=== PATIENT | male | born 1935 | race Caucasian/White ===

== ENCOUNTER 2016-07-06 14:45 | Inpatient (IN) ==
[~2016-07-06 14:45] MED LIST: *HR* Amiodarone 150 MG/3 ML VIAL IVPB ONE; *HR* Amiodarone Premix 150 MG/100 ML BAG IVPB ONE; *HR* Amiodarone Premix 360 MG/200 ML BAG IVC ONE; *HR* EPINEPHrine 1 MG/10 ML SYRINGE IVP ONE; *HR* Magnesium Sulfate 2 GM/50 ML PIGGYBACK IVPB ONE; *HR* Midazolam HCl 5 MG/5 ML VIAL IVP ONE
--- NOTE | 2016-07-06 14:53 | Emergency Department Note ---
Disposition Clinical Impression: Non-STEMI (non-ST elevated myocardial infarction) Chest pain Qualifiers: Chest pain type: unspecified Qualified Code(s): R07.9 - Chest pain, unspecified Disposition: Admitted As Inpatient Condition: Fair Referrals: Kings Kaiser MD [Primary Care Provider] - Forms: ED Satisfaction Letter Time of Disposition: 16:58 Chest Pain HPI - General Chief Complaint: ED Chest Pain Stated Complaint: chest pain Time Seen by Provider: 07/06/16 14:49 Source: patient, EMS Mode of arrival: EMS Limitations: no limitations Vital Signs Reviewed: Yes Nursing Notes Reviewed: Yes - History of Present Illness HPI Narrative: 80-year-old who developed chest pain about 2 hours prior to arrival describes as a heaviness in his chest. Has a history 6 stents. Denies radiation denies diaphoresis. Pt complaint: chest pain Onset (ago): Just [employer]ER Duration: constant Onset: during rest Pain Location: substernal, left chest Severity: mild, moderate Quality: tightness, aching Pain Radiation: none Improves with: nothing Worsens with: nothing Treatments prior to arrival chest pain: none - Related Data Allergies Allergy/AdvReac Type Severity Reaction Status Date / Time aspirin Allergy See Verified 07/06/16 14:47 Comments All systems ED: reviewed and negative except as stated. Constitutional: Denies: fever, chills, weakness, weight change Eyes: Denies: eye pain, eye discharge, vision change ENT ED: Denies: ear pain, throat pain, dental pain, hearing loss, epistaxis, congestion, dysphagia Cardiovascular: Reports: chest pain. Denies: palpitations, dyspnea on exertion , edema, syncope Respiratory: Denies: cough, dyspnea, wheezes, hemoptysis, stridor Gastrointestinal: Denies: abdominal pain, nausea, vomiting, diarrhea, constipation, hematemesis, melena, hematochezia Genitourinary: Denies: urgency, dysuria, frequency, hematuria Musculoskeletal: Denies: back pain, neck pain, arthralgia, myalgia Integumentary: Denies: rash, abrasion, lesions Neurological: Denies: headache, weakness, numbness, paresthesias, confusion, abnormal gait, vertigo Psychiatric: Denies: anxiety, depression, suicidal thoughts, homicidal thoughts , auditory hallucinations, visual hallucinations Endocrine: Denies: fatigue Hematological/Lymphatic: Denies: easy bleeding, easy bruising Allergic/Immunologic: Denies: facial swelling, urticaria Physical Exam - General Limitations: no limitations General appearance: alert, in no apparent distress - Head Head exam: atraumatic, normocephalic, normal inspection - Eye Eye exam: Present: normal appearance, PERRL, EOMI - ENT ENT exam: normal exam, normal oropharynx, mucous membranes moist - Neck Neck exam: Present: normal inspection, full ROM, trachea midline - Chest Chest inspection: Present: normal inspection, symmetric chest wall rise - Respiratory Respiratory exam: Present: normal lung sounds bilaterally - Cardiovascular Cardiovascular exam: Present: regular rate, normal rhythm, normal heart sounds - Abdominal Exam Abdominal exam: Present: soft, Non-Tender. Absent: tenderness, distention, guarding, rebound, rigidity - Extremities Exam Extremities exam: Present: normal inspection, full ROM. Absent: tenderness, pedal edema - Expanded Lower Extremity Exam Neurovascular/Tendon exam: Absent: motor deficit, sensory deficit, tendon deficit Gait: observed and normal - Back Exam Back exam: Present: normal inspection, full ROM. Absent: tenderness - Neurological Exam Neurological exam: Present: alert, oriented X3 - Psychiatric Psychiatric exam: Present: normal affect, normal mood - Skin Skin exam: Present: warm, dry, intact, normal color Course - Consultations Consultation #1: Discussed with , commends heparin and Plavix load. Initially the patient stated that he was not on any blood thinners that his stated that she thought he was we got into [facility] and he is on Plavix. Time: 16:55 Consultation #2: Discussed with , admit. Time: 17:02 Vital Signs Temperature 97.8 F 07/06/16 14:47 Pulse Rate 72 07/06/16 14:47 Respiratory Rate 17 07/06/16 14:47 Blood Pressure 116/74 07/06/16 14:47 O2 Sat by Pulse Oximetry 94 07/06/16 14:47 Temperature 97.8 F 07/06/16 14:47 Pulse Rate 66 07/06/16 16:52 Respiratory Rate 18 07/06/16 16:52 Blood Pressure 128/83 07/06/16 16:52 O2 Sat by Pulse Oximetry 95 07/06/16 16:52 Oxygen Delivery Oxygen Delivery Nasal Cannula Chest Pain - Lab Data Lab results reviewed: Yes I reviewed the patient's lab results. Result diagrams: 07/06/16 15:55 07/06/16 15:55 Lab Results 07/06/16 07/06/16 07/06/16 Range/Units 15:55 15:55 15:55 WBC 14.0 H (4.3-11.1) K/mcL RBC 4.70 (4.19-5.50) M/mcL Hgb 14.1 (12.9-16.9) g/dL Hct 44.4 (37.5-50.1) % MCV 94.5 (83.0-100.0) fL MCH 30.0 (28.0-33.3) pg MCHC 31.8 (31.6-35.5) g/dL RDW 14.9 H (11.5-14.5) % Plt Count 347 (140-400) K/mcL MPV 9.6 (9.4-12.4) fL Immature Gran % 0.6 (0-4) % Seg Neutrophils % 81.3 % Lymphocytes % 11.5 % Monocytes % 5.6 % Eosinophils % 0.6 % Basophils % 0.4 % Neutrophils # 11.4 H (1.6-8.9) K/mcL Lymphocytes # 1.6 (0.6-4.6) K/mcL Monocytes # 0.8 (0.0-1.3) K/mcL Eosinophils # 0.1 (0.0-0.6) K/mcL Basophils # 0.1 (0.0-0.2) K/mcL PT 11.3 (9.4-12.1) Seconds INR 1.0 APTT 27.7 (26.0-36.0) Seconds Sodium 136 (136-145) mEq/L Potassium 3.5 (3.5-4.5) mEq/L Chloride 102 (98-109) mEq/L Carbon Dioxide 26 (19-29) mEq/L BUN 16 (8-26) mg/dL Creatinine 1.12 (0.72-1.25) mg/dL Est GFR ( Amer) > 60 (> 60) Est GFR (Non-Af Amer) > 60 (> 60) BUN/Creatinine Ratio 14 (6-26) Glucose 355 H (70-99) mg/dL Calculated Osmolality 297 (280-300) Calcium 9.0 (8.6-10.8) mg/dL Troponin I (0-0.03) ng/mL 07/06/16 Range/Units 15:55 WBC (4.3-11.1) K/mcL RBC (4.19-5.50) M/mcL Hgb (12.9-16.9) g/dL Hct (37.5-50.1) % MCV (83.0-100.0) fL MCH (28.0-33.3) pg MCHC (31.6-35.5) g/dL RDW (11.5-14.5) % Plt Count (140-400) K/mcL MPV (9.4-12.4) fL Immature Gran % (0-4) % Seg Neutrophils % % Lymphocytes % % Monocytes % % Eosinophils % % Basophils % % Neutrophils # (1.6-8.9) K/mcL Lymphocytes # (0.6-4.6) K/mcL Monocytes # (0.0-1.3) K/mcL Eosinophils # (0.0-0.6) K/mcL Basophils # (0.0-0.2) K/mcL PT (9.4-12.1) Seconds INR APTT (26.0-36.0) Seconds Sodium (136-145) mEq/L Potassium (3.5-4.5) mEq/L Chloride (98-109) mEq/L Carbon Dioxide (19-29) mEq/L BUN (8-26) mg/dL Creatinine (0.72-1.25) mg/dL Est GFR ( Amer) (> 60) Est GFR (Non-Af Amer) (> 60) BUN/Creatinine Ratio (6-26) Glucose (70-99) mg/dL Calculated Osmolality (280-300) Calcium (8.6-10.8) mg/dL Troponin I 0.19 H* (0-0.03) ng/mL - EKG Data EKG attestation: Yes I reviewed and interpreted this EKG. EKG results narrative: Paced rhythm Heart Score - Score History: Moderately Suspicious EKG: Normal Age: Greater than 65 Risk Factors: Equal/Greater than 3 risk factor or history of atherosclerotic disease Troponin: 1-3x normal limit HEART Score Total: 6 Critical Care Time Critical Care Time: Yes Total Critical Care Time: 30 Attestation: The high probability of a clinically significant, sudden or life threatening deterioration of the [cardiovascular] system(s) required my full and direct attention, intervention and personal management. The aggregate critical care time was [30] minutes. This time is in addition to time spent performing reported procedures but includes the following: [x] Data Review and interpretation [x] Patient assessment and monitoring of vital signs [x] Documentation [x] Medication orders and management
[2016-07-06] MEDS ORDERED: *HR* Morphine 2 MG/ML SYRINGE IVP ONE (15:49)
[2016-07-06] MEDS ORDERED: Ondansetron 4 MG/2 ML VIAL IVP ONE (15:49)
[2016-07-06 16:11] LABS: Basophils # 0.1 K/mcL (0.0-0.2); Basophils % 0.4 %; Eosinophils # 0.1 K/mcL (0.0-0.6); Eosinophils % 0.6 %; Hematocrit 44.4 % (37.5-50.1); Hemoglobin 14.1 g/dL (12.9-16.9); Immature Granulocytes % 0.6 % (0-4); Lymphocytes # 1.6 K/mcL (0.6-4.6); Lymphocytes % 11.5 %; Mean Corpuscular HGB Conc 31.8 g/dL (31.6-35.5); Mean Corpuscular Volume 94.5 fL (83.0-100.0); Mean Platelet Volume 9.6 fL (9.4-12.4); Monocytes # 0.8 K/mcL (0.0-1.3); Monocytes % 5.6 %; Neutrophils # 11.4 K/mcL (1.6-8.9); Platelet Count 347 K/mcL (140-400); Red Cell Distribution Width 14.9 % (11.5-14.5); Segmented Neutrophils % 81.3 %
[2016-07-06 16:21] LABS: Prothrombin Time 11.3 Seconds (9.4-12.1)
[2016-07-06 16:23] LABS: Activated Partial Thrombo Time 27.7 Seconds (26.0-36.0)
[2016-07-06 16:32] LABS: BUN/Creatinine Ratio 14 (6-26); Blood Urea Nitrogen 16 mg/dL (8-26); Carbon Dioxide 26 mEq/L (19-29); Chloride 102 mEq/L (98-109); Glucose 355 mg/dL (70-99); Osmolality,Calculated 297 (280-300); Potassium 3.5 mEq/L (3.5-4.5); Sodium 136 mEq/L (136-145); eGFR For African Americans > 60 (> 60); eGFR For Non-African Americans > 60 (> 60)
[2016-07-06] MEDS ORDERED: *HR* Heparin 5,000 UNIT/ML VIAL IVP ONE (17:01)
[2016-07-06] MEDS ORDERED: Heparin 25,000 UNIT/500 ML D5W 25,000 UNIT/500 ML MLS IVC SCH (17:15)
[2016-07-06] MEDS ORDERED: *HR* Morphine 2 MG/ML SYRINGE IVP PRN (17:45)
[2016-07-06] MEDS ORDERED: Naloxone 0.4 MG/ML INJ IVP PRN (17:47)
[2016-07-06] MEDS ORDERED: Dextrose Gel 15 GM PO PRN ×2 (17:49)
[2016-07-06] MEDS ORDERED: D5% in Water 1,000 ML IVC PRN (17:49)
[2016-07-06] MEDS ORDERED: *HR* Dextrose 50 % in Water (Syg) 50 ML SYRINGE IVP PRN (17:49)
--- NOTE | 2016-07-06 18:16 | Internal Med History&Physical ---
Date of Encounter: 07/06/16 Time of Encounter: 18:00 Assessment and Plan (1) Non-STEMI (non-ST elevated myocardial infarction) Current visit: Yes Status: Acute Patient with acute non-ST elevation OR. Consult cardiology. Treat with IV heparin, Plavix, statin. Pain controlled with nitroglycerin and narcotic agents intravenously. High risk for complications. Admit inpatient. Patient will stay in the Hospital for at least 2 midnights. (2) Essential hypertension Current visit: Yes Status: Chronic Monitor blood pressure. Currently well controlled. Continue home medications for this condition. (3) Hyperlipidemia Current visit: Yes Status: Chronic Continue statin. Qualifiers: Hyperlipidemia type: mixed hyperlipidemia Qualified Code(s): E78.2 - Mixed hyperlipidemia (4) Coronary artery disease Current visit: Yes Status: Acute Patient with acute chest pain and underlying coronary artery disease. Continue Plavix, statin and beta bi. Consult cardiology. Nitroglycerin for chest pain. Qualifiers: Coronary Disease-Associated Artery/Lesion type: [place] artery [place] vs. transplanted heart: [place] heart Associated angina: with unstable angina Qualified Code(s): I25.110 - Atherosclerotic heart disease of [place] coronary artery with unstable angina pectoris (5) Diabetes mellitus, type 2 Current visit: Yes Status: Chronic Uncontrolled. We will check A1c level. 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 Langford is a 80 year old male patient with a history of coronary artery disease status post PCI and 6 stents, diabetes mellitus type 2, essential hypertension and hyperlipidemia presented to the ER with complaints of chest pain. This began this afternoon after the patient had eaten lunch. He began to have severe intense chest pain that initially felt like he was being "struck by lightning" and persisted radiating up to his jaw and arms. He took Tylenol and nitroglycerin at home without any relief of pain. Patient is listed as allergy to aspirin due to history of GI bleeding and ulcers. His called EMS and they brought him to the ER and she received morphine on his way here. This also did not help with his chest pain. He has a history of coronary artery disease and had previous stents. His last drink was about 2 years back. He apparently was told that she is here for 40% and he needed another stent but the artery was too narrow. He has however never had such severe chest pain before. He developed shortness of breath and sweats associated with it. Past Med Surg Social Fam HX - Past Medical History Attestation: Yes The following information was validated with the patient. Source: patient Medical history: cancer (Melanoma), diabetes, GERD, hyperlipidemia, hypertension , myocardial infarction, TIA, other - Social History Smoking Status: Never smoker Alcohol use: none Drug use: none Internal Medicine - H&P: Meds Allopurinol [Zyloprim 100 MG] 100 mg PO BID 07/06/16 [History] Amlodipine Besylate 10 mg PO DAILY 07/06/16 [History] Atenolol [Tenormin] 50 mg PO DAILY 07/06/16 [History] Clopidogrel [Plavix] 75 mg PO DAILY 07/06/16 [History] Furosemide [Lasix] 20 mg PO DAILY 07/06/16 [History] Lisinopril [Zestril] 40 mg PO DAILY 07/06/16 [History] Loperamide HCl [Imodium A-D] 2 mg PO BID PRN 07/06/16 [History] Omeprazole [PriLOSEC] 20 mg PO DAILY 07/06/16 [History] Potassium Chloride [K-Tab ER] 20 meq PO DAILY 07/06/16 [History] Pravastatin Sodium [Pravachol] 80 mg PO HS 07/06/16 [History] Allergies aspirin Allergy (Verified 07/06/16 14:47) See Comments urinate blood All Systems PM: A 10-system review of systems was performed and is negative for pertinent findings except as documented above in the HPI. - Constitutional Constitutional: no chills, no fever(s), no night sweats - EENT Eyes: no change in vision, no discharge, no pain, no photophobia Ears: no ear discharge, no ear pain, no tinnitus Nose, mouth and throat: no dysphagia, no nasal discharge, no neck pain, no sore throat - Cardiovascular Cardiovascular ROS IM: chest pain, diaphoresis, dyspnea, no lightheadedness, no palpitations, no syncope - Respiratory Respiratory: no cough, no dyspnea, no wheezing, no excessive phlegm production - Gastrointestinal Gastrointestinal: no abdominal pain, no diarrhea, no hematemesis, no hematochezia, no melena, no nausea, no vomiting - Musculoskeletal Musculoskeletal ROS IM: no numbness, no tingling - Integumentary Integumentary IM: no rash, no unusual bruising - Neurological Neurological ROS: no confusion, no convulsions, no focal weakness, no numbness, no tingling, no tremor(s) - Hematologic/Lymphatic Hematologic/Lymphatic: no easy bruising - Constitutional Vitals: Temp Pulse Resp BP Pulse Ox 97.8 F 66 18 128/83 95 07/06/16 14:47 07/06/16 16:52 07/06/16 16:52 07/06/16 16:52 07/06/16 16:52 General appearance: Present: cooperative, A&O X 3, answers questions appropriately Exam: Moderate distress - Eye Eye exam: Present: EOMI, PERRL, conjuntiva pink, sclera anicteric - Neck Neck exam general surgery: Present: supple, trachea midline. Absent: lymphadenopathy - Respiratory Respiratory exam: Present: CTAB. Absent: accessory muscle use, rales, rhonchi, wheezes - Cardiovascular Cardiovascular exam: Present: RRR, +S1, +S2. Absent: diastolic murmur, gallop, rubs, systolic murmur - GI/Abdominal GI/Abdominal exam: Present: normal bowel sounds, soft, no peritoneal signs. Absent: distended, tenderness - Extremities Exam Extremities exam: Present: warm, radial pulses palpable and symetrical. Absent : calf tenderness, cyanotic, pedal edema - Neurological Exam Neurological exam: Present: CN II-XII intact, oriented X3, no focal deficits. Absent: facial droop, speech deficit - Skin Skin exam: Present: dry, intact Additional comments: Melanomatic lesion noted on the right maxillary and mandibular region of the face Internal Med - H&P Results - Labs CBC & Chem 7: 07/06/16 15:55 07/06/16 15:55 - EKG Data EKG comments: 07/06/16 18:17 Paced rhythm - Impressions Impressions Chest X-Ray 07/06/16 14:52 IMPRESSION: Stable cardiomegaly and aortic/ coronary atherosclerosis. No acute abnormality. D/ / Nithin Whittaker MD / Nithin Whittaker MD Interpreting Provider: Nithin Whittaker MD - Attending Attestation This document has been at least partially created by VPEP recognition technology by Dr. Mcrae. Errors in grammar, wording or other phrases may exist. If errors are found after the documentation is signed, they will be addressed individually in the addendum section of this document when appropriate.
[2016-07-06] MEDS ORDERED: Nitroglycerin 25 MG/250 ML INFUS..BTL IVC SCH (18:30)
[2016-07-06] MEDS: *HR* HYDROmorphone (PF) 1 MG/ML SYRINGE IVP PRN ×2 (19:11→21:54)
[2016-07-06] MEDS ORDERED: Insulin DETEMIR 100 UNIT/ML X5UNITS SQ SCH (21:00)
[2016-07-06] MEDS ORDERED: Insulin LISPRO 300 UNITS/3 ML VIAL SQ SCH (21:00)
--- NOTE | 2016-07-06 22:55 | Event Note ---
<Davy Ebuanks - Last Filed: 07/07/16 09:07> Date of Encounter: 07/07/16 Time of Encounter: 22:55 Consulted because of elevated Trop .19 to >50. Patient still having CP, not worse or better since admission. He did get dose of Dilaudid prior. Denies SOB. No AMS. Is ambulatory at home. Patient not in acute distress, A&O x 3. Heart sounded irregular. Lungs are CTAB. EKG shows changes. Cardiology consulted, Dr. Schultz. Interventional cardiology called, Dr. Fernandes. EKG reviewed by Dr. Fernandes. Patient agrees to Cath. clinical lab assistant activated. Daughter and present in room. All questions answered.Patient on appropriate medical management. <WebsterJoshis - Last Filed: 07/14/16 00:34> Date of Encounter: 07/07/16 My signature below is to certify that this patient is under my care and that I, or the Resident Physician, Dr. Davy Eubanks, working with me, has had a face -to-face encounter with this patient. My medical decision-making was reviewed with the Resident Physician. For this encounter, I have reviewed the documentation, treatment plan, and medical decision making. I agree with the documented findings, disposition and treatment plan as described except to the extent set forth below.
[2016-07-07] MEDS ORDERED: Nitroglycerin 1,000 MCG/10 ML VIAL IV ONE (00:27)
[2016-07-07] MEDS ORDERED: Heparin 1,000 UNITS/500 mL NS 500 ML ONE (00:27)
[2016-07-07] MEDS ORDERED: 0.9 % Sodium Chloride 1,000 ML ONE ×2 (00:27→01:06)
[2016-07-07] MEDS ORDERED: *HR* Heparin 10,000 UNIT/10 ML VIAL ONE (00:27)
[2016-07-07] MEDS ORDERED: *HR* Bivalirudin 250 MG VIAL IVC ONE (00:35)
[2016-07-07] MEDS ORDERED: *HR* FentaNYL (PF) 100 MCG/2 ML VIAL ONE (00:49)
[2016-07-07] MEDS ORDERED: *HR* FentaNYL (PF) 250 MCG/5 ML VIAL ONE (01:02)
[2016-07-07] MEDS ORDERED: *HR* Midazolam HCl 5 MG/5 ML VIAL IVP ONE (01:02)
[2016-07-07] MEDS ORDERED: Naloxone 0.4 MG/ML INJ IVP PRN ×2 (01:05→02:43)
[2016-07-07] MEDS ORDERED: Nitroglycerin 25 MG/250 ML INFUS..BTL IVC SCH (01:05)
[2016-07-07] MEDS ORDERED: *HR* Dextrose 50 % in Water (Syg) 50 ML SYRINGE IVP PRN (01:05)
[2016-07-07] MEDS ORDERED: *HR* HYDROmorphone (PF) 1 MG/ML SYRINGE IVP PRN (01:05)
[2016-07-07] MEDS ORDERED: Dextrose Gel 15 GM PO PRN ×2 (01:05)
[2016-07-07] MEDS ORDERED: D5% in Water 1,000 ML IVC PRN (01:05)
[2016-07-07] MEDS ORDERED: *HR* Midazolam HCl 2 MG/2 ML VIAL IV ONE ×2 (01:15)
[2016-07-07] MEDS ORDERED: *HR* FentaNYL (PF) 100 MCG/2 ML VIAL IVP ONE ×2 (01:15)
[2016-07-07] MEDS ORDERED: *HR* Phenylephrine 10 MG/ML VIAL ONE (01:15)
[2016-07-07 01:22] LABS: ABG Base Excess -8.2 mEq/L (-2.0 to 3.0); ABG HCO3 19.3 mEQ/L (21-27); ABG Oxygen Saturation 97 % (95-98); ABG PCO2 46 mmHg (35-45); ABG PH 7.23 pH Units (7.32-7.45); ABG PO2 112 mmHg (85-104); ABG TCO2 20.7 mEq/L (20-26); Blood Gas FiO2 100 %; Blood Gas PEEP 5 cm H2O
[2016-07-07 01:29] LABS: Hemoglobin A1C 8.3 %
[2016-07-07] MEDS: Heparin 25,000 UNIT/500 ML D5W 25,000 UNIT/500 ML MLS IVC SCH ×2 (01:37→05:26)
[2016-07-07] MEDS ORDERED: 0.9 % Sodium Chloride 500 ML ONE (02:08)
[2016-07-07] MEDS ORDERED: *HR* Ticagrelor 90 MG TABLET ONE (02:24)
[2016-07-07] MEDS ORDERED: Nitroglycerin 0.4 MG TAB.SUBL SL PRN (02:35)
[2016-07-07] MEDS ORDERED: Ondansetron 4 MG/2 ML VIAL IVP PRN (02:35)
[2016-07-07] MEDS ORDERED: Acetaminophen 325 MG TABLET PO PRN (02:43)
[2016-07-07] MEDS ORDERED: Acetaminophen 650 MG RECTAL SUPP RC PRN (02:43)
[2016-07-07] MEDS ORDERED: *HR* LORazepam 2 MG/ML VIAL IVP PRN (02:43)
[2016-07-07] MEDS ORDERED: *HR* Midazolam HCl 2 MG/2 ML VIAL IVP ONE (02:43)
[2016-07-07] MEDS ORDERED: Lacri-Lube 3.5 GM TUBE BOTH EYES PRN (02:43)
[2016-07-07] MEDS ORDERED: Dexmedetomidine HCl 400 MCG/100 ML MLS IVC SCH (02:45)
[2016-07-07] MEDS: Amiodarone Premix 360 MG/200 ML BAG IVC ONE ×2 (02:45→04:51)
[2016-07-07] MEDS: Phenylephrine 10 MG in D5% in Water 250 ML IVC SCH ×2 (02:48→04:11)
--- NOTE | 2016-07-07 03:01 | Cardiology Consult Note ---
Date of Encounter: 07/07/16 Time of Encounter: 00:15 Assessment and Plan (1) STEMI (ST elevation myocardial infarction) Current Visit: Yes Status: Acute Pt with acute anterolateral STEMI- successful PTCA of previously stented LAD. Continue heparin gtt, Plavix, statin. Hold beta blockade and HUBER-I at this time due to hemodynamic instability. Pt reportedly allergic to aspirin. Currently on multiple pressors. Family updated after procedure and discussed that pt is critically ill at this time. Qualifiers: Involved coronary artery: L[place] coronary artery Qualified Code(s): I21.02 - ST elevation (STEMI) myocardial infarction involving left anterior descending coronary artery (2) Cardiogenic shock Current Visit: Yes Status: Acute Currently on multiple pressors. Will wean as tolerated. (3) Cardiopulmonary arrest with successful resuscitation Current Visit: Yes Status: Acute Cardiac arrest in setting of STEMI. (4) Coronary artery disease Current Visit: Yes Status: Chronic Qualifiers: Coronary Disease-Associated Artery/Lesion type: [place] artery [place] vs. transplanted heart: [place] heart Associated angina: with unstable angina Qualified Code(s): I25.110 - Atherosclerotic heart disease of [place] coronary artery with unstable angina pectoris (5) Hyperlipidemia Current Visit: Yes Status: Chronic Continue statin. Qualifiers: Hyperlipidemia type: mixed hyperlipidemia Qualified Code(s): E78.2 - Mixed hyperlipidemia Discussion w patient/family: The assessment and plan as outlined above was discussed with the patient and/or family members who expressed understanding and agreement. All questions were answered. Thank you for involving us in the care of your patient. Please call with any questions. History of Present Illness Consult date: 07/07/16 Consult reason: STEMI Chief complaint: Chest pain History of present illness: Mr. Langford is a 80 year old male with CAD s/p PCI, pacemaker, HTN, hyperlipidemia presented to [facility] ED with c/o severe CP. Pt unable to provide history- currently intubated, sedated. All history obtained from family, chart. Per , pt was in baseline state of health until earlier today. Had severe CP /jaw pain. Pt taken to [facility] ED for further evaluation and treatment. EKG upon arrival demonstrates paced rhythm with ST elevation in I, aVL, V3-V6 consistent with acute anterolateral STEMI. Pt admitted to floor as nonSTEMI, treated with heparin, NTG gtts. Pt continued to have ongoing pain throughout day. I was contacted by resident this evening at 11:26pm due to concerns regarding troponin > 50. Pt continued to have ongoing CP/jaw pain/SOB as well as nausea. STEMI alert activated. Upon arrival of laboratory development technician staff to room, pt went into VF. ACLS protocol initiated. CPR performed, defib x 2. Epinephrine , amiodarone administered. Pt intubated by RTs. Pt had ROSC. Pt taken emergently to cardiac catheterization lab for further evaluation/tx. Delay to laboratory development technician from time of STEMI alert due to cardiac arrest. Cardiac catheterization demonstrated 100% occlusion of previously stented prox/ mid LAD with visible thrombus. Pt had successful PTCA of LAD with faith of DAVINA 2 flow. RCA and Cx with nonobstructive disease. EF 20-25% with anterolateral/anteroapical akinesis. Pt taken to floor intubated, sedated, on multiple pressors, critically ill. Past Med Surg Social Fam HX - Past Medical History Source: old records reviewed, obtained from family Medical history: cancer, coronary artery disease, diabetes, GERD, hyperlipidemia , hypertension, myocardial infarction, TIA, other Psychiatric history: no psych history - Past Surgical History Surgical History: angioplasty/stent, herniorrhaphy, pacemaker - Social History Smoking Status: Never smoker Alcohol use: none Drug use: none Current living situation: Home, With Family - Family History Brother Hx Family Cardiac Disorders: Yes (multiple siblings with CAD) Medications and Allergies Allopurinol [Zyloprim 100 MG] 100 mg PO BID 07/06/16 [History] Amlodipine Besylate 10 mg PO DAILY 07/06/16 [History] Atenolol [Tenormin] 50 mg PO DAILY 07/06/16 [History] Clopidogrel [Plavix] 75 mg PO DAILY 07/06/16 [History] Furosemide [Lasix] 20 mg PO DAILY 07/06/16 [History] Lisinopril [Zestril] 40 mg PO DAILY 07/06/16 [History] Loperamide HCl [Imodium A-D] 2 mg PO BID PRN 07/06/16 [History] Omeprazole [PriLOSEC] 20 mg PO DAILY 07/06/16 [History] Potassium Chloride [K-Tab ER] 20 meq PO DAILY 07/06/16 [History] Pravastatin Sodium [Pravachol] 80 mg PO HS 07/06/16 [History] Allergies aspirin Allergy (Verified 07/06/16 14:47) See Comments urinate blood ROS unobtainable: due to endotracheal tube, other (emergency) All Systems Review: A 10-system review of systems was performed and is negative for pertinent findings except as documented above in the HPI. Physical Examination Vital Signs, Last 4 Hours Temp Pulse Resp BP Pulse Ox 07/06/16 23:40 97.9 F 80 18 128/84 91 07/06/16 23:20 126/96 07/06/16 23:10 134/85 07/06/16 23:00 129/101 07/06/16 22:50 146/104 General: Other (intubated, sedated, critically ill) HEENT: Atraumatic, Normocephaly, Mucus Membranes Moist Neck: No JVD, Normal carotid pulses Cardiac: Reg Rate and Rhythm, Normal S1 and S2, No Murmur Lungs: Normal Breath Sounds, No Wheeze, Rales, Rhonchi Neuro: Other (intubated, sedated) Abdomen: Soft, Non-Tender Skin: No rashes noted on visualized skin Musculoskeletal: No Chest Wall Tenderness Extremities: No Clubbing, No Cyanosis, No Edema, Normal Pulses Results 07/06/16 15:55 07/06/16 15:55 Lab Results 07/06/16 07/06/16 21:56 23:53 APTT 69.4 H D Troponin I > 50.00 H* - EKG Interpretation EKG results cardiology: personally reviewed, ventricular paced rhythm (V paced rhythm with acute anterolateral STEMI) Consult Discharge Plan - Plan Referrals: Kings Kaiser MD [Primary Care Provider] -
[2016-07-07] MEDS: 0.9 % Sodium Chloride 1,000 ML IVC SCH ×2 (03:33→19:19)
[2016-07-07 03:34] LABS: ABG Base Excess -4.4 mEq/L (-2.0 to 3.0); ABG Oxygen Saturation 90 % (95-98); ABG PCO2 50 mmHg (35-45); ABG PH 7.27 pH Units (7.32-7.45); ABG PO2 67 mmHg (85-104); ABG TCO2 24.5 mEq/L (20-26); Blood Gas FiO2 50 %
--- NOTE | 2016-07-07 03:39 | Invasive Diagnostic Lab Proc ---
Name: Ras Langford Date of Study: 07/07/2016 Date: 1935 Ht: 66.9in Medical Record#: [id number] Age: 80 Wt: 191.80lb Gender: Male BSA: 1.98 Order #: [id number] BMI: 30.1 Physicians Procedure Physician: Poppy Fernandes MD, [facility] Referring MD: Referring MD: Staff Name Position Time In Ilana Wang RN Upkeep Mechanic 01:00 AM Bernadette Redmond RT (R) Scrub 01:00 AM Samantha Gilbert RT (R) Monitor 01:00 AM Indications Indication Acute Coronary Syndrome Procedures Performed Procedure PRQ CARD REVASC OH 1 VSL Pre-Procedure Checklist Informed consent is complete signed and on chart. H\\T\\P is on chart. ID band is on and ID verified with patient. Patient NPO for procedure The procedure was described for the patient and questions were answered. Blood Pressure: 79/61 ECG is on chart. Rhythm: Paced Plan of Care Patient will tolerate the procedure without complications. Adequate level of comfort will be maintained. Hemodynamics will remain stable Patient will recover from procedure without complications. Respiratory function will be maintained. Cardiac rhythm will remain stable. Patient temperature will be maintained. Patient and/or family have verbalized understanding of the procedure. Patient Education Intravenous Access Time IV Size Location DC'd Fluid/Drip Rate Units RN 20g 1 1/4" Patent On Arrival Rt Arm Started with 18g needle 1 1/4" Lt Antecubital 0.9NaCl 999 ml/hr Ilana Wang RN Triple Lumen Rt Femoral Popyp Fernandes MD, [facility] Allergies aspirin Vital Signs Time BP (mmHg) HR (bpm) O2 Sat. RR (bpm) LOC 01:08 AM / % 1 = Reflexes present/moves spontaneously 01:08 AM / % 1 = Reflexes present/moves spontaneously 01:24 AM / % 1 = Reflexes present/moves spontaneously 01:39 AM / % 1 = Reflexes present/moves spontaneously 01:55 AM / % 1 = Reflexes present/moves spontaneously 01:05 AM 79 / 61 70 96 % 15 01:09 AM 73 / 40 60 94 % 11 01:14 AM 68 / 42 53 95 % 8 01:19 AM 76 / 45 73 96 % 12 01:24 AM 80 / 56 81 98 % 28 01:29 AM 89 / 53 81 98 % 16 01:34 AM 104 / 61 93 98 % 13 01:39 AM 109 / 57 89 98 % 10 01:44 AM 95 / 53 94 98 % 12 01:49 AM 106 / 55 89 97 % 12 01:54 AM 98 / 59 50 97 % 17 02:00 AM 100 / 54 93 96 % 12 02:04 AM 104 / 66 90 96 % 23 02:09 AM 107 / 69 70 96 % 22 02:14 AM 113 / 64 78 96 % 12 02:20 AM 103 / 62 % 02:24 AM 108 / 59 % 02:29 AM 109 / 60 88 % 11 Procedural Medications Time Medication Dose Units Method Given By 01:16 AM Heparin 3000 units Intravenous Ilana Wang RN 01:16 AM Dopamine 10 mcg/kg/min Intravenous Ilana Wang RN 01:21 AM Neosynephrine Bolus 100 mcg Intravenous Ilana Wang RN 01:26 AM Reopro Bolus: 10 ml Intracoronary Poppy Fernandes MD, FACC 01:29 AM Neosynephrine 100 mcg/min Intravenous Ilana Wang RN 01:33 AM Fentanyl 50 mcg Intravenous Ilana Wang RN 01:33 AM Nitroglycerin 200 mcg Intracoronary Poppy Fernandes MD, FACC 01:35 AM Dopamine 5 mcg/kg/min Intravenous Ilana Wang RN 01:42 AM Nitroglycerin 200 mcg Intracoronary Poppy Fernandes MD, FACC 01:51 AM Neosynephrine 180 mcg/min Intravenous Ilana Wang RN 02:03 AM Brilinta 180 mg OG Ilana Wang RN 01:08 AM Amiodarone 33.3 ml/hr Intravenous Ilana Wang RN 02:20 AM Versed 2 mg Intravenous Ilana Wang RN ASA Classification: CLASS IV- Severe systemic that is constant threat to patient's life Martin Score Preprocedure Postprocedure Activity 0- Unable to move extremities or lift head Activity 0- Unable to move extremities or lift head Circulation 2- SBP +/= 20 points of pre-anesthetic level Circulation 2- SBP +/= 20 points of pre-anesthetic level Consciousness 0- Non-responsive Consciousness 0- Non-responsive O2 Saturation 2- Able to maintain O2 satruation of 92% on room air O2 Saturation 2- Able to maintain O2 satruation of 92% on room air Respiratory 0- Apneic requires ventilator or assisted respiration Respiratory 0- Apneic requires ventilator or assisted respiration Total Score 4 Total Score 4 Contrast Agent: Isovue Diagnostic Contrast: 161 ml Total Contrast: 161 ml Fluoro Dose: 947 mGy Activated Clotting Time Time Seconds to Clot 01:40 AM 239 02:08 AM 246 Procedure Log Time Note Enter By 12:25 AM CathStat 01:00 AM Ilana Wang RN Position: Upkeep Mechanic Time in: : dspell:00 AM Bernadette Redmond RT (R) Position: Scrub Time in: : dspell:00 AM Samantha Gilbert RT (R) Position: Monitor Time in: : dspell:00 AM Patient charges- Angio tray pack, Navilyst 3mm J, Pulse Oximetry and ACIST tubing and transducer dspell:00 AM IV Supplies used: J loop Angio Cath. dspell:00 AM Physician arrived :00 ell:04 AM Vitals capture started with the following parameters, Patient=Adult, Interval=5 min, Initial Ejxoskbt=714 mmHg, Deflation Rate=5 mmHg, Cuff placed on Left Arm 01:05 AM HR=70 bpm, NIBP=79/61 mmhg, SpO2=96.0 %, Resp=15 B/min 01:08 AM Case Start 01:08 AM Procedure start :08 :08 AM Time: :08 Amiodarone 33.3 ml/hr Intravenous Given by Ilana Wang RN Rome pump dspell:08 AM Pt arrived to laboratory veterinarian 2 at :08 [email or web address] AM Time: :08 Patient comfortable and pain free: Yes dspell:08 AM Time: :08LOC: 1 = Reflexes present/moves spontaneously dspell:09 AM PT arrived to the lab as a CODE from [id number] Intubated, with Amiodorone drip @33.3 ml/hr, Dopamine drip @10mcg/kg/min dspell:09 AM HR=60 bpm, NIBP=73/40 mmhg, SpO2=94 %, Resp=11 B/min 01:10 AM Time out performed according to hospital policy dspellman 01:10 AM Hair removed from procedure site in procedure lab using clippers. Right groin prepped with Chloraprep by Samantha Gilbert RT (R), safety strap applied then patient was draped. Skin intact. dsp:11 AM Access obtained by percutaneous puncture. 6Fr 10cm Terumo [place] sheath placed in right Femoral artery. [id number] dspell:12 AM PCI Status Emergency dspell:12 AM PCI Indication: Immediate PCI for STEMI dspell:12 AM PCI lesion in Prox LAD. Pre Stenosis:100 Pre DAVINA Flow: 0 dspell:12 AM PCI lesion in Prox LAD. dspell:12 AM Pressure channel 1 zeroed. 01:13 AM Recorded Pressure: Ao, HR=74, Condition=Condition 1 (Aorta) Ao 62/-9/18 01:14 AM 6Fr XB LAD 3.5 Cordis guide catheter was used to cannulate the PCI vessel successfully. reused? No dspell:14 AM Recorded Pressure: Ao, HR=71, Condition=Condition 1 (Aorta) Ao 49/33/41 01:14 AM .014 PT Graphix 182cm guide wire across target lesion- successful. reused? No :14 AM Inflation device was opened. dsp:14 AM HR=53 bpm, NIBP=68/42 mmhg, SpO2=95.0 %, Resp=8 B/min 01:14 AM ACT drawn dsp 01:14 AM ACT 168 dspell 01:15 AM ASA Class CLASS IV- Severe systemic that is constant threat to patient's life dspell:16 AM Time: 01:16 Heparin 3000 units Intravenous Given by Ilana Wang RN dspell 01:17 AM Time: 01:16 Dopamine 10 mg/kg/min Intravenous Given by Ilana Wang RN Rome pump dspell:18 AM .014 PT Prowater 190cm guide wire placed in the CIRC- successful. reused? No dspell:19 AM 2.0 mm x 15 mm Emerge Monorail balloon across target lesion- successful. reused? No dspell:19 AM Balloon inflated @ 14 karen for 20 seconds dspell:19 AM Balloon inflated @ 14 karen for 20 seconds dspellman 01:19 AM HR=73 bpm, NIBP=76/45 mmhg, SpO2=96.0 %, Resp=12 B/min 01:20 AM Balloon inflated @ 14 karen for 20 seconds dspellman 01:20 AM Balloon inflated @ 14 karen for 16 seconds dspellman 01:21 AM Balloon inflated @ 14 karen for 15 seconds dspellman 01:21 AM Time: 01:21 Neosynephrine 100 mcg Intravenous Given by Ilana Wang RN dspellman 01:22 AM Balloon inflated @ 14 karen for 20 seconds dspellman 01:22 AM Balloon inflated @ 14 karen for 20 seconds dspellman 01:23 AM Balloon inflated @ 14 karen for 20 seconds dspellman :23 AM Recorded Pressure: Ao, HR=85, Condition=Condition 1 (Aorta) Ao 56/39/47 01:24 AM Time: 01:08LOC: 1 = Reflexes present/moves spontaneously dspell 01:24 AM HR=81 bpm, NIBP=80/56 mmhg, SpO2=98.0 %, Resp=28 B/min 01:25 AM Recorded Pressure: Ao, HR=89, Condition=Condition 1 (Aorta) Ao 66/39/51 01:25 AM Time: 01:08 Patient comfortable and pain free: Yes dspell 01:26 AM Guide wire removed intact. PROWATER dspell:26 AM Time: 01:26 Reopro Bolus: 10 ml Intracoronary Given by Poppy Fernandes MD, [facility] Rome pump dspell 01:28 AM 3.0 mm x20 mm NC Emerge balloon across target lesion- successful. reused? No dspellman 01:28 AM ACT drawn dspellman 01:29 AM HR=81 bpm, NIBP=89/53 mmhg, SpO2=98.0 %, Resp=16 B/min 01:29 AM Recorded Pressure: Ao, HR=82, Condition=Condition 1 (Aorta) Ao 67/36/51 01:30 AM Time: 01:29 Neosynephrine 100 mcg/min Intravenous Given by Ilana Wang RN Rome pump dspellman 01:30 AM Balloon inflated @ 20 karen for 20 seconds dspellman 01:30 AM Balloon inflated @ 20 karen for 20 seconds dspellman 01:30 AM Balloon inflated @ 20 karen for 10 seconds dspellman 01:31 AM Recorded Pressure: Ao, HR=95, Condition=Condition 1 (Aorta) Ao 65/36/48 01:32 AM Balloon catheter removed intact. dspellman 01:33 AM Time: 01:33 Fentanyl 50 mcg Intravenous Given by Ilana Wang RN dspellman 01:33 AM Time: 01:33 Nitroglycerin 200 mcg Intracoronary Given by Ilana Wang RN dspellman 01:34 AM HR=93 bpm, DRJX=063/61 mmhg, SpO2=98.0 %, Resp=13 B/min 01:34 AM Recorded Pressure: Ao, HR=97, Condition=Condition 1 (Aorta) Ao 74/42/55 01:35 AM Time: 01:35 Dopamine 5 mg/kg/min Intravenous Given by Ilana Wang RN Rome pump dspellman 01:36 AM Recorded Pressure: Ao, HR=99, Condition=Condition 1 (Aorta) Ao 52/41/45 01:37 AM ACT drawn dspellman 01:37 AM 3.0 mm x 15 mm Flextome Monorail cutting balloon across target lesion- successful. reused? No dspellman 01:39 AM HR=89 bpm, PPZM=323/57 mmhg, SpO2=98.0 %, Resp=10 B/min 01:39 AM Time: 01:24LOC: 1 = Reflexes present/moves spontaneously dspellman 01:40 AM Balloon inflated @ 12 karen for 60 seconds dspellman 01:40 AM Time: 01:25 Patient comfortable and pain free: Yes dspellman 01:41 AM At 01:40 the ACT was 239 seconds. dspellman 01:41 AM Cutting balloon catheter removed intact. dspellman 01:42 AM Time: 01:42 Nitroglycerin 200 mcg Intracoronary Given by oPppy Fernandes MD, [facility] dspellman 01:43 AM Recorded Pressure: Ao, HR=80, Condition=Condition 1 (Aorta) Ao 72/41/54 01:44 AM HR=94 bpm, NIBP=95/53 mmhg, SpO2=98.0 %, Resp=12 B/min 01:45 AM Guide wire removed intact. dspellman 01:46 AM Guide catheter removed intact. dspellman 01:47 AM 5Fr FR 4 catheter inserted over the wire [facility] dspellman 01:47 AM RCA angiography performed in multiple views. dspellman 01:48 AM Catheter removed dspellman 01:49 AM 5Fr Pigtail catheter inserted over the wire DNC dsp 01:49 AM Catheter selectively placed in left ventricle dspell 01:49 AM Bolus angiogram of left Ventricle complete: 8 ml/sec for a total of 24 mls dspell 01:49 AM HR=89 bpm, KETS=767/55 mmhg, SpO2=97.0 %, Resp=12 B/min 01:50 AM Recorded Pressure: LV, HR=84, Condition=Condition 1 (Left Ventricle) LV 64/19/24 01:50 AM Recorded Pressure: LV, Ao, HR=79, Condition=Condition 1 (Left Ventricle) LV 66/21/27, (Aorta) Ao 66/46/56 01:50 AM Catheter removed 01:51 AM Time: 01:51 Neosynephrine 180 mcg/min Intravenous Given by Ilana Wang RN Rome pump dsp 01:52 AM Bolus angiogram of right Femoral complete: 4 ml/sec for a total of 7 mls :52 AM Recorded Pressure: Ao, HR=67, Condition=Condition 1 (Aorta) Ao 82/40/55 01:53 AM ACT drawn dsp 01:54 AM HR=50 bpm, NIBP=98/59 mmhg, SpO2=97.0 %, Resp=17 B/min 01:55 AM Time: 01:39LOC: 1 = Reflexes present/moves spontaneously dsp:56 AM Time: 01:40 Patient comfortable and pain free: Yes dsp:56 AM prepping right groin for Central Line access dsp:59 AM central line placed in the right femoral vein dsp:59 AM Recorded Pressure: Ao, HR=75, Condition=Condition 1 (Aorta) Ao 92/46/63 02:00 AM HR=93 bpm, DEAF=444/54 mmhg, SpO2=96.0 %, Resp=12 B/min 02:00 AM suturing central line in place with 2-0 Silk 02:03 AM Time: 02:03 Brilinta 180 mg OG Given [facility] 02:04 AM HR=90 bpm, ZAHI=817/66 mmhg, SpO2=96.0 %, Resp=23 B/min 02:06 AM Recorded Pressure: Ao, HR=75, Condition=Condition 1 (Aorta) Ao 93/44/63 02:08 AM At 02:08 the ACT was 246 seconds. dspell 02:09 AM HR=70 bpm, UCDM=134/69 mmhg, SpO2=96.0 %, Resp=22 B/min 02:11 AM Time: 01:56 Patient comfortable and pain free: Yes dspell 02:11 AM Time: 01:55LOC: 1 = Reflexes present/moves spontaneously dspell 02:12 AM Procedure completed at 02:12 dspellman 02:14 AM HR=78 bpm, NSKG=918/64 mmhg, SpO2=96.0 %, Resp=12 B/min 02:18 AM Coronary Dominance: right dspell 02:20 AM Time: 02:20 Versed 2 mg Intravenous Given by Ilana Wang RN dspell 02:20 AM ZQSP=909/62 mmhg 02:24 AM EBTX=934/59 mmhg 02:28 AM Lesion found in Proximal LAD. Pre Stenosis: 100 Pre DAVINA Flow: 0: No Flow/No perfusion dspellman 02:28 AM Lesion found in Distal LAD. Pre Stenosis: 30 Pre DAVINA Flow: dspellman 02:28 AM Lesion found in Proximal Circumflex. Pre Stenosis: 30 Pre DAVINA Flow: dspellman 02:28 AM Lesion found in 1st Marginal. Pre Stenosis: 30 Pre DAVINA Flow: dspellman 02:29 AM Lesion found in Proximal LAD. Pre Stenosis: 30 Pre DAVINA Flow: dspellman 02:29 AM Lesion found in Mid LAD. Pre Stenosis: 30 Pre DAVINA Flow: dspellman 02:29 AM HR=88 bpm, NDLV=155/60 mmhg, Resp=11 B/min 02:30 AM Lesion found in Distal LAD. Pre Stenosis: 30 Pre DAVINA Flow: dspellman 02:30 AM Lesion found in LMCA. Pre Stenosis: 20 Pre DAVINA Flow: dspellman 02:38 AM Burrows placed, clear yellow urine returned Placed by Char Li RN/ICU dspelldilma 02:39 AM OG tube placed by Char Li RN/ICU dspellman 02:40 AM Report given to Mikey MARINA Pt taken to ICU Room #. 02:40 dspellman 02:40 AM Patient out of room: 02:40 dspellman 02:40 AM Family placed in consult room. dspellman 02:40 AM Complications: None dspellman 02:40 AM Fluoro Time: 10.7 dspellman 02:40 AM Isovue 370 - 200ml contrast 161 ml given by Poppy Fernandes MD, [facility]. dspellman 02:41 AM Radiation Dose 947.09 mGy dspellman 03:02 AM Arterial Sheath left in place to be pulled on floor dspellman 03:03 AM Post ECG Paced dspellman 03:03 AM Post Blood Pressure 108/59 dspellman 03:06 AM 03:06 Post Pulses Rt Radial 2+ dspellman 03:06 AM 03:06 Post Pulses Rt Radial 2+ dspellman 03:07 AM Site status No bleeding/hematoma - Rt Groin as reported by Bernadette Redmond RT (R) at 03:06 dspellman 03:07 AM Opsite applied dspellman Complications Complication None Hemodynamics Pressures Site Systolic/A Wave Diastolic/V Wave Mean AO 62 -9 18 AO 49 33 41 AO 56 39 47 AO 66 39 51 AO 67 36 51 AO 65 36 48 AO 74 42 55 AO 52 41 45 AO 72 41 54 LV 64 19 24 LV 66 21 27 AO 66 46 56 AO 82 40 55 AO 92 46 63 AO 93 44 63 Post Procedure Information Blood Pressure: 108/59 mmHg Rhythm: Paced Site Checks Time Location Status Staff Sheath In? Note 03:06 AM Rt Groin No bleeding/hematoma Bernadette Redmond RT (R) Yes Arterial and Venous sheaths present Pulses Time Site Pre-Procedure Post-Procedure Note 1:08:00 AM Rt Radial 2+ 3:06:00 AM Rt Radial 2+ 07/07/2016 3:06:00 AM Rt Femoral 1+ Updated by Ilana Wang RN on 07/07/2016 3:33:40 AM Samantha Gilbert RT electronically signed on 07/07/2016 3:35:32 AM with status of Final
[2016-07-07] MEDS: Lacri-Lube 3.5 GM TUBE BOTH EYES SCH ×3 (03:41→11:25)
[2016-07-07 04:05] LABS: Basophils % 0.2 %; Hemoglobin 14.7 g/dL (12.9-16.9)
[2016-07-07 04:07] LABS: Basophils # 0.1 K/mcL (0.0-0.2); Hematocrit 45.1 % (37.5-50.1); Immature Granulocytes % 1.5 % (0-4); Immature Platelets 40.7 % (1.1-6.1); Lymphocytes % 5.2 %; Mean Corpuscular HGB Conc 32.6 g/dL (31.6-35.5); Mean Corpuscular Volume 95.1 fL (83.0-100.0); Mean Platelet Volume 12.6 fL (9.4-12.4); Monocytes # 1.6 K/mcL (0.0-1.3); Monocytes % 6.5 %; Neutrophils # 20.8 K/mcL (1.6-8.9); Red Blood Count 4.74 M/mcL (4.19-5.50); Red Cell Distribution Width 14.7 % (11.5-14.5); Segmented Neutrophils % 86.6 %
[2016-07-07 04:10] LABS: Lymphocytes # 1.3 K/mcL (0.6-4.6); Platelet Count 79 K/mcL (140-400)
[2016-07-07 04:17] LABS: Albumin 3.6 g/dL (3.5-5.0); Albumin/Globulin Ratio 0.9 (1.1-2.2); Bilirubin,Direct 0.3 mg/dL (0.0-0.5); Bilirubin,Indirect 0.2 mg/dL (0.0-1.2); Bilirubin,Total 0.5 mg/dL (0.2-1.2); Globulin 3.8 g/dL (2.4-3.5); Magnesium 2.3 mg/dL (1.6-2.6); Phosphorous 2.9 mg/dL (2.3-4.7); Total Protein 7.4 g/dL (6.0-8.3)
[2016-07-07 04:19] LABS: BUN/Creatinine Ratio 13 (6-26); Blood Urea Nitrogen 17 mg/dL (8-26); Calcium 9.1 mg/dL (8.6-10.8); Carbon Dioxide 21 mEq/L (19-29); Chloride 99 mEq/L (98-109); Glucose 387 mg/dL (70-99); Osmolality,Calculated 294 (280-300); Potassium 3.3 mEq/L (3.5-4.5); Sodium 133 mEq/L (136-145); eGFR For African Americans > 60 (> 60); eGFR For Non-African Americans 51 (> 60)
[2016-07-07] MEDS ORDERED: Potassium Phosphate 44 MEQ in 0.9 % Sodium Chloride 250 ML IVPB PRN (04:24)
[2016-07-07] MEDS ORDERED: Calcium Gluconate 1,000 MG in D5% in Water 100 ML IVPB PRN (04:24)
[2016-07-07] MEDS ORDERED: Magnesium Sulfate 2 GM in D5% in Water 100 ML IVPB PRN (04:24)
[2016-07-07] MEDS ORDERED: Potassium Chloride 40 MEQ/200 ML BAG IVPB PRN (04:24)
[2016-07-07] MEDS ORDERED: Sodium Phosphate 30 MMOL in D5% in Water 100 ML IVPB PRN (04:24)
[2016-07-07 04:31] LABS: ABG Base Excess -5.5 mEq/L (-2.0 to 3.0); ABG Oxygen Saturation 88 % (95-98); ABG PCO2 49 mmHg (35-45); ABG PH 7.26 pH Units (7.32-7.45); ABG PO2 64 mmHg (85-104); ABG TCO2 23.5 mEq/L (20-26)
[2016-07-07 04:32] LABS: Blood Gas FiO2 50 %
--- NOTE | 2016-07-07 06:22 | Event Note ---
<Davy Eubanks - Last Filed: 07/07/16 09:17> Date of Encounter: 07/07/16 Time of Encounter: 01:00 Reason: Code blue. Previously: Patient had troponin elevation from .1 to >50 with EKG changes. Interventional Cardiology consulted. activated dairy and food laboratory assistant. Current: As told to me by the and nurse. section laborer team present to take patient. Patient was talking normally then all the sudden "his eyes rolled in the back of his head and he slumped over" said the . Code called. Dr. Eubanks was present shortly after code was called, instructed staff to feel for a pulse. No carotid or femoral pulses felt, compressions started. Pads placed on patient. Difficult to place pads because of hair and sweat. Within a minute other physicans showed up, including my attending. Patient displayed VF. Epi and amioderone administered. 2 shocks given. Patient intubated and sedated by RT. and daughter present in code stating "I want to be in here". ROSC. Patient taken to dairy and food laboratory assistant. Later: Visited patient afterward (around 8pm following stent placement). at bedside. She was thankful that the cath team was present and ready to take patient following code. States "I was a mess. Very thankful for you all. Thank you". has been informed on the extent of the blockage, what was done during the cath. Patient is currently intubated, pressers are being decreased and blood pressure stable. Possible extubation today. Answered all questions and concerns. <DarinJosh Domo - Last Filed: 07/14/16 00:39> Date of Encounter: 07/07/16 My signature below is to certify that this patient is under my care and that I, or the Resident Physician, Davy Calixto, working with me, has had a face -to-face encounter with this patient. I examined this patient and my medical decision-making was reviewed with the Resident Physician. For this encounter, I have reviewed the documentation, treatment plan, and medical decision making. I agree with the documented findings, disposition and treatment plan as described.
[2016-07-07 06:24] LABS: ABG Base Excess -5.1 mEq/L (-2.0 to 3.0); ABG HCO3 21.6 mEQ/L (21-27); ABG Oxygen Saturation 89 % (95-98); ABG PCO2 45 mmHg (35-45); ABG PH 7.29 pH Units (7.32-7.45); ABG PO2 64 mmHg (85-104)
[2016-07-07 06:26] LABS: Blood Gas FiO2 70 %
[2016-07-07] MEDS ORDERED: Insulin LISPRO 300 UNITS/3 ML VIAL SQ SCH ×2 (07:30→21:00)
[2016-07-07] MEDS: Docusate Oral Soln 100 MG/10 ML UDC GTUBE SCH ×2 (07:33→20:04)
[2016-07-07] MEDS: Insulin LISPRO 300 UNITS/3 ML VIAL SQ SCH ×2 (07:33→11:26)
[2016-07-07] MEDS: Furosemide 20 MG TABLET PO SCH (07:33)
[2016-07-07] MEDS ORDERED: Furosemide 40 MG/4 ML VIAL IVP ONE (07:36)
--- NOTE | 2016-07-07 08:56 | Pulmonology Consult Note ---
Date of Encounter: 07/07/16 Time of Encounter: 08:30 Assessment and Plan (1) Cardiogenic shock Current Visit: Yes Status: Acute 1. Cardiogenic shock NSTEMI evolved to STEMI evolved to cardiac arrest w/ROSC Hx Pacemaker, stent x6, DM II, HTN, HLD Intubated 07/06/16. Extubated 07/08/16. 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 S/P PTCA of LAD, RCA and Cx non-obstructed. EF 20-25% with anterolateral/ anterapical akinesis. Bedside ultrasound 07/07/16 shows poor left ventricular contractility. no pericardial effusion. Likely some component of myocardial stunning s/p CPR and STEMI. Appreciate cardiology's input. Avoid beta bi, HUBER-I Avoid aspirin - allergy - Continue pressors - Levophed; attempt to wean - Continue amiodarone drip - Heparin gtt - Plavix - Statin - Lasix 40mg IVP Qday 2. Pulmonary edema Bedside ultrasound suspicious for left sided pulmonary edema. - Plan as above 3. 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 - Plan as above. 4. STEMI Troponin 0.19 > (>50) > (>50) -Plan as above 5. CAD hx 6 stents - Plan as above 6. Benign essential hypertension - Plan as above 7. Hyperlipidemia - Plan as above 8. DM II - POC Glucose [facility] - D/C Levimir and SS insulin - Begin insulin drip Other: DVT prophylaxis: heparin PUD prophylaxis: protonix Electolyte protocol Diet: NPO (2) Pulmonary edema Current Visit: Yes Status: Acute Qualifiers: Qualified Code(s): J81.0 - Acute pulmonary edema (3) Cardiopulmonary arrest with successful resuscitation Current Visit: Yes Status: Acute (4) STEMI (ST elevation myocardial infarction) Current Visit: Yes Status: Acute Qualifiers: Involved coronary artery: LAD coronary artery Qualified Code(s): I21.02 - ST elevation (STEMI) myocardial infarction involving left anterior descending coronary artery (5) Coronary artery disease Current Visit: Yes Status: Chronic Qualifiers: Coronary Disease-Associated Artery/Lesion type: [place] artery [place] vs. transplanted heart: [place] heart Associated angina: with unstable angina Qualified Code(s): I25.110 - Atherosclerotic heart disease of [place] coronary artery with unstable angina pectoris (6) Essential hypertension Current Visit: No Status: Chronic (7) Hyperlipidemia Current Visit: Yes Status: Chronic Qualifiers: Hyperlipidemia type: mixed hyperlipidemia Qualified Code(s): E78.2 - Mixed hyperlipidemia (8) Diabetes mellitus, type 2 Current Visit: Yes Status: Chronic Qualifiers: Diabetes mellitus complication status: with hyperglycemia Diabetes mellitus nursing home insulin use: without nursing home use Qualified Code(s): E11.65 - Type 2 diabetes mellitus with hyperglycemia History of Present Illness Consult date: 07/07/16 Requesting physician: Robert Mcrae Reason for consult: other (ICU mgmt) Chief complaint: chest pain History of present illness: ICU day 1 Mr. Langford, an 80yo male, presented to the ER yesterday with chief complaint chest pain. Hx pacemaker, CAD w/6 stents, HTN, HLD, DM II. Admitted with NSTEMI. This progressed to STEMI to cardiac arrest. ROSC achieved. Patient transferred to ICU for intensive management. Patient is intubated, and daughter at bedside. They understand the severity of the patient condition. They have no additional questions at this time. Past Med Surg Social Fam HX - Past Medical History Medical history: cancer, coronary artery disease, diabetes, GERD, hyperlipidemia , hypertension, myocardial infarction, TIA, other Psychiatric history: no psych history - Past Surgical History Surgical History: angioplasty/stent, herniorrhaphy, pacemaker - Social History Smoking Status: Never smoker Alcohol use: none Drug use: none - Family History Brother Hx Family Cardiac Disorders: Yes (multiple siblings with CAD) Medications and Allergies Allopurinol [Zyloprim 100 MG] 100 mg PO BID 07/06/16 [History] Amlodipine Besylate 10 mg PO DAILY 07/06/16 [History] Atenolol [Tenormin] 50 mg PO DAILY 07/06/16 [History] Clopidogrel [Plavix] 75 mg PO DAILY 07/06/16 [History] Furosemide [Lasix] 20 mg PO DAILY 07/06/16 [History] Lisinopril [Zestril] 40 mg PO DAILY 07/06/16 [History] Loperamide HCl [Imodium A-D] 2 mg PO BID PRN 07/06/16 [History] Omeprazole [PriLOSEC] 20 mg PO DAILY 07/06/16 [History] Potassium Chloride [K-Tab ER] 20 meq PO DAILY 07/06/16 [History] Pravastatin Sodium [Pravachol] 80 mg PO HS 07/06/16 [History] Allergies aspirin Allergy (Verified 07/06/16 14:47) See Comments urinate blood ROS unobtainable: due to endotracheal tube All Systems: A 10-system review of systems was performed and is negative for pertinent findings except as documented above in the HPI. Physical Examination Vital Signs: Vital Signs, Last 4 Hours Temp Pulse Resp BP Pulse Ox 07/07/16 08:10 17 91 07/07/16 08:00 61 16 100/56 96 07/07/16 07:43 17 91 07/07/16 07:39 96.4 F L 07/07/16 07:27 75 07/07/16 07:00 96.4 F L 75 16 108/58 94 07/07/16 06:11 16 93 07/07/16 05:55 67 16 102/58 94 07/07/16 05:35 97.5 F L 07/07/16 04:55 97.5 F L General appearance: no acute distress, other (intubated, sedated) Eyes: nonicteric ENT: oropharynx moist Neck: supple Effort: normal Inspection: normal Auscultation: bilateral: clear Cardiovascular: regular rate and rhythm Gastrointestinal: normoactive bowel sounds, soft, non-tender, non-distended Integumentary: normal Extremities: no cyanosis, no edema, no clubbing, pink and warm, pulses normal, no ischemia or petechiae Musculoskeletal: no deformities unable to assess due to mental status Ventilator Settings Ventilator Settings: Ventilator Settings, Last 8 Hours Ventilator Mode A/C Ventilator Mode A/C Ventilator Mode A/C Ventilator Mode A/C Ventilator Mode A/C Ventilator Mode A/C Ventilator Mode A/C Ventilator Mode A/C Ventilator Mode A/C Ventilator Mode A/C Ventilator Mode A/C Ventilator Mode A/C Ventilator Mode A/C Ventilator Tidal Volume 500 Setting Ventilator Tidal Volume 500 Setting Ventilator Tidal Volume 500 Setting Ventilator Tidal Volume 500 Setting Ventilator Tidal Volume 550 Setting Ventilator Tidal Volume 550 Setting Ventilator Tidal Volume 550 Setting Ventilator Tidal Volume 550 Setting Ventilator Tidal Volume 550 Setting Ventilator Tidal Volume 550 Setting Ventilator Tidal Volume 550 Setting Ventilator Tidal Volume 550 Setting Ventilator Tidal Volume 550 Setting Ventilator Respiratory Rate 16 Setting Ventilator Respiratory Rate 16 Setting Ventilator Respiratory Rate 16 Setting Ventilator Respiratory Rate 16 Setting Ventilator Respiratory Rate 12 Setting Ventilator Respiratory Rate 12 Setting Ventilator Respiratory Rate 12 Setting Ventilator Respiratory Rate 12 Setting Ventilator Respiratory Rate 12 Setting Ventilator Respiratory Rate 12 Setting Ventilator Respiratory Rate 12 Setting Ventilator Respiratory Rate 12 Setting Ventilator Respiratory Rate 12 Setting Actual Respiratory Rate 17 Actual Respiratory Rate 16 Actual Respiratory Rate 16 Actual Respiratory Rate 12 Actual Respiratory Rate 12 Actual Respiratory Rate 14 Actual Respiratory Rate 13 Positive End Expiratory 8 Pressure Positive End Expiratory 5 Pressure Positive End Expiratory 5 Pressure Positive End Expiratory 5 Pressure Positive End Expiratory 5 Pressure Positive End Expiratory 5 Pressure Positive End Expiratory 5 Pressure Positive End Expiratory 5 Pressure Positive End Expiratory 5 Pressure Positive End Expiratory 5 Pressure Positive End Expiratory 5 Pressure Positive End Expiratory 5 Pressure Positive End Expiratory 5 Pressure Peak Inspiratory Airway 26 Pressure Peak Inspiratory Airway 21 Pressure Peak Inspiratory Airway 21 Pressure Peak Inspiratory Airway 22 Pressure Peak Inspiratory Airway 23 Pressure Peak Inspiratory Airway 23 Pressure Peak Inspiratory Airway 33 Pressure Results - Laboratory Findings CBC and BMP: 07/07/16 03:52 07/07/16 03:52 ABG ABG pH 7.29 pH Units (7.32-7.45) L 07/07/16 06:10 ABG pCO2 45 mmHg (35-45) 07/07/16 06:10 ABG pO2 64 mmHg (85-104) L 07/07/16 06:10 ABG O2 Saturation 89 % (95-98) L 07/07/16 06:10 PT/INR, D-dimer PT 11.3 Seconds (9.4-12.1) 07/06/16 15:55 Abnormal lab findings: Abnormal lab results WBC 24.0 K/mcL (4.3-11.1) H D 07/07/16 03:52 RDW 14.7 % (11.5-14.5) H 07/07/16 03:52 Plt Count 79 K/mcL (140-400) L D 07/07/16 03:52 MPV 12.6 fL (9.4-12.4) H 07/07/16 03:52 Neutrophils # 20.8 K/mcL (1.6-8.9) H 07/07/16 03:52 Monocytes # 1.6 K/mcL (0.0-1.3) H 07/07/16 03:52 Immature Plt Fraction 40.7 % (1.1-6.1) H 07/07/16 03:52 APTT 41.7 Seconds (26.0-36.0) H 07/07/16 04:50 ABG pH 7.29 pH Units (7.32-7.45) L 07/07/16 06:10 ABG pO2 64 mmHg (85-104) L 07/07/16 06:10 ABG O2 Saturation 89 % (95-98) L 07/07/16 06:10 ABG Base Excess -5.1 mEq/L (-2.0 to 3.0) L 07/07/16 06:10 Sodium 133 mEq/L (136-145) L 07/07/16 03:52 Potassium 3.3 mEq/L (3.5-4.5) L 07/07/16 03:52 Creatinine 1.35 mg/dL (0.72-1.25) H 07/07/16 03:52 Est GFR (Non-Af Amer) 51 (> 60) L 07/07/16 03:52 Glucose 387 mg/dL (70-99) H 07/07/16 03:52 POC Glucose 398 (58-89) H 07/07/16 07:16 Hemoglobin A1c 8.3 % (-5.6) H 07/06/16 23:53 Lactic Acid 5.1 mmol/L (0.5-2.2) H* 07/07/16 03:52 AST 588 Units/L (5-34) H 07/07/16 03:52 ALT 134 Units/L (0-55) H 07/07/16 03:52 Alkaline Phosphatase 147 Units/L (38-126) H 07/07/16 03:52 Troponin I > 50.00 ng/mL (0-0.03) H* 07/07/16 03:52 Globulin 3.8 g/dL (2.4-3.5) H 07/07/16 03:52 Albumin/Globulin Ratio 0.9 (1.1-2.2) L 07/07/16 03:52 - Clinical Findings Intake & Output: Intake & Output 07/06/16 07/07/16 07/07/16 23:59 07:59 15:59 Intake Total 150 / 150 692 / 692 170 / 170 Output Total 125 / 125 Balance 150 / 150 567 / 567 170 / 170 Weight 86.8 kg Consult Discharge Plan - Plan Referrals: Kings Kaiser MD [Primary Care Provider] -
[2016-07-07] MEDS ORDERED: Chlorhexidine Rinse 15 ML MOUTHWASH MM SCH (09:00)
[2016-07-07] MEDS ORDERED: Insulin DETEMIR 100 UNIT/ML X5UNITS SQ SCH (09:00)
[2016-07-07] MEDS ORDERED: amLODIPine 5 MG TABLET PO SCH ×2 (09:00)
[2016-07-07] MEDS ORDERED: Lisinopril 20 MG TABLET PO SCH ×2 (09:00)
[2016-07-07] MEDS ORDERED: Furosemide 20 MG TABLET PO SCH (09:00)
[2016-07-07] MEDS ORDERED: Pantoprazole 40 MG VIAL IVP SCH (09:00)
--- NOTE | 2016-07-07 10:14 | ECHO - Doppler Report ---
Limited Echocardiogram Name: Ras Langford Date of Study: 07/06/2016 Date: 1935 Ht: 67.0 in Medical Record#: [id number] Age: 80 Wt: 191.0 lb Gender: Male BSA: 1.98 Order #: [id number] Location: [facility] Room #: [id number] Reading Physician: Oracio Huddleston DO, FACC [place] [employer] Helper: Yamileth Toure RDCS Ordering Physician: Robert Mcrae MD Primary Physician: Kings Kaiser MD Indications: ACS Impressions: LVEF 30%. Severe segmental left ventricular systolic dysfunction. Compared to prior report, LV function has decreased. Left Ventricular Wall Motion: Rest Echo Findings The apex, apical inferior, apical anterior, mid anterior, apical septal, mid inferior septal, apical lateral and mid anterior septal huitron were hypokinetic. All other wall segments showed normal motion. Findings: Study Quality * Technically adequate exam. ECG Findings * Paced rhythm. Left Ventricle * LVEF 30%. * Normal LV chamber size. * Severe segmental left ventricular systolic dysfunction. Right Ventricle * Normal right ventricular structure and function. Device lead * A device lead was visualized in the right atrium and right ventricle. History Hypertension Diabetes Hypercholesteremia History of CAD/PTCA Myocardial Infarction 05/07/2016 a Previous Echo was performed. Measurements: BP: 151/ 82 2D Normal Values RVIDd: 3.22 cm <2.7 cm IVSd: .90 cm 0.6 - 1.0 cm LVIDd: 7.06 cm 3.7 - 5.6 cm LVPWd: 1.14 cm 0.6 - 1.1 cm LVIDs: 5.81 cm 1.5 - 3.6 cm %FS: 17.70 cm >25 % LA volume: Updated by Oracio Huddleston DO, FACC, MARICHUY BORDEN on 07/07/2016 10:10:25 AM electronically signed on 07/07/2016 10:11:06 AM with status of Final Wall Motion [place]: 1=Normal, 2=Hypokinesis, 3=Akinesis, 4=Dyskinesis, 5=Aneurysmal, 6=Hyperkinetic, X=Not Visualized (Blank)=Missing
[2016-07-07] MEDS ORDERED: Insulin Human Regular 100 UNIT in 0.9 % Sodium Chloride 100 ML IVC SCH (12:00)
[2016-07-07] MEDS: *HR* Morphine 2 MG/ML SYRINGE IVP PRN ×2 (12:37→15:58)
--- NOTE | 2016-07-07 13:19 | Invasive Diagnostic Lab ---
Name: Ras Langford Date of Study: 07/07/2016 Date: 1935 Ht: 170.0 cm /66.9 in Medical Record#: [id number] Age: 80 Wt: 87. kg / 191.80 lb Account/Order#: [id number] Gender: Male BSA: 1.98 Order #: [id number] Fluoro Dose: 947 mGy BMI: 30.1 Procedure Physician: Poppy Fernandes MD, [facility] Referring MD: Referring MD: Procedures Performed: PCI of Acute MA CENTRAL LINE PLACEMENT LEFT HEART CATH Indications: STEMI, Cardiac arrest, Cardiogenic shock Impressions: Single vessel disease. Severe LV global/segmental dysfunction. EF20% Patient had successful PTCA of the occluded proximal LAD- instent thrombosis. Stent placed from a prior procedure in the 1st Diagonal is patent. Cardiogenic shock. Recommendations: Dual antiplatelet therapy. Optimal medical therapy of patient's disease. Aggressive risk factor modification. History/Risk Factors: STEMI Prior MA Previous PCI Procedure Access obtained in the right Femoral artery by percutaneous puncture A central line was placed in the right femoral vein. Patient had successful PTCA in the proximal LAD. Complications: None Contrast: Isovue 161ml Hemodynamics: Pressures Site Systolic/ A Wave Diastolic/ V Wave End Diastolic/ Mean HR AO 62 -9 18 74 AO 49 33 41 71 AO 56 39 47 85 AO 66 39 51 89 AO 67 36 51 82 AO 65 36 48 95 AO 74 42 55 97 AO 52 41 45 99 AO 72 41 54 80 LV 64 19 24 84 LV 66 21 27 73 AO 66 46 56 86 AO 82 40 55 67 AO 92 46 63 75 AO 93 44 63 75 LV Ventriculography Ejection Method: LV Gram Ejection Fraction: 20% Wall Motion: ENRIQUEZ Anterobasal Normal Anterolateral Akinesis Apical: Akinesis Inferoapical Akinesis Inferobasal Normal Coronary Dominance: right Lesion Findings/Interventions * Left Main Coronary Artery There is a 20% stenosis in the LMCA. * Left Anterior Descending There is a 18 mm long, 100% stenosis- instent thrombosis in the Proximal LAD. The lesion has a DAVINA flow of 0 and has thrombus present. An intervention was performed on the Proximal LAD with a final stenosis of 30%. There were no lesion complications. The final DAVINA flow was 2. * Circumflex There is a 30% stenosis in the Proximal Circumflex. There is a 30% stenosis in the 1st Marginal. * Right Coronary Artery There is a 30% stenosis in the Proximal RCA. There is a 30% stenosis in the Mid RCA. There is a 30% stenosis in the Distal RCA. Interventional Device(s) Vessel Segment Type Name Diameter (mm) Length (mm) Proximal LAD Balloon Emerge Monorail 2 15 Proximal LAD Balloon [place] Emerge 3 20 Proximal LAD Cutting Balloon [place] Monorail 3 15 Updated by Poppy Fernandes MD, FACC on 07/07/2016 1:12:30 PM Poppy Fernandes MD, FACC electronically signed on 07/07/2016 1:13:22 PM with status of Final
[2016-07-07 13:30] LABS: Basophils % 0.1 %; Hematocrit 35.4 % (37.5-50.1); Hemoglobin 11.6 g/dL (12.9-16.9); Immature Platelets 18.2 % (1.1-6.1); Lymphocytes # 0.8 K/mcL (0.6-4.6); Lymphocytes % 4.3 %; Mean Corpuscular HGB Conc 32.8 g/dL (31.6-35.5); Mean Corpuscular Hemoglobin 30.7 pg (28.0-33.3); Mean Corpuscular Volume 93.7 fL (83.0-100.0); Mean Platelet Volume 11.7 fL (9.4-12.4); Monocytes # 1.1 K/mcL (0.0-1.3); Monocytes % 5.9 %; Neutrophils # 16.8 K/mcL (1.6-8.9); Platelet Count 164 K/mcL (140-400); Red Blood Count 3.78 M/mcL (4.19-5.50); Red Cell Distribution Width 15.1 % (11.5-14.5); Segmented Neutrophils % 88.7 %
[2016-07-07 13:32] LABS: Platelet Estimate Normal (Normal)
[2016-07-07] MEDS ORDERED: Aspirin 325 MG TABLET PO STA (13:50)
[2016-07-07] MEDS: Amiodarone Premix 360 MG/200 ML BAG IVC SCH ×2 (16:57→19:27)
--- NOTE | 2016-07-07 18:17 | Electrocardiograph Report ---
[address] [place], [place] [address] Test Date: 2016-07-06 Pat Name: Ras Langford Department: 102 Room: [facility] Gender: M Carver Hand: Sin : 1935 Requested By: Evan Ashton Order Number: [id number] Reading MD: Chago Berry MD Measurements Intervals [place] Rate: 74 P: TN: 0 QRS: -56 QRSD: 170 T: 18 QT: 445 QTc: 472 Interpretive Statements ELECTRONIC VENTRICULAR PACEMAKER UNCERTAIN UNDERLYING RHYTHM LATERAL CURRENT OF INJURY - ACUTE [place] Electronically Signed On 07-07-2016 18:16:11 EDT by Chago Berry MD
--- NOTE | 2016-07-07 18:36 | Electrocardiograph Report ---
[address] [place], [place] [address] Test Date: 2016-07-06 Pat Name: Ras Langford Department: 111 Room: [facility] Gender: M Shake Maker: [id number] : 1935 Requested By: Austin Escobar Order Number: [id number] Reading MD: Chago Berry MD Measurements Intervals [place] Rate: 72 P: [place]: 0 QRS: 124 QRSD: 173 T: 108 QT: 443 QTc: 466 Interpretive Statements ATRIAL FIBRILLATION MARKED RIGHT AXIS DEVIATION RIGHT BUNDLE BRANCH BLOCK ANTEROSEPTAL MYOCARDIAL INFARCTION, OF INDETERMINATE AGE LATERAL ME - UNDETERMINED AGE Electronically Signed On 07-07-2016 18:34:45 EDT by Chago Berry MD
--- NOTE | 2016-07-07 18:39 | Electrocardiograph Report ---
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
[2016-07-07] MEDS: Norepinephrine 4 MG in D5% in Water 250 ML IVC SCH (18:56)
[2016-07-08 03:06] LABS: Calcium 8.7 mg/dL (8.6-10.8); Magnesium 1.9 mg/dL (1.6-2.6); Phosphorous 5.8 mg/dL (2.3-4.7); Potassium 3.6 mEq/L (3.5-4.5)
[2016-07-08 03:22] LABS: Hemoglobin 12.9 g/dL (12.9-16.9)
[2016-07-08 03:24] LABS: Immature Platelets 23.4 % (1.1-6.1); Mean Corpuscular HGB Conc 33.9 g/dL (31.6-35.5); Mean Corpuscular Hemoglobin 31.2 pg (28.0-33.3); Nucleated Red Blood Cells 0.1 /100 WBC (0); Red Blood Count 4.13 M/mcL (4.19-5.50); Red Cell Distribution Width 15.2 % (11.5-14.5)
[2016-07-08] MEDS: Heparin 25,000 UNIT/500 ML D5W 25,000 UNIT/500 ML MLS IVC SCH (03:38)
[2016-07-08 03:47] LABS: Mean Platelet Volume 9.8 fL (9.4-12.4)
[2016-07-08 03:49] LABS: Lymphocytes # 1.8 K/mcL (0.6-4.6); Monocytes # 1.3 K/mcL (0.0-1.3); Neutrophils # 22.4 K/mcL (1.6-8.9)
[2016-07-08 03:50] LABS: Platelet Estimate Normal (Normal); Reactive Lymphocytes Present (Not Present)
[2016-07-08] MEDS: Amiodarone Premix 360 MG/200 ML BAG IVC SCH (03:52)
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
[2016-07-08] MEDS: Docusate Oral Soln 100 MG/10 ML UDC GTUBE SCH (08:37)
[2016-07-08] MEDS: Furosemide 20 MG TABLET PO SCH (08:38)
[2016-07-08] MEDS: Insulin LISPRO 300 UNITS/3 ML VIAL SQ SCH ×4 (08:39→19:30)
[2016-07-08] MEDS: Norepinephrine 4 MG in D5% in Water 250 ML IVC SCH (08:39)
[2016-07-08] MEDS ORDERED: Aspirin 81 MG TAB.CHEW PO SCH (09:00)
--- NOTE | 2016-07-08 10:16 | Cardiology Progress Note ---
Date of Encounter: 07/08/16 Time of Encounter: 10:14 Assessment and Plan (1) STEMI (ST elevation myocardial infarction) Current Visit: Yes Status: Acute Pt with acute anterolateral STEMI- successful PTCA of previously stented LAD. Continue heparin gtt, Plavix, statin. Will convert to oral amiodarone Able to restart low dose jeremy and beta bi. Aspirin allergy was GI upset and prior GI bleeding. 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 (4) Essential hypertension Current Visit: No Status: Chronic Will start low dose jeremy/beta bi Discussion w patient/family: The assessment and plan as outlined above was discussed with the patient and/or family members who expressed understanding and agreement. All questions were answered. Thank you for involving us in the care of your patient. Please call with any questions. Subjective Principal diagnosis: STEMI Interval history: Has done well since his heart cath. He does not have much memory of the events in the past 48 hours but is otherwise awake and alert and appropriate. He says he has some lateral chest wall pain that hurt on inspiration, but it is mild and doesn't bother him much. Denies feeling palpitations. He is anxious to get home and is asking to be discharged. Objective Vital Signs, Last 4 Hours Temp Pulse Resp BP Pulse Ox 07/08/16 09:00 82 16 107/68 92 07/08/16 08:00 87 16 117/64 92 07/08/16 07:44 16 93 07/08/16 07:23 98.4 F 07/08/16 07:00 74 14 105/77 91 General: Conversant HEENT: Atraumatic Neck: No JVD Cardiac: Reg Rate and Rhythm, Normal S1 and S2 Lungs: Normal Breath Sounds, No Wheeze, Rales, Rhonchi Neuro: Alert and responsive Abdomen: Soft Skin: No rashes noted on visualized skin Musculoskeletal: Other (left sided chest wall tenderness) Extremities: No Edema, Normal Pulses Results 07/08/16 02:47 07/08/16 02:47 Lab Results 07/07/16 07/07/16 07/07/16 09:54 11:24 12:47 WBC 18.9 H Hgb 11.6 L D Hct 35.4 L Plt Count 164 D APTT 65.7 H D Sodium Potassium Chloride Carbon Dioxide BUN Creatinine Glucose Calcium Magnesium Troponin I > 50.00 H* 07/07/16 07/08/16 07/08/16 18:45 02:47 02:47 WBC 25.4 H Hgb 12.9 Hct 38.0 Plt Count TNP APTT 67.4 H Sodium 136 Potassium 3.6 Chloride 104 Carbon Dioxide 20 BUN 24 Creatinine 1.47 H Glucose 167 H Calcium 8.7 Magnesium 1.9 Troponin I 07/08/16 02:47 WBC Hgb Hct Plt Count APTT 49.2 H Sodium Potassium Chloride Carbon Dioxide BUN Creatinine Glucose Calcium Magnesium Troponin I Consult Discharge Plan - Plan Referrals: Kings Kaiser MD [Primary Care Provider] -
[2016-07-08] MEDS ORDERED: Metoprolol XL (24 HR) Succ 25 MG TAB.ER.24H PO SCH (10:30)
[2016-07-08] MEDS ORDERED: *HR* Amiodarone 200 MG TABLET PO SCH (10:30)
[2016-07-08] MEDS ORDERED: *HR* Heparin 5,000 UNIT/ML VIAL SQ SCH (10:45)
[2016-07-08 10:47] LABS: Magnesium 2.3 mg/dL (1.6-2.6); Potassium 3.9 mEq/L (3.5-4.5)
[2016-07-08] MEDS ORDERED: Naloxone 0.4 MG/ML INJ IVP PRN (14:04)
[2016-07-08] MEDS ORDERED: Ondansetron 4 MG/2 ML VIAL IVP PRN (14:04)
[2016-07-08] MEDS ORDERED: *HR* Dextrose 50 % in Water (Syg) 50 ML SYRINGE IVP PRN (14:04)
[2016-07-08] MEDS ORDERED: Nitroglycerin 0.4 MG TAB.SUBL SL PRN (14:04)
[2016-07-08] MEDS ORDERED: D5% in Water 1,000 ML IVC PRN (14:04)
[2016-07-08] MEDS ORDERED: Dextrose Gel 15 GM PO PRN ×2 (14:04)
[2016-07-08] MEDS: *HR* Heparin 5,000 UNIT/ML VIAL SQ SCH (17:21)
--- NOTE | 2016-07-08 19:24 | Electrocardiograph Report ---
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
[2016-07-08] MEDS ORDERED: Insulin LISPRO 300 UNITS/3 ML VIAL SQ SCH (21:00)
[2016-07-09] MEDS: *HR* HYDROmorphone 2 MG/ML SYRINGE IVP ONE ×2 (00:17→00:24)
[2016-07-09 04:54] LABS: Basophils % 0.1 %; Hematocrit 38.1 % (37.5-50.1); Hemoglobin 12.4 g/dL (12.9-16.9); Immature Granulocytes % 0.8 % (0-4); Lymphocytes # 1.5 K/mcL (0.6-4.6); Lymphocytes % 7.2 %; Mean Corpuscular HGB Conc 32.5 g/dL (31.6-35.5); Mean Corpuscular Hemoglobin 30.6 pg (28.0-33.3); Mean Corpuscular Volume 94.1 fL (83.0-100.0); Mean Platelet Volume 11.3 fL (9.4-12.4); Monocytes # 1.7 K/mcL (0.0-1.3); Monocytes % 7.9 %; Neutrophils # 17.5 K/mcL (1.6-8.9); Red Blood Count 4.05 M/mcL (4.19-5.50); Red Cell Distribution Width 15.5 % (11.5-14.5)
[2016-07-09 05:07] LABS: Albumin/Globulin Ratio 0.9 (1.1-2.2); Bilirubin,Direct 0.4 mg/dL (0.0-0.5); Bilirubin,Indirect 0.5 mg/dL (0.0-1.2); Calcium 8.8 mg/dL (8.6-10.8); Globulin 3.4 g/dL (2.4-3.5); Magnesium 2.4 mg/dL (1.6-2.6); Mean Platelet Volume 10.2 fL (9.4-12.4); Phosphorous 3.6 mg/dL (2.3-4.7); Potassium 4.2 mEq/L (3.5-4.5); Total Protein 6.4 g/dL (6.0-8.3)
[2016-07-09 05:11] LABS: Bilirubin,Total 0.9 mg/dL (0.2-1.2)
[2016-07-09] MEDS: *HR* Heparin 5,000 UNIT/ML VIAL SQ SCH ×2 (06:08→17:23)
[2016-07-09] MEDS ORDERED: *HR* Morphine 2 MG/ML SYRINGE IVP STA (06:44)
[2016-07-09] MEDS ORDERED: *HR* Morphine 2 MG/ML SYRINGE IVP PRN (06:44)
[2016-07-09] MEDS ORDERED: *HR* OxyCODONE Immed Rel 5 MG TABLET PO PRN (06:44)
[2016-07-09] MEDS ORDERED: *HR* Amiodarone 200 MG TABLET PO SCH ×2 (09:00→14:48)
[2016-07-09] MEDS ORDERED: traMADol 50 MG TABLET PO SCH (09:00)
[2016-07-09] MEDS: Furosemide 20 MG TABLET PO SCH (09:38)
[2016-07-09] MEDS: Metoprolol XL (24 HR) Succ 25 MG TAB.ER.24H PO SCH (09:38)
[2016-07-09] MEDS: Aspirin 81 MG TAB.CHEW PO SCH (09:38)
[2016-07-09] MEDS: Insulin LISPRO 300 UNITS/3 ML VIAL SQ SCH ×4 (09:39→21:46)
--- NOTE | 2016-07-09 10:39 | Cardiology Progress Note ---
Date of Encounter: 07/09/16 Time of Encounter: 10:32 Assessment and Plan (1) STEMI (ST elevation myocardial infarction) Current Visit: Yes Status: Acute Pt with acute anterolateral STEMI- successful PTCA of previously stented LAD. Continue heparin gtt, Plavix, statin. Will convert to oral amiodarone Able to restart low dose jeremy and beta bi. Aspirin allergy was GI upset and prior GI bleeding. 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 Transient transaminitis likely secondary to decreased blood flow. Is improving (4) Essential hypertension Current Visit: No Status: Chronic Will start low dose jeremy/beta bi Discussion w patient/family: The assessment and plan as outlined above was discussed with the patient and/or family members who expressed understanding and agreement. All questions were answered. Thank you for involving us in the care of your patient. Please call with any questions. Subjective Principal diagnosis: STEMI Interval history: Had an uneventful night. Continues to improve. Would like nausea medication because he feels the morphine that he gets for his chronic back/knee pain makes him nauseated. Left sided chest discomfort is improving. No significant arrhythmias overnight on tele. Denies dyspnea or cough. Objective Vital Signs, Last 4 Hours Temp Pulse Resp BP Pulse Ox 07/09/16 07:56 96.7 F L 75 18 138/86 94 General: Conversant HEENT: Atraumatic Neck: No JVD Cardiac: Normal S1 and S2, Other (irregular rhythm) Lungs: Normal Breath Sounds Neuro: Alert and responsive Abdomen: Soft Skin: No rashes noted on visualized skin Extremities: No Edema, Normal Pulses Results 07/09/16 04:31 07/09/16 04:31 Lab Results 07/08/16 07/08/16 07/09/16 10:20 10:20 04:31 WBC 20.8 H Hgb 12.4 L Hct 38.1 Plt Count TNP APTT 68.6 H Sodium Potassium 3.9 Chloride Carbon Dioxide BUN Creatinine Glucose Calcium Magnesium 2.3 Total Bilirubin AST ALT Alkaline Phosphatase 07/09/16 04:31 WBC Hgb Hct Plt Count APTT Sodium 139 Potassium 4.2 Chloride 105 Carbon Dioxide 23 BUN 30 H Creatinine 1.53 H Glucose 137 H Calcium 8.8 Magnesium 2.4 Total Bilirubin 0.9 D AST 158 H ALT 77 H Alkaline Phosphatase 117 Consult Discharge Plan - Plan Referrals: Kings Kaiser MD [Primary Care Provider] -
--- NOTE | 2016-07-09 16:01 | Discharge Summary ---
Date of Encounter: 07/09/16 Time of Encounter: 15:58 - Discharge Diagnosis (1) Cardiogenic shock Priority: Secondary Status: Resolved (2) Cardiopulmonary arrest with successful resuscitation Priority: Secondary Status: Resolved (3) Coronary artery disease Priority: Primary Status: Chronic Qualifiers: Coronary Disease-Associated Artery/Lesion type: [place] artery [place] vs. 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 intermediate use Qualified Code(s): E11.65 - Type 2 diabetes mellitus with hyperglycemia (5) Essential hypertension Priority: Secondary Status: Chronic (6) Hyperlipidemia Priority: Secondary Status: Chronic Qualifiers: Hyperlipidemia type: mixed hyperlipidemia Qualified Code(s): E78.2 - Mixed hyperlipidemia (7) Pulmonary edema Priority: Primary Status: Acute (8) STEMI (ST elevation myocardial infarction) Priority: Primary Status: Acute Qualifiers: Involved coronary artery: LAD coronary artery Qualified Code(s): I21.02 - ST elevation (STEMI) myocardial infarction involving left anterior descending coronary artery - Discharge Medications Home Medications: Allopurinol [Zyloprim 100 MG] 100 mg PO BID 07/06/16 [History] Amlodipine Besylate 10 mg PO DAILY 07/06/16 [History] Atenolol [Tenormin] 50 mg PO DAILY 07/06/16 [History] Clopidogrel [Plavix] 75 mg PO DAILY 07/06/16 [History] Furosemide [Lasix] 20 mg PO DAILY 07/06/16 [History] Lisinopril [Zestril] 40 mg PO DAILY 07/06/16 [History] Loperamide HCl [Imodium A-D] 2 mg PO BID PRN 07/06/16 [History] Omeprazole [PriLOSEC] 20 mg PO DAILY 07/06/16 [History] Potassium Chloride [K-Tab ER] 20 meq PO DAILY 07/06/16 [History] Pravastatin Sodium [Pravachol] 80 mg PO HS 07/06/16 [History] Allergies/Adverse Reactions: Allergies aspirin Allergy (Verified 07/06/16 14:47) See Comments urinate blood Procedures/tests Complete & Pending: Procedures Performed prior 72 hours Category Date Time Status CL Cardiac Catheterization [CL] Stat [place] 07/07/16 00:23 Completed ECG 12 lead ECG [ECG] Routine Y 07/07/16 12:50 Completed ECG 12 lead ECG [ECG] Stat Y 07/07/16 02:35 Completed EV limited echocardiogram Routine Y 07/06/16 17:45 Completed Date of admission: 07/06/16 17:45 Primary care physician: Kings Kaiser MD Consults: 07/06/16 18:57 Consult to Rack Cleaner [CONS] Routine Reason for SW Consult: Advance directives 07/07/16 02:37 Consult to Cardiac Rehabilitation-Phase1 [CONS] Routine Comment: Reason for Consult: STEMI Call Completed: Yes 07/09/16 08:23 Consult to Physical Therapy [CONS] Stat Comment: Evaluate, develop and implement POC Discharging clinician: Syeda Sanchez Anticipated date of discharge: 07/09/16 - Patient Status Condition: Fair - Discharge Instructions Follow Up With: Kings Kaiser MD [Primary Care Provider] - Hospital course: Mr. Langford is a 80 year old male - Time Spent with Patient Total time spent providing and/or coordinating discharge services: - Constitutional Vitals: Temp Pulse Resp BP Pulse Ox 97.4 F L 72 16 126/74 90 07/09/16 15:43 07/09/16 15:43 07/09/16 15:43 07/09/16 15:43 07/09/16 15:43 General appearance: Present: cooperative, A&O X 3, answers questions appropriately
--- NOTE | 2016-07-09 17:16 | Internal Med Progress Note ---
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 Discharge pending arrangement of home oxygen (2) Cardiopulmonary arrest with successful resuscitation Current Visit: Yes Status: Resolved (3) Coronary artery disease Current Visit: Yes Status: Chronic Assessment and plan: Plan as listed above Qualifiers: Coronary Disease-Associated Artery/Lesion type: [place] artery [place] vs. transplanted heart: [place] heart Associated angina: with unstable angina Qualified Code(s): I25.110 - Atherosclerotic heart disease of [place] coronary artery with unstable angina pectoris (4) Diabetes mellitus, type 2 Current Visit: Yes Status: Chronic Assessment and plan: Blood glucose within acceptable range Continue sliding scale insulin algorithm Continue to monitor fingerstick and blood glucose Qualifiers: Diabetes mellitus complication status: with hyperglycemia Diabetes mellitus intermediate card tender insulin use: without intermediate use Qualified Code(s): E11.65 - Type 2 diabetes mellitus with hyperglycemia (5) Essential hypertension Current Visit: No Status: Chronic Assessment and plan: BP within acceptable range Continue home medications (6) Hyperlipidemia Current Visit: Yes Status: Chronic Assessment and plan: Continue statin Qualifiers: Hyperlipidemia type: mixed hyperlipidemia Qualified Code(s): E78.2 - Mixed hyperlipidemia (7) Pulmonary edema Current Visit: Yes Status: Resolved Qualifiers: Chronicity: acute Qualified Code(s): J81.0 - Acute pulmonary edema - Subjective Interval history: Patient seen and examined with present at bedside. Patient reports feeling better however noted to have hypoxia with 6 minute walk test, O2 saturation dropping as low as 81%. Patient initially was adamant about leaving today and refusing home health however after further evaluation patient states that his biggest concern is the finances and he is not able to afford this medical management. I had a detailed discussion with the patient and told him that we will get social media job titles on board and try to make all arrangements we possibly can to optimize his medical care so he does not has to worry about the finances while he is getting treatment. Initially patient was adamant about leaving and was wanting to sign out AGAINST MEDICAL ADVICE, however after this discussion, he is willing to stay and continue with his care plan. - Constitutional Vitals: Temp Pulse Resp BP Pulse Ox 97.4 F L 72 16 126/74 90 07/09/16 15:43 07/09/16 15:43 07/09/16 15:43 07/09/16 15:43 07/09/16 15:43 General appearance: Present: cooperative, A&O X 3, no acute distress, answers questions appropriately - Head Head exam: Present: atraumatic, normocephalic - Eye Eye exam: Present: normal appearance, conjuntiva pink, sclera anicteric - Respiratory Respiratory exam: Present: CTAB. Absent: respiratory distress, wheezes - Cardiovascular Cardiovascular exam: Present: RRR, +S1, +S2. Absent: diastolic murmur, gallop, rubs, systolic murmur - GI/Abdominal GI/Abdominal exam: Present: normal bowel sounds, soft, no peritoneal signs. Absent: distended, tenderness - Extremities Exam Extremities exam: Present: warm, radial pulses palpable and symetrical. Absent : calf tenderness - Neurological Exam Neurological exam: Present: alert, oriented X3 - Psychiatric Psychiatric exam: Present: normal affect, normal mood Internal Medicine: Result - Labs CBC & Chem 7: 07/09/16 04:31 07/09/16 04:31 Labs: Short CBC 07/09/16 Range/Units 04:31 WBC 20.8 H (4.3-11.1) K/mcL Hgb 12.4 L (12.9-16.9) g/dL Hct 38.1 (37.5-50.1) % Plt Count TNP Neutrophils # 17.5 H (1.6-8.9) K/mcL BMP 07/09/16 04:31 Sodium 139 Potassium 4.2 Chloride 105 Carbon Dioxide 23 BUN 30 H Creatinine 1.53 H Glucose 137 H Calcium 8.8 Liver Function 07/09/16 Range/Units 04:31 Total Bilirubin 0.9 D (0.2-1.2) mg/dL Direct Bilirubin 0.4 (0.0-0.5) mg/dL AST 158 H (5-34) Units/L ALT 77 H (0-55) Units/L Alkaline Phosphatase 117 (38-126) Units/L Albumin 3.0 L (3.5-5.0) g/dL - ABG Interpretation ABG results: ABG ABG pH 7.29 pH Units (7.32-7.45) L 07/07/16 06:10 ABG pCO2 45 mmHg (35-45) 07/07/16 06:10 ABG pO2 64 mmHg (85-104) L 07/07/16 06:10 ABG O2 Saturation 89 % (95-98) L 07/07/16 06:10 PT/INR, D-dimer PT 11.3 Seconds (9.4-12.1) 07/06/16 15:55 Consult Discharge Plan - Plan Referrals: Kings Kaiser MD [Primary Care Provider] -
[2016-07-09] MEDS: Acetaminophen 325 MG TABLET PO PRN (19:33)
[2016-07-10] MEDS: Acetaminophen 325 MG TABLET PO PRN ×2 (04:33→12:37)
[2016-07-10] MEDS: *HR* Heparin 5,000 UNIT/ML VIAL SQ SCH (06:20)
[2016-07-10 06:55] LABS: BUN/Creatinine Ratio 21 (6-26); Blood Urea Nitrogen 23 mg/dL (8-26); Calcium 8.9 mg/dL (8.6-10.8); Carbon Dioxide 25 mEq/L (19-29); Chloride 106 mEq/L (98-109); Glucose 161 mg/dL (70-99); Osmolality,Calculated 297 (280-300); Phosphorous 2.6 mg/dL (2.3-4.7); Potassium 3.8 mEq/L (3.5-4.5); Sodium 140 mEq/L (136-145); eGFR For African Americans > 60 (> 60); eGFR For Non-African Americans > 60 (> 60)
[2016-07-10 06:59] LABS: Basophils % 0.1 %; Eosinophils % 0.2 %; Hematocrit 38.2 % (37.5-50.1); Hemoglobin 12.7 g/dL (12.9-16.9); Immature Granulocytes % 1.5 % (0-4); Mean Corpuscular HGB Conc 33.2 g/dL (31.6-35.5); Mean Corpuscular Hemoglobin 31.4 pg (28.0-33.3); Mean Corpuscular Volume 94.6 fL (83.0-100.0); Mean Platelet Volume 11.7 fL (9.4-12.4); Monocytes # 1.2 K/mcL (0.0-1.3); Monocytes % 6.7 %; Neutrophils # 14.9 K/mcL (1.6-8.9); Nucleated Red Blood Cells 0.1 /100 WBC (0); Platelet Count 140 K/mcL (140-400); Red Blood Count 4.04 M/mcL (4.19-5.50); Red Cell Distribution Width 15.7 % (11.5-14.5); Segmented Neutrophils % 85.5 %
[2016-07-10] MEDS: Furosemide 20 MG TABLET PO SCH (08:21)
[2016-07-10] MEDS: Insulin LISPRO 300 UNITS/3 ML VIAL SQ SCH ×2 (08:22→12:33)
[2016-07-10] MEDS: Aspirin 81 MG TAB.CHEW PO SCH (08:22)
[2016-07-10] MEDS: Metoprolol XL (24 HR) Succ 25 MG TAB.ER.24H PO SCH (08:22)
--- NOTE | 2016-07-10 11:47 | Discharge Summary ---
Date of Encounter: 07/10/16 Time of Encounter: 11:47 - Discharge Diagnosis (1) Cardiogenic shock Priority: Primary Status: Resolved (2) Cardiopulmonary arrest with successful resuscitation Priority: Secondary Status: Resolved (3) Coronary artery disease Priority: Primary Status: Chronic Qualifiers: Coronary Disease-Associated Artery/Lesion type: [place] artery [place] vs. transplanted heart: [place] heart Associated angina: with unstable angina Qualified Code(s): I25.110 - Atherosclerotic heart disease of [place] coronary artery with unstable angina pectoris (4) Diabetes mellitus, type 2 Priority: Secondary Status: Chronic Qualifiers: Diabetes mellitus complication status: with hyperglycemia Diabetes mellitus terminal operations supervisor insulin use: without care home use Qualified Code(s): E11.65 - Type 2 diabetes mellitus with hyperglycemia (5) Essential hypertension Priority: Secondary Status: Chronic (6) Hyperlipidemia Priority: Secondary Status: Chronic Qualifiers: Hyperlipidemia type: mixed hyperlipidemia Qualified Code(s): E78.2 - Mixed hyperlipidemia (7) Pulmonary edema Priority: Secondary Status: Resolved Qualifiers: Chronicity: acute Qualified Code(s): J81.0 - Acute pulmonary edema - Discharge Medications Prescriptions: Nitroglycerin 0.4 mg SL Q5MIN PRN #15 tab.subl PRN Reason: Chest Pain Amiodarone [Cordarone] 200 mg PO DAILY #30 tablet Aspirin 81 mg PO DAILY #30 tab.chew Atorvastatin [Lipitor] 80 mg PO HS #30 tablet Lisinopril [Zestril] 2.5 mg PO DAILY #30 tablet Metformin HCl [Fortamet] 500 mg PO DAILY #30 tab.er.24 Metoprolol XL (24 HR) Succ [Toprol Xl] 25 mg PO DAILY #30 tab.er.24h Home Medications: Allopurinol [Zyloprim 100 MG] 100 mg PO BID 07/06/16 [History] Clopidogrel [Plavix] 75 mg PO DAILY 07/06/16 [History] Furosemide [Lasix] 20 mg PO DAILY 07/06/16 [History] Loperamide HCl [Imodium A-D] 2 mg PO BID PRN 07/06/16 [History] Omeprazole [PriLOSEC] 20 mg PO DAILY 07/06/16 [History] Amiodarone [Cordarone] 200 mg PO DAILY #30 tablet 07/10/16 [Rx] Aspirin 81 mg PO DAILY #30 tab.chew 07/10/16 [Rx] Atorvastatin [Lipitor] 80 mg PO HS #30 tablet 07/10/16 [Rx] Lisinopril [Zestril] 2.5 mg PO DAILY #30 tablet 07/10/16 [Rx] Metformin HCl [Fortamet] 500 mg PO DAILY #30 tab.er.24 07/10/16 [Rx] Metoprolol XL (24 HR) Succ [Toprol Xl] 25 mg PO DAILY #30 tab.er.24h 07/10/16 [ Rx] Nitroglycerin 0.4 mg SL Q5MIN PRN #15 tab.subl 07/10/16 [Rx] Allergies/Adverse Reactions: Allergies aspirin Allergy (Verified 07/06/16 14:47) See Comments urinate blood Procedures/tests Complete & Pending: Procedures Performed prior 72 hours Category Date Time Status ECG 12 lead ECG [ECG] Routine Y 07/07/16 12:50 Completed Date of admission: 07/06/16 17:45 Primary care physician: Kings Kaiser MD Consults: 07/06/16 18:57 Consult to Taxation Inspector [CONS] Routine Reason for SW Consult: Advance directives 07/07/16 02:37 Consult to Cardiac Rehabilitation-Phase1 [CONS] Routine Comment: Reason for Consult: STEMI Call Completed: Yes 07/09/16 08:23 Consult to Physical Therapy [CONS] Stat Comment: Evaluate, develop and implement POC Discharging clinician: Syeda Sanchez Anticipated date of discharge: 07/10/16 - Patient Status Disposition: Home Health Service Condition: Good Functional capacity at discharge: uses cane/walker Overall status at discharge: patient is back to baseline - Discharge Instructions Follow Up With: Kings Kaiser MD [Primary Care Provider] - Additional Instructions: Please follow-up with your primary care physician within 5 days after discharge from the hospital. Please follow-up with your charter and tour bus driver within 5 days after your discharge from the hospital. Metoprolol 25 mg once a day, lisinopril 2.5 mg once a day, atorvastatin 80 mg once a day, aspirin 81 mg once a day, amiodarone 200 mg once a day has been added to her home medications. Please take these medications as prescribed. Your home medication of pravastatin, atenolol has been discontinued. Your home dose of lisinopril has been changed to 2.5 mg once a day. Due to your diabetes, metformin 500 mg once a day has been added to her home medications. Please inform your primary care physician about all the above medication changes Nitroglycerin 0.4 mg sublingual has been prescribed to you for chest pain. If chest pain occurs, please take this medication, and seek medical help immediately. Please continue aspirin and Plavix as prescribed. Please resume all other medications as prescribed by your primary care physician. Please continue to wear oxygen at all times. - Diet and Activity Activity: as per physical therapy, wear oxygen at all times Diet: diabetic diet, low salt diet Hospital course: Mr. Langford is a 80 year old male with past medical history of CAD, diabetes, essential hypertension, hyperlipidemia who was admitted for management of NSTEMI. Patient's hospital course was complicated by cardiac arrest with return of spontaneous circulation, cardiogenic shock due to ST segment elevation [place], and acute respiratory failure with hypoxia secondary to acute cardiogenic pulmonary edema. Patient was managed in the ICU and was followed by cardiology. He underwent PTCA of previously stented LAD and his medications were adjusted by cardiology. He is also noted to have diabetes however reports of not being on any antihyperglycemic agents at home. Patient's also noted to remain hypoxic and requiring oxygen. After a 6 minute walk test patient was noted to qualify for home oxygen. senior web services developer were consulted and home oxygen arrangements have been made. Patient also reported of having financial issues requiring further social services counselor. At this time patient is hemodynamically stable, currently saturating well on nasal cannula, and will be discharged to home. Physical therapy evaluated the patient and home health was recommended. Social workers to arrange home health services along with home oxygen therapy prior to patient's discharge. Patient and demonstrate understanding of his diagnosis and agreed with the discharge care and plan. - Time Spent with Patient Total time spent providing and/or coordinating discharge services: Greater than 30 minutes - Constitutional Vitals: Temp Pulse Resp BP Pulse Ox 98.0 F 79 15 144/82 90 07/10/16 07:33 07/10/16 07:33 07/10/16 07:33 07/10/16 07:33 07/10/16 08:30 General appearance: Present: cooperative, A&O X 3, pleasant, no acute distress, answers questions appropriately - Head Head exam: Present: atraumatic, normocephalic - Eye Eye exam: Present: normal appearance, conjuntiva pink, sclera anicteric - Respiratory Respiratory exam: Present: CTAB. Absent: accessory muscle use, rales, rhonchi, wheezes - Cardiovascular Cardiovascular exam: Present: RRR, +S1, +S2. Absent: diastolic murmur, gallop, rubs, systolic murmur - GI/Abdominal GI/Abdominal exam: Present: normal bowel sounds, soft, no peritoneal signs. Absent: distended, tenderness - Extremities Exam Extremities exam: Present: pedal edema, warm, radial pulses palpable and symetrical. Absent: calf tenderness - Neurological Exam Neurological exam: Present: alert, oriented X3 - Psychiatric Psychiatric exam: Present: normal affect, normal mood
[2016-07-10 12:51] VITALS: BP 145/91
--- NOTE | 2016-07-10 14:58 | Physician Discharge Referral ---
Home Health/Hosp Referral Info Transfer to: Home Health Provider in Charge Post Discharge: PCP - Diagnosis (1) Non-STEMI (non-ST elevated myocardial infarction) Priority: Primary Status: Acute (2) Essential hypertension Priority: Secondary Status: Chronic (3) Hyperlipidemia Priority: Secondary Status: Chronic (4) Coronary artery disease Priority: Secondary Status: Chronic (5) Diabetes mellitus, type 2 Priority: Secondary Status: Chronic - Respiratory Orders Smoking Cessation: Smoking cessation has been advised. For more information, call the [place] Tobacco Quit Line at 3-788-YQYM-NOW. - Diet/Nutrition Diet/Nutrition Orders: Cardiac, No Concentrated Sweets (and diabetic) - Activity Activity Orders: Up ad allen - Services Needed Following services are medically necessary services: Nursing, Physical Therapy, Occupational Therapy - Transfer Medications Prescriptions: Nitroglycerin 0.4 mg SL Q5MIN PRN #15 tab.subl PRN Reason: Chest Pain Amiodarone [Cordarone] 200 mg PO DAILY #30 tablet Aspirin 81 mg PO DAILY #30 tab.chew Atorvastatin [Lipitor] 80 mg PO HS #30 tablet Lisinopril [Zestril] 2.5 mg PO DAILY #30 tablet Metformin HCl [Fortamet] 500 mg PO DAILY #30 tab.er.24 Metoprolol XL (24 HR) Succ [Toprol Xl] 25 mg PO DAILY #30 tab.er.24h Home Medications: Allopurinol [Zyloprim 100 MG] 100 mg PO BID 07/06/16 [History] Clopidogrel [Plavix] 75 mg PO DAILY 07/06/16 [History] Furosemide [Lasix] 20 mg PO DAILY 07/06/16 [History] Loperamide HCl [Imodium A-D] 2 mg PO BID PRN 07/06/16 [History] Omeprazole [PriLOSEC] 20 mg PO DAILY 07/06/16 [History] Amiodarone [Cordarone] 200 mg PO DAILY #30 tablet 07/10/16 [Rx] Aspirin 81 mg PO DAILY #30 tab.chew 07/10/16 [Rx] Atorvastatin [Lipitor] 80 mg PO HS #30 tablet 07/10/16 [Rx] Lisinopril [Zestril] 2.5 mg PO DAILY #30 tablet 07/10/16 [Rx] Metformin HCl [Fortamet] 500 mg PO DAILY #30 tab.er.24 07/10/16 [Rx] Metoprolol XL (24 HR) Succ [Toprol Xl] 25 mg PO DAILY #30 tab.er.24h 07/10/16 [ Rx] Nitroglycerin 0.4 mg SL Q5MIN PRN #15 tab.subl 07/10/16 [Rx] Allergies/Adverse Reactions: Allergies aspirin Allergy (Verified 07/06/16 14:47) See Comments urinate blood Certification: Further, I certify that my clinical findings support that this patient is homebound (i.e. absences from home require considerable and taxing effort and are for medical reasons or episcopal services or infrequently or short duration when for other reasons) because: Homebound Reason: Severity of cardiac or pulmonary status limits activity tolerance Attestation: My signature below is to certify that this patient is under my care and that I, or nurse practitioner, or a physician's safety assistant working with me, has a face-to -face encounter with this patient.
== END 2016-07-10 16:37 | disposition home health service (06) | DRG 250 ==
LOC: EMEROO 14:45 → 2NENU 14:45 → SUATTDRO 17:45 → 2NENU 18:40 → ICNU 07-07 01:15 → 2ANU 07-09 01:27
PROVIDERS: ADMIT Internal Medicine; ATTEND Internal Medicine

== ENCOUNTER 2016-07-12 09:31 | Inpatient (IN) ==
[2016-07-12] MEDS ORDERED: Aspirin 81 MG TAB.CHEW PO ONE (09:40)
--- NOTE | 2016-07-12 09:53 | Emergency Department Note ---
Disposition Clinical Impression: Elevated troponin Pneumonia Qualifiers: Pneumonia type: due to unspecified organism Laterality: unspecified laterality Lung location: unspecified part of lung Qualified Code(s): J18.9 - Pneumonia, unspecified organism Disposition: Admitted As Inpatient Condition: Fair Referrals: Kings Kaiser MD [Primary Care Provider] - Forms: ED Satisfaction Letter General Adult HPI - General Chief complaint: ED Shortness of Breath/Dyspnea Stated complaint: Shortness of Breath Time Seen by Provider: 07/12/16 09:35 Source: patient, EMS Mode of arrival: EMS Limitations: no limitations Nursing Notes Reviewed: Yes Vital Signs Reviewed: Yes - History of Present Illness HPI Narrative: 80-year-old male history of recent heart catheter last week. Patient was seen with an acute NH last Tuesday. Patient rests in the emergency department and chest compressions. Patient was sent to catheter lab where he had balloon. No further stents placed. Patient does have a history of 6 coronary stents. Patient's been on Plavix. Patient was discharged on Tuesday. Patient notes increasing dyspnea since discharge. Notable chest pain. Patient does state that he does have left axillary tenderness. States that he possibly has rib fractures. Patient is not typically on oxygen but discharged home with oxygen. Denies any fevers but does note a productive cough. No nausea or vomiting. No abdominal pain. Patient denies any chest pain. Pain Scale: 3 - Related Data Home Medications Medication Instructions Recorded Confirmed Allopurinol [Zyloprim 100 MG] 100 mg PO BID 07/06/16 07/06/16 Clopidogrel [Plavix] 75 mg PO DAILY 07/06/16 07/06/16 Furosemide [Lasix] 20 mg PO DAILY 07/06/16 07/06/16 Loperamide HCl [Imodium A-D] 2 mg PO BID PRN 07/06/16 07/06/16 Omeprazole [PriLOSEC] 20 mg PO DAILY 07/06/16 07/06/16 Previous Rx's Medication Instructions Recorded Amiodarone [Cordarone] 200 mg PO DAILY #30 tablet 07/10/16 Aspirin 81 mg PO DAILY #30 tab.chew 07/10/16 Atorvastatin [Lipitor] 80 mg PO HS #30 tablet 07/10/16 Lisinopril [Zestril] 2.5 mg PO DAILY #30 tablet 07/10/16 Metformin HCl [Fortamet] 500 mg PO DAILY #30 tab.er.24 07/10/16 Metoprolol XL (24 HR) Succ [Toprol 25 mg PO DAILY #30 tab.er.24h 07/10/16 Xl] Nitroglycerin 0.4 mg SL Q5MIN PRN #15 tab.subl 07/10/16 Allergies Allergy/AdvReac Type Severity Reaction Status Date / Time aspirin Allergy See Verified 07/06/16 14:47 Comments All systems ED: reviewed and negative except as stated. Constitutional: Reports: as per HPI. Denies: fever Eyes: Reports: as per HPI ENT ED: Reports: as per HPI Cardiovascular: Reports: as per HPI. Denies: chest pain, palpitations Respiratory: Reports: as per HPI, cough, dyspnea, sputum production Gastrointestinal: Reports: as per HPI Genitourinary: Reports: as per HPI Musculoskeletal: Reports: as per HPI Integumentary: Reports: as per HPI Neurological: Reports: as per HPI Psychiatric: Reports: as per HPI Endocrine: Reports: as per HPI Past Medical History - Past Medical History Medical history: Reports: cancer, coronary artery disease, diabetes, GERD, hyperlipidemia, hypertension, myocardial infarction, sudden cardiac , TIA, other Surgical history: Reports: angioplasty/stent, herniorrhaphy, pacemaker Psychiatric history: Reports: no psych history - Social History Smoking Status: Never smoker Smokeless Tobacco Status: No Alcohol use: Reports: none Drug use: Reports: none Physical Exam - General Limitations: no limitations General appearance: alert, in no apparent distress - Head Head exam: atraumatic, normocephalic, normal inspection - Eye Eye exam: Present: normal appearance, EOMI - ENT ENT exam: normal exam, mucous membranes moist - Neck Neck exam: Present: normal inspection, trachea midline - Chest Chest inspection: Present: normal inspection, symmetric chest wall rise, tenderness (Left midaxillary tenderness without gross deformity or overlying rash) - Respiratory Respiratory exam: Present: normal lung sounds bilaterally. Absent: respiratory distress, accessory muscle use - Cardiovascular Cardiovascular exam: Present: regular rate, tachycardia - Abdominal Exam Abdominal exam: Present: soft, Non-Tender - Extremities Exam Extremities exam: Present: normal inspection, pedal edema (Trace bilateral) Course Course Narrative: Patient troponin is elevated. Trending. No changes on EKG. - Consultations Consultation #1: Spoke with Dr. Masters, troponin is difficult to interpret in the setting of recent NH. Patient's troponin was elevated prior to which is greater than 50. Patient is not complaining of chest pain. Time: 11:06 Vital Signs Temperature 97.7 F 07/12/16 09:32 Pulse Rate 92 07/12/16 09:32 Respiratory Rate 26 07/12/16 09:32 Blood Pressure 172/106 07/12/16 09:32 O2 Sat by Pulse Oximetry 91 07/12/16 09:32 Temperature 97.7 F 07/12/16 09:32 Pulse Rate 82 07/12/16 10:40 Respiratory Rate 24 07/12/16 10:40 Blood Pressure 139/112 07/12/16 10:40 O2 Sat by Pulse Oximetry 93 07/12/16 10:40 Oxygen Delivery Oxygen Delivery Nasal Cannula Medical Decision Making - Lab Data Result diagrams: 07/12/16 10:11 07/12/16 10:11 Lab Results 07/12/16 07/12/16 07/12/16 Range/Units 10:11 10:11 10:11 WBC 17.2 H (4.3-11.1) K/mcL RBC 4.67 (4.19-5.50) M/mcL Hgb 14.3 D (12.9-16.9) g/dL Hct 43.6 (37.5-50.1) % MCV 93.4 (83.0-100.0) fL MCH 30.6 (28.0-33.3) pg MCHC 32.8 (31.6-35.5) g/dL RDW 15.9 H (11.5-14.5) % Plt Count 138 L (140-400) K/mcL MPV 11.6 (9.4-12.4) fL Immature Gran % 1.0 (0-4) % Seg Neutrophils % 86.5 % Lymphocytes % 5.1 % Monocytes % 7.1 % Eosinophils % 0.1 % Basophils % 0.2 % Neutrophils # 14.9 H (1.6-8.9) K/mcL Lymphocytes # 0.9 (0.6-4.6) K/mcL Monocytes # 1.2 (0.0-1.3) K/mcL Eosinophils # 0.0 (0.0-0.6) K/mcL Basophils # 0.0 (0.0-0.2) K/mcL Nucleated RBCs/100 WBC 0.1 H (0) /100 WBC Sodium 141 (136-145) mEq/L Potassium 3.5 (3.5-4.5) mEq/L Chloride 104 (98-109) mEq/L Carbon Dioxide 26 (19-29) mEq/L BUN 21 (8-26) mg/dL Creatinine 1.13 (0.72-1.25) mg/dL Est GFR ( Amer) > 60 (> 60) Est GFR (Non-Af Amer) > 60 (> 60) BUN/Creatinine Ratio 19 (6-26) Glucose 259 H (70-99) mg/dL Calculated Osmolality 304 H (280-300) Calcium 9.4 (8.6-10.8) mg/dL Troponin I 33.05 H* (0-0.03) ng/mL - EKG Data EKG #1 EKG shows normal: sinus rhythm Rate: normal Rhythm: NSR T wave inversions noted in: v1, v2, v3 Interpretation: unchanged when compared to prior tracing (date) (07/07/16), nonspecific ST-T wave changes S.B.A.Roxane - Adam.Mary Carmen.AGloria Situation: Demographics, MOA Background: Presenting Complaint Assessment: Vital Signs, Course and respsone to treatment, Patient/Family Expectation, Pertinant Lab Results Recommendation: Barrier(s) to disposition, Recommendation based on pending studies, treatments, or consults S.B.AGloria Report Given to: Dr. Ministerio Barnes Repor Time: 11:22
--- NOTE | 2016-07-12 10:06 | Emergency Department Note ---
START Narrative - START START: I examined this patient and my medical decision-making was reviewed with the LATIN AMERICAN STUDIES PROFESSOR/PA/Advanced Practice Nurse/Resident Physician. I agree with the documented findings, disposition and treatment plan as described except to the extent set forth below. ED attending note: Patient seen with emergency medicine resident Dr. De La Garza. Please see a copy of his note for details of the H&P, evaluation, management and disposition of this patient. We independently had [id number] contact with the patient Briefly: A 1-year-old status post recent balloon angioplasty 6 prior stents presents with chest pain. EKG shows nonspecific changes. Provided 40 minutes critical care service for this patient. Awaiting troponin and chest x-ray were warm and consult cardiology admission and anticipated disposition pending.
[2016-07-12 10:29] LABS: BUN/Creatinine Ratio 19 (6-26); Blood Urea Nitrogen 21 mg/dL (8-26); Calcium 9.4 mg/dL (8.6-10.8); Carbon Dioxide 26 mEq/L (19-29); Chloride 104 mEq/L (98-109); Glucose 259 mg/dL (70-99); Osmolality,Calculated 304 (280-300); Potassium 3.5 mEq/L (3.5-4.5); Sodium 141 mEq/L (136-145); eGFR For African Americans > 60 (> 60); eGFR For Non-African Americans > 60 (> 60)
[2016-07-12 10:39] LABS: Basophils % 0.2 %; Eosinophils % 0.1 %; Hematocrit 43.6 % (37.5-50.1); Lymphocytes # 0.9 K/mcL (0.6-4.6); Lymphocytes % 5.1 %; Mean Corpuscular HGB Conc 32.8 g/dL (31.6-35.5); Mean Corpuscular Hemoglobin 30.6 pg (28.0-33.3); Mean Corpuscular Volume 93.4 fL (83.0-100.0); Mean Platelet Volume 11.6 fL (9.4-12.4); Monocytes # 1.2 K/mcL (0.0-1.3); Monocytes % 7.1 %; Neutrophils # 14.9 K/mcL (1.6-8.9); Nucleated Red Blood Cells 0.1 /100 WBC (0); Platelet Count 138 K/mcL (140-400); Red Blood Count 4.67 M/mcL (4.19-5.50); Red Cell Distribution Width 15.9 % (11.5-14.5); Segmented Neutrophils % 86.5 %
[2016-07-12 10:41] LABS: Hemoglobin 14.3 g/dL (12.9-16.9)
[2016-07-12] MEDS ORDERED: Vancomycin 1,250 MG in D5% in Water 250 ML IVPB ONE (10:56)
[2016-07-12] MEDS ORDERED: Piperacillin/Tazobactam 4.5 GM in D5% in Water (Mini-Bag+) 100 ML IVPB ONE (10:57)
[2016-07-12] MEDS ORDERED: Levofloxacin 750 MG/150 ML 750 MG/150 ML BAG IVPB ONE (10:57)
--- NOTE | 2016-07-12 12:52 | Internal Med History&Physical ---
Date of Encounter: 07/12/16 Time of Encounter: 12:50 Assessment and Plan (1) HCAP (healthcare-associated pneumonia) Current visit: Yes Status: Acute Patient will be started on vancomycin and zosyn. Sputum blood cultures (2) Afib Current visit: Yes Status: Acute rate 80s to 90s. Continue amiodarone and beta bi. Patient is not anticoagulation according to prior cardiology recommendations since he is on aspirin and Plavix and has future melanoma surgery. Qualifiers: Qualified Code(s): I48.91 - Unspecified atrial fibrillation (3) Recent ST elevation myocardial infarction (STEMI) Current visit: Yes Status: Acute Status post PTCA for instent thrombosis. Currently on aspirin Plavix continue. He denies any anginal chest pain. His chest pain is reproducible related to cardio pulmonary resuscitation (4) Acute respiratory failure with hypoxia Current visit: Yes Status: Acute U2 healthcare associated pneumonia. I will give one those Lasix 20 mg IV for slight element of clinical overload. (5) Diabetes mellitus Current visit: Yes Status: Acute Sliding scale insulin Qualifiers: Qualified Code(s): E11.9 - Type 2 diabetes mellitus without complications Internal Medicine - H&P: HPI Chief complaint: sob and cough History of present illness: Mr. Langford is a 80 year old male was just discharged from the hospital 2 days ago after presentation with anterolateral STEMI cardiogenic shock requiring CPR after which he was found to have instant thrombosis treated with PTCA presents to the emergency room today with the main complain of shortness of breath and cough. Patient was actually discharged on 2 L of oxygen he was not oxygen prior to that and has no chronic lung conditions and has not smoked. He has noted productive cough Brown sputum, and worsening shortness of breath. He has been requiring 5 L of oxygen during my interview in the emergency room. He denied fever. He has chest pain that is reproducible related to cardio pulmonary resuscitation. He notices swelling of the left lower extremity more than right. Recent echocardiogram shows ischemic cardiomyopathy was ejection fraction of 20% Past Med Surg Social Fam HX - Past Medical History Medical history: cancer, coronary artery disease, diabetes, GERD, hyperlipidemia , hypertension, myocardial infarction, sudden cardiac , TIA, other Psychiatric history: no psych history - Past Surgical History Surgical History: angioplasty/stent, herniorrhaphy, pacemaker - Social History Smoking Status: Never smoker Smokeless Tobacco Status: No Alcohol use: none Drug use: none - Family History Brother Hx Family Cardiac Disorders: Yes (multiple siblings with CAD) Internal Medicine - H&P: Meds Allopurinol [Zyloprim 100 MG] 100 mg PO BID 07/06/16 [History] Clopidogrel [Plavix] 75 mg PO DAILY 07/06/16 [History] Furosemide [Lasix] 20 mg PO DAILY 07/06/16 [History] Loperamide HCl [Imodium A-D] 2 mg PO BID PRN 07/06/16 [History] Omeprazole [PriLOSEC] 20 mg PO DAILY 07/06/16 [History] Amiodarone [Cordarone] 200 mg PO DAILY #30 tablet 07/10/16 [Rx] Aspirin 81 mg PO DAILY #30 tab.chew 07/10/16 [Rx] Atorvastatin [Lipitor] 80 mg PO HS #30 tablet 07/10/16 [Rx] Lisinopril [Zestril] 2.5 mg PO DAILY #30 tablet 07/10/16 [Rx] Metformin HCl [Fortamet] 500 mg PO DAILY #30 tab.er.24 07/10/16 [Rx] Metoprolol XL (24 HR) Succ [Toprol Xl] 25 mg PO DAILY #30 tab.er.24h 07/10/16 [ Rx] Nitroglycerin 0.4 mg SL Q5MIN PRN #15 tab.subl 07/10/16 [Rx] Allergies aspirin Allergy (Verified 07/12/16 11:37) See Comments urinate blood All Systems PM: A 10-system review of systems was performed and is negative for pertinent findings except as documented above in the HPI. Review of systems: 10 point review of systems is negative except for HPI. - Constitutional Vitals: Temp Pulse Resp BP Pulse Ox 97.7 F 97 22 150/109 92 07/12/16 09:32 07/12/16 12:06 07/12/16 12:06 07/12/16 12:06 07/12/16 12:06 Exam: Gen.: patient is alert oriented times 3 not in distress. Cardiac: normal S1 S2 no additional sounds or murmurs chest: bronchial breathing in right base. Coarse breath sounds abdomen: soft nontender nondistended normal bowel sounds neuro: no focal deficit LE: LLE is more swollen Internal Med - H&P Results - Labs CBC & Chem 7: 07/12/16 10:11 07/12/16 10:11
[2016-07-12] MEDS ORDERED: Furosemide 20 MG/2 ML VIAL IVP ONE (12:54)
[2016-07-12] MEDS ORDERED: Vancomycin 1 EACH in D5% in Water 250 ML IVPB SCH (13:00)
--- NOTE | 2016-07-12 13:38 | Cardiology Consult Note ---
Addendum entered and electronically signed by Lonny Escudero DO 07/12/16 16:03 : He does not have an allergy to aspirin. He had prior GI upset. He has been on aspirin during his last hospital stay and was d/c on it. Benefit of aspirin outweighs the risk. Called pharmacy and asked for them to remove aspirin as a true allergy. Original Note: <Lonny Escudero - Last Filed: 07/12/16 15:48> Date of Encounter: 07/12/16 Time of Encounter: 13:35 Assessment and Plan (1) Recent ST elevation myocardial infarction (STEMI) Current Visit: Yes Status: Acute Recent STEMI on 07/06 with Vfib arrest and chest compressions D/c home on amiodarone, plavix, aspirin, lipitor 80, metoprolol xl 25 Troponin from the ER is 33.05. Prior troponin was >50 on the 25th EKG from today non diagnostic for acute event. 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 All questions were answered. Thank you for involving us in the care of your patient. Please call with any questions. History of Present Illness Consult date: 07/12/16 Consult reason: Recent STEMI/arrest, admitted for pneumonia Chief complaint: dyspnea and cough History of present illness: Mr. 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 Developed V-fib and required 2 defibrillations and chest compressions. ROSC obtained. In stent thrombosis found and PTCA in proximal LAD. Subsequently extubated and d/c home on oral amiodarone. Presented on 07/12 due to dyspnea and cough. Was diagnosed with HCAP and started on antibiotics in the ER. Cardiology was consulted due to his recent arrhythmia and stent. He denies having any chest pain. He only complains of dyspnea with cough. Productive. No fever. No LE edema. Past Med Surg Social Fam HX - Past Medical History Medical history: cancer, coronary artery disease, diabetes, GERD, hyperlipidemia , hypertension, myocardial infarction, sudden cardiac , TIA, other Psychiatric history: no psych history - Past Surgical History Surgical History: angioplasty/stent, herniorrhaphy, pacemaker - Social History Smoking Status: Never smoker Smokeless Tobacco Status: No Alcohol use: none Drug use: none - Family History Brother Hx Family Cardiac Disorders: Yes (multiple siblings with CAD) Medications and Allergies Allopurinol [Zyloprim 100 MG] 100 mg PO BID 07/06/16 [History] Clopidogrel [Plavix] 75 mg PO DAILY 07/06/16 [History] Furosemide [Lasix] 20 mg PO DAILY 07/06/16 [History] Loperamide HCl [Imodium A-D] 2 mg PO BID PRN 07/06/16 [History] Omeprazole [PriLOSEC] 20 mg PO DAILY 07/06/16 [History] Amiodarone [Cordarone] 200 mg PO DAILY #30 tablet 07/10/16 [Rx] Aspirin 81 mg PO DAILY #30 tab.chew 07/10/16 [Rx] Atorvastatin [Lipitor] 80 mg PO HS #30 tablet 07/10/16 [Rx] Lisinopril [Zestril] 2.5 mg PO DAILY #30 tablet 07/10/16 [Rx] Metformin HCl [Fortamet] 500 mg PO DAILY #30 tab.er.24 07/10/16 [Rx] Metoprolol XL (24 HR) Succ [Toprol Xl] 25 mg PO DAILY #30 tab.er.24h 07/10/16 [ Rx] Nitroglycerin 0.4 mg SL Q5MIN PRN #15 tab.subl 07/10/16 [Rx] Allergies aspirin Adverse Reaction (Verified 07/12/16 16:02) See Comments urinate blood All Systems Review: A 10-system review of systems was performed and is negative for pertinent findings except as documented above in the HPI. - Constitutional Constitutional: no fever(s) - Cardiovascular Cardiovascular: dyspnea on exertion - Respiratory Respiratory: cough, dyspnea - Gastrointestinal Gastrointestinal: no abdominal pain - Genitourinary Genitourinary: no dysuria - Integumentary Integumentary: no rash - Neurological Neurological: no dizziness, no syncope - Hematological/Lymphatic Hematologic/Lymphatic: no easy bleeding Physical Examination Vital Signs, Last 4 Hours Pulse Resp BP Pulse Ox 07/12/16 12:53 22 176/117 07/12/16 12:06 97 22 150/109 92 General: Conversant HEENT: Atraumatic Neck: No JVD Cardiac: Other (irregular rhythm, mild tachycardia) Lungs: Other (coarse lung sounds bilaterally) Neuro: Alert and responsive Abdomen: Soft Skin: No rashes noted on visualized skin Extremities: No Cyanosis, No Edema, Normal Pulses Results 07/12/16 10:11 07/12/16 10:11 Consult Discharge Plan - Plan Referrals: Kings Kaiser MD [Primary Care Provider] - <Kae Masters - Last Filed: 07/12/16 16:23> Date of Encounter: 07/12/16 Assessment and Plan Discussion w patient/family: The assessment and plan as outlined above was discussed with the patient and/or family members who expressed understanding and agreement. All questions were answered. Thank you for involving us in the care of your patient. Please call with any questions. History of Present Illness History of present illness: Mr. Langford is a 80 year old male All Systems Review: A 10-system review of systems was performed and is negative for pertinent findings except as documented above in the HPI. Physical Examination Vital Signs, Last 4 Hours Temp Pulse Resp BP Pulse Ox 07/12/16 15:08 109 94 07/12/16 13:40 98.3 F 108 24 170/110 90 07/12/16 12:53 22 176/117 Results 07/12/16 10:11 07/12/16 10:11 - Attending Attestation I examined this patient and my medical decision-making was reviewed with the RECYCLING WORKER/PA/Advanced Practice Nurse/Resident Physician. I agree with the documented findings, disposition and treatment plan. Patient presents with worsening SOB since discharge from the hospital probably from a combination of systolic heart failure, acute and possibly pneumonia. He denies new chest pain and there are no acute diagnostic findings on presenting ECG. Troponin of 33 probably represents a downtrend from troponin last week. We will trend the troponins. I agree with IV diuresis. Recommend uptitrating metoprolol for better heart rate control of afib which is not new. He will continue amiodarone. Apparently, full anticoagulation was not recommended due to patient's upcoming surgery for melanoma.
[2016-07-12] MEDS: *HR* Heparin 5,000 UNIT/ML VIAL SQ SCH ×2 (14:29→20:50)
[2016-07-12] MEDS: Furosemide 40 MG/4 ML VIAL IVP SCH ×2 (15:18→17:50)
[2016-07-12] MEDS: Metoprolol XL (24 HR) Succ 25 MG TAB.ER.24H PO SCH (15:19)
[2016-07-12] MEDS: Piperacillin/Tazobactam 3.375 GM in D5% in Water (Mini-Bag+) 100 ML IVPB SCH ×2 (16:22→20:51)
[2016-07-12] MEDS: Acetaminophen 325 MG TABLET PO PRN (16:35)
[2016-07-12 16:41] LABS: ABG Base Excess 4.3 mEq/L (-2.0 to 3.0); ABG HCO3 27.3 mEQ/L (21-27); ABG Oxygen Saturation 95 % (95-98); ABG PCO2 35 mmHg (35-45); ABG PO2 67 mmHg (85-104); ABG TCO2 28.4 mEq/L (20-26)
[2016-07-12 16:45] LABS: Blood Gas FiO2 60 %
[2016-07-12] MEDS: Insulin LISPRO 300 UNITS/3 ML VIAL SQ SCH (18:04)
--- NOTE | 2016-07-12 19:34 | Electrocardiograph Report ---
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
[2016-07-13 05:17] LABS: Basophils # 0.1 K/mcL (0.0-0.2); Basophils % 0.2 %; Eosinophils # 0.1 K/mcL (0.0-0.6); Eosinophils % 0.3 %; Hematocrit 39.5 % (37.5-50.1); Hemoglobin 13.1 g/dL (12.9-16.9); Immature Granulocytes % 0.8 % (0-4); Lymphocytes # 1.6 K/mcL (0.6-4.6); Lymphocytes % 6.8 %; Mean Corpuscular HGB Conc 33.2 g/dL (31.6-35.5); Mean Corpuscular Hemoglobin 31.3 pg (28.0-33.3); Mean Corpuscular Volume 94.3 fL (83.0-100.0); Monocytes # 1.6 K/mcL (0.0-1.3); Monocytes % 6.8 %; Neutrophils # 19.5 K/mcL (1.6-8.9); Nucleated Red Blood Cells 0.2 /100 WBC (0); Platelet Count 165 K/mcL (140-400); Red Blood Count 4.19 M/mcL (4.19-5.50); Red Cell Distribution Width 15.6 % (11.5-14.5); Segmented Neutrophils % 85.1 %
[2016-07-13] MEDS: Piperacillin/Tazobactam 3.375 GM in D5% in Water (Mini-Bag+) 100 ML IVPB SCH ×3 (05:21→19:58)
[2016-07-13] MEDS: *HR* Heparin 5,000 UNIT/ML VIAL SQ SCH (05:21)
[2016-07-13 05:29] LABS: BUN/Creatinine Ratio 18 (6-26); Blood Urea Nitrogen 20 mg/dL (8-26); C-Reactive Protein 65 mg/L (Less than 5); Calcium 8.8 mg/dL (8.6-10.8); Carbon Dioxide 27 mEq/L (19-29); Chloride 103 mEq/L (98-109); Glucose 229 mg/dL (70-99); Magnesium 1.8 mg/dL (1.6-2.6); Osmolality,Calculated 304 (280-300); Potassium 3.3 mEq/L (3.5-4.5); Sodium 142 mEq/L (136-145); eGFR For African Americans > 60 (> 60); eGFR For Non-African Americans > 60 (> 60)
[2016-07-13] MEDS: Vancomycin 1,500 MG in D5% in Water 250 ML IVPB SCH (08:11)
[2016-07-13] MEDS: Insulin LISPRO 300 UNITS/3 ML VIAL SQ SCH ×5 (08:12→17:16)
[2016-07-13] MEDS: Furosemide 40 MG/4 ML VIAL IVP SCH ×2 (08:12→17:15)
[2016-07-13] MEDS: Metoprolol XL (24 HR) Succ 25 MG TAB.ER.24H PO SCH (08:13)
[2016-07-13] MEDS: Aspirin 81 MG TAB.CHEW PO SCH (08:13)
[2016-07-13] MEDS: *HR* Amiodarone 200 MG TABLET PO SCH (08:13)
[2016-07-13] MEDS: Acetaminophen 325 MG TABLET PO PRN ×2 (08:14→17:16)
[2016-07-13] MEDS ORDERED: Furosemide 20 MG TABLET PO SCH (09:00)
[2016-07-13] MEDS ORDERED: Metoprolol XL (24 HR) Succ 25 MG TAB.ER.24H PO SCH (09:00)
--- NOTE | 2016-07-13 09:09 | ECHO - Doppler Report ---
Limited Echocardiogram Name: Ras Langford Date of Study: 07/12/2016 Date: 1935 Ht: 67.0 in Medical Record#: [id number] Age: 80 Wt: 192.0 lb Gender: Male BSA: 1.99 Order #: [id number] Location: [facility] Room #: 2N11 Reading Physician: Jason Mccallum MD, [facility] Project Financial Analyst: Yamileth Toure RDCS Ordering Physician: Lonny Escudero DO Primary Physician: Kings Kaiser MD Indications: Dyspnea, Recent NE, Reduced EF Impressions: Mildly dilated left ventricle. Severe LV systolic dysfunction, LVEF 25-30%. There are regional wall motion abnormalities, see diagram below. Mild concentric left ventricular hypertrophy. There is an LV apical echodensity consistent with an LV apical thrombus. Normal right ventricular size. There is RV apical hypokinesis. A device lead was visualized in the right atrium and right ventricle. Severely dilated left atrium. Severely dilated right atrium. Valvular function was not assessed on this limited study. Dr. Masters notified of LV apical thrombus. Left Ventricular Wall Motion: Rest Echo Findings The apical inferior, mid inferior, mid anterior, mid inferior septal, basal inferior septal, mid anterior lateral, mid anterior septal and basal anterior septal huitron were hypokinetic. The apex, apical anterior, apical septal and apical lateral huitron were akinetic. All other wall segments showed normal motion. Findings: Study Quality * Technically adequate exam. ECG Findings * V-paced rhythm. Left Ventricle * Mildly dilated left ventricle. * Severe LV systolic dysfunction, LVEF 25-30%. There are regional wall motion abnormalities, see diagram below. * Mild concentric left ventricular hypertrophy. * There is an LV apical echodensity consistent with an LV apical thrombus. Right Ventricle * Normal right ventricular size. There is RV apical hypokinesis. Device lead * A device lead was visualized in the right atrium and right ventricle. Left Atrium * Severely dilated left atrium. Right Atrium * Severely dilated right atrium. Aorta * Normally sized aortic root. Pericardium * There is no pericardial effusion present. History Hypertension Diabetes Hypercholesteremia History of CAD/PTCA Myocardial Infarction Congestive Heart Failure Pacer/ICD Implant 07/06/2016 a Previous Echo was performed. Measurements: BP: 170/ 110 2D Normal Values RVIDd: 3.57 cm IVSd: 1.20 cm 0.6 - 1.0 cm LVIDd: 6.15 cm 3.7 - 5.6 cm LVPWd: 1.20 cm 0.6 - 1.1 cm LVIDs: 5.21 cm 1.5 - 3.6 cm AO: 2.90 cm < 4.0 cm %FS: 15.30 cm >25 % Updated by Jason Mccallum MD, [facility] on 07/13/2016 9:04:02 AM electronically signed on 07/13/2016 9:04:28 AM with status of Final Wall Motion [place]: 1=Normal, 2=Hypokinesis, 3=Akinesis, 4=Dyskinesis, 5=Aneurysmal, 6=Hyperkinetic, X=Not Visualized (Blank)=Missing
[2016-07-13] MEDS ORDERED: Heparin 25,000 UNIT/500 ML D5W 25,000 UNIT/500 ML MLS IVC SCH (09:15)
[2016-07-13 09:53] LABS: INR 1.3; Prothrombin Time 14.2 Seconds (9.4-12.1)
--- NOTE | 2016-07-13 09:55 | Internal Med Progress Note ---
Date of Encounter: 07/13/16 Time of Encounter: 09:55 - Assessment and plan (1) LV (left ventricular) mural thrombus following AK Current Visit: Yes Status: Acute Assessment and plan: Heparin drip Continue ASA, Plavix Patient will need triple therapy at time of discharge Cardiology following (2) Acute respiratory failure with hypoxia Current Visit: Yes Status: Acute Assessment and plan: Secondary to CHFE and Pneumonia, continue O2 supplementation O2 qualification prior to discharge (3) CHF (congestive heart failure) Current Visit: Yes Status: Acute Assessment and plan: ECHO noted (as in HPI) Continue Lasix Daily weighs Strict intake/output Monitor renal function Qualifiers: Congestive heart failure type: systolic Congestive heart failure chronicity : acute on chronic Qualified Code(s): I50.23 - Acute on chronic systolic ( congestive) heart failure (4) Pneumonia Current Visit: Yes Status: Acute Assessment and plan: HCAP due to recent hospitalization one week ago Sputum culture negative so far Continue Vanco, Zosyn, Levoflox Send urine legionella/strep Ag Continue O2 supplementation Qualifiers: Pneumonia type: due to unspecified organism Laterality: right Lung location: lower lobe of lung Qualified Code(s): J18.1 - Lobar pneumonia, unspecified organism (5) Hyperlipidemia Current Visit: Yes Status: Chronic Assessment and plan: Continue home meds Qualifiers: Hyperlipidemia type: mixed hyperlipidemia Qualified Code(s): E78.2 - Mixed hyperlipidemia (6) Coronary artery disease Current Visit: Yes Status: Chronic Assessment and plan: As in Recent STEMI Qualifiers: Coronary Disease-Associated Artery/Lesion type: [place] artery [place] vs. transplanted heart: [place] heart Associated angina: with unstable angina Qualified Code(s): I25.110 - Atherosclerotic heart disease of [place] coronary artery with unstable angina pectoris (7) Diabetes mellitus, type 2 Current Visit: Yes Status: Chronic Assessment and plan: A1C 8.3% Continue basal, prandial and supplemental insulin sliding scale Monitor FS ADA diet Qualifiers: Diabetes mellitus complication status: with hyperglycemia Diabetes mellitus assisted insulin use: without assisted use Qualified Code(s): E11.65 - Type 2 diabetes mellitus with hyperglycemia (8) Recent ST elevation myocardial infarction (STEMI) Current Visit: Yes Status: Chronic Assessment and plan: Continue home meds Trop 25 (9) Essential hypertension Current Visit: Yes Status: Chronic Assessment and plan: Controlled Resume home meds - Subjective Interval history: 80 Y/O M being managed for Acute respiratory failure secondary to HCAP, he is also s/p STEMI (Vfib arrest) with carcinogenic shock requiring CPR, CHFrEF Seen at bedside with spouse Denies new complains Reports he is feling better and shortness of breath has improved ECHO report this morning with EF 25-30%, global WMA, LV apical thrombus, severe dilated LA, severe dilated RA he is being followed with cardiology High risk patient due to his diagnoses, vancomycin, heparin - Constitutional Vitals: Temp Pulse Resp BP Pulse Ox 97.7 F 95 18 136/94 92 07/13/16 07:46 07/13/16 07:46 07/13/16 04:55 07/13/16 07:46 07/13/16 07:46 Exam: VSS Gen: Not in any form of distress, speaks full sentences, Neuro: AAOX3, moves all limbs spontaneously, no focal deficits, no speech abnormality or facial asymmetry HEENT: Moist mucosa, no cyanosis, RANI Chest: CTAB, no wheezes, rhonchi, stridor Heart: PCM site clean, not tender, S1, S2, systolic murmur Abdomen: Soft, not tender, no palpably enlarged organs Extremities: Varicose veins ++, no pedal edema, pulses present and equal bilaterally Internal Medicine: Result - Labs CBC & Chem 7: 07/13/16 04:27 07/13/16 04:27 Labs: Short CBC 07/13/16 Range/Units 04:27 WBC 22.9 H (4.3-11.1) K/mcL Hgb 13.1 (12.9-16.9) g/dL Hct 39.5 (37.5-50.1) % Plt Count 165 (140-400) K/mcL Neutrophils # 19.5 H (1.6-8.9) K/mcL BMP 07/13/16 04:27 Sodium 142 Potassium 3.3 L Chloride 103 Carbon Dioxide 27 BUN 20 Creatinine 1.14 Glucose 229 H Calcium 8.8 Cardiac Enzymes 07/12/16 Range/Units 21:59 Troponin I 27.45 H* (0-0.03) ng/mL - ABG Interpretation ABG results: ABG ABG pH 7.50 pH Units (7.32-7.45) H 07/12/16 16:30 ABG pCO2 35 mmHg (35-45) 07/12/16 16:30 ABG pO2 67 mmHg (85-104) L 07/12/16 16:30 ABG O2 Saturation 95 % (95-98) 07/12/16 16:30 PT/INR, D-dimer PT 14.2 Seconds (9.4-12.1) H 07/13/16 09:27 Consult Discharge Plan - Plan Referrals: Kings Kaiser MD [Primary Care Provider] -
--- NOTE | 2016-07-13 10:11 | Venous Imaging Report ---
LE Venous Duplex Patient Name:Ras Langford Order Number:[id number] Procedure Date:07/12/2016 Date:1935ge:80 yrs Gender:Male Location:[facility] Room #: 2N11 Non Licensed Nuclear Plant Operator:Yamileth Toure RDCS Referring MD:Maximo Mandel MD center director:Kings Kaiser MD Reading MD:Chino Cobb MD Primary Indications:R/O DVT Secondary Indications: Impressions: Left lower extremity: normal superficial and deep exam. Recommendations: Preliminary given to RNCristhian. Findings Venous Duplex Results: Left: Venous imaging of the lower extremity reveals full patency and normal vessel compressibility of the left distal iliac, left common femoral, left superficial femoral, left popliteal, left posterior tibial, left peroneal, left great saphenous and left lesser saphenous. Doppler signals in the evaluated veins were normal. Prior Study: No prior study available for comparison. Lower Extremity Venous Duplex Side Vein Compress Spontaneous Flow Augment Diameter (cm) Depth (cm) Left Distal Iliac Normal Yes Phasic Yes Left Common Femoral Normal Yes Phasic Yes Left Superficial Femoral Normal Yes Phasic Yes Left Popliteal Normal Yes Phasic Yes Left Posterior Tibial Normal Yes Phasic Yes Left Peroneal Normal Yes Phasic Yes Left Great Saphenous Normal Yes Phasic Yes Left Lesser Saphenous Normal Yes Phasic Yes Updated by Chino Cobb MD on 07/13/2016 10:03:46 AM electronically signed on 07/13/2016 10:04:11 AM with status of Final
[2016-07-13] MEDS ORDERED: D5% in Water 1,000 ML IVC PRN (10:42)
[2016-07-13] MEDS ORDERED: Dextrose Gel 15 GM PO PRN ×2 (10:42)
[2016-07-13] MEDS ORDERED: *HR* Dextrose 50 % in Water (Syg) 50 ML SYRINGE IVP PRN (10:42)
--- NOTE | 2016-07-13 10:45 | Electrocardiograph Report ---
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
[2016-07-13] MEDS ORDERED: *HR* Heparin 5,000 UNIT/ML VIAL IVP PRN ×2 (11:08)
[2016-07-13 11:44] LABS: Activated Partial Thrombo Time 30.7 Seconds (26.0-36.0)
--- NOTE | 2016-07-13 11:50 | Cardiology Progress Note ---
Date of Encounter: 07/13/16 Time of Encounter: 11:33 Assessment and Plan (1) LV (left ventricular) mural thrombus Current Visit: Yes Status: Acute TTE showed LV echodensity concerning for LV thrombus. Heparin gtt started. Will bridge to coumadin. (2) Elevated troponin Current Visit: Yes Status: Acute Troponin from 07/06 was >50 Troponin trending down s/p recent STEMI. Troponin 30.05, 29.12, 27.45. He denies chest pain TTE shows EF 25-30%. Unchanged significantly from 07/06/16, EF 30% at that time. Continue asa, plavix, statin, and bb. Cardiac rehab in progress. Consult completed during last stay for STEMI. (3) Pneumonia Current Visit: Yes Status: Acute Hospitalist following. On IV antibiotic. Qualifiers: Pneumonia type: due to unspecified organism Laterality: right Lung location: lower lobe of lung Qualified Code(s): J18.1 - Lobar pneumonia, unspecified organism (4) Afib Current Visit: Yes Status: Acute Rate controlled afib. Avg HR 82 bpm. Continue amiodarone and bb. Heparin gtt for LV thrombus started. Will start warfarin during hospital stay. Qualifiers: Atrial fibrillation type: unspecified Qualified Code(s): I48.91 - Unspecified atrial fibrillation (5) Coronary artery disease Current Visit: Yes Status: Chronic S/p STEMI and cardiac arrest 07/06/16. EF 30%. Continue asa, statin, plavix , and bb. Qualifiers: Coronary Disease-Associated Artery/Lesion type: [place] artery [place] vs. 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 Continue IV lasix. Near euvolemia. Net negative -1275 ml for stay. Continue diuretic. Monitor BMP. K 3.3- replaced. Qualifiers: Congestive heart failure type: systolic Congestive heart failure chronicity : acute on chronic Qualified Code(s): I50.23 - Acute on chronic systolic ( congestive) heart failure (7) Melanoma Current Visit: Yes Status: Acute Pt concerned about melanoma lesion. He was following with dermatology and surgery. Discussed with Dr. Gaines in dermatology. 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 The basal cell is scheduled to be removed and can be done on triple therapy as long as INR is not supratherapeutic. Need for interruption of anticoagulant therapy for melanoma removal can be re-evaluated once re-evaluated in out patient setting. Qualifiers: Melanoma location: face excluding eyelid, nose, lip, and ear Qualified Code (s): C43.30 - Malignant melanoma of unspecified part of face Discussion w patient/family: The assessment and plan as outlined above was discussed with the patient and/or family members who expressed understanding and agreement. All questions were answered. Thank you for involving us in the care of your patient. Please call with any questions. Subjective Principal diagnosis: PNA, elevated troponin, LV thrombus Interval history: Mr. Langford denies chest pain. Continues to have mild SOB. Objective Vital Signs, Last 4 Hours Temp Pulse Resp BP Pulse Ox 07/13/16 10:55 96 20 120/77 94 07/13/16 07:46 97.7 F 95 136/94 92 General: Conversant, No Apparent Distress HEENT: Atraumatic, Normocephaly, Mucus Membranes Moist Neck: No JVD, Normal carotid pulses Cardiac: Other (irregularly irregular) Lungs: Normal Breath Sounds, No Wheeze, Rales, Rhonchi Neuro: Alert and responsive, No focal deficits noted Abdomen: Soft, Non-Tender Skin: No rashes noted on visualized skin Musculoskeletal: No Chest Wall Tenderness Extremities: No Clubbing, No Cyanosis, No Edema, Normal Pulses Results 07/13/16 04:27 07/13/16 04:27 Lab Results 07/12/16 07/13/16 07/13/16 21:59 04:27 04:27 WBC 22.9 H Hgb 13.1 Hct 39.5 Plt Count 165 INR Sodium 142 Potassium 3.3 L Chloride 103 Carbon Dioxide 27 BUN 20 Creatinine 1.14 Glucose 229 H Calcium 8.8 Magnesium 1.8 Troponin I 27.45 H* 07/13/16 09:27 WBC Hgb Hct Plt Count INR 1.3 Sodium Potassium Chloride Carbon Dioxide BUN Creatinine Glucose Calcium Magnesium Troponin I - EKG Interpretation EKG results cardiology: other (24 hour telemetry review - Avg HR 82 bpm. Atrial fibrilltion. No VT.) Consult Discharge Plan - Plan Referrals: Kings Kaiser MD [Primary Care Provider] - 07/20/16 9:45 am
[2016-07-13] MEDS: Heparin 25,000 UNIT/500 ML D5W 25,000 UNIT/500 ML MLS IVC SCH (12:58)
[2016-07-13] MEDS: Warfarin perPT PO SCH (17:16)
[2016-07-13] MEDS ORDERED: *HR* Warfarin 3 MG TABLET PO ONE (18:00)
[2016-07-13] MEDS: Insulin DETEMIR 100 UNIT/ML X5UNITS SQ SCH (19:57)
[2016-07-14 02:36] LABS: Basophils # 0.1 K/mcL (0.0-0.2); Basophils % 0.2 %; Eosinophils # 0.2 K/mcL (0.0-0.6); Eosinophils % 0.9 %; Hematocrit 41.2 % (37.5-50.1); Hemoglobin 13.4 g/dL (12.9-16.9); Lymphocytes # 1.8 K/mcL (0.6-4.6); Lymphocytes % 7.7 %; Mean Corpuscular HGB Conc 32.5 g/dL (31.6-35.5); Mean Corpuscular Hemoglobin 31.1 pg (28.0-33.3); Mean Corpuscular Volume 95.6 fL (83.0-100.0); Mean Platelet Volume 11.8 fL (9.4-12.4); Monocytes # 1.4 K/mcL (0.0-1.3); Monocytes % 6.3 %; Neutrophils # 19.1 K/mcL (1.6-8.9); Nucleated Red Blood Cells 0.3 /100 WBC (0); Platelet Count 172 K/mcL (140-400); Red Blood Count 4.31 M/mcL (4.19-5.50); Red Cell Distribution Width 15.4 % (11.5-14.5); Segmented Neutrophils % 83.9 %
[2016-07-14 02:41] LABS: INR 1.4; Prothrombin Time 15.5 Seconds (9.4-12.1)
[2016-07-14 02:52] LABS: BUN/Creatinine Ratio 19 (6-26); Blood Urea Nitrogen 23 mg/dL (8-26); Calcium 8.7 mg/dL (8.6-10.8); Carbon Dioxide 31 mEq/L (19-29); Chloride 100 mEq/L (98-109); Glucose 50 mg/dL (70-99); Osmolality,Calculated 297 (280-300); Potassium 2.6 mEq/L (3.5-4.5); Sodium 143 mEq/L (136-145); eGFR For African Americans > 60 (> 60); eGFR For Non-African Americans 58 (> 60)
[2016-07-14] MEDS: Piperacillin/Tazobactam 3.375 GM in D5% in Water (Mini-Bag+) 100 ML IVPB SCH ×3 (06:31→23:12)
[2016-07-14] MEDS: Heparin 25,000 UNIT/500 ML D5W 25,000 UNIT/500 ML MLS IVC SCH (06:44)
[2016-07-14] MEDS: Insulin LISPRO 300 UNITS/3 ML VIAL SQ SCH ×6 (07:43→16:34)
[2016-07-14] MEDS: Metoprolol XL (24 HR) Succ 25 MG TAB.ER.24H PO SCH (08:11)
[2016-07-14] MEDS: Aspirin 81 MG TAB.CHEW PO SCH (08:11)
[2016-07-14] MEDS: *HR* Amiodarone 200 MG TABLET PO SCH (08:13)
[2016-07-14] MEDS: Vancomycin 1,500 MG in D5% in Water 250 ML IVPB SCH (08:13)
[2016-07-14] MEDS: Furosemide 40 MG/4 ML VIAL IVP SCH ×2 (08:13→16:35)
--- NOTE | 2016-07-14 10:18 | Cardiology Progress Note ---
Date of Encounter: 07/14/16 Time of Encounter: 10:15 Assessment and Plan (1) LV (left ventricular) mural thrombus Current Visit: Yes Status: Acute TTE showed LV echodensity concerning for LV thrombus. Heparin gtt started. Coumadin started. Goal INR 2.0-3.0. He will require triple therapy for at least one month s/p PTCA to his LAD. [place] [facility] referral sent. (2) Elevated troponin Current Visit: Yes Status: Acute Troponin from 07/06 was >50 Troponin trending down s/p recent STEMI. Troponin 30.05, 29.12, 27.45. He denies chest pain TTE shows EF 25-30%. Unchanged significantly from 07/06/16, EF 30% on TTE and 20 % on LHC at that time. Continue asa, plavix, statin, and bb. Cardiac rehab in progress. Consult completed during last stay for STEMI. (3) Pneumonia Current Visit: Yes Status: Acute -Hospitalist following. On IV antibiotic. Repeat CXR shows-persistent bibasilar airspace disease with some consolidative change in the left infrahilar region and lung base, with small pleural effusion. Minimal improved aeration in the right infrahilar region, with persistent right basilar infiltrate and possible interval development of a small pleural effusion. Qualifiers: Pneumonia type: due to unspecified organism Laterality: right Lung location: lower lobe of lung Qualified Code(s): J18.1 - Lobar pneumonia, unspecified organism (4) Afib Current Visit: Yes Status: Acute Rate controlled afib. Avg HR 86 bpm. Continue amiodarone and bb. Started on amiodarone last visit for vfib arrest. Heparin gtt for LV thrombus started. Will start warfarin during hospital stay. Qualifiers: Atrial fibrillation type: unspecified Qualified Code(s): I48.91 - Unspecified atrial fibrillation (5) Coronary artery disease Current Visit: Yes Status: Chronic S/p STEMI and cardiac arrest 07/06/16. EF 30%. S/p PTCA to his ISR in the pLAD. Denies chest pain. Continue asa, statin, plavix , and bb. Qualifiers: Coronary Disease-Associated Artery/Lesion type: [place] artery [place] vs. transplanted heart: [place] heart Associated angina: with unstable angina Qualified Code(s): I25.110 - Atherosclerotic heart disease of [place] coronary artery with unstable angina pectoris (6) CHF (congestive heart failure) Current Visit: Yes Status: Acute EF is sawyer cork slabs was 20% after a Vfib arrest EF 25-30% on repeat TTE. Continue IV lasix. CXr this am demonstrated-Persistent bibasilar airspace disease with some consolidative change in the left infrahilar region and lung base, with small pleural effusion. Minimal improved aeration in the right infrahilar region, with persistent right basilar infiltrate and possible interval development of a small pleural effusion. Likely pneumonia and CHF. Net negative -1945 ml for stay. Kidney function remains stable. Continue diuretic. Monitor BMP. K 2.6- replaced with IV potassium per primary team. Recheck this afternoon. Qualifiers: Congestive heart failure type: systolic Congestive heart failure chronicity : acute on chronic Qualified Code(s): I50.23 - Acute on chronic systolic ( congestive) heart failure (7) Melanoma Current Visit: Yes Status: Acute Pt concerned about melanoma lesion. He was following with dermatology and surgery. Discussed with Dr. Gaines in dermatology. 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 The basal cell is scheduled to be removed and can be done on triple therapy as long as INR is not supratherapeutic. Need for interruption of anticoagulant therapy for melanoma removal can be re-evaluated once re-evaluated in out patient setting. Qualifiers: Melanoma location: face excluding eyelid, nose, lip, and ear Qualified Code (s): C43.30 - Malignant melanoma of unspecified part of face Discussion w patient/family: The assessment and plan as outlined above was discussed with the patient and/or family members who expressed understanding and agreement. All questions were answered. Thank you for involving us in the care of your patient. Please call with any questions. Subjective Principal diagnosis: PNA, elevated troponin, LV thrombus Interval history: Mr. Langford denies chest pain. Objective Vital Signs, Last 4 Hours Temp Pulse Resp BP Pulse Ox 07/14/16 07:14 97.8 F 95 16 146/100 94 General: Conversant, No Apparent Distress HEENT: Atraumatic, Normocephaly, Mucus Membranes Moist Neck: No JVD, Normal carotid pulses Cardiac: Other (irregularly irregular) Lungs: Normal Breath Sounds, No Wheeze, Rales, Rhonchi Neuro: Alert and responsive, No focal deficits noted Abdomen: Soft, Non-Tender Skin: No rashes noted on visualized skin Musculoskeletal: No Chest Wall Tenderness Extremities: No Clubbing, No Cyanosis, No Edema, Normal Pulses Results 07/14/16 01:13 07/14/16 01:13 Lab Results 07/13/16 07/13/16 07/14/16 09:27 19:09 01:13 WBC 22.7 H Hgb 13.4 Hct 41.2 Plt Count 172 INR APTT 30.7 D 55.3 H D Sodium Potassium Chloride Carbon Dioxide BUN Creatinine Glucose Calcium 07/14/16 07/14/16 07/14/16 01:13 01:13 01:13 WBC Hgb Hct Plt Count INR 1.4 APTT 71.1 H Sodium 143 Potassium 2.6 L Chloride 100 Carbon Dioxide 31 H BUN 23 Creatinine 1.21 Glucose 50 L Calcium 8.7 07/14/16 06:55 WBC Hgb Hct Plt Count INR APTT 94.4 H Sodium Potassium Chloride Carbon Dioxide BUN Creatinine Glucose Calcium Chest X-Ray 07/14/16 08:13 IMPRESSION: Persistent bibasilar airspace disease with some consolidative change in the left infrahilar region and lung base, with small pleural effusion. Minimal improved aeration in the right infrahilar region, with persistent right basilar infiltrate and possible interval development of a small pleural effusion. D/ / Jaret Linda MD / Jaret Linda MD Interpreting Provider: Jaret Linda MD - EKG Interpretation EKG results cardiology: other (24 hour telemetry review shows atrial fibrillation, avg HR 86 bpm. No badycardia or VT seen.) - VTE Documentation of Mechanical Device: Intermittent pneumatic compression device Consult Discharge Plan - Plan Referrals: Kings Kaiser MD [Primary Care Provider] - 07/20/16 9:45 am
[2016-07-14] MEDS: Acetaminophen 325 MG TABLET PO PRN ×2 (10:22→21:24)
--- NOTE | 2016-07-14 12:17 | Internal Med Progress Note ---
Date of Encounter: 07/14/16 Time of Encounter: 12:17 - Assessment and plan (1) LV (left ventricular) mural thrombus following [place] Current Visit: Yes Status: Acute Assessment and plan: ECHO report this morning with EF 25-30%, global WMA, LV apical thrombus, severe dilated LA, severe dilated RA he is being followed with cardiology High risk patient due to his diagnoses, vancomycin,and heparin Continue ASA, Plavix Patient with some hematuria, ossibly from tugging on the [place] Consider discontinuation of [place] (2) Acute respiratory failure with hypoxia Current Visit: Yes Status: Acute Assessment and plan: Secondary to CHFE and Pneumonia, continue O2 supplementation O2 qualification prior to discharge (3) CHF (congestive heart failure) Current Visit: Yes Status: Acute Assessment and plan: ECHO noted Continue Lasix Daily weighs Strict intake/output Monitor renal function Qualifiers: Congestive heart failure type: systolic Congestive heart failure chronicity : acute on chronic Qualified Code(s): I50.23 - Acute on chronic systolic ( congestive) heart failure (4) Pneumonia Current Visit: Yes Status: Acute Assessment and plan: HCAP due to recent hospitalization one week ago Sputum culture negative so far Continue Vanco, Zosyn, Levoflox CXR repeated due to persistent leukocytosis Interval development of R pleural effusion Continue current antibiotics Will consult IR for possible diagnostic thoracentensis if leukocytosis persists Continue O2 supplementation Monitor Vanco trough and renal function Qualifiers: Pneumonia type: due to unspecified organism Laterality: bilateral Lung location: unspecified part of lung Qualified Code(s): J18.9 - Pneumonia, unspecified organism (5) Hyperlipidemia Current Visit: Yes Status: Chronic Assessment and plan: Continue home meds Qualifiers: Hyperlipidemia type: mixed hyperlipidemia Qualified Code(s): E78.2 - Mixed hyperlipidemia (6) Coronary artery disease Current Visit: Yes Status: Chronic Assessment and plan: As in Recent STEMI Qualifiers: Coronary Disease-Associated Artery/Lesion type: [place] artery [place] vs. transplanted heart: [place] heart Associated angina: with unstable angina Qualified Code(s): I25.110 - Atherosclerotic heart disease of [place] coronary artery with unstable angina pectoris (7) Diabetes mellitus, type 2 Current Visit: Yes Status: Chronic Assessment and plan: A1C 8.3% Continue basal, prandial and supplemental insulin sliding scale Monitor FS ADA diet Qualifiers: Diabetes mellitus complication status: with hyperglycemia Diabetes mellitus superintendent terminal insulin use: without superintendent terminal use Qualified Code(s): E11.65 - Type 2 diabetes mellitus with hyperglycemia (8) Recent ST elevation myocardial infarction (STEMI) Current Visit: Yes Status: Chronic Assessment and plan: Continue home meds Trop 25 (9) Essential hypertension Current Visit: Yes Status: Chronic Assessment and plan: Controlled Continue home meds - Subjective Interval history: 80 Y/O M being managed for Acute respiratory failure secondary to HCAP, he is also s/p STEMI (Vfib arrest) with carcinogenic shock requiring CPR, CHFrEF Seen at bedside with spouse Denies new complains - Constitutional Vitals: Temp Pulse Resp BP Pulse Ox 98.0 F 84 18 96/66 92 07/14/16 11:49 07/14/16 11:49 07/14/16 11:49 07/14/16 11:49 07/14/16 11:49 VSS Gen: Not in any form of distress, speaks full sentences, Neuro: AAOX3, moves all limbs spontaneously, no focal deficits, no speech abnormality or facial asymmetry HEENT: Moist mucosa, no cyanosis, RANI Chest: CTAB, no wheezes, rhonchi, stridor Heart: PCM site clean, not tender, S1, S2, systolic murmur Abdomen: Soft, not tender, no palpably enlarged organs Extremities: Varicose veins ++, no pedal edema, pulses present and equal bilaterally Internal Medicine: Result - Labs CBC & Chem 7: 07/14/16 01:13 07/14/16 01:13 Labs: Short CBC 07/14/16 Range/Units 01:13 WBC 22.7 H (4.3-11.1) K/mcL Hgb 13.4 (12.9-16.9) g/dL Hct 41.2 (37.5-50.1) % Plt Count 172 (140-400) K/mcL Neutrophils # 19.1 H (1.6-8.9) K/mcL BMP 07/14/16 01:13 Sodium 143 Potassium 2.6 L Chloride 100 Carbon Dioxide 31 H BUN 23 Creatinine 1.21 Glucose 50 L Calcium 8.7 - ABG Interpretation ABG results: ABG ABG pH 7.50 pH Units (7.32-7.45) H 07/12/16 16:30 ABG pCO2 35 mmHg (35-45) 07/12/16 16:30 ABG pO2 67 mmHg (85-104) L 07/12/16 16:30 ABG O2 Saturation 95 % (95-98) 07/12/16 16:30 PT/INR, D-dimer PT 15.5 Seconds (9.4-12.1) H 07/14/16 01:13 - Impressions Impressions Chest X-Ray 07/14/16 08:13 IMPRESSION: Persistent bibasilar airspace disease with some consolidative change in the left infrahilar region and lung base, with small pleural effusion. Minimal improved aeration in the right infrahilar region, with persistent right basilar infiltrate and possible interval development of a small pleural effusion. D/ / Jaret Linda MD / Jaret Linda MD Interpreting Provider: Jaret Linda MD - VTE Documentation of Mechanical Device: Intermittent pneumatic compression device Consult Discharge Plan - Plan Referrals: Kings Kaiser MD [Primary Care Provider] - 07/20/16 9:45 am
[2016-07-14] MEDS: Warfarin perPT PO SCH (16:35)
[2016-07-14] MEDS ORDERED: *HR* Warfarin 3 MG TABLET PO ONE (18:00)
[2016-07-14] MEDS: Vancomycin 1,000 MG in D5% in Water 250 ML IVPB SCH (21:25)
[2016-07-14] MEDS: Insulin DETEMIR 100 UNIT/ML X5UNITS SQ SCH (21:28)
[2016-07-15] MEDS: Heparin 25,000 UNIT/500 ML D5W 25,000 UNIT/500 ML MLS IVC SCH ×2 (02:18→23:03)
[2016-07-15 05:04] LABS: INR 1.3; Prothrombin Time 14.4 Seconds (9.4-12.1)
[2016-07-15 05:13] LABS: BUN/Creatinine Ratio 17 (6-26); Blood Urea Nitrogen 22 mg/dL (8-26); Calcium 8.6 mg/dL (8.6-10.8); Carbon Dioxide 32 mEq/L (19-29); Chloride 100 mEq/L (98-109); Glucose 199 mg/dL (70-99); Osmolality,Calculated 301 (280-300); Potassium 2.9 mEq/L (3.5-4.5); Sodium 141 mEq/L (136-145); eGFR For African Americans > 60 (> 60); eGFR For Non-African Americans 53 (> 60)
[2016-07-15 07:45] LABS: Basophils # 0.1 K/mcL (0.0-0.2); Basophils % 0.3 %; Eosinophils # 0.5 K/mcL (0.0-0.6); Eosinophils % 3.3 %; Hematocrit 38.1 % (37.5-50.1); Hemoglobin 12.4 g/dL (12.9-16.9); Immature Granulocytes % 1.6 % (0-4); Lymphocytes % 13.4 %; Mean Corpuscular HGB Conc 32.5 g/dL (31.6-35.5); Mean Corpuscular Volume 95.3 fL (83.0-100.0); Mean Platelet Volume 10.9 fL (9.4-12.4); Monocytes # 1.1 K/mcL (0.0-1.3); Neutrophils # 11.2 K/mcL (1.6-8.9); Nucleated Red Blood Cells 0.3 /100 WBC (0); Platelet Count 291 K/mcL (140-400); Red Cell Distribution Width 15.4 % (11.5-14.5); Segmented Neutrophils % 74.4 %
[2016-07-15] MEDS: *HR* Amiodarone 200 MG TABLET PO SCH (08:42)
[2016-07-15] MEDS: Acetaminophen 325 MG TABLET PO PRN (08:45)
[2016-07-15] MEDS: Metoprolol XL (24 HR) Succ 25 MG TAB.ER.24H PO SCH (08:45)
[2016-07-15] MEDS: Insulin LISPRO 300 UNITS/3 ML VIAL SQ SCH ×6 (08:46→17:32)
[2016-07-15] MEDS: Aspirin 81 MG TAB.CHEW PO SCH ×2 (08:55→11:20)
[2016-07-15] MEDS: Furosemide 40 MG/4 ML VIAL IVP SCH (09:10)
[2016-07-15] MEDS: Vancomycin 1,000 MG in D5% in Water 250 ML IVPB SCH ×2 (09:11→20:28)
[2016-07-15] MEDS: Piperacillin/Tazobactam 3.375 GM in D5% in Water (Mini-Bag+) 100 ML IVPB SCH ×2 (09:12→17:30)
--- NOTE | 2016-07-15 09:43 | Cardiology Progress Note ---
Date of Encounter: 07/15/16 Time of Encounter: 09:41 Assessment and Plan (1) LV (left ventricular) mural thrombus Current Visit: Yes Status: Acute TTE showed LV echodensity concerning for LV thrombus. Coumadin started with heparin bridge. Goal INR 2.0-3.0. He will require triple therapy s/p PTCA to his LAD. Increased risk of bleeding discussed and he voiced understanding. [place] anticoagulation clinic referral sent. He noted bright red blood in his stool this morning. Reports h/o hemorrhoids. Check Hgb at 1200. Consider consult to GI for evaluation. (2) Elevated troponin Current Visit: Yes Status: Acute Troponin from 07/06 was >50 Troponin trending down s/p recent STEMI. Troponin 30.05, 29.12, 27.45. He denies chest pain TTE shows EF 25-30%. Unchanged significantly from 07/06/16, EF 30% on TTE and 20 % on LHC at that time. Continue asa, plavix, statin, and bb. Cardiac rehab in progress. Consult completed during last stay for STEMI. (3) Pneumonia Current Visit: Yes Status: Acute -Hospitalist following. On IV antibiotic. Repeat CXR shows-persistent bibasilar airspace disease with some consolidative change in the left infrahilar region and lung base, with small pleural effusion. Minimal improved aeration in the right infrahilar region, with persistent right basilar infiltrate and possible interval development of a small pleural effusion. Continues to require O2 therapy. Qualifiers: Pneumonia type: due to unspecified organism Laterality: bilateral Lung location: unspecified part of lung Qualified Code(s): J18.9 - Pneumonia, unspecified organism (4) Afib Current Visit: Yes Status: Acute Rate controlled afib. Avg HR 81 bpm. Continue amiodarone and bb. Started on amiodarone last visit for vfib arrest. Heparin gtt for LV thrombus started. Will start warfarin during hospital stay. Qualifiers: Atrial fibrillation type: unspecified Qualified Code(s): I48.91 - Unspecified atrial fibrillation (5) Coronary artery disease Current Visit: Yes Status: Chronic S/p STEMI and cardiac arrest 07/06/16. EF 30%. S/p PTCA to his ISR in the pLAD. Denies chest pain. Continue asa, statin, plavix , and bb. Qualifiers: Coronary Disease-Associated Artery/Lesion type: [place] artery [place] vs. transplanted heart: [place] heart Associated angina: with unstable angina Qualified Code(s): I25.110 - Atherosclerotic heart disease of [place] coronary artery with unstable angina pectoris (6) CHF (congestive heart failure) Current Visit: Yes Status: Acute EF is laborer salvage was 20% after a Vfib arrest EF 25-30% on repeat TTE. Stop lasix d/t sCr increase. Urine tea colored. Net negative -2070 ml for stay. K 2.9- replacing. Recheck this afternoon. Qualifiers: Congestive heart failure type: systolic Congestive heart failure chronicity : acute on chronic Qualified Code(s): I50.23 - Acute on chronic systolic ( congestive) heart failure (7) Melanoma Current Visit: Yes Status: Acute Pt concerned about melanoma lesion. He was following with dermatology and surgery. Discussed with Dr. Gaines in dermatology. 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 The basal cell is scheduled to be removed and can be done on triple therapy as long as INR is not supratherapeutic. Need for interruption of anticoagulant therapy for melanoma removal can be re-evaluated once re-evaluated in out patient setting. Qualifiers: Melanoma location: face excluding eyelid, nose, lip, and ear Qualified Code (s): C43.30 - Malignant melanoma of unspecified part of face Discussion w patient/family: The assessment and plan as outlined above was discussed with the patient and/or family members who expressed understanding and agreement. All questions were answered. Thank you for involving us in the care of your patient. Please call with any questions. Subjective Principal diagnosis: PNA, elevated troponin, LV thrombus Interval history: Mr. Langford denies chest pain. He reports a small amount of bright red blood in his stool this morning. Denies black stools. Denies reoccurrence.He has a history of hemorrhoids. Urine is tea colored. Objective Vital Signs, Last 4 Hours Temp Pulse Resp BP Pulse Ox 07/15/16 09:25 74 07/15/16 08:00 98.3 F 90 16 160/97 95 General: Conversant, No Apparent Distress HEENT: Atraumatic, Normocephaly, Mucus Membranes Moist Neck: No JVD, Normal carotid pulses Cardiac: Other (irregularly irregular.) Lungs: Normal Breath Sounds, No Wheeze, Rales, Rhonchi Neuro: Alert and responsive, No focal deficits noted Abdomen: Soft, Non-Tender Skin: No rashes noted on visualized skin Musculoskeletal: No Chest Wall Tenderness Extremities: No Clubbing, No Cyanosis, No Edema, Normal Pulses Results 07/15/16 06:36 07/15/16 04:15 Lab Results 07/14/16 07/14/16 07/14/16 14:44 14:44 21:38 WBC Hgb Hct Plt Count INR APTT 72.3 H 65.6 H Sodium Potassium 3.1 L Chloride Carbon Dioxide BUN Creatinine Glucose Calcium 07/15/16 07/15/16 07/15/16 04:15 04:15 06:36 WBC 15.1 H Hgb 12.4 L Hct 38.1 Plt Count 291 D INR 1.3 APTT Sodium 141 Potassium 2.9 L Chloride 100 Carbon Dioxide 32 H BUN 22 Creatinine 1.30 H Glucose 199 H Calcium 8.6 - EKG Interpretation EKG results cardiology: other (24 hour telemetry review shows atrial fibrillation, rate controlled, AVg HR 81 bpm.) - VTE Documentation of Mechanical Device: Intermittent pneumatic compression device Consult Discharge Plan - Plan Referrals: Kings Kaiser MD [Primary Care Provider] - 07/20/16 9:45 am
--- NOTE | 2016-07-15 10:49 | Internal Med Progress Note ---
Date of Encounter: 07/15/16 Time of Encounter: 10:46 - Assessment and plan (1) GI bleed Current Visit: Yes Status: Acute Assessment and plan: Patient with hx of hemorrhoids Rpt Hb this afternoon Patient is hemodynamically stable and the benefits of the anticoagulation outweigh the risks for now Will consult GI if persistent Qualifiers: GI bleed type/associated pathology: unspecified gastrointestinal hemorrhage type Qualified Code(s): K92.2 - Gastrointestinal hemorrhage, unspecified (2) LV (left ventricular) mural thrombus following [place] Current Visit: Yes Status: Acute Assessment and plan: ECHO report this morning with EF 25-30%, global WMA, LV apical thrombus, severe dilated LA, severe dilated RA he is being followed with cardiology High risk patient due to his diagnoses, vancomycin,and heparin Continue ASA, Plavix, Coumadin Patient with some hematuria, possibly from tugging on the [place] D/C ibarra (3) Acute respiratory failure with hypoxia Current Visit: Yes Status: Acute Assessment and plan: Secondary to CHFE and Pneumonia, continue O2 supplementation O2 qualification prior to discharge (4) CHF (congestive heart failure) Current Visit: Yes Status: Acute Assessment and plan: ECHO noted Continue Lasix Daily weighs Strict intake/output Monitor renal function Qualifiers: Congestive heart failure type: systolic Congestive heart failure chronicity : acute on chronic Qualified Code(s): I50.23 - Acute on chronic systolic ( congestive) heart failure (5) Pneumonia Current Visit: Yes Status: Acute Assessment and plan: HCAP due to recent hospitalization one week ago Sputum culture negative so far Continue Vanco, Zosyn, Levoflox CXR repeated due to persistent leukocytosis Interval development of R pleural effusion Continue current antibiotics Leukocytosis improved and patient clinically improved Continue O2 supplementation Monitor Vanco trough and renal function Qualifiers: Pneumonia type: due to unspecified organism Laterality: bilateral Lung location: unspecified part of lung Qualified Code(s): J18.9 - Pneumonia, unspecified organism (6) Hyperlipidemia Current Visit: Yes Status: Chronic Assessment and plan: Continue home meds Qualifiers: Hyperlipidemia type: mixed hyperlipidemia Qualified Code(s): E78.2 - Mixed hyperlipidemia (7) Coronary artery disease Current Visit: Yes Status: Chronic Assessment and plan: As in Recent STEMI Qualifiers: Coronary Disease-Associated Artery/Lesion type: [place] artery [place] vs. transplanted heart: [place] heart Associated angina: with unstable angina Qualified Code(s): I25.110 - Atherosclerotic heart disease of [place] coronary artery with unstable angina pectoris (8) Diabetes mellitus, type 2 Current Visit: Yes Status: Chronic Assessment and plan: A1C 8.3% Continue basal, prandial and supplemental insulin sliding scale Monitor FS ADA diet Qualifiers: Diabetes mellitus complication status: with hyperglycemia Diabetes mellitus poem writer insulin use: without poem writer use Qualified Code(s): E11.65 - Type 2 diabetes mellitus with hyperglycemia (9) Recent ST elevation myocardial infarction (STEMI) Current Visit: Yes Status: Chronic Assessment and plan: Continue home meds Trop 25 (10) Essential hypertension Current Visit: Yes Status: Chronic Assessment and plan: Controlled Continue home meds (11) Hypokalemia Current Visit: Yes Status: Acute Assessment and plan: Replaced, continue to monitor - Subjective Interval history: 80 Y/O M being managed for Acute respiratory failure secondary to HCAP, he is also s/p STEMI (Vfib arrest) with carcinogenic shock requiring CPR, CHFrEF Patient's WBC has improved this a.m However his HB dropped by one unit And patient had an episode of BRB per rectum this a.m Patient reports a history of hemorrhoids His HR and BP are stable for now I/O -2L. INR is sub-therapeutic K-2.9 considering patient is on heparin/coumadin/ASA/Plavix, cardiology has documented to continue the triple therapy Per student nurse stool was watery and giovany blood. patient is seen at bedside with his spouse, denies dizziness, denies new complains cardiology has recommended GI eval, I do not currently believe there will be any intervention at this time with the triple therapy patient is on, benefits and risks of continuing anticoagulation discussed with patient - Constitutional Vitals: Temp Pulse Resp BP Pulse Ox 98.3 F 74 16 160/97 95 07/15/16 08:00 07/15/16 09:25 07/15/16 08:00 07/15/16 08:00 07/15/16 08:00 VSS Gen: Not in any form of distress, speaks full sentences, Neuro: AAOX3, moves all limbs spontaneously, no focal deficits, no speech abnormality or facial asymmetry HEENT: Moist mucosa, no cyanosis, RANI Chest: CTAB, no wheezes, rhonchi, stridor Heart: PCM site clean, not tender, S1, S2, systolic murmur Abdomen: Soft, not tender, no palpably enlarged organs Extremities: Varicose veins ++, no pedal edema, pulses present and equal bilaterally [place] with slighlty pink urine Internal Medicine: Result - Labs CBC & Chem 7: 07/15/16 06:36 07/15/16 04:15 Labs: Short CBC 07/15/16 Range/Units 06:36 WBC 15.1 H (4.3-11.1) K/mcL Hgb 12.4 L (12.9-16.9) g/dL Hct 38.1 (37.5-50.1) % Plt Count 291 D (140-400) K/mcL Neutrophils # 11.2 H (1.6-8.9) K/mcL BMP 07/14/16 07/15/16 14:44 04:15 Sodium 141 Potassium 3.1 L 2.9 L Chloride 100 Carbon Dioxide 32 H BUN 22 Creatinine 1.30 H Glucose 199 H Calcium 8.6 - ABG Interpretation ABG results: ABG ABG pH 7.50 pH Units (7.32-7.45) H 07/12/16 16:30 ABG pCO2 35 mmHg (35-45) 07/12/16 16:30 ABG pO2 67 mmHg (85-104) L 07/12/16 16:30 ABG O2 Saturation 95 % (95-98) 07/12/16 16:30 PT/INR, D-dimer PT 14.4 Seconds (9.4-12.1) H 07/15/16 04:15 - VTE Documentation of Mechanical Device: Intermittent pneumatic compression device Consult Discharge Plan - Plan Referrals: Kings Kaiser MD [Primary Care Provider] - 07/20/16 9:45 am
[2016-07-15 12:55] LABS: Basophils # 0.1 K/mcL (0.0-0.2); Basophils % 0.3 %; Eosinophils # 0.4 K/mcL (0.0-0.6); Eosinophils % 2.8 %; Hemoglobin 12.9 g/dL (12.9-16.9); Immature Granulocytes % 1.5 % (0-4); Lymphocytes # 1.8 K/mcL (0.6-4.6); Lymphocytes % 11.4 %; Mean Corpuscular HGB Conc 31.5 g/dL (31.6-35.5); Mean Corpuscular Hemoglobin 30.2 pg (28.0-33.3); Mean Platelet Volume 10.3 fL (9.4-12.4); Monocytes # 1.1 K/mcL (0.0-1.3); Monocytes % 7.2 %; Neutrophils # 12.2 K/mcL (1.6-8.9); Nucleated Red Blood Cells 0.3 /100 WBC (0); Platelet Count 324 K/mcL (140-400); Red Blood Count 4.27 M/mcL (4.19-5.50); Red Cell Distribution Width 15.6 % (11.5-14.5); Segmented Neutrophils % 76.8 %
[2016-07-15 13:06] LABS: BUN/Creatinine Ratio 16 (6-26); Blood Urea Nitrogen 21 mg/dL (8-26); Calcium 8.7 mg/dL (8.6-10.8); Carbon Dioxide 34 mEq/L (19-29); Chloride 99 mEq/L (98-109); Glucose 61 mg/dL (70-99); Osmolality,Calculated 299 (280-300); Potassium 3.2 mEq/L (3.5-4.5); Sodium 144 mEq/L (136-145); eGFR For African Americans > 60 (> 60); eGFR For Non-African Americans 53 (> 60)
[2016-07-15] MEDS: *HR* OxyCODONE/APAP 5/325 TABLET PO PRN ×2 (13:45→23:00)
[2016-07-15] MEDS: Warfarin perPT PO SCH (17:47)
[2016-07-15] MEDS ORDERED: *HR* Warfarin 3 MG TABLET PO ONE (18:00)
[2016-07-15 19:53] LABS: CK-BB (CK isoenzymes) 0 % (0-0); CK-MB (CK isoenzymes) 0 % (0-4); CK-MM (CK-isoenzymes) 100 % (96-100)
[2016-07-15 19:53] LABS: CK-BB (CK isoenzymes) 0 % (0-0); CK-MB (CK isoenzymes) 0 % (0-4); CK-MM (CK-isoenzymes) 100 % (96-100)
[2016-07-15] MEDS: Insulin DETEMIR 100 UNIT/ML X5UNITS SQ SCH (21:19)
[2016-07-16] MEDS: Piperacillin/Tazobactam 3.375 GM in D5% in Water (Mini-Bag+) 100 ML IVPB SCH ×3 (00:14→17:53)
[2016-07-16] MEDS: *HR* OxyCODONE/APAP 5/325 TABLET PO PRN ×2 (06:13→19:06)
[2016-07-16 07:06] LABS: BUN/Creatinine Ratio 15 (6-26); Blood Urea Nitrogen 19 mg/dL (8-26); Calcium 9.1 mg/dL (8.6-10.8); Carbon Dioxide 31 mEq/L (19-29); Chloride 101 mEq/L (98-109); Glucose 127 mg/dL (70-99); Osmolality,Calculated 300 (280-300); Potassium 3.6 mEq/L (3.5-4.5); Sodium 143 mEq/L (136-145); eGFR For African Americans > 60 (> 60); eGFR For Non-African Americans 53 (> 60)
[2016-07-16 07:13] LABS: INR 1.7; Prothrombin Time 18.5 Seconds (9.4-12.1)
[2016-07-16 07:22] LABS: Basophils % 0.2 %; Eosinophils # 0.6 K/mcL (0.0-0.6); Eosinophils % 4.3 %; Hematocrit 39.2 % (37.5-50.1); Hemoglobin 12.6 g/dL (12.9-16.9); Immature Granulocytes % 1.2 % (0-4); Lymphocytes # 2.2 K/mcL (0.6-4.6); Lymphocytes % 16.3 %; Mean Corpuscular HGB Conc 32.1 g/dL (31.6-35.5); Mean Corpuscular Hemoglobin 31.3 pg (28.0-33.3); Mean Corpuscular Volume 97.3 fL (83.0-100.0); Mean Platelet Volume 10.8 fL (9.4-12.4); Monocytes # 1.1 K/mcL (0.0-1.3); Monocytes % 8.6 %; Neutrophils # 9.2 K/mcL (1.6-8.9); Nucleated Red Blood Cells 0.3 /100 WBC (0); Platelet Count 296 K/mcL (140-400); Red Blood Count 4.03 M/mcL (4.19-5.50); Red Cell Distribution Width 15.5 % (11.5-14.5); Segmented Neutrophils % 69.4 %
[2016-07-16 07:49] LABS: CK Total (Ck Isoenzymes) 144 U/L (20-200)
[2016-07-16 07:50] LABS: CK Total (Ck Isoenzymes) 134 U/L (20-200)
[2016-07-16] MEDS ORDERED: Vancomycin 750 MG in D5% in Water 250 ML IVPB SCH ×2 (08:00→12:00)
[2016-07-16] MEDS: *HR* Amiodarone 200 MG TABLET PO SCH (08:19)
[2016-07-16] MEDS: Aspirin 81 MG TAB.CHEW PO SCH (08:19)
[2016-07-16] MEDS: Metoprolol XL (24 HR) Succ 25 MG TAB.ER.24H PO SCH ×2 (08:20→08:44)
[2016-07-16] MEDS: Insulin LISPRO 300 UNITS/3 ML VIAL SQ SCH ×6 (08:28→17:54)
[2016-07-16] MEDS ORDERED: Furosemide 40 MG TABLET PO SCH (09:00)
--- NOTE | 2016-07-16 09:37 | Cardiology Progress Note ---
Date of Encounter: 07/16/16 Time of Encounter: 09:36 Assessment and Plan (1) LV (left ventricular) mural thrombus Current Visit: Yes Status: Acute TTE showed LV apical echodensity consistent with LV thrombus. Coumadin started with heparin bridge. Goal INR 2.0-3.0. INR 1.7 today. He will require triple therapy s/p PTCA to his LAD. Increased risk of bleeding discussed and he voiced understanding. [place] [facility] referral sent. [place] [facility] will monitor until referral set up. He received 6 mg coumadin last night. Pharmacy dosing. Denies any signs of bleeding today. Hgb stable. Recommend IV heparin for one more day. If INR 1.7 or above ok for discharge from cardiology standpoint. Cardiology will sign off, call with questions. F/u will be made for one week f/ u. (2) Elevated troponin Current Visit: Yes Status: Acute Troponin from 07/06 was >50 Troponin trending down s/p recent STEMI. Troponin 30.05, 29.12, 27.45. He denies chest pain TTE shows EF 25-30%. Unchanged significantly from 07/06/16, EF 30% on TTE and 20 % on LHC at that time. Continue asa, plavix, statin, and bb. Cardiac rehab in progress. Consult completed during last stay for STEMI. (3) Pneumonia Current Visit: Yes Status: Acute -Hospitalist following. On IV antibiotic. Continues to require O2 therapy. Qualifiers: Pneumonia type: due to unspecified organism Laterality: bilateral Lung location: unspecified part of lung Qualified Code(s): J18.9 - Pneumonia, unspecified organism (4) Afib Current Visit: Yes Status: Acute Rate controlled afib. Avg HR 76 bpm. Continue amiodarone and bb. Started on amiodarone last visit for vfib arrest. Heparin gtt for LV thrombus started. INR goal 2.0-3.0. Qualifiers: Atrial fibrillation type: unspecified Qualified Code(s): I48.91 - Unspecified atrial fibrillation (5) Coronary artery disease Current Visit: Yes Status: Chronic S/p STEMI and cardiac arrest 07/06/16. EF 30%. S/p PTCA to his ISR in the pLAD. Denies chest pain. Continue asa, statin, plavix , and bb. Qualifiers: Coronary Disease-Associated Artery/Lesion type: [place] artery [place] vs. transplanted heart: [place] heart Associated angina: with unstable angina Qualified Code(s): I25.110 - Atherosclerotic heart disease of [place] coronary artery with unstable angina pectoris (6) CHF (congestive heart failure) Current Visit: Yes Status: Acute EF is laboratory sample carrier was 20% after a Vfib arrest EF 25-30% on repeat TTE. Now on oral lasix. IV stopped d/t sCr bump. sCr stable. Net negative -2452 ml for stay. Euvolemic on demand. K 3.6 CHF education reviewed. Closes out-pt f/u. Continue bb. Hold jeremy today d/t JIMBO. Consider restarting if kidney function returns to normal. Qualifiers: Congestive heart failure type: systolic Congestive heart failure chronicity : acute on chronic Qualified Code(s): I50.23 - Acute on chronic systolic ( congestive) heart failure (7) Melanoma Current Visit: Yes Status: Acute Pt concerned about melanoma lesion. He was following with dermatology and surgery. Discussed with Dr. Gaines in dermatology. 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 The basal cell is scheduled to be removed and can be done on triple therapy as long as INR is not supratherapeutic. Need for interruption of anticoagulant therapy for melanoma removal can be re-evaluated once re-evaluated in out patient setting. Qualifiers: Melanoma location: face excluding eyelid, nose, lip, and ear Qualified Code (s): C43.30 - Malignant melanoma of unspecified part of face (8) Essential hypertension Current Visit: Yes Status: Chronic B/p noted to be elevated in the mornings. Will need to hold zestril d/t mild JIMBO. Attempt to add back if kidney function returns to normal. Add hyralizine. Discussion w patient/family: The assessment and plan as outlined above was discussed with the patient and/or family members who expressed understanding and agreement. All questions were answered. Thank you for involving us in the care of your patient. Please call with any questions. Subjective Principal diagnosis: PNA, elevated troponin, LV thrombus Interval history: Mr. Langford denies chest pain. Denies recurrent blood in his stool. [place] catheter removed and no issues with urinating. Denies blood in urine. Objective Vital Signs, Last 4 Hours Temp Pulse Resp BP Pulse Ox 07/16/16 07:40 98.5 F 76 16 164/110 95 General: Conversant, No Apparent Distress HEENT: Atraumatic, Normocephaly, Mucus Membranes Moist Neck: No JVD, Normal carotid pulses Cardiac: Other (Irregular heart rhythm.) Lungs: Normal Breath Sounds, No Wheeze, Rales, Rhonchi Neuro: Alert and responsive, No focal deficits noted Abdomen: Soft, Non-Tender Skin: No rashes noted on visualized skin Musculoskeletal: No Chest Wall Tenderness Extremities: No Clubbing, No Cyanosis, No Edema, Normal Pulses Results 07/16/16 06:43 07/16/16 06:43 Lab Results 07/15/16 07/15/16 07/15/16 12:38 12:38 21:23 WBC 15.8 H Hgb 12.9 Hct 41.0 Plt Count 324 INR APTT 73.6 H Sodium 144 Potassium 3.2 L Chloride 99 Carbon Dioxide 34 H BUN 21 Creatinine 1.29 H Glucose 61 L Calcium 8.7 07/16/16 07/16/16 07/16/16 06:43 06:43 06:43 WBC 13.2 H Hgb 12.6 L Hct 39.2 Plt Count 296 INR 1.7 APTT Sodium 143 Potassium 3.6 Chloride 101 Carbon Dioxide 31 H BUN 19 Creatinine 1.30 H Glucose 127 H Calcium 9.1 - EKG Interpretation EKG results cardiology: other (24 hour telemetry review shows avg HR 76bpm, atrial fibrillation. No VT or significant pauses.) - VTE Documentation of Mechanical Device: Intermittent pneumatic compression device Consult Discharge Plan - Plan Referrals: Kings Kaiser MD [Primary Care Provider] - 07/20/16 9:45 am
--- NOTE | 2016-07-16 10:26 | Internal Med Progress Note ---
Date of Encounter: 07/16/16 Time of Encounter: 10:26 - Assessment and plan (1) GI bleed Current Visit: Yes Status: Resolved Assessment and plan: Patient with hx of hemorrhoids No recurrence of bleed Hb is stable Continue to monitor Qualifiers: GI bleed type/associated pathology: unspecified gastrointestinal hemorrhage type Qualified Code(s): K92.2 - Gastrointestinal hemorrhage, unspecified (2) LV (left ventricular) mural thrombus following MD Current Visit: Yes Status: Acute Assessment and plan: ECHO report this morning with EF 25-30%, global WMA, LV apical thrombus, severe dilated LA, severe dilated RA he is being followed with cardiology High risk patient due to his diagnoses, vancomycin,and heparin Continue ASA, Plavix, Coumadin, heparin Need 2 therapeutic INR (3) Acute respiratory failure with hypoxia Current Visit: Yes Status: Acute Assessment and plan: Secondary to CHFE and Pneumonia, continue O2 supplementation O2 qualification prior to discharge (4) CHF (congestive heart failure) Current Visit: Yes Status: Acute Assessment and plan: ECHO noted Hold lasix due to worsening renal function Daily weighs Strict intake/output Monitor renal function Qualifiers: Congestive heart failure type: systolic Congestive heart failure chronicity : acute on chronic Qualified Code(s): I50.23 - Acute on chronic systolic ( congestive) heart failure (5) Pneumonia Current Visit: Yes Status: Acute Assessment and plan: HCAP due to recent hospitalization one week ago Sputum culture negative so far Continue Zosyn, Levoflox CXR repeated due to persistent leukocytosis Interval development of R pleural effusion Continue current antibiotics Leukocytosis improved and patient clinically improved Continue O2 supplementation D/C Vanco Qualifiers: Pneumonia type: due to unspecified organism Laterality: bilateral Lung location: unspecified part of lung Qualified Code(s): J18.9 - Pneumonia, unspecified organism (6) Hyperlipidemia Current Visit: Yes Status: Chronic Assessment and plan: Continue home meds Qualifiers: Hyperlipidemia type: mixed hyperlipidemia Qualified Code(s): E78.2 - Mixed hyperlipidemia (7) Coronary artery disease Current Visit: Yes Status: Chronic Assessment and plan: As in Recent STEMI Qualifiers: Coronary Disease-Associated Artery/Lesion type: [place] artery [place] vs. transplanted heart: [place] heart Associated angina: with unstable angina Qualified Code(s): I25.110 - Atherosclerotic heart disease of [place] coronary artery with unstable angina pectoris (8) Diabetes mellitus, type 2 Current Visit: Yes Status: Chronic Assessment and plan: A1C 8.3% Continue basal, prandial and supplemental insulin sliding scale Monitor FS ADA diet Qualifiers: Diabetes mellitus complication status: with hyperglycemia Diabetes mellitus adjunct faculty for medical terminology insulin use: without adjunct faculty for medical terminology use Qualified Code(s): E11.65 - Type 2 diabetes mellitus with hyperglycemia (9) Recent ST elevation myocardial infarction (STEMI) Current Visit: Yes Status: Chronic Assessment and plan: Continue home meds Trop 25 (10) Essential hypertension Current Visit: Yes Status: Chronic Assessment and plan: Controlled Continue current meds (11) Hypokalemia Current Visit: Yes Status: Acute Assessment and plan: Replaced, continue to monitor - Subjective Interval history: 80 Y/O M being managed for Acute respiratory failure secondary to HCAP, he is also s/p STEMI (Vfib arrest) with carcinogenic shock requiring CPR, CHFrEF Seen at bedside with spouse, reports remarkbale improvement in SOB , no new complains Patient's WBC continues to improve Hb stabve at 12 No more episodes of BRB per rectum since 07/15 I/O -2.8L. INR is sub-therapeutic 1.7 K-improved However Creatinine continues to be elevated and vanco trough is supra-theraputic Will hold lasix and ACEI and discontinue Vancomycin - Constitutional Vitals: Temp Pulse Resp BP Pulse Ox 98.5 F 76 16 164/110 95 07/16/16 07:40 07/16/16 07:40 07/16/16 07:40 07/16/16 07:40 07/16/16 07:40 Exam: VSS Gen: Not in any form of distress, speaks full sentences, Neuro: AAOX3, moves all limbs spontaneously, no focal deficits, no speech abnormality or facial asymmetry HEENT: Moist mucosa, no cyanosis, RANI Chest: CTAB, no wheezes, rhonchi, stridor Heart: PCM site clean, not tender, S1, S2, systolic murmur Abdomen: Soft, not tender, no palpably enlarged organs Extremities: Varicose veins ++, no pedal edema, pulses present and equal bilaterally Internal Medicine: Result - Labs CBC & Chem 7: 07/16/16 06:43 07/16/16 06:43 Labs: Short CBC 07/15/16 07/16/16 Range/Units 12:38 06:43 WBC 15.8 H 13.2 H (4.3-11.1) K/mcL Hgb 12.9 12.6 L (12.9-16.9) g/dL Hct 41.0 39.2 (37.5-50.1) % Plt Count 324 296 (140-400) K/mcL Neutrophils # 12.2 H 9.2 H (1.6-8.9) K/mcL BMP 07/15/16 07/16/16 12:38 06:43 Sodium 144 143 Potassium 3.2 L 3.6 Chloride 99 101 Carbon Dioxide 34 H 31 H BUN 21 19 Creatinine 1.29 H 1.30 H Glucose 61 L 127 H Calcium 8.7 9.1 Cardiac Enzymes 07/12/16 Range/Units 21:59 CK-MB (CK-2) 0 (0-4) % - ABG Interpretation ABG results: ABG ABG pH 7.50 pH Units (7.32-7.45) H 07/12/16 16:30 ABG pCO2 35 mmHg (35-45) 07/12/16 16:30 ABG pO2 67 mmHg (85-104) L 07/12/16 16:30 ABG O2 Saturation 95 % (95-98) 07/12/16 16:30 PT/INR, D-dimer PT 18.5 Seconds (9.4-12.1) H 07/16/16 06:43 - VTE Documentation of Mechanical Device: Intermittent pneumatic compression device Consult Discharge Plan - Plan Referrals: Kings Kaiser MD [Primary Care Provider] - 07/20/16 9:45 am
[2016-07-16] MEDS: hydrALAZINE 10 MG TABLET PO SCH ×2 (12:12→17:52)
[2016-07-16] MEDS: Warfarin perPT PO SCH (17:52)
[2016-07-16] MEDS ORDERED: *HR* Warfarin 5 MG TABLET PO ONE (18:00)
[2016-07-16] MEDS: Insulin DETEMIR 100 UNIT/ML X5UNITS SQ SCH (19:34)
[2016-07-17] MEDS: Piperacillin/Tazobactam 3.375 GM in D5% in Water (Mini-Bag+) 100 ML IVPB SCH ×3 (00:44→16:53)
[2016-07-17] MEDS: hydrALAZINE 10 MG TABLET PO SCH ×4 (00:44→16:57)
[2016-07-17 03:47] LABS: Basophils % 0.2 %; Eosinophils # 0.4 K/mcL (0.0-0.6); Eosinophils % 2.6 %; Hematocrit 39.1 % (37.5-50.1); Hemoglobin 12.5 g/dL (12.9-16.9); Lymphocytes # 2.2 K/mcL (0.6-4.6); Lymphocytes % 13.9 %; Mean Corpuscular Hemoglobin 30.8 pg (28.0-33.3); Mean Corpuscular Volume 96.3 fL (83.0-100.0); Mean Platelet Volume 10.3 fL (9.4-12.4); Monocytes % 6.7 %; Neutrophils # 11.8 K/mcL (1.6-8.9); Nucleated Red Blood Cells 0.1 /100 WBC (0); Platelet Count 314 K/mcL (140-400); Red Blood Count 4.06 M/mcL (4.19-5.50); Red Cell Distribution Width 15.5 % (11.5-14.5); Segmented Neutrophils % 75.6 %
[2016-07-17 03:51] LABS: INR 2.7; Prothrombin Time 30.3 Seconds (9.4-12.1)
[2016-07-17 03:57] LABS: Calcium 9.1 mg/dL (8.6-10.8); Potassium 3.6 mEq/L (3.5-4.5)
[2016-07-17 04:17] LABS: Platelet Estimate Normal (Normal); Reactive Lymphocytes Present (Not Present)
[2016-07-17] MEDS: Heparin 25,000 UNIT/500 ML D5W 25,000 UNIT/500 ML MLS IVC SCH (07:45)
[2016-07-17] MEDS: Insulin LISPRO 300 UNITS/3 ML VIAL SQ SCH ×6 (07:48→16:54)
[2016-07-17] MEDS: Metoprolol XL (24 HR) Succ 25 MG TAB.ER.24H PO SCH (08:34)
[2016-07-17] MEDS: Aspirin 81 MG TAB.CHEW PO SCH (08:34)
[2016-07-17] MEDS: *HR* Amiodarone 200 MG TABLET PO SCH (08:34)
--- NOTE | 2016-07-17 09:50 | Event Note ---
Date of Encounter: 07/17/16 Time of Encounter: 09:49 - Cardiology Event Note Laboratory Tests 07/17/16 07/17/16 03:31 03:31 Hgb 12.5 L Hct 39.1 INR 2.7 D Patient signed off by cardiology. H&H stable. INR now 2.7. Heparin drip discontinued area did continue with Coumadin. Follow-up as scheduled with cardiology.
--- NOTE | 2016-07-17 10:27 | Internal Med Progress Note ---
Date of Encounter: 07/17/16 Time of Encounter: 10:27 - Assessment and plan (1) GI bleed Current Visit: Yes Status: Resolved Assessment and plan: Patient with hx of hemorrhoids No recurrence of bleed Hb is stable Continue to monitor Qualifiers: GI bleed type/associated pathology: unspecified gastrointestinal hemorrhage type Qualified Code(s): K92.2 - Gastrointestinal hemorrhage, unspecified (2) LV (left ventricular) mural thrombus following [place] Current Visit: Yes Status: Acute Assessment and plan: ECHO report this morning with EF 25-30%, global WMA, LV apical thrombus, severe dilated LA, severe dilated RA he is being followed with cardiology Continue ASA, Plavix, Coumadin D/C heparin Monitor INR (3) Acute respiratory failure with hypoxia Current Visit: Yes Status: Acute Assessment and plan: Secondary to CHFE and Pneumonia, continue O2 supplementation O2 qualification prior to discharge (4) CHF (congestive heart failure) Current Visit: Yes Status: Acute Assessment and plan: ECHO noted Hold lasix due to worsening renal function Daily weighs Strict intake/output Monitor renal function Qualifiers: Congestive heart failure type: systolic Congestive heart failure chronicity : acute on chronic Qualified Code(s): I50.23 - Acute on chronic systolic ( congestive) heart failure (5) Pneumonia Current Visit: Yes Status: Acute Assessment and plan: HCAP due to recent hospitalization one week ago Sputum culture negative so far Continue Zosyn, Levoflox CXR repeated due to persistent leukocytosis and showed Interval development of R pleural effusion Continue current antibiotics as patient is clinically stable Continue O2 supplementation Qualifiers: Pneumonia type: due to unspecified organism Laterality: bilateral Lung location: unspecified part of lung Qualified Code(s): J18.9 - Pneumonia, unspecified organism (6) Hyperlipidemia Current Visit: Yes Status: Chronic Assessment and plan: Continue home meds Qualifiers: Hyperlipidemia type: mixed hyperlipidemia Qualified Code(s): E78.2 - Mixed hyperlipidemia (7) Coronary artery disease Current Visit: Yes Status: Chronic Assessment and plan: As in Recent STEMI Qualifiers: Coronary Disease-Associated Artery/Lesion type: [place] artery [place] vs. transplanted heart: [place] heart Associated angina: with unstable angina Qualified Code(s): I25.110 - Atherosclerotic heart disease of [place] coronary artery with unstable angina pectoris (8) Diabetes mellitus, type 2 Current Visit: Yes Status: Chronic Assessment and plan: A1C 8.3% Continue basal, prandial and supplemental insulin sliding scale Monitor FS ADA diet Qualifiers: Diabetes mellitus complication status: with hyperglycemia Diabetes mellitus prison insulin use: without rat exterminator use Qualified Code(s): E11.65 - Type 2 diabetes mellitus with hyperglycemia (9) Recent ST elevation myocardial infarction (STEMI) Current Visit: Yes Status: Chronic Assessment and plan: Continue home meds Trop 25 (10) Essential hypertension Current Visit: Yes Status: Chronic Assessment and plan: UNControlled Increase toprol to 150 daily Lasix and ACEI are on hold due to JIMBO (11) Hypokalemia Current Visit: Yes Status: Acute Assessment and plan: Corrected, continue to monitor (12) JIMBO (acute kidney injury) Current Visit: Yes Status: Acute Assessment and plan: Possibly from medications Patient with adequate urinary output Continue to hold meds, monitor chem, K WNL - Subjective Interval history: 80 Y/O M being managed for Acute respiratory failure secondary to HCAP, he is also s/p STEMI (Vfib arrest) with carcinogenic shock requiring CPR, CHFrEF Seen at bedside with spouse, reports remarkbale improvement in SOB , no new complains Per patient's , he had one episode of confusion last night followng use of percocet for pain Patient's WBC still elevated but stable Hb stable at 12 No more episodes of BRB per rectum since 07/15 I/O -1.4L. INR is therapeutic 2.7 K-improved However Creatinine continues to be elevated lasix and ACEI were held 07/16 and and discontinued Vancomycin 07/16 Will continue to hold - Constitutional Vitals: Temp Pulse Resp BP Pulse Ox 97.9 F 73 16 156/93 98 07/17/16 07:37 07/17/16 08:51 07/17/16 07:37 07/17/16 07:37 07/17/16 07:37 Exam: VSS Gen: Not in any form of distress, speaks full sentences, Neuro: AAOX3, moves all limbs spontaneously, no focal deficits, no speech abnormality or facial asymmetry HEENT: Moist mucosa, no cyanosis, RANI Chest: CTAB, no wheezes, rhonchi, stridor Heart: PCM site clean, not tender, S1, S2, systolic murmur Abdomen: Soft, not tender, no palpably enlarged organs Extremities: Varicose veins ++, no pedal edema, pulses present and equal bilaterall Internal Medicine: Result - Labs CBC & Chem 7: 07/17/16 03:31 07/17/16 03:31 Labs: Short CBC 07/17/16 Range/Units 03:31 WBC 15.6 H (4.3-11.1) K/mcL Hgb 12.5 L (12.9-16.9) g/dL Hct 39.1 (37.5-50.1) % Plt Count 314 (140-400) K/mcL Neutrophils # 11.8 H (1.6-8.9) K/mcL BMP 07/17/16 03:31 Sodium 142 Potassium 3.6 Chloride 101 Carbon Dioxide 33 H BUN 20 Creatinine 1.46 H Glucose 112 H Calcium 9.1 - ABG Interpretation ABG results: ABG ABG pH 7.50 pH Units (7.32-7.45) H 07/12/16 16:30 ABG pCO2 35 mmHg (35-45) 07/12/16 16:30 ABG pO2 67 mmHg (85-104) L 07/12/16 16:30 ABG O2 Saturation 95 % (95-98) 07/12/16 16:30 PT/INR, D-dimer PT 30.3 Seconds (9.4-12.1) H D 07/17/16 03:31 - VTE Documentation of Mechanical Device: Intermittent pneumatic compression device Consult Discharge Plan - Plan Referrals: Kings Kaiser MD [Primary Care Provider] - 07/20/16 9:45 am
[2016-07-17] MEDS ORDERED: Metoprolol XL (24 HR) Succ 50 MG TAB.ER.24H PO ONE (10:35)
[2016-07-17] MEDS ORDERED: Aminoglycoside Consult 1 EACH MC ONE (12:00)
[2016-07-17] MEDS: Warfarin perPT PO SCH (16:54)
[2016-07-17] MEDS ORDERED: *HR* Warfarin 2.5 MG TABLET PO ONE (18:00)
[2016-07-17] MEDS: Insulin DETEMIR 100 UNIT/ML X5UNITS SQ SCH (21:29)
[2016-07-18] MEDS: Piperacillin/Tazobactam 3.375 GM in D5% in Water (Mini-Bag+) 100 ML IVPB SCH ×3 (00:30→16:55)
[2016-07-18] MEDS: hydrALAZINE 10 MG TABLET PO SCH ×4 (00:30→16:55)
[2016-07-18 05:12] LABS: Basophils % 0.2 %; Eosinophils # 0.3 K/mcL (0.0-0.6); Eosinophils % 1.8 %; Hematocrit 39.6 % (37.5-50.1); Hemoglobin 12.4 g/dL (12.9-16.9); Immature Granulocytes % 0.8 % (0-4); Lymphocytes % 14.6 %; Mean Corpuscular HGB Conc 31.3 g/dL (31.6-35.5); Mean Corpuscular Hemoglobin 30.1 pg (28.0-33.3); Mean Corpuscular Volume 96.1 fL (83.0-100.0); Neutrophils # 10.5 K/mcL (1.6-8.9); Platelet Count 303 K/mcL (140-400); Red Blood Count 4.12 M/mcL (4.19-5.50); Red Cell Distribution Width 15.5 % (11.5-14.5); Segmented Neutrophils % 75.6 %
[2016-07-18 05:13] LABS: INR 3.8; Prothrombin Time 42.8 Seconds (9.4-12.1)
[2016-07-18 05:24] LABS: Potassium 3.6 mEq/L (3.5-4.5)
[2016-07-18] MEDS: Insulin LISPRO 300 UNITS/3 ML VIAL SQ SCH ×6 (07:28→16:56)
[2016-07-18] MEDS: *HR* Amiodarone 200 MG TABLET PO SCH (07:35)
[2016-07-18] MEDS: Aspirin 81 MG TAB.CHEW PO SCH (07:35)
[2016-07-18] MEDS: Metoprolol XL (24 HR) Succ 25 MG TAB.ER.24H PO SCH (07:35)
[2016-07-18] MEDS ORDERED: 0.9 % Sodium Chloride 250 ML IVC ONE ×2 (08:10→12:00)
--- NOTE | 2016-07-18 10:22 | Internal Med Progress Note ---
Date of Encounter: 07/18/16 Time of Encounter: 09:20 - Assessment and plan (1) GI bleed Current Visit: Yes Status: Resolved Assessment and plan: Patient with hx of hemorrhoids No recurrence of bleed Hb is stable Continue to monitor Qualifiers: GI bleed type/associated pathology: unspecified gastrointestinal hemorrhage type Qualified Code(s): K92.2 - Gastrointestinal hemorrhage, unspecified (2) LV (left ventricular) mural thrombus following [place] Current Visit: Yes Status: Acute Assessment and plan: ECHO report this morning with EF 25-30%, global WMA, LV apical thrombus, severe dilated LA, severe dilated RA he is being followed with cardiology Continue ASA, Plavix, Coumadin INR supratherapeutic Pharmacy to dose coumadin (3) Acute respiratory failure with hypoxia Current Visit: Yes Status: Acute Assessment and plan: Secondary to CHFE and Pneumonia, continue O2 supplementation O2 qualification prior to discharge (4) CHF (congestive heart failure) Current Visit: Yes Status: Acute Assessment and plan: ECHO noted Hold lasix due to worsening renal function Daily weighs Strict intake/output Monitor renal function Qualifiers: Congestive heart failure type: systolic Congestive heart failure chronicity : acute on chronic Qualified Code(s): I50.23 - Acute on chronic systolic ( congestive) heart failure (5) Pneumonia Current Visit: Yes Status: Acute Assessment and plan: HCAP due to recent hospitalization one week ago Sputum culture negative so far Continue Zosyn CXR repeated 07/16 due to persistent leukocytosis and showed Interval development of R pleural effusion Continue current antibiotics as patient is clinically stable Continue O2 supplementation Qualifiers: Pneumonia type: due to unspecified organism Laterality: bilateral Lung location: unspecified part of lung Qualified Code(s): J18.9 - Pneumonia, unspecified organism (6) Hyperlipidemia Current Visit: Yes Status: Chronic Assessment and plan: Continue home meds Qualifiers: Hyperlipidemia type: mixed hyperlipidemia Qualified Code(s): E78.2 - Mixed hyperlipidemia (7) Coronary artery disease Current Visit: Yes Status: Chronic Assessment and plan: As in Recent STEMI Qualifiers: Coronary Disease-Associated Artery/Lesion type: [place] artery [place] vs. transplanted heart: [place] heart Associated angina: with unstable angina Qualified Code(s): I25.110 - Atherosclerotic heart disease of [place] coronary artery with unstable angina pectoris (8) Diabetes mellitus, type 2 Current Visit: Yes Status: Chronic Assessment and plan: A1C 8.3% Continue basal, prandial and supplemental insulin sliding scale Monitor FS ADA diet Qualifiers: Diabetes mellitus complication status: with hyperglycemia Diabetes mellitus business analytics director insulin use: without business analytics director use Qualified Code(s): E11.65 - Type 2 diabetes mellitus with hyperglycemia (9) Recent ST elevation myocardial infarction (STEMI) Current Visit: Yes Status: Chronic Assessment and plan: Continue home meds (10) Essential hypertension Current Visit: Yes Status: Chronic Assessment and plan: Controlled on Toprol 150, continue same (11) Hypokalemia Current Visit: Yes Status: Acute Assessment and plan: Corrected, continue to monitor (12) JIMBO (acute kidney injury) Current Visit: Yes Status: Acute Assessment and plan: Possibly from medications Patient with adequate urinary output Continue to hold meds, monitor chem, K WNL Check Renal USS Gentle IVF bolus today, monitor resp status - Subjective Interval history: 80 Y/O M being managed for Acute respiratory failure secondary to HCAP, he is also s/p STEMI (Vfib arrest) with carcinogenic shock requiring CPR, CHFrEF Seen at bedside no new complains Leukocytosis improved Hb stable at 12 No more episodes of BRB per rectum since 07/15 I/O -1.4. INR is supra-therapeutic 3.8 K-improved However Creatinine continues to be elevated Lasix and ACEI were held 07/16 and and discontinued Vancomycin 07/16 Will continue to hold Check Renal USS< will give 250c bolus X2 Avoid nephrotoxins, will consult renal if no improvement - Constitutional Vitals: Temp Pulse Resp BP Pulse Ox 98.1 F 90 14 141/91 97 07/18/16 07:44 07/18/16 07:44 07/18/16 07:44 07/18/16 09:08 07/18/16 07:44 Exam: VSS Gen: Not in any form of distress, speaks full sentences, Neuro: AAOX3, moves all limbs spontaneously, no focal deficits, no speech abnormality or facial asymmetry HEENT: Moist mucosa, no cyanosis, RANI Chest: CTAB, no wheezes, rhonchi, stridor Heart: PCM site clean, not tender, S1, S2, systolic murmur Abdomen: Soft, not tender, no palpably enlarged organs Extremities: Varicose veins ++, no pedal edema, pulses present and equal bilaterally Internal Medicine: Result - Labs CBC & Chem 7: 05/07/17 04:55 07/18/16 04:55 Labs: Short CBC 07/18/16 Range/Units 04:55 WBC 13.9 H (4.3-11.1) K/mcL Hgb 12.4 L (12.9-16.9) g/dL Hct 39.6 (37.5-50.1) % Plt Count 303 (140-400) K/mcL Neutrophils # 10.5 H (1.6-8.9) K/mcL BMP 07/18/16 04:55 Sodium 143 Potassium 3.6 Chloride 102 Carbon Dioxide 31 H BUN 20 Creatinine 1.48 H Glucose 150 H Calcium 9.0 - ABG Interpretation ABG results: ABG ABG pH 7.50 pH Units (7.32-7.45) H 07/12/16 16:30 ABG pCO2 35 mmHg (35-45) 07/12/16 16:30 ABG pO2 67 mmHg (85-104) L 07/12/16 16:30 ABG O2 Saturation 95 % (95-98) 07/12/16 16:30 PT/INR, D-dimer PT 42.8 Seconds (9.4-12.1) H 07/18/16 04:55 - VTE Documentation of Mechanical Device: Intermittent pneumatic compression device Consult Discharge Plan - Plan Referrals: Kings Kaiser MD [Primary Care Provider] - 07/20/16 9:45 am
[2016-07-18] MEDS: Warfarin perPT PO SCH (17:01)
[2016-07-18] MEDS: Insulin DETEMIR 100 UNIT/ML X5UNITS SQ SCH (21:04)
[2016-07-19] MEDS: Piperacillin/Tazobactam 3.375 GM in D5% in Water (Mini-Bag+) 100 ML IVPB SCH ×3 (01:04→17:05)
[2016-07-19] MEDS: hydrALAZINE 10 MG TABLET PO SCH ×4 (01:05→17:05)
[2016-07-19 04:11] LABS: Basophils % 0.2 %; Eosinophils # 0.2 K/mcL (0.0-0.6); Eosinophils % 1.2 %; Hematocrit 39.7 % (37.5-50.1); Hemoglobin 12.4 g/dL (12.9-16.9); Immature Granulocytes % 0.8 % (0-4); Lymphocytes # 1.8 K/mcL (0.6-4.6); Lymphocytes % 12.2 %; Mean Corpuscular HGB Conc 31.2 g/dL (31.6-35.5); Mean Corpuscular Hemoglobin 30.3 pg (28.0-33.3); Mean Corpuscular Volume 97.1 fL (83.0-100.0); Mean Platelet Volume 10.5 fL (9.4-12.4); Monocytes % 6.8 %; Neutrophils # 11.5 K/mcL (1.6-8.9); Platelet Count 312 K/mcL (140-400); Red Blood Count 4.09 M/mcL (4.19-5.50); Red Cell Distribution Width 15.6 % (11.5-14.5); Segmented Neutrophils % 78.8 %
[2016-07-19 04:14] LABS: INR 3.6; Prothrombin Time 40.7 Seconds (9.4-12.1)
[2016-07-19 04:22] LABS: BUN/Creatinine Ratio 16 (6-26); Blood Urea Nitrogen 21 mg/dL (8-26); Calcium 9.3 mg/dL (8.6-10.8); Carbon Dioxide 34 mEq/L (19-29); Chloride 103 mEq/L (98-109); Glucose 91 mg/dL (70-99); Osmolality,Calculated 301 (280-300); Potassium 3.9 mEq/L (3.5-4.5); Sodium 144 mEq/L (136-145); eGFR For African Americans > 60 (> 60); eGFR For Non-African Americans 53 (> 60)
[2016-07-19] MEDS: Insulin LISPRO 300 UNITS/3 ML VIAL SQ SCH ×6 (08:04→17:17)
[2016-07-19] MEDS: *HR* Amiodarone 200 MG TABLET PO SCH (08:14)
[2016-07-19] MEDS: Metoprolol XL (24 HR) Succ 25 MG TAB.ER.24H PO SCH (08:14)
[2016-07-19] MEDS: Aspirin 81 MG TAB.CHEW PO SCH (08:14)
--- NOTE | 2016-07-19 10:22 | Internal Med Progress Note ---
Date of Encounter: 07/19/16 Time of Encounter: 10:22 - Assessment and plan (1) GI bleed Current Visit: Yes Status: Resolved Assessment and plan: Patient with hx of hemorrhoids No recurrence of bleed Hb is stable Continue to monitor Qualifiers: GI bleed type/associated pathology: unspecified gastrointestinal hemorrhage type Qualified Code(s): K92.2 - Gastrointestinal hemorrhage, unspecified (2) LV (left ventricular) mural thrombus following [place] Current Visit: Yes Status: Acute Assessment and plan: ECHO report this morning with EF 25-30%, global WMA, LV apical thrombus, severe dilated LA, severe dilated RA he is being followed with cardiology Continue ASA, Plavix, Coumadin INR supratherapeutic Pharmacy to dose coumadin (3) Acute respiratory failure with hypoxia Current Visit: Yes Status: Acute Assessment and plan: Secondary to CHFE and Pneumonia, continue O2 supplementation O2 qualification prior to discharge (4) CHF (congestive heart failure) Current Visit: Yes Status: Acute Assessment and plan: ECHO noted Renal function improved Renal USS unremarkable Will restart po lasix Daily weighs Strict intake/output Monitor renal function Qualifiers: Congestive heart failure type: systolic Congestive heart failure chronicity : acute on chronic Qualified Code(s): I50.23 - Acute on chronic systolic ( congestive) heart failure (5) Pneumonia Current Visit: Yes Status: Acute Assessment and plan: HCAP due to recent hospitalization one week ago Sputum culture negative so far Continue Zosyn CXR repeated 07/16 due to persistent leukocytosis and showed Interval development of R pleural effusion Continue current antibiotics as patient is clinically stable Continue O2 supplementation Qualifiers: Pneumonia type: due to unspecified organism Laterality: bilateral Lung location: unspecified part of lung Qualified Code(s): J18.9 - Pneumonia, unspecified organism (6) Hyperlipidemia Current Visit: Yes Status: Chronic Assessment and plan: Continue home meds Qualifiers: Hyperlipidemia type: mixed hyperlipidemia Qualified Code(s): E78.2 - Mixed hyperlipidemia (7) Coronary artery disease Current Visit: Yes Status: Chronic Assessment and plan: As in Recent STEMI Qualifiers: Coronary Disease-Associated Artery/Lesion type: [place] artery [place] vs. 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 inspector insulin use: without prison use Qualified Code(s): E11.65 - Type 2 diabetes mellitus with hyperglycemia (9) Recent ST elevation myocardial infarction (STEMI) Current Visit: Yes Status: Chronic Assessment and plan: Continue home meds (10) Essential hypertension Current Visit: Yes Status: Chronic Assessment and plan: Controlled on Toprol 150, continue same (11) Hypokalemia Current Visit: Yes Status: Resolved (12) JIMBO (acute kidney injury) Current Visit: Yes Status: Acute Assessment and plan: Possibly from medications Patient with adequate urinary output Renal USS unremarkable Cr improved slightly with IVF Restart po lasix today and monitor - Subjective Interval history: 80 Y/O M being managed for Acute respiratory failure secondary to HCAP, he is also s/p STEMI (Vfib arrest) with carcinogenic shock requiring CPR, CHFrEF Seen at bedside no new complains Leukocytosis slightly worsening, patient has no new symptoms, his respiratory symptoms have improved, no urinary symptoms Hb stable at 12 No more episodes of BRB per rectum since 07/15 I/O -158, possibly from bolus for jimbo INR is supra-therapeutic 3.6 creatinine improved Lasix and ACEI were held 07/16 and and discontinued Vancomycin 07/16 Will start po lasix at low dose Renal USS unremarkable - Constitutional Vitals: Temp Pulse Resp BP Pulse Ox 98.0 F 77 16 139/92 95 07/19/16 07:20 07/19/16 07:20 07/19/16 07:20 07/19/16 07:20 07/19/16 07:20 Exam: VSS Gen: Not in any form of distress, speaks full sentences, Neuro: AAOX3, moves all limbs spontaneously, no focal deficits, no speech abnormality or facial asymmetry HEENT: Moist mucosa, no cyanosis, RANI Chest: CTAB, no wheezes, rhonchi, stridor Heart: PCM site clean, not tender, S1, S2, systolic murmur Abdomen: Soft, not tender, no palpably enlarged organs Extremities: Varicose veins ++, no pedal edema, pulses present and equal bilaterally Internal Medicine: Result - Labs CBC & Chem 7: 07/19/16 03:42 07/19/16 03:42 Labs: Short CBC 07/19/16 Range/Units 03:42 WBC 14.6 H (4.3-11.1) K/mcL Hgb 12.4 L (12.9-16.9) g/dL Hct 39.7 (37.5-50.1) % Plt Count 312 (140-400) K/mcL Neutrophils # 11.5 H (1.6-8.9) K/mcL BMP 07/19/16 03:42 Sodium 144 Potassium 3.9 Chloride 103 Carbon Dioxide 34 H BUN 21 Creatinine 1.29 H Glucose 91 Calcium 9.3 - ABG Interpretation ABG results: ABG ABG pH 7.50 pH Units (7.32-7.45) H 07/12/16 16:30 ABG pCO2 35 mmHg (35-45) 07/12/16 16:30 ABG pO2 67 mmHg (85-104) L 07/12/16 16:30 ABG O2 Saturation 95 % (95-98) 07/12/16 16:30 PT/INR, D-dimer PT 40.7 Seconds (9.4-12.1) H 07/19/16 03:42 - VTE Documentation of Mechanical Device: Intermittent pneumatic compression device Consult Discharge Plan - Plan Referrals: Kings Kaiser MD [Primary Care Provider] - 07/20/16 9:45 am
[2016-07-19] MEDS: Warfarin perPT PO SCH (17:26)
[2016-07-19] MEDS ORDERED: *HR* Warfarin 3 MG TABLET PO ONE (18:00)
[2016-07-19] MEDS ORDERED: Mag Hydrox/Al Hydrox/Simeth 30 ML UDC PO PRN (19:38)
[2016-07-19] MEDS: Insulin DETEMIR 100 UNIT/ML X5UNITS SQ SCH (20:27)
[2016-07-20] MEDS: hydrALAZINE 10 MG TABLET PO SCH ×5 (00:15→23:57)
[2016-07-20] MEDS: Piperacillin/Tazobactam 3.375 GM in D5% in Water (Mini-Bag+) 100 ML IVPB SCH ×2 (00:15→07:39)
[2016-07-20 04:50] LABS: Basophils % 0.3 %; Eosinophils # 0.1 K/mcL (0.0-0.6); Eosinophils % 0.6 %; Hematocrit 39.6 % (37.5-50.1); Hemoglobin 12.5 g/dL (12.9-16.9); Immature Granulocytes % 0.9 % (0-4); Lymphocytes # 1.4 K/mcL (0.6-4.6); Mean Corpuscular HGB Conc 31.6 g/dL (31.6-35.5); Mean Corpuscular Hemoglobin 30.4 pg (28.0-33.3); Mean Corpuscular Volume 96.4 fL (83.0-100.0); Mean Platelet Volume 10.6 fL (9.4-12.4); Monocytes # 0.9 K/mcL (0.0-1.3); Monocytes % 5.8 %; Neutrophils # 12.8 K/mcL (1.6-8.9); Platelet Count 332 K/mcL (140-400); Red Blood Count 4.11 M/mcL (4.19-5.50); Red Cell Distribution Width 15.5 % (11.5-14.5); Segmented Neutrophils % 83.4 %
[2016-07-20 04:56] LABS: INR 2.9; Prothrombin Time 32.2 Seconds (9.4-12.1)
[2016-07-20 05:00] LABS: BUN/Creatinine Ratio 16 (6-26); Blood Urea Nitrogen 20 mg/dL (8-26); Calcium 9.1 mg/dL (8.6-10.8); Carbon Dioxide 29 mEq/L (19-29); Chloride 102 mEq/L (98-109); Glucose 138 mg/dL (70-99); Osmolality,Calculated 301 (280-300); Potassium 3.8 mEq/L (3.5-4.5); Sodium 143 mEq/L (136-145); eGFR For African Americans > 60 (> 60); eGFR For Non-African Americans 55 (> 60)
[2016-07-20] MEDS: Aspirin 81 MG TAB.CHEW PO SCH (07:39)
[2016-07-20] MEDS: Metoprolol XL (24 HR) Succ 25 MG TAB.ER.24H PO SCH (07:39)
[2016-07-20] MEDS: *HR* Amiodarone 200 MG TABLET PO SCH (07:39)
[2016-07-20] MEDS: Insulin LISPRO 300 UNITS/3 ML VIAL SQ SCH ×6 (07:41→17:53)
[2016-07-20] MEDS: Cefepime HCl 1,000 MG in D5% in Water (Mini-Bag+) 100 ML IVPB SCH (17:54)
[2016-07-20] MEDS ORDERED: *HR* Warfarin 2.5 MG TABLET PO ONE (18:00)
[2016-07-20] MEDS ORDERED: Furosemide 40 MG/4 ML VIAL IVP STA (18:38)
--- NOTE | 2016-07-20 18:40 | Internal Med Progress Note ---
Date of Encounter: 07/20/16 Time of Encounter: 11:30 - Assessment and plan (1) Acute respiratory failure with hypoxia Current Visit: Yes Status: Acute Assessment and plan: Secondary to acute systolic heart failure LVEF 25-30%, and Pneumonia, continue O2 supplementation negative blood and sputum culture. 07/19 CT chest showed congestive heart failure with moderate bilateral pleural effusions with adjacent passive atelectasis. worsening of leukocytosis and hyopoxia, will stop zosyn and start cefepime. continue zyvox. start Iv lasix drip. fluid restriction. (2) LV (left ventricular) mural thrombus following [place] Current Visit: Yes Status: Acute Assessment and plan: Echo revealed EF 25-30%, global WMA, LV apical thrombus, severe dilated LA, severe dilated RA Continue ASA, Plavix, Coumadin INR 2.9 Pharmacy to dose coumadin (3) JIMBO (acute kidney injury) Current Visit: Yes Status: Acute Assessment and plan: improved. given signs of acute heart failure, will start IV lasix. close monitoring. (4) CHF (congestive heart failure) Current Visit: Yes Status: Acute Assessment and plan: plan as above Qualifiers: Congestive heart failure type: systolic Congestive heart failure chronicity : acute on chronic Qualified Code(s): I50.23 - Acute on chronic systolic ( congestive) heart failure (5) Coronary artery disease Current Visit: Yes Status: Chronic Assessment and plan: As in Recent STEMI Qualifiers: Coronary Disease-Associated Artery/Lesion type: [place] artery [place] vs. transplanted heart: [place] heart Associated angina: with unstable angina Qualified Code(s): I25.110 - Atherosclerotic heart disease of [place] coronary artery with unstable angina pectoris (6) Melanoma Current Visit: Yes Status: Acute Assessment and plan: consult surgery Qualifiers: Melanoma location: face excluding eyelid, nose, lip, and ear Qualified Code (s): C43.30 - Malignant melanoma of unspecified part of face (7) Pneumonia Current Visit: Yes Status: Acute Assessment and plan: plan as above Qualifiers: Pneumonia type: due to unspecified organism Laterality: bilateral Lung location: unspecified part of lung Qualified Code(s): J18.9 - Pneumonia, unspecified organism (8) Recent ST elevation myocardial infarction (STEMI) Current Visit: Yes Status: Chronic Assessment and plan: Continue home meds. - Subjective Interval history: patient reports hemoptysis this morning. he is eager to go home. - Constitutional Vitals: Temp Pulse Resp BP Pulse Ox 98.1 F 73 16 145/92 94 07/20/16 15:33 07/20/16 16:29 07/20/16 15:33 07/20/16 15:33 07/20/16 15:33 General appearance: Present: cooperative, A&O X 3, no acute distress, answers questions appropriately - Respiratory Respiratory exam: Present: decreased breath sounds - Cardiovascular Cardiovascular exam: Present: RRR - GI/Abdominal GI/Abdominal exam: Present: normal bowel sounds, soft. Absent: distended, tenderness - Extremities Exam Extremities exam: Present: pedal edema - Neurological Exam Neurological exam: Present: alert, oriented X3, no focal deficits, strengths equal and symetr throughout. Absent: facial droop, speech deficit - Skin Skin exam: Absent: rash Internal Medicine: Result - Labs CBC & Chem 7: 07/20/16 04:23 07/20/16 04:23 Labs: Short CBC 07/20/16 Range/Units 04:23 WBC 15.4 H (4.3-11.1) K/mcL Hgb 12.5 L (12.9-16.9) g/dL Hct 39.6 (37.5-50.1) % Plt Count 332 (140-400) K/mcL Neutrophils # 12.8 H (1.6-8.9) K/mcL BMP 07/20/16 04:23 Sodium 143 Potassium 3.8 Chloride 102 Carbon Dioxide 29 BUN 20 Creatinine 1.25 Glucose 138 H Calcium 9.1 - ABG Interpretation ABG results: ABG ABG pH 7.50 pH Units (7.32-7.45) H 07/12/16 16:30 ABG pCO2 35 mmHg (35-45) 07/12/16 16:30 ABG pO2 67 mmHg (85-104) L 07/12/16 16:30 ABG O2 Saturation 95 % (95-98) 07/12/16 16:30 PT/INR, D-dimer PT 32.2 Seconds (9.4-12.1) H 07/20/16 04:23 - Impressions Impressions Chest CT 07/19/16 17:21 IMPRESSION: 1. Findings are most suggestive of congestive heart failure with moderate bilateral pleural effusions with adjacent passive atelectasis. D/ / 07/19/2016 18:54:35 Rosanna Whitt MD / dominic Interpreting Provider: Rosanna Whitt MD - VTE Documentation of Mechanical Device: Intermittent pneumatic compression device Consult Discharge Plan - Plan Additional Instructions: Follow up appointment with [facility] Wednesday, July 27, 2016 at 1:30 PM. Referrals: Kings Kaiser MD [Primary Care Provider] - 07/28/16 9:45 am
[2016-07-20] MEDS ORDERED: Furosemide 240 MG in D5% in Water 96 ML IVC SCH (18:46)
[2016-07-20] MEDS: Warfarin perPT PO SCH (19:17)
[2016-07-20] MEDS ORDERED: 0.9 % Sodium Chloride 500 ML ONE (19:56)
[2016-07-20] MEDS: Insulin DETEMIR 100 UNIT/ML X5UNITS SQ SCH (21:22)
[2016-07-21] MEDS: Acetaminophen 325 MG TABLET PO PRN ×2 (03:12→20:39)
[2016-07-21 05:56] LABS: Hematocrit 37.9 % (37.5-50.1); Hemoglobin 12.3 g/dL (12.9-16.9); Immature Granulocytes % 0.7 % (0-4); Lymphocytes % 10.7 %; Mean Corpuscular HGB Conc 32.5 g/dL (31.6-35.5); Mean Corpuscular Hemoglobin 30.8 pg (28.0-33.3); Mean Platelet Volume 10.6 fL (9.4-12.4); Platelet Count 346 K/mcL (140-400); Red Blood Count 3.99 M/mcL (4.19-5.50); Red Cell Distribution Width 15.5 % (11.5-14.5); Segmented Neutrophils % 80.3 %
[2016-07-21 05:57] LABS: Basophils % 0.2 %; Eosinophils # 0.2 K/mcL (0.0-0.6); Eosinophils % 1.1 %; Lymphocytes # 1.4 K/mcL (0.6-4.6); Monocytes # 0.9 K/mcL (0.0-1.3); Neutrophils # 10.8 K/mcL (1.6-8.9); Nucleated Red Blood Cells 0.1 /100 WBC (0)
[2016-07-21 06:03] LABS: INR 2.9; Prothrombin Time 32.1 Seconds (9.4-12.1)
[2016-07-21] MEDS: Cefepime HCl 1,000 MG in D5% in Water (Mini-Bag+) 100 ML IVPB SCH ×2 (06:04→17:55)
[2016-07-21] MEDS: hydrALAZINE 10 MG TABLET PO SCH ×4 (06:04→23:25)
[2016-07-21 06:08] LABS: BUN/Creatinine Ratio 17 (6-26); Blood Urea Nitrogen 22 mg/dL (8-26); Calcium 8.7 mg/dL (8.6-10.8); Carbon Dioxide 30 mEq/L (19-29); Chloride 103 mEq/L (98-109); Glucose 163 mg/dL (70-99); Magnesium 1.7 mg/dL (1.6-2.6); Osmolality,Calculated 303 (280-300); Phosphorous 4.2 mg/dL (2.3-4.7); Potassium 3.3 mEq/L (3.5-4.5); Sodium 143 mEq/L (136-145); eGFR For African Americans > 60 (> 60); eGFR For Non-African Americans 55 (> 60)
[2016-07-21] MEDS: Metoprolol XL (24 HR) Succ 25 MG TAB.ER.24H PO SCH (08:13)
[2016-07-21] MEDS: *HR* Amiodarone 200 MG TABLET PO SCH (08:13)
[2016-07-21] MEDS: Aspirin 81 MG TAB.CHEW PO SCH (08:13)
[2016-07-21] MEDS: Insulin LISPRO 300 UNITS/3 ML VIAL SQ SCH ×4 (08:15→16:09)
[2016-07-21 13:16] LABS: Potassium 3.4 mEq/L (3.5-4.5)
[2016-07-21] MEDS: Linezolid 600 MG TABLET PO SCH (17:54)
[2016-07-21] MEDS: Warfarin perPT PO SCH (17:56)
[2016-07-21] MEDS ORDERED: *HR* Warfarin 2 MG TABLET PO ONE (18:00)
--- NOTE | 2016-07-21 21:17 | Internal Med Progress Note ---
Date of Encounter: 07/21/16 Time of Encounter: 15:30 - Assessment and plan (1) Acute respiratory failure with hypoxia Current Visit: Yes Status: Acute Assessment and plan: Secondary to acute systolic heart failure LVEF 25-30%, and Pneumonia, continue O2 supplementation negative blood and sputum culture. 07/19 CT chest showed congestive heart failure with moderate bilateral pleural effusions with adjacent passive atelectasis. 07/20 changed Zosyn for Cefepime due to leukocytosis and started on lasix drip due to hypoxia and CT chest findings. slowly improving. leukocytosis is trending down and he is tolerating 2L NC. continue cefepime and zyvox. continue Iv lasix drip and fluid restriction. check BMP in afternoon. (2) LV (left ventricular) mural thrombus following [place] Current Visit: Yes Status: Acute Assessment and plan: Echo revealed EF 25-30%, LV apical thrombus, severe dilated LA, severe dilated RA Continue ASA, Plavix, Coumadin INR 2.9 Pharmacy to dose coumadin (3) JIMBO (acute kidney injury) Current Visit: Yes Status: Acute Assessment and plan: mild increase of creatinine. continue lasix drip and check BMP this afternoon. close monitoring. (4) CHF (congestive heart failure) Current Visit: Yes Status: Acute Assessment and plan: plan as above Qualifiers: Congestive heart failure type: systolic Congestive heart failure chronicity : acute on chronic Qualified Code(s): I50.23 - Acute on chronic systolic ( congestive) heart failure (5) Pneumonia Current Visit: Yes Status: Acute Assessment and plan: plan as above Qualifiers: Pneumonia type: due to unspecified organism Laterality: bilateral Lung location: unspecified part of lung Qualified Code(s): J18.9 - Pneumonia, unspecified organism (6) Recent ST elevation myocardial infarction (STEMI) Current Visit: Yes Status: Chronic Assessment and plan: Recent STEMI on 07/06 with Vfib cardiac arrest and CPR. EKG showed no acute ischemic changes. continue amiodarone, plavix, aspirin, lipitor 80, metoprolol xl 25 (7) Coronary artery disease Current Visit: Yes Status: Chronic Assessment and plan: As in Recent STEMI Qualifiers: Coronary Disease-Associated Artery/Lesion type: [place] artery [place] vs. transplanted heart: [place] heart Associated angina: with unstable angina Qualified Code(s): I25.110 - Atherosclerotic heart disease of [place] coronary artery with unstable angina pectoris (8) Melanoma Current Visit: Yes Status: Acute Assessment and plan: Dr haskins as outpatient Qualifiers: Melanoma location: face excluding eyelid, nose, lip, and ear Qualified Code (s): C43.30 - Malignant melanoma of unspecified part of face - Subjective Interval history: patient feels better this morning compared to yesterday and he is again eager to go home. no hemoptysis. - Constitutional Vitals: Temp Pulse Resp BP Pulse Ox 98.2 F 80 20 137/92 92 07/21/16 21:06 07/21/16 21:06 07/21/16 21:06 07/21/16 21:06 07/21/16 21:06 General appearance: Present: cooperative, A&O X 3, no acute distress, answers questions appropriately - Respiratory Respiratory exam: Present: decreased breath sounds. Absent: wheezes - Cardiovascular Cardiovascular exam: Present: RRR - GI/Abdominal GI/Abdominal exam: Present: normal bowel sounds, soft. Absent: distended, tenderness - Extremities Exam Extremities exam: Present: pedal edema (1+ Le edema) - Neurological Exam Neurological exam: Present: alert, oriented X3, no focal deficits, strengths equal and symetr throughout. Absent: facial droop, speech deficit - Skin Skin exam: Absent: rash Internal Medicine: Result - Labs CBC & Chem 7: 07/21/16 05:39 07/21/16 12:51 Labs: Short CBC 07/21/16 Range/Units 05:39 WBC 13.4 H (4.3-11.1) K/mcL Hgb 12.3 L (12.9-16.9) g/dL Hct 37.9 (37.5-50.1) % Plt Count 346 (140-400) K/mcL Neutrophils # 10.8 H (1.6-8.9) K/mcL BMP 07/21/16 07/21/16 05:39 12:51 Sodium 143 145 Potassium 3.3 L 3.4 L Chloride 103 101 Carbon Dioxide 30 H 32 H BUN 22 22 Creatinine 1.26 H 1.38 H Glucose 163 H 68 L Calcium 8.7 9.0 - ABG Interpretation ABG results: ABG ABG pH 7.50 pH Units (7.32-7.45) H 07/12/16 16:30 ABG pCO2 35 mmHg (35-45) 07/12/16 16:30 ABG pO2 67 mmHg (85-104) L 07/12/16 16:30 ABG O2 Saturation 95 % (95-98) 07/12/16 16:30 PT/INR, D-dimer PT 32.1 Seconds (9.4-12.1) H 07/21/16 05:39 - VTE Documentation of Mechanical Device: Intermittent pneumatic compression device Consult Discharge Plan - Plan Additional Instructions: Follow up appointment with [facility] Wednesday, July 27, 2016 at 1:30 PM. Referrals: Kings Kaiser MD [Primary Care Provider] - 07/28/16 9:45 am
[2016-07-22] MEDS: Acetaminophen 325 MG TABLET PO PRN ×2 (02:30→23:36)
[2016-07-22 05:08] LABS: INR 3.3; Prothrombin Time 37.2 Seconds (9.4-12.1)
[2016-07-22] MEDS: Cefepime HCl 1,000 MG in D5% in Water (Mini-Bag+) 100 ML IVPB SCH ×2 (05:09→18:06)
[2016-07-22] MEDS: hydrALAZINE 10 MG TABLET PO SCH ×4 (05:09→23:37)
[2016-07-22] MEDS: Linezolid 600 MG TABLET PO SCH ×2 (05:09→18:06)
[2016-07-22 05:20] LABS: Basophils % 0.2 %; Eosinophils # 0.2 K/mcL (0.0-0.6); Eosinophils % 1.6 %; Hematocrit 40.2 % (37.5-50.1); Hemoglobin 12.4 g/dL (12.9-16.9); Immature Granulocytes % 0.7 % (0-4); Lymphocytes % 15.2 %; Mean Corpuscular HGB Conc 30.8 g/dL (31.6-35.5); Mean Corpuscular Volume 97.1 fL (83.0-100.0); Mean Platelet Volume 10.4 fL (9.4-12.4); Monocytes % 7.7 %; Nucleated Red Blood Cells 0.1 /100 WBC (0); Platelet Count 388 K/mcL (140-400); Red Blood Count 4.14 M/mcL (4.19-5.50); Red Cell Distribution Width 15.6 % (11.5-14.5); Segmented Neutrophils % 74.6 %
[2016-07-22 05:59] LABS: Potassium 4.6 mEq/L (3.5-4.5)
[2016-07-22] MEDS: Insulin LISPRO 300 UNITS/3 ML VIAL SQ SCH ×3 (07:48→17:01)
[2016-07-22] MEDS: *HR* Amiodarone 200 MG TABLET PO SCH (07:58)
[2016-07-22] MEDS: Metoprolol XL (24 HR) Succ 25 MG TAB.ER.24H PO SCH (07:58)
[2016-07-22] MEDS: Aspirin 81 MG TAB.CHEW PO SCH (07:58)
[2016-07-22] MEDS ORDERED: Furosemide 240 MG in D5% in Water 96 ML IVC SCH (09:41)
--- NOTE | 2016-07-22 09:47 | Internal Med Progress Note ---
Date of Encounter: 07/22/16 Time of Encounter: 09:00 - Assessment and plan (1) Acute respiratory failure with hypoxia Current Visit: Yes Status: Acute Assessment and plan: Secondary to acute systolic heart failure LVEF 25-30%, and Pneumonia, continue O2 supplementation negative blood and sputum culture. 07/19 CT chest showed congestive heart failure with moderate bilateral pleural effusions with adjacent passive atelectasis. 07/20 changed Zosyn for Cefepime due to leukocytosis and started on lasix drip due to hypoxia and CT chest findings. 07/21: lasix drip stopped in the evening due to worsening of kidney function. resume lasix drip at a lower rate 1.25 mg /hr given worsening of kidney function yesterday. fluid restriction. Continue cefepime and zyvox. check BMP in afternoon. (2) LV (left ventricular) mural thrombus following [place] Current Visit: Yes Status: Acute Assessment and plan: Echo revealed EF 25-30%, LV apical thrombus, severe dilated LA, severe dilated RA Continue ASA, Plavix, Coumadin INR 2.9 Pharmacy to dose coumadin (3) JIMBO (acute kidney injury) Current Visit: Yes Status: Acute Assessment and plan: mild increase of creatinine up to 1.38 07/21. Creatinine has plateaud. will resume lasix drip at a lower rate and check BMP this afternoon. close monitoring. (4) CHF (congestive heart failure) Current Visit: Yes Status: Acute Assessment and plan: plan as above Qualifiers: Congestive heart failure type: systolic Congestive heart failure chronicity : acute on chronic Qualified Code(s): I50.23 - Acute on chronic systolic ( congestive) heart failure (5) Pneumonia Current Visit: Yes Status: Acute Assessment and plan: plan as above Qualifiers: Pneumonia type: due to unspecified organism Laterality: bilateral Lung location: unspecified part of lung Qualified Code(s): J18.9 - Pneumonia, unspecified organism (6) Recent ST elevation myocardial infarction (STEMI) Current Visit: Yes Status: Chronic Assessment and plan: Recent STEMI on 07/06 with Vfib cardiac arrest and CPR. EKG showed no acute ischemic changes. continue amiodarone, plavix, aspirin, lipitor 80, metoprolol xl 25 (7) Coronary artery disease Current Visit: Yes Status: Chronic Assessment and plan: As in Recent STEMI Qualifiers: Coronary Disease-Associated Artery/Lesion type: [place] artery [place] vs. transplanted heart: [place] heart Associated angina: with unstable angina Qualified Code(s): I25.110 - Atherosclerotic heart disease of [place] coronary artery with unstable angina pectoris (8) Melanoma Current Visit: Yes Status: Acute Assessment and plan: Dr haskins as outpatient Qualifiers: Melanoma location: face excluding eyelid, nose, lip, and ear Qualified Code (s): C43.30 - Malignant melanoma of unspecified part of face - Subjective Interval history: patient had an episode of hemoptysis this morning (whitish sputum with streaks of blood) - Constitutional Vitals: Temp Pulse Resp BP Pulse Ox 97.6 F 80 18 104/86 96 07/22/16 07:35 07/22/16 07:55 07/22/16 07:35 07/22/16 07:35 07/22/16 07:35 General appearance: Present: cooperative, A&O X 3, no acute distress, answers questions appropriately - Respiratory Respiratory exam: Present: decreased breath sounds (at right lower lung harris) - Cardiovascular Cardiovascular exam: Present: RRR - GI/Abdominal GI/Abdominal exam: Present: normal bowel sounds, soft. Absent: distended, tenderness - Extremities Exam Extremities exam: Absent: pedal edema - Back Exam Back exam: Absent: CVA tenderness (L), CVA tenderness (R) - Neurological Exam Neurological exam: Present: alert, oriented X3, no focal deficits, strengths equal and symetr throughout. Absent: facial droop, speech deficit - Skin Skin exam: Absent: rash Internal Medicine: Result - Labs CBC & Chem 7: 07/22/16 04:27 07/22/16 04:27 Labs: Short CBC 07/22/16 Range/Units 04:27 WBC 13.4 H (4.3-11.1) K/mcL Hgb 12.4 L (12.9-16.9) g/dL Hct 40.2 (37.5-50.1) % Plt Count 388 (140-400) K/mcL Neutrophils # 10.0 H (1.6-8.9) K/mcL BMP 07/21/16 07/22/16 12:51 04:27 Sodium 145 144 Potassium 3.4 L 4.6 H D Chloride 101 104 Carbon Dioxide 32 H 30 H BUN 22 24 Creatinine 1.38 H 1.38 H Glucose 68 L 158 H Calcium 9.0 9.0 - ABG Interpretation ABG results: ABG ABG pH 7.50 pH Units (7.32-7.45) H 07/12/16 16:30 ABG pCO2 35 mmHg (35-45) 07/12/16 16:30 ABG pO2 67 mmHg (85-104) L 07/12/16 16:30 ABG O2 Saturation 95 % (95-98) 07/12/16 16:30 PT/INR, D-dimer PT 37.2 Seconds (9.4-12.1) H 07/22/16 04:27 - VTE Documentation of Mechanical Device: Intermittent pneumatic compression device Consult Discharge Plan - Plan Additional Instructions: Follow up appointment with [facility] Wednesday, July 27, 2016 at 1:30 PM. Referrals: Kings Kaiser MD [Primary Care Provider] - 07/28/16 9:45 am
[2016-07-22 18:55] LABS: BUN/Creatinine Ratio 18 (6-26); Blood Urea Nitrogen 24 mg/dL (8-26); Calcium 8.5 mg/dL (8.6-10.8); Carbon Dioxide 24 mEq/L (19-29); Chloride 107 mEq/L (98-109); Glucose 215 mg/dL (70-99); Osmolality,Calculated 303 (280-300); Sodium 141 mEq/L (136-145); eGFR For African Americans > 60 (> 60); eGFR For Non-African Americans 52 (> 60)
[2016-07-22 19:02] LABS: Potassium 5.4 mEq/L (3.5-4.5)
[2016-07-22] MEDS: Warfarin perPT PO SCH (20:13)
[2016-07-22] MEDS ORDERED: 0.9 % Sodium Chloride 250 ML ONE (20:15)
[2016-07-22] MEDS ORDERED: Insulin LISPRO 300 UNITS/3 ML VIAL SQ SCH (21:00)
[2016-07-23 04:00] LABS: INR 3.6; Prothrombin Time 40.4 Seconds (9.4-12.1)
[2016-07-23 04:42] LABS: BUN/Creatinine Ratio 18 (6-26); Blood Urea Nitrogen 24 mg/dL (8-26); Calcium 8.9 mg/dL (8.6-10.8); Carbon Dioxide 29 mEq/L (19-29); Chloride 103 mEq/L (98-109); Glucose 149 mg/dL (70-99); Osmolality,Calculated 303 (280-300); Potassium 4.6 mEq/L (3.5-4.5); Sodium 143 mEq/L (136-145); eGFR For African Americans > 60 (> 60); eGFR For Non-African Americans 52 (> 60)
[2016-07-23] MEDS: hydrALAZINE 10 MG TABLET PO SCH ×2 (05:51→11:49)
[2016-07-23] MEDS: Linezolid 600 MG TABLET PO SCH (05:51)
[2016-07-23] MEDS: Cefepime HCl 1,000 MG in D5% in Water (Mini-Bag+) 100 ML IVPB SCH (05:52)
[2016-07-23] MEDS: Insulin LISPRO 300 UNITS/3 ML VIAL SQ SCH ×2 (08:06→11:46)
[2016-07-23] MEDS: Metoprolol XL (24 HR) Succ 25 MG TAB.ER.24H PO SCH (08:10)
[2016-07-23] MEDS: Aspirin 81 MG TAB.CHEW PO SCH (08:11)
[2016-07-23] MEDS: *HR* Amiodarone 200 MG TABLET PO SCH (08:12)
[2016-07-23 08:44] LABS: Basophils % 0.2 %; Eosinophils # 0.2 K/mcL (0.0-0.6); Eosinophils % 1.5 %; Hematocrit 40.4 % (37.5-50.1); Hemoglobin 12.6 g/dL (12.9-16.9); Immature Granulocytes % 0.5 % (0-4); Lymphocytes # 1.9 K/mcL (0.6-4.6); Lymphocytes % 15.9 %; Mean Corpuscular HGB Conc 31.2 g/dL (31.6-35.5); Mean Corpuscular Volume 99.5 fL (83.0-100.0); Mean Platelet Volume 10.8 fL (9.4-12.4); Monocytes # 0.8 K/mcL (0.0-1.3); Monocytes % 6.3 %; Neutrophils # 9.2 K/mcL (1.6-8.9); Nucleated Red Blood Cells 0.2 /100 WBC (0); Platelet Count 373 K/mcL (140-400); Red Blood Count 4.06 M/mcL (4.19-5.50); Red Cell Distribution Width 15.6 % (11.5-14.5); Segmented Neutrophils % 75.6 %
--- NOTE | 2016-07-23 15:06 | Discharge Summary ---
Date of Encounter: 07/23/16 Time of Encounter: 15:03 - Discharge Diagnosis (1) Acute respiratory failure with hypoxia Priority: Primary Status: Acute (2) LV (left ventricular) mural thrombus following SD Priority: Primary Status: Acute (3) JIMBO (acute kidney injury) Priority: Primary Status: Acute (4) CHF (congestive heart failure) Priority: Primary Status: Acute Qualifiers: Congestive heart failure type: systolic Congestive heart failure chronicity : acute on chronic Qualified Code(s): I50.23 - Acute on chronic systolic ( congestive) heart failure (5) Pneumonia Priority: Primary Status: Acute Qualifiers: Pneumonia type: due to unspecified organism Laterality: bilateral Lung location: unspecified part of lung Qualified Code(s): J18.9 - Pneumonia, unspecified organism (6) Recent ST elevation myocardial infarction (STEMI) Priority: Secondary Status: Chronic (7) Coronary artery disease Priority: Secondary Status: Chronic Qualifiers: Coronary Disease-Associated Artery/Lesion type: [place] artery [place] vs. transplanted heart: [place] heart Associated angina: with unstable angina Qualified Code(s): I25.110 - Atherosclerotic heart disease of [place] coronary artery with unstable angina pectoris (8) Melanoma Priority: Secondary Status: Chronic Qualifiers: Melanoma location: face excluding eyelid, nose, lip, and ear Qualified Code (s): C43.30 - Malignant melanoma of unspecified part of face - Discharge Medications Prescriptions: hydrALAZINE [HydrALAZINE] 50 mg PO Q8HR #90 tablet Amoxicillin/Clavulanate [Augmentin] 875 mg PO BIDWM #8 tablet Furosemide [Lasix] 20 mg PO TID #90 tablet Linezolid [Zyvox] 600 mg PO Q12H #9 tablet Metoprolol XL (24 HR) Succ [Toprol Xl] 50 mg PO DAILY #30 tab.er.24h Warfarin [Coumadin] 1 mg PO 1800 #30 tablet Home Medications: Allopurinol [Zyloprim 100 MG] 100 mg PO BID 07/06/16 [History] Clopidogrel [Plavix] 75 mg PO DAILY 07/06/16 [History] Loperamide HCl [Imodium A-D] 2 mg PO BID PRN 07/06/16 [History] Omeprazole [PriLOSEC] 20 mg PO DAILY 07/06/16 [History] Amiodarone [Cordarone] 200 mg PO DAILY #30 tablet 07/10/16 [Rx] Aspirin 81 mg PO DAILY #30 tab.chew 07/10/16 [Rx] Atorvastatin [Lipitor] 80 mg PO HS #30 tablet 07/10/16 [Rx] Metformin HCl [Fortamet] 500 mg PO DAILY #30 tab.er.24 07/10/16 [Rx] Nitroglycerin 0.4 mg SL Q5MIN PRN #15 tab.subl 07/10/16 [Rx] Amoxicillin/Clavulanate [Augmentin] 875 mg PO BIDWM #8 tablet 07/23/16 [Rx] Furosemide [Lasix] 20 mg PO TID #90 tablet 07/23/16 [Rx] Linezolid [Zyvox] 600 mg PO Q12H #9 tablet 07/23/16 [Rx] Metoprolol XL (24 HR) Succ [Toprol Xl] 50 mg PO DAILY #30 tab.er.24h 07/23/16 [ Rx] Warfarin [Coumadin] 1 mg PO 1800 #30 tablet 07/23/16 [Rx] hydrALAZINE [HydrALAZINE] 50 mg PO Q8HR #90 tablet 07/23/16 [Rx] Allergies/Adverse Reactions: Allergies aspirin Adverse Reaction (Verified 07/12/16 16:02) See Comments urinate blood Date of admission: 07/12/16 17:26 Primary care physician: Kings Kaiser MD Consults: 07/13/16 08:09 Consult to Cardiac Rehabilitation-Phase1 [CONS] Routine Comment: Reason for Consult: ACS- s/p recent STEMI Call Completed: No 07/19/16 10:22 Consult to Physical Therapy [CONS] Routine Comment: Evaluate, develop and implement POC Reason for Consult: Evaluate for gait aid - Patient Status Disposition: Home Health Service Condition: Good Functional capacity at discharge: uses cane/walker Overall status at discharge: patient is progressing back to baseline - Discharge Instructions Instructions: Metoprolol (By mouth), Furosemide (By mouth), Warfarin (By mouth) , Amoxicillin/Clavulanate Potassium (By mouth), Hydralazine (By mouth), Linezolid (By mouth), Heart Failure (DC), Atrial Fibrillation (DC), Diabetes Mellitus Type 2 in Adults (DC), Chronic Hypertension (DC) Follow Up With: Kings Kaiser MD [Primary Care Provider] - 07/28/16 9:45 am Jason Mccallum MD [Partnered Physician] - (IN 2-3 WEEKS) Additional Instructions: Follow up appointment with [facility] Wednesday, July 27, 2016 at 1:30 PM. please use oxygen at all times. CHECK YOUR BLOOD SUGARS BEFORE MEALS AND AT BEDTIME. WRITE DOWN THE NUMBERS AND BRING RECORD TO DOCTOR'S APPOINTMENT PLEASE WEIGHT YOURSELF DAILY, IF YOU GAIN MORE THAN 1 POUND IN 1 DAY PLEASE CALL YOUR DOCTOR. - Diet and Activity Activity: wear oxygen at all times (4l ) Diet: diabetic diet, low fat, low cholesterol, low salt diet, other (FLUID RESTRICTION 1.6 LITERS /DAY) Interval History: PATIENT REPORTS DECREASED HEMOPTYSIS. HIS SHORTNESS OF BREATH IS BETTER COMPARED TO ADMISSION. HE IS EAGER TO GO HOME. Hospital course: Mr. Langford is a 80 year old male with past medical history of diabetes, and hypertension who was just recently discharged 2 days before presentation from our hospital after being treated for anterolateral STEMI with cardiogenic shock requiring defibrillation and CPR. He presents with a chief complaint of shortness of breath and productive cough. Chest x-ray showed right infrahilar wrist consolidation with a small left pleural effusion. Patient admitted with diagnosis of acute respiratory failure secondary to pneumonia and was started on empiric antibiotics. Echocardiogram revealed LVEF 25-30% LV apical thrombus. He was started on heparin/coumadin. Patient continued to require oxygen at 4 L and physical examination revealed fluid overload; therefore he was diagnosed of acute systolic failure with LVEF 25-30%. 07/19 CT chest showed congestive heart failure with moderate bilateral pleural effusions with adjacent passive atelectasis. He was started on Lasix drip with slow clinical improvement. His creatinine trended up mildly but this was inspected after Lasix. PLAN: Repeat CBC and BMP next week. Follow-up with in the cardiology clinic. Follow up in the Coumadin clinic. He will need a CT of the chest in 4 weeks to address resolution of findings. - Time Spent with Patient Total time spent providing and/or coordinating discharge services: - Constitutional Vitals: Temp Pulse Resp BP Pulse Ox 97.5 F L 67 20 122/89 97 07/23/16 11:28 07/23/16 11:28 07/23/16 11:28 07/23/16 11:28 07/23/16 11:28 General appearance: Present: cooperative, A&O X 3, no acute distress, answers questions appropriately - Neck Neck exam general surgery: Present: supple, trachea midline. Absent: lymphadenopathy - Respiratory Respiratory exam: Present: decreased breath sounds - Cardiovascular Cardiovascular exam: Present: RRR - GI/Abdominal GI/Abdominal exam: Present: normal bowel sounds, soft. Absent: distended, tenderness - Extremities Exam Extremities exam: Present: pedal edema (1+ le EDEMA) - Back Exam Back exam: Absent: CVA tenderness (L), CVA tenderness (R) - Neurological Exam Neurological exam: Present: alert, oriented X3, no focal deficits, strengths equal and symetr throughout. Absent: facial droop, speech deficit - Skin Skin exam: Absent: rash - VTE Documentation of Mechanical Device: Intermittent pneumatic compression device
[2016-07-23 15:29] VITALS: BP 112/87
--- NOTE | 2016-07-23 15:57 | Physician Discharge Referral ---
Home Health/Hosp Referral Info Transfer to: Home Health Attending Provider: ELVIS Provider in Charge Post Discharge: PCP - Diagnosis (1) Acute respiratory failure with hypoxia Status: Acute (2) LV (left ventricular) mural thrombus following OR Status: Acute (3) JIMBO (acute kidney injury) Status: Acute (4) CHF (congestive heart failure) Status: Acute (5) Pneumonia Status: Acute (6) Recent ST elevation myocardial infarction (STEMI) Status: Chronic (7) Coronary artery disease Status: Chronic (8) Melanoma Status: Chronic - Respiratory Orders Oxygen / L per min (4) Smoking Cessation: Smoking cessation has been advised. For more information, call the [place] Tobacco Quit Line at 6-968-CXHW-NOW. - Diet/Nutrition Diet/Nutrition Orders: No Added Salt (CINDY) (FLUID RESTRICTION 1.6 LITERS PER DAY ), Cardiac, No Concentrated Sweets - Activity Activity Orders: Walker - Services Needed Following services are medically necessary services: Nursing, Physical Therapy, Occupational Therapy Other Treatments: CHECK WBC, BMP AND MAGNESIUM ON JULY 26, 2016. - Transfer Medications Prescriptions: hydrALAZINE [HydrALAZINE] 50 mg PO Q8HR #90 tablet Amoxicillin/Clavulanate [Augmentin] 875 mg PO BIDWM #8 tablet Furosemide [Lasix] 20 mg PO TID #90 tablet Linezolid [Zyvox] 600 mg PO Q12H #9 tablet Metoprolol XL (24 HR) Succ [Toprol Xl] 50 mg PO DAILY #30 tab.er.24h Home Medications: Allopurinol [Zyloprim 100 MG] 100 mg PO BID 07/06/16 [History] Clopidogrel [Plavix] 75 mg PO DAILY 07/06/16 [History] Loperamide HCl [Imodium A-D] 2 mg PO BID PRN 07/06/16 [History] Omeprazole [PriLOSEC] 20 mg PO DAILY 07/06/16 [History] Amiodarone [Cordarone] 200 mg PO DAILY #30 tablet 07/10/16 [Rx] Aspirin 81 mg PO DAILY #30 tab.chew 07/10/16 [Rx] Atorvastatin [Lipitor] 80 mg PO HS #30 tablet 07/10/16 [Rx] Metformin HCl [Fortamet] 500 mg PO DAILY #30 tab.er.24 07/10/16 [Rx] Nitroglycerin 0.4 mg SL Q5MIN PRN #15 tab.subl 07/10/16 [Rx] Amoxicillin/Clavulanate [Augmentin] 875 mg PO BIDWM #8 tablet 07/23/16 [Rx] Furosemide [Lasix] 20 mg PO TID #90 tablet 07/23/16 [Rx] Linezolid [Zyvox] 600 mg PO Q12H #9 tablet 07/23/16 [Rx] Metoprolol XL (24 HR) Succ [Toprol Xl] 50 mg PO DAILY #30 tab.er.24h 07/23/16 [ Rx] hydrALAZINE [HydrALAZINE] 50 mg PO Q8HR #90 tablet 07/23/16 [Rx] Allergies/Adverse Reactions: Allergies aspirin Adverse Reaction (Verified 07/12/16 16:02) See Comments urinate blood Certification: Further, I certify that my clinical findings support that this patient is homebound (i.e. absences from home require considerable and taxing effort and are for medical reasons or church services or infrequently or short duration when for other reasons) because: Homebound Reason: Patient requires assistance of a person or device to safely leave home, Leaving home requires considerable and taxing effort due to condition, Severity of cardiac or pulmonary status limits activity tolerance Attestation: My signature below is to certify that this patient is under my care and that I, or nurse practitioner, or a physician's wardrobe assistant working with me, has a face-to -face encounter with this patient.
[2016-07-24] MEDS ORDERED: Metoprolol XL (24 HR) Succ 50 MG TAB.ER.24H PO SCH (09:00)
== END 2016-07-23 17:12 | disposition home health service (06) | DRG 291 ==
LOC: 2NNU 09:31 → EMEROO 09:31 → 2NNU 13:27 → SUATTDRO 17:26
PROVIDERS: ADMIT Hospitalist; ATTEND Internal Medicine

== ENCOUNTER 2016-07-24 15:03 | Inpatient (IN) ==
[2016-07-24] MEDS ORDERED: Furosemide 40 MG/4 ML VIAL IVP ONE (15:13)
--- NOTE | 2016-07-24 15:24 | Emergency Department Note ---
Disposition Clinical Impression: Elevated troponin, Recent ST elevation myocardial infarction (STEMI), Pleural effusion, Left ventricular dysfunction, Respiratory distress, acute, Hypercarbia CHF (congestive heart failure) Qualifiers: Congestive heart failure type: systolic Congestive heart failure chronicity: acute on chronic Qualified Code(s): I50.23 - Acute on chronic systolic ( congestive) heart failure Disposition: Admitted As Inpatient Condition: Critical Time of Disposition: 16:58 SOB HPI - General Chief Complaint: ED Shortness of Breath/Dyspnea Stated Complaint: SOB Time Seen by Provider: 07/24/16 15:05 Source: patient, family, EMS Mode of arrival: ambulatory Limitations: no limitations Nursing Notes Reviewed: Yes Vital Signs Reviewed: Yes - History of Present Illness Patient presents emergency room complaining of shortness of breath. He was just discharged from the hospital yesterday for acute exacerbation shortness of breath and urticaria catheterization that resulted in a cardiac arrest and need for cardiac resuscitation. Patient denies symptoms on presentation except for shortness of breath. He is visibly dyspneic on exam. Denies chest pain has had intermittent chills and sweats. Denies fevers. Has nausea vomiting or diarrhea. Denies headache or vision change. Main complaint is persistent dyspnea since discharge from the hospital increased oxygen requirement visible signs of fluid overload and concern for persistent decompensation. 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 Denies: sputum production, lower extremity pain Treatment prior to arrival: oxygen - Related Data Home Medications Medication Instructions Recorded Confirmed Allopurinol [Zyloprim 100 MG] 100 mg PO BID 07/06/16 07/24/16 Clopidogrel [Plavix] 75 mg PO DAILY 07/06/16 07/24/16 Loperamide HCl [Imodium A-D] 2 mg PO BID PRN 07/06/16 07/24/16 Omeprazole [PriLOSEC] 20 mg PO DAILY 07/06/16 07/24/16 Warfarin [Coumadin] 1 mg PO QPM 07/24/16 07/24/16 Previous Rx's Medication Instructions Recorded Amiodarone [Cordarone] 200 mg PO DAILY #30 tablet 07/10/16 Aspirin 81 mg PO DAILY #30 tab.chew 07/10/16 Atorvastatin [Lipitor] 80 mg PO HS #30 tablet 07/10/16 Metformin HCl [Fortamet] 500 mg PO DAILY #30 tab.er.24 07/10/16 Nitroglycerin 0.4 mg SL Q5MIN PRN #15 tab.subl 07/10/16 Amoxicillin/Clavulanate [Augmentin] 875 mg PO BIDWM #8 tablet 07/23/16 Furosemide [Lasix] 20 mg PO TID #90 tablet 07/23/16 Linezolid [Zyvox] 600 mg PO Q12H #9 tablet 07/23/16 Metoprolol XL (24 HR) Succ [Toprol 50 mg PO DAILY #30 tab.er.24h 07/23/16 Xl] hydrALAZINE [HydrALAZINE] 50 mg PO Q8HR #90 tablet 07/23/16 Allergies Allergy/AdvReac Type Severity Reaction Status Date / Time aspirin AdvReac See Verified 07/12/16 16:02 Comments All systems ED: reviewed and negative except as stated. Constitutional: Denies: fever Cardiovascular: Reports: dyspnea on exertion, orthopnea, edema. Denies: chest pain, palpitations Respiratory: Denies: cough, dyspnea Gastrointestinal: Denies: nausea, vomiting, diarrhea Past Medical History - Past Medical History Attestation: Yes The following information was validated with the patient. Source: patient Medical history: Reports: cancer, coronary artery disease, diabetes, GERD, hyperlipidemia, hypertension, myocardial infarction, sudden cardiac , TIA, other Surgical history: Reports: angioplasty/stent, herniorrhaphy, pacemaker Psychiatric history: Reports: no psych history - Social History Smoking Status: Never smoker Smokeless Tobacco Status: No Alcohol use: Reports: none Drug use: Reports: none Physical Exam - General General appearance: alert - Head Head exam: atraumatic, normocephalic, normal inspection - Neck Neck exam: Present: normal inspection, full ROM, trachea midline. Absent: meningismus, lymphadenopathy - Chest Chest inspection: Present: normal inspection, symmetric chest wall rise. Absent : tenderness - Respiratory Respiratory exam: Present: respiratory distress, accessory muscle use. Absent: wheezes, stridor - Cardiovascular Cardiovascular exam: Present: normal rhythm, tachycardia, irregular rhythm - Abdominal Exam Abdominal exam: Present: soft, Non-Tender, normal bowel sounds. Absent: tenderness, distention, guarding, rebound, rigidity, Mann's sign, Rovsing's sign, tenderness at McBurney's Point, pulsatile mass, hernia - Extremities Exam Extremities exam: Present: normal inspection, full ROM, normal capillary refill , pedal edema. Absent: tenderness, calf tenderness - Back Exam Back exam: Present: normal inspection, full ROM. Absent: tenderness - Neurological Exam Neurological exam: Present: alert, oriented X3, CN II-XII intact, normal gait - Psychiatric Psychiatric exam: Present: normal affect, normal mood Course Course Narrative: Patient seen and examined the time of arrival. See history of present illness. 80-year-old male presents to the emergency room with complaint of shortness of breath. Just discharged from the hospital yesterday after a long hospital stay for atrial fibrillation, congestive heart failure, fluid overload, heart catheterization that resulted in cardiac arrest and need for 2 times defibrillation. Patient was discharged in no acute distress. Medications including antibiotics, metoprolol, nausea medication given at time of discharge. Patient recommended to follow closely. Patient was also started on oxygen 4 L per nasal cannula at home. Patient said he went home and immediately started having increasing shortness of breath. Morning he noted that his pants were unable to be brought in secondary to fluid overload. Patient said that he had an aorta evaluation and thrombectomy performed of his aorta as well. Physical exam patient is audibly dyspneic as well as visibly dyspneic on exam. Vital signs are reviewed and are stable this point the nonrebreather mask on. Trachea is midline oropharynx is patent lungs are clear with no signs or crackles he is using accessory muscles. Heart shows irregularly irregular rhythm consistent with A. fib. Pacemaker site appears to be stable and left chest wall. Abdomen is soft nontender nondistended with no pulsatile lesions no signs of bruising irritation swelling or redness. All sounds are present all 4 quadrants. Patient was all 4 extremities. He has pitting edema to the knee bilaterally. Patient is concerning for possible decompensation status post thrombectomy and cardiac catheterization. Patient also has acute exacerbation of fluid overload secondary to failed outpatient treatment course. Chest x-ray blood cultures troponin EKG labs BiPAP to be applied at this point. Disposition pending workup and treatment course. Expect patient will need readmission to the hospital for further evaluation and definitive management - Reevaluation(s) Reevaluation #1: EKG reviewed with the on-call community director Dr. Poppy Fernandes. We reviewed personally the EKG from 07/06/16, 07/12/16, 07/24/16. She agreed with our interpretation of no acute issues at this time.. Recommended further evaluation and definitive management as an inpatient hospital. Bedside echo was completed by myself showing a hypokinetic left ventricle with probably 20% EF. Again this is not a definitive study and not a definitive exam completed by cardiology but a basic bedside evaluation by myself. Patient does have what appears to be congestive heart failure with progression of bilateral pleural effusions. BiPAP to be placed at the bedside lab still pending. Admission process to be completed at that point Time: 16:15 Reevaluation #2: Awaiting BiPAP Time: 16:33 Reevaluation #3: Patient symptoms presentation and medical intervention were reviewed with the hospitalist Dr. eugene. We reviewed the patient's medical history intervention consultation with the community director and had no other recommendations at this time. Patient to be admitted to the ICU. Concern for inpatient clinical decompensation. Patient is critically ill. Concern is noted for inpatient decompensation. Patient is at high risk for deterioration and cardiac arrest. Patient family informed of my concern at this point for clinical deterioration and possible . Understanding this and appreciative of her concern. Patient will be admitted to the ICU at this time. He is currently a full code. No antibiotics required at this time he has had a nine-day course at home. Will let the hospitalist evaluate. Patient will be admitted at this time for acute congestive heart failure secondary to left ventricular dysfunction, bilateral pleural effusions, fluid overload, hypoxia, increased work of breathing. The elevated d-dimer as well as lab abnormalities were discussed in great detail with the hospital they we are evaluate and determine further imaging or modalities. Clinically patient does not have any acute signs of pulmonary emboli. He has been on anticoagulants for the last 3 weeks. Low clinical suspicion at this time but inpatient evaluation to be completed. Time: 16:54 Vital Signs Temperature 98 F 07/24/16 15:10 Pulse Rate 108 07/24/16 15:10 Respiratory Rate 16 07/24/16 15:10 Blood Pressure 122/116 07/24/16 15:10 O2 Sat by Pulse Oximetry 96 07/24/16 15:10 Temperature 98 F 07/24/16 15:10 Pulse Rate 76 07/24/16 18:03 Respiratory Rate 16 07/24/16 18:03 Blood Pressure 119/90 07/24/16 18:03 O2 Sat by Pulse Oximetry 97 07/24/16 18:03 Oxygen Delivery Oxygen Delivery Room Air Shortness of Breath/Dyspnea - MDM Narrative Medical decision making narrative: Heart failure, left ventricular dysfunction, dyspnea on exertion, bilateral pleural effusions, elevated d-dimer, medical decompensation - Medical Records Medical records reviewed: Yes I reviewed the patient's medical records. - Lab Data Lab results reviewed: Yes I reviewed the patient's lab results. Result diagrams: 07/24/16 15:53 07/24/16 15:53 Lab Results 07/24/16 07/24/16 07/24/16 Range/Units 15:53 15:53 15:53 WBC 13.1 H (4.3-11.1) K/mcL RBC 4.46 (4.19-5.50) M/mcL Hgb 13.6 (12.9-16.9) g/dL Hct 44.4 (37.5-50.1) % MCV 99.6 (83.0-100.0) fL MCH 30.5 (28.0-33.3) pg MCHC 30.6 L (31.6-35.5) g/dL RDW 15.7 H (11.5-14.5) % Plt Count 380 (140-400) K/mcL MPV 10.3 (9.4-12.4) fL Immature Gran % 0.6 (0-4) % Seg Neutrophils % 92.9 % Lymphocytes % 3.4 % Monocytes % 3.0 % Eosinophils % 0.0 % Basophils % 0.1 % Neutrophils # 12.1 H (1.6-8.9) K/mcL Lymphocytes # 0.4 L (0.6-4.6) K/mcL Monocytes # 0.4 (0.0-1.3) K/mcL Eosinophils # 0.0 (0.0-0.6) K/mcL Basophils # 0.0 (0.0-0.2) K/mcL Nucleated RBCs/100 WBC 0.2 H (0) /100 WBC D-Dimer 888 H (0-500) ng/mLFEU VBG pH (7.32-7.42) pH Units VBG pCO2 (41-51) mmHg VBG pO2 (25-40) mmHg VBG HCO3 (21-27) mEq/L Sodium 144 (136-145) mEq/L Potassium 5.2 H (3.5-4.5) mEq/L Chloride 102 (98-109) mEq/L Carbon Dioxide 27 (19-29) mEq/L BUN 31 H (8-26) mg/dL Creatinine 1.68 H (0.72-1.25) mg/dL Est GFR ( Amer) 48 L (> 60) Est GFR (Non-Af Amer) 39 L (> 60) BUN/Creatinine Ratio 18 (6-26) Glucose 273 H (70-99) mg/dL Calculated Osmolality 314 H (280-300) Lactic Acid (0.5-2.2) mmol/L Calcium 9.4 (8.6-10.8) mg/dL Total Bilirubin 0.7 (0.2-1.2) mg/dL Direct Bilirubin 0.3 (0.0-0.5) mg/dL Indirect Bilirubin 0.4 (0.0-1.2) mg/dL AST 17 (5-34) Units/L ALT 29 (0-55) Units/L Alkaline Phosphatase 134 H (38-126) Units/L Troponin I (0-0.03) ng/mL B-Natriuretic Peptide (0-100) pg/mL Serum Total Protein 7.1 (6.0-8.3) g/dL Albumin 3.2 L (3.5-5.0) g/dL Globulin 3.9 H (2.4-3.5) g/dL Albumin/Globulin Ratio 0.8 L (1.1-2.2) 07/24/16 07/24/16 07/24/16 Range/Units 15:53 15:53 15:53 WBC (4.3-11.1) K/mcL RBC (4.19-5.50) M/mcL Hgb (12.9-16.9) g/dL Hct (37.5-50.1) % MCV (83.0-100.0) fL MCH (28.0-33.3) pg MCHC (31.6-35.5) g/dL RDW (11.5-14.5) % Plt Count (140-400) K/mcL MPV (9.4-12.4) fL Immature Gran % (0-4) % Seg Neutrophils % % Lymphocytes % % Monocytes % % Eosinophils % % Basophils % % Neutrophils # (1.6-8.9) K/mcL Lymphocytes # (0.6-4.6) K/mcL Monocytes # (0.0-1.3) K/mcL Eosinophils # (0.0-0.6) K/mcL Basophils # (0.0-0.2) K/mcL Nucleated RBCs/100 WBC (0) /100 WBC D-Dimer (0-500) ng/mLFEU VBG pH (7.32-7.42) pH Units VBG pCO2 (41-51) mmHg VBG pO2 (25-40) mmHg VBG HCO3 (21-27) mEq/L Sodium (136-145) mEq/L Potassium (3.5-4.5) mEq/L Chloride (98-109) mEq/L Carbon Dioxide (19-29) mEq/L BUN (8-26) mg/dL Creatinine (0.72-1.25) mg/dL Est GFR ( Amer) (> 60) Est GFR (Non-Af Amer) (> 60) BUN/Creatinine Ratio (6-26) Glucose (70-99) mg/dL Calculated Osmolality (280-300) Lactic Acid 5.2 H* (0.5-2.2) mmol/L Calcium (8.6-10.8) mg/dL Total Bilirubin (0.2-1.2) mg/dL Direct Bilirubin (0.0-0.5) mg/dL Indirect Bilirubin (0.0-1.2) mg/dL AST (5-34) Units/L ALT (0-55) Units/L Alkaline Phosphatase (38-126) Units/L Troponin I 1.00 H* (0-0.03) ng/mL B-Natriuretic Peptide 4193 H (0-100) pg/mL Serum Total Protein (6.0-8.3) g/dL Albumin (3.5-5.0) g/dL Globulin (2.4-3.5) g/dL Albumin/Globulin Ratio (1.1-2.2) 07/24/16 Range/Units 15:53 WBC (4.3-11.1) K/mcL RBC (4.19-5.50) M/mcL Hgb (12.9-16.9) g/dL Hct (37.5-50.1) % MCV (83.0-100.0) fL MCH (28.0-33.3) pg MCHC (31.6-35.5) g/dL RDW (11.5-14.5) % Plt Count (140-400) K/mcL MPV (9.4-12.4) fL Immature Gran % (0-4) % Seg Neutrophils % % Lymphocytes % % Monocytes % % Eosinophils % % Basophils % % Neutrophils # (1.6-8.9) K/mcL Lymphocytes # (0.6-4.6) K/mcL Monocytes # (0.0-1.3) K/mcL Eosinophils # (0.0-0.6) K/mcL Basophils # (0.0-0.2) K/mcL Nucleated RBCs/100 WBC (0) /100 WBC D-Dimer (0-500) ng/mLFEU VBG pH 7.30 L (7.32-7.42) pH Units VBG pCO2 61 H (41-51) mmHg VBG pO2 24 L (25-40) mmHg VBG HCO3 30.0 H (21-27) mEq/L Sodium (136-145) mEq/L Potassium (3.5-4.5) mEq/L Chloride (98-109) mEq/L Carbon Dioxide (19-29) mEq/L BUN (8-26) mg/dL Creatinine (0.72-1.25) mg/dL Est GFR ( Amer) (> 60) Est GFR (Non-Af Amer) (> 60) BUN/Creatinine Ratio (6-26) Glucose (70-99) mg/dL Calculated Osmolality (280-300) Lactic Acid (0.5-2.2) mmol/L Calcium (8.6-10.8) mg/dL Total Bilirubin (0.2-1.2) mg/dL Direct Bilirubin (0.0-0.5) mg/dL Indirect Bilirubin (0.0-1.2) mg/dL AST (5-34) Units/L ALT (0-55) Units/L Alkaline Phosphatase (38-126) Units/L Troponin I (0-0.03) ng/mL B-Natriuretic Peptide (0-100) pg/mL Serum Total Protein (6.0-8.3) g/dL Albumin (3.5-5.0) g/dL Globulin (2.4-3.5) g/dL Albumin/Globulin Ratio (1.1-2.2) - Radiology Data Radiology results reviewed: Yes I reviewed the patient's radiology results. Chest x-ray shows progression of bilateral pleural effusions - EKG Data EKG attestation: Yes I reviewed and interpreted this EKG. Rate: Reports: tachycardia Rhythm: Reports: A.Fib ST segment elevation in: Reports: I, v3 When compared to previous EKG there are: other (EKGs from multiple evaluations over the last 3 weeks reviewed. Initial on 07/06/16 shows acute myocardial infarction. 07/12/16 shows stable changes with elevations in the leads 1 and aVL that have resolution from previous. Today there is one lead V3 with elevations but no other acute signs of ST segment elevation. Reviewed with the community director Dr. Poppy Fernandes at 1550) Critical Care Time Critical Care Time: Yes Total Critical Care Time: 35 Attestation: Independent of medical management and procedures Attestation Statement - Attestation Attestation: I examined this patient and my medical decision-making was reviewed with the [employer] DISPATCHER/PA/Advanced Practice Nurse/Resident Physician. I agree with the documented findings, disposition and treatment plan as described except to the extent set forth below. 80-year-old male presents the ED because of dyspnea. He was recently admitted to the hospital with ST elevation [place] that required cardiac catheterization any emergent revascularization. He suffered cardiac arrest during that timeframe. He has had a prolonged course, acute also by pneumonia and congestive heart failure. He was discharged from the hospital yesterday. Over the past 16 hours is having progression of increasing dyspnea prompting them to call EMS and bring him back to the hospital. He was found to be hypoxic per EMS. He presents on high flow oxygen. He denies associated chest pain. No fevers or chills. He is currently taking Zyvox. Pleasant, elderly male with mild to moderate respiratory distress. Oropharynx is clear. Neck is supple trachea midline. Chest with diminished breath sounds at both bases, egophony on the left side. As with her rales heard bilaterally. Current exam irregularly irregular. Distal heart tones. Abdomen soft and non -tender. Extremities are pale. Peripheral edema is noted. Bedside ultrasound was done which reveals no significant pericardial effusion but his left ventricle appears to be moderately to markedly hypokinetic. Neck is elevated and renal function is declined compared to recent labs. Chest x-ray with increased cardiomegaly as well as increased bilateral pleural effusions and pulmonary edema. PCO2 of 61 with pH 7.30. Troponin 1.0. He is placed on BiPAP. EKG was concerning in that he had concordant ST elevation noted with his paced rhythm. This felt just on her criteria for acute ST elevation [place]. EKG was reviewed by Dr. Poppy Fernandes who did not feel this warranted emergent intervention. BiPAP was discontinued and he will be readmitted for further supportive care and workup. The high probability of a clinically significant, sudden or life threatening deterioration of the [cardiopulmonary, renovascular] system(s) required my full and direct attention, intervention and personal management. The aggregate critical care time was [35] minutes. This time is in addition to time spent performing reported procedures but includes the following: [x] Data Review and interpretation [x] Patient assessment and monitoring of vital signs [x] Documentation [x] Medication orders and management
[2016-07-24 16:03] LABS: Basophils % 0.1 %; Hematocrit 44.4 % (37.5-50.1); Hemoglobin 13.6 g/dL (12.9-16.9); Immature Granulocytes % 0.6 % (0-4); Lymphocytes # 0.4 K/mcL (0.6-4.6); Lymphocytes % 3.4 %; Mean Corpuscular HGB Conc 30.6 g/dL (31.6-35.5); Mean Corpuscular Hemoglobin 30.5 pg (28.0-33.3); Mean Corpuscular Volume 99.6 fL (83.0-100.0); Mean Platelet Volume 10.3 fL (9.4-12.4); Monocytes # 0.4 K/mcL (0.0-1.3); Neutrophils # 12.1 K/mcL (1.6-8.9); Nucleated Red Blood Cells 0.2 /100 WBC (0); Platelet Count 380 K/mcL (140-400); Red Blood Count 4.46 M/mcL (4.19-5.50); Red Cell Distribution Width 15.7 % (11.5-14.5); Segmented Neutrophils % 92.9 %; VBG PH 7.3 pH Units (7.32-7.42)
[2016-07-24 16:20] LABS: Albumin 3.2 g/dL (3.5-5.0); Albumin/Globulin Ratio 0.8 (1.1-2.2); Bilirubin,Direct 0.3 mg/dL (0.0-0.5); Bilirubin,Indirect 0.4 mg/dL (0.0-1.2); Bilirubin,Total 0.7 mg/dL (0.2-1.2); Calcium 9.4 mg/dL (8.6-10.8); Globulin 3.9 g/dL (2.4-3.5); Potassium 5.2 mEq/L (3.5-4.5); Total Protein 7.1 g/dL (6.0-8.3)
[2016-07-24] MEDS ORDERED: Naloxone 0.4 MG/ML INJ IVP PRN ×2 (17:44→20:53)
[2016-07-24] MEDS ORDERED: Acetaminophen 325 MG TABLET PO PRN (17:44)
[2016-07-24] MEDS ORDERED: D5% in Water 1,000 ML IVC PRN (20:53)
[2016-07-24] MEDS ORDERED: Dextrose Gel 15 GM PO PRN ×2 (20:53)
[2016-07-24] MEDS ORDERED: *HR* Dextrose 50 % in Water (Syg) 50 ML SYRINGE IVP PRN (20:53)
[2016-07-24] MEDS ORDERED: *HR* Morphine 2 MG/ML SYRINGE IVP PRN (20:53)
[2016-07-24] MEDS ORDERED: Famotidine 20 MG TABLET PO SCH (21:00)
[2016-07-24] MEDS ORDERED: Furosemide 240 MG in D5% in Water 96 ML IVC SCH (21:02)
[2016-07-24] MEDS ORDERED: Nitroglycerin 0.4 MG TAB.SUBL SL PRN (21:04)
[2016-07-24] MEDS ORDERED: *HR* Promethazine 25 MG/ML VIAL IVP PRN (21:04)
--- NOTE | 2016-07-24 21:19 | Internal Med History&Physical ---
Date of Encounter: 07/24/16 Time of Encounter: 19:35 Assessment and Plan (1) Acute hypoxemic respiratory failure Current visit: Yes Status: Acute 1. Pt seems to be tolerating BiPaP. 2. Continue BiPap overnight then PRN. 3. If decompensates, will intubate and support mechanically. However, patient tolerating current measures. 4. Consult md senior research scientist in morning for ongoing ICU management. 65 minutes critical care time spent with patient thus far. (2) CHF (congestive heart failure) Current visit: Yes Status: Acute 1. Ventialtory support as above. 2. Will start Lasix drip and monitor I/O and renal function. 3. Continue home meds as appropriate. 4. No HUBER for now due to CKD and possible JIMBO. 5. Morphine PRN for CP and/or SOB. 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 Continue Coumadin. 2. Monitor PT/INR. 3. Consult cardiology for ongoing cardiac guidance and management. (4) Hemoptysis Current visit: Yes Status: Acute 1. Patient notes blood tinged sputum and cough since last night. 2. Monitor closely. If patient develops gross hemoptysis, he will need secured airway and reversal of Coumadin. 3. ICU monitoring and pulmonary/md senior research scientist consult as noted above. (5) Type 2 diabetes mellitus Current visit: Yes Status: Chronic 1. Stop Metformin. 2. SSI. 3. Monitor glucose and adjust insulin dosing accordingly. Qualifiers: Diabetes mellitus complication status: with circulatory complication Diabetes mellitus complication detail: with other circulatory complications Diabetes mellitus exterminator termite insulin use: without senior care use Qualified Code( s): E11.59 - Type 2 diabetes mellitus with other circulatory complications (6) Acute kidney injury superimposed on CKD Current visit: Yes Status: Acute 1. Avoid nephrotoxins. 2. Start with low dose lasix drip for CHF and monitor I/O, renal function. 3. May need nephrology consult if renal function decompensates. 4. JIMBO likely aggravated by acute CHF. (7) DVT prophylaxis Current visit: Yes Status: Acute 1. On Coumadin. 2. Monitor PT/INR. Internal Medicine - H&P: HPI Chief complaint: SOB; respiratory failure Admitted From: Emergency Dept Plans for Post Hospital Care: Home History of present illness: Mr. Langford is an 80 year old male who presents to the hospital today with significant shortness of breath, increasing edema, and diaphoresis. Symptoms started over night around midnight last night and progressively worsened throughout the morning. He therefore came to the ER where he was noted to be in acute respiratory distress and failure. He was placed on BiPAP and started on diuretics for concerns of acute CHF and pulmonary edema. He had an abnormal EKG and troponin elevation. However, he did have recent ST elevation myocardial infarction and complications thereof. EKGs and labs were reviewed with bottom buffer urology surgeon guillaume -- Dr. Poppy Fernandes as noted by ER staff. According to them, there was no cardiac intervention necessary at this time. Rather, ER staff and cardiology recommended he be admitted to ICU for medical stabilization and treatment of CHF and respiratory failure secondary to CHF. I saw patient in ICU, and he appears to be stable on BiPAP. He states is about 85% better now compared to his initial presentation to the ER. He did diurese about 700 mL of urine with 1 dose of Lasix. He denies any chest pain, pressure , or heaviness. Shortness of breath has improved immensely, but he is not back to baseline yet. He denies any fevers, chills, or night sweats. He was just discharged yesterday after a prolonged hospital course from his initial IN and complications thereof. He sustain significant myocardial injury with his STEMI. He also has a left ventricular thrombus for which he takes Coumadin. There was concern that he might have had pneumonia during his last hospital stay , and he was therefore discharged on antibiotics. Clinically, I am not suspicious of pneumonia. I suspect his acute respiratory failure is secondary to his CHF, but I will continue his antibiotics for now. Of note, his blood cultures and sputum cultures were negative other than some yeast in his sputum. Past Med Surg Social Fam HX - Past Medical History Attestation: Yes The following information was validated with the patient. Source: patient, old records reviewed, obtained from family Medical history: cancer, coronary artery disease, diabetes, GERD, hyperlipidemia , hypertension, myocardial infarction, sudden cardiac , TIA Psychiatric history: no psych history - Past Surgical History Surgical History: angioplasty/stent, herniorrhaphy, pacemaker - Social History Smoking Status: Never smoker Smokeless Tobacco Status: No Alcohol use: none Drug use: none Current living situation: Home, With Family Activity Level: Independent ambulation Recent Out of Country Travel Within the Last 8 Weeks: No - Family History Brother Hx Family Cardiac Disorders: Yes (multiple siblings with CAD) - Additional Family History Additional family history: extensive CAD history in siblings Internal Medicine - H&P: Meds Allopurinol [Zyloprim 100 MG] 100 mg PO BID 07/06/16 [History] Clopidogrel [Plavix] 75 mg PO DAILY 07/06/16 [History] Loperamide HCl [Imodium A-D] 2 mg PO BID PRN 07/06/16 [History] Omeprazole [PriLOSEC] 20 mg PO DAILY 07/06/16 [History] Amiodarone [Cordarone] 200 mg PO DAILY #30 tablet 07/10/16 [Rx] Aspirin 81 mg PO DAILY #30 tab.chew 07/10/16 [Rx] Atorvastatin [Lipitor] 80 mg PO HS #30 tablet 07/10/16 [Rx] Metformin HCl [Fortamet] 500 mg PO DAILY #30 tab.er.24 07/10/16 [Rx] Nitroglycerin 0.4 mg SL Q5MIN PRN #15 tab.subl 07/10/16 [Rx] Amoxicillin/Clavulanate [Augmentin] 875 mg PO BIDWM #8 tablet 07/23/16 [Rx] Furosemide [Lasix] 20 mg PO TID #90 tablet 07/23/16 [Rx] Linezolid [Zyvox] 600 mg PO Q12H #9 tablet 07/23/16 [Rx] Metoprolol XL (24 HR) Succ [Toprol Xl] 50 mg PO DAILY #30 tab.er.24h 07/23/16 [ Rx] hydrALAZINE [HydrALAZINE] 50 mg PO Q8HR #90 tablet 07/23/16 [Rx] Warfarin [Coumadin] 1 mg PO QPM 07/24/16 [History] Allergies aspirin Adverse Reaction (Verified 07/12/16 16:02) See Comments urinate blood - Constitutional Constitutional: no chills, no fever(s), no night sweats - EENT Eyes: no blurry vision, no change in vision Ears: no ear pain, no tinnitus Nose, mouth and throat: no nasal congestion, no nasal discharge, no sinus pressure, no sore throat - Cardiovascular Cardiovascular ROS IM: diaphoresis, dyspnea, edema, orthopnea, paroxysmal nocturnal dyspnea, no chest pain - Respiratory Respiratory: dyspnea, hemoptysis (blood tinged), chest congestion, no cough, no wheezing, no excessive phlegm production, no change in phlegm color - Gastrointestinal Gastrointestinal: bloating, no abdominal pain, no diarrhea, no hematemesis, no hematochezia, no melena, no vomiting - Genitourinary Genitourinary ROS male: no dysuria, no flank pain, no hematuria - Musculoskeletal Musculoskeletal ROS IM: no arthralgias, no back pain - Integumentary Integumentary IM: no rash, no jaundice - Neurological Neurological ROS: no focal weakness, no frequent falls, no numbness - Psychiatric Psychiatric: no anxiety, no depression - Endocrine Endocrine IM: no polydipsia, no polyuria - Hematologic/Lymphatic Hematologic/Lymphatic: easy bruising, no lymphadenopathy - Allergic/Immunologic Allergic/Immunologic: no wheezing, no GI upset with certain foods - Constitutional Vitals: Temp Pulse Resp BP Pulse Ox 97 F L 88 18 121/90 93 07/24/16 20:00 07/24/16 20:00 07/24/16 20:00 07/24/16 20:00 07/24/16 20:00 General appearance: Present: cooperative, mild distress, A&O X 3, pleasant, answers questions appropriately Exam: BiPap in place; mild respiratory distress - Head Head exam: Present: atraumatic, normal inspection - Expanded Head Exam Head exam expanded: Absent: abrasion, contusion, general tenderness - Eye Eye exam: Present: EOMI, normal appearance, PERRL. Absent: scleral icterus Pupils: Present: normal accommodation - ENT ENT exam: Present: mucous membranes dry, normal exam, normal oropharynx - Neck Neck exam general surgery: Present: full ROM, supple. Absent: lymphadenopathy, nuchal rigidity, thyromegaly - Expanded Neck Exam Neck exam: Absent: carotid bruit - Respiratory Respiratory exam: Present: accessory muscle use, decreased breath sounds ( bilateral diminished breath sounds in both bases), rales, respiratory distress ( mild). Absent: chest wall tenderness, rhonchi, wheezes - Cardiovascular Cardiovascular exam: Present: distant heart sounds, irregular rhythm, +S1, +S2. Absent: diastolic murmur, JVD (not appreciated, but exam compromised with BiPaP), systolic murmur - GI/Abdominal GI/Abdominal exam: Present: distended, normal bowel sounds, no peritoneal signs. Absent: guarding, hepatomegaly, mass, rebound, splenomegaly, tenderness - Extremities Exam Extremities exam: Present: full ROM, pedal edema (3-4+), warm, radial pulses palpable and symetrical. Absent: calf tenderness, joint swelling, tenderness - Back Exam Back exam: Present: normal inspection. Absent: CVA tenderness (L), CVA tenderness (R) - Neurological Exam Neurological exam: Present: alert, CN II-XII intact, oriented X3, no focal deficits, strengths equal and symetr throughout - Psychiatric Psychiatric exam: Present: normal affect, normal mood - Skin Skin exam: Present: dry, warm. Absent: rash Internal Med - H&P Results - Labs CBC & Chem 7: 07/24/16 15:53 07/24/16 15:53 - EKG Data -: EKG Interpreted by Myself - EKG Data Prior EKG available for review: yes EKG comments: 07/24/16 21:40 Atrial fibrillation with RVR; recent anteroseptal IN - Diagnostic Studies Chest x-ray Status: image reviewed by me (CHF with bilateral pleural effusions)
[2016-07-24 21:44] LABS: INR 2.8
[2016-07-24 21:48] LABS: Hemoglobin A1C 8.1 %
[2016-07-24] MEDS: Nystatin SUSP 5 ML UD.LIQ PO SCH (21:52)
[2016-07-24 22:21] LABS: Bilirubin,Urine Negative (Negative); Blood,Urine Moderate (Negative); Clarity,Urine Clear (Clear); Color,Urine Yellow (Yellow); Glucose,Urine (UA) Normal (Normal); Ketones,Urine Negative (Negative); Leukocyte Esterase,Urine Negative (Negative); Nitrite,Urine Negative (Negative); PH,Urine 5.5 pH Units (5.0-8.0); Protein,Urine Trace mg/dL (Neg-Trace); Specific Gravity,Urine 1.019 (1.010-1.025); Urobilinogen,Urine Normal (Normal)
[2016-07-24 22:24] LABS: Bacteria,Urine None Seen per hpf (None-Few); RBC,Urine 15-30 per hpf (0-3); Squamous Epithelial Cell,Urine Moderate per lpf (None-Few); WBC,Urine 0-3 per hpf (0-3)
[2016-07-24 22:32] LABS: Hyaline Casts,Urine Few per lpf (None-Few)
[2016-07-25] MEDS: hydrALAZINE 25 MG TABLET PO SCH ×3 (00:01→17:23)
[2016-07-25] MEDS: Insulin LISPRO 300 UNITS/3 ML VIAL SQ SCH ×4 (00:01→17:54)
[2016-07-25 02:38] LABS: Basophils % 0.2 %; Eosinophils % 0.1 %; Hematocrit 40.6 % (37.5-50.1); Hemoglobin 12.7 g/dL (12.9-16.9); Immature Granulocytes % 0.3 % (0-4); Immature Platelets 5.1 % (1.1-6.1); Lymphocytes # 1.4 K/mcL (0.6-4.6); Lymphocytes % 11.7 %; Mean Corpuscular HGB Conc 31.3 g/dL (31.6-35.5); Mean Corpuscular Hemoglobin 30.5 pg (28.0-33.3); Mean Corpuscular Volume 97.6 fL (83.0-100.0); Mean Platelet Volume 10.2 fL (9.4-12.4); Monocytes # 0.7 K/mcL (0.0-1.3); Nucleated Red Blood Cells 0.2 /100 WBC (0); Platelet Count 367 K/mcL (140-400); Red Blood Count 4.16 M/mcL (4.19-5.50); Red Cell Distribution Width 15.6 % (11.5-14.5); Segmented Neutrophils % 81.7 %
[2016-07-25 02:43] LABS: INR 2.8; Prothrombin Time 31.7 Seconds (9.4-12.1)
[2016-07-25 02:49] LABS: Calcium 9.2 mg/dL (8.6-10.8)
[2016-07-25 02:50] LABS: Potassium 3.8 mEq/L (3.5-4.5)
[2016-07-25] MEDS ORDERED: Piperacillin/Tazobactam 3.375 GM in D5% in Water (Mini-Bag+) 100 ML IVPB SCH ×2 (06:00→14:00)
--- NOTE | 2016-07-25 07:35 | Pulmonology Consult Note ---
<Bhargav Berman M - Last Filed: 07/25/16 11:26> Date of Encounter: 07/25/16 Medications and Allergies Allopurinol [Zyloprim 100 MG] 100 mg PO BID 07/06/16 [History] Clopidogrel [Plavix] 75 mg PO DAILY 07/06/16 [History] Loperamide HCl [Imodium A-D] 2 mg PO BID PRN 07/06/16 [History] Omeprazole [PriLOSEC] 20 mg PO DAILY 07/06/16 [History] Amiodarone [Cordarone] 200 mg PO DAILY #30 tablet 07/10/16 [Rx] Aspirin 81 mg PO DAILY #30 tab.chew 07/10/16 [Rx] Atorvastatin [Lipitor] 80 mg PO HS #30 tablet 07/10/16 [Rx] Metformin HCl [Fortamet] 500 mg PO DAILY #30 tab.er.24 07/10/16 [Rx] Nitroglycerin 0.4 mg SL Q5MIN PRN #15 tab.subl 07/10/16 [Rx] Amoxicillin/Clavulanate [Augmentin] 875 mg PO BIDWM #8 tablet 07/23/16 [Rx] Furosemide [Lasix] 20 mg PO TID #90 tablet 07/23/16 [Rx] Linezolid [Zyvox] 600 mg PO Q12H #9 tablet 07/23/16 [Rx] Metoprolol XL (24 HR) Succ [Toprol Xl] 50 mg PO DAILY #30 tab.er.24h 07/23/16 [ Rx] hydrALAZINE [HydrALAZINE] 50 mg PO Q8HR #90 tablet 07/23/16 [Rx] Warfarin [Coumadin] 1 mg PO QPM 07/24/16 [History] Allergies aspirin Adverse Reaction (Verified 07/12/16 16:02) See Comments urinate blood All Systems: A 10-system review of systems was performed and is negative for pertinent findings except as documented above in the HPI. Physical Examination Vital Signs: Vital Signs, Last 4 Hours Temp Pulse Resp BP Pulse Ox 07/25/16 08:00 80 12 129/108 95 07/25/16 07:39 97.7 F Results - Laboratory Findings CBC and BMP: 07/25/16 02:30 07/25/16 02:30 PT/INR, D-dimer PT 31.7 Seconds (9.4-12.1) H 07/25/16 02:30 D-Dimer 888 ng/mLFEU (0-500) H 07/24/16 15:53 Abnormal lab findings: Abnormal lab results WBC 12.2 K/mcL (4.3-11.1) H 07/25/16 02:30 RBC 4.16 M/mcL (4.19-5.50) L 07/25/16 02:30 Hgb 12.7 g/dL (12.9-16.9) L 07/25/16 02:30 MCHC 31.3 g/dL (31.6-35.5) L 07/25/16 02:30 RDW 15.6 % (11.5-14.5) H 07/25/16 02:30 Neutrophils # 10.0 K/mcL (1.6-8.9) H 07/25/16 02:30 Nucleated RBCs/100 WBC 0.2 /100 WBC (0) H 07/25/16 02:30 PT 31.7 Seconds (9.4-12.1) H 07/25/16 02:30 D-Dimer 888 ng/mLFEU (0-500) H 07/24/16 15:53 VBG pH 7.30 pH Units (7.32-7.42) L 07/24/16 15:53 VBG pCO2 61 mmHg (41-51) H 07/24/16 15:53 VBG pO2 24 mmHg (25-40) L 07/24/16 15:53 VBG HCO3 30.0 mEq/L (21-27) H 07/24/16 15:53 Sodium 146 mEq/L (136-145) H 07/25/16 02:30 BUN 31 mg/dL (8-26) H 07/25/16 02:30 Creatinine 1.49 mg/dL (0.72-1.25) H 07/25/16 02:30 Est GFR ( Amer) 55 (> 60) L 07/25/16 02:30 Est GFR (Non-Af Amer) 45 (> 60) L 07/25/16 02:30 Glucose 106 mg/dL (70-99) H 07/25/16 02:30 Hemoglobin A1c 8.1 % (-5.6) H 07/24/16 21:28 Calculated Osmolality 309 (280-300) H 07/25/16 02:30 Lactic Acid 2.7 mmol/L (0.5-2.2) H 07/25/16 10:33 Alkaline Phosphatase 134 Units/L (38-126) H 07/24/16 15:53 Troponin I 0.96 ng/mL (0-0.03) H* 07/25/16 10:33 B-Natriuretic Peptide 4193 pg/mL (0-100) H 07/24/16 15:53 Albumin 3.2 g/dL (3.5-5.0) L 07/24/16 15:53 Globulin 3.9 g/dL (2.4-3.5) H 07/24/16 15:53 Albumin/Globulin Ratio 0.8 (1.1-2.2) L 07/24/16 15:53 Urine Blood Moderate (Negative) H 07/24/16 20:24 Urine Microscopic RBC 15-30 per hpf (0-3) H 07/24/16 20:24 Ur Squamous Epith Cells Moderate per lpf (None-Few) H 07/24/16 20:24 - Clinical Findings Intake & Output: Intake & Output 07/24/16 07/25/16 07/25/16 23:59 07:59 15:59 Intake Total 320 / 320 Output Total 1000 / 1000 1250 / 1250 Balance -1000 / -1000 -1250 / -1250 320 / 320 Consult Discharge Plan - Plan Referrals: Kings Kaiser MD [Primary Care Provider] - - Attending Attestation I examined this patient and my medical decision-making was reviewed with the STEM CUTTER/PA/Advanced Practice Nurse/Resident Physician. I agree with the documented findings, disposition and treatment plan as described except to the extent set forth below. Patient seen and examined. Labs, radiology, chart personally reviewed. Agree with resident's history and physical, assessment, plan with following comments: TRIMMER HAND: Patient follows commands, Pulmonary: Acceptable oxygenation and ventilation. Patient feels better with diuresis. Hemoptysis which I suspected from patient's been on anticoagulation. Pneumonia in the differential diagnosis. To stop Zyvox and follow-up on cultures. If hemoptysis continue, explained to the patient he might need bronchoscopy. Cardiovascular: Cardiology has seen patients. And further management from cardiac standpoint deferred to cardiology. GI: Nutrition per dietary and GI prophylaxis per routine Heme: DVT prophylaxis per routine ID: Continue antibiotics and plan to de-escalation Renal; urine out put and renal funtion reviewed Endorcine: blood glucose is monitored Lines: all lines checked and no evidence of infections Skin: skin care to prevent pressure ulcers per nursing routine care Thank you very much for consultation. Since patient has improved, patient can be transferred to [facility]. <Rolando Hazel - Last Filed: 07/25/16 13:41> Date of Encounter: 07/25/16 Time of Encounter: 07:35 Assessment and Plan (1) Acute hypoxemic respiratory failure Current Visit: Yes Status: Acute improved likely secondary to systolic heart failure - ECHO 07/12/2016 severe LV systolic dysfunction 25-30% with wall motion abnormalities, LV apical thrombus, and RV apical hypokinesis responded well with BiPAP and diuretics - UOP >2000 cc - currently on Lasix drip 5 CXR reviewed from 07/24, shows CHF with large pleural effusions - currently being treated for possible pneumonia as outpatient, on Augmentin at home - placed on Linezolid and Zosyn on admission, will discontinue Linezolid as this appears to be CHF exacerbation sputum culture sent will de-escalate antibiotics as appropriate BiPAP overnight PRN Cardiology consulted - recommends continued IV lasix and restart home PO Lasix tomorrow stable for transfer to , accepted by Dr. Mcrae (2) Acute on chronic systolic (congestive) heart failure Current Visit: Yes Status: Acute 4L home oxygen dependent CXR reviewed consistent with CHF exacerbation BNP 4193 last ECHO 07/12/2016 severe LV systolic dysfunction 25-30% with wall motion abnormalities, LV apical thrombus, and RV apical hypokinesis continue Lasix gtt UOP >2000 cc monitor I/O and renal function continue home meds no ACEi due to CKD and possible JIMBO (3) Systolic heart failure secondary to coronary artery disease Current Visit: Yes Status: Acute plan as above (4) Elevated troponin Current Visit: Yes Status: Acute no chest pain elevated troponin likely demand ischemia, history of recent STEMI 07/06 serial troponin, downtrending 1.00 --> 0.91 --> 0.99 --> 0.96 abnormal EKG that was reviewed in ED with interventionalist hot mill roller cardiology consulted (5) Left ventricular thrombosis Current Visit: Yes Status: Chronic history of left ventricular thrombus continue coumadin monitor PT/INR, current INR 2.8 cardiology consulted for ongoing management (6) Recent ST elevation myocardial infarction (STEMI) Current Visit: Yes Status: Chronic STEMI 07/06 with PCI elevated troponin likely demand ischemia denies any chest pain cardio consulted (7) Acute kidney injury superimposed on CKD Current Visit: Yes Status: Acute improving 1.68 --> 1.49 likely secondary to acute CHF continue low dose Lasix drip cardiology consulted AVOID nephrotoxins continue to monitor I/O and renal function if worsens may consider nephrology consultation (8) Lactic acidosis Current Visit: Yes Status: Acute initial elevation 5.2, has been downtrending from 3.7 to 2.7 cautious with fluid resuscitation improving with diuresis (9) Hemoptysis Current Visit: Yes Status: Acute patient on anticoagulation notes blood-tinged sputum and cough since last night d-dimer was elevated in ED 888, likely not PE as he is anticoagulated appropriately and higher suspicion of AECHF no CT Chest performed sputum culture sent if persists or gross blood, may consider bronchoscopy continue to monitor closely (10) Atrial fibrillation Current Visit: Yes Status: Acute chronic atrial fibrillation with pacemaker currently atrial fibrillation with normal ventricular response HR 80-90s appropriated anticoagulated with Coumadin, INR 2.8 take Amiodarone at home, prescribed at last discharge Qualifiers: Atrial fibrillation type: unspecified Qualified Code(s): I48.91 - Unspecified atrial fibrillation (11) Essential hypertension Current Visit: No Status: Chronic continue home meds BPs stable (12) Coronary artery disease Current Visit: No Status: Chronic severe CAD s/p 6 stents with recent PCI continue home meds Qualifiers: Coronary Disease-Associated Artery/Lesion type: [place] artery [place] vs. transplanted heart: [place] heart Associated angina: with unstable angina Qualified Code(s): I25.110 - Atherosclerotic heart disease of [place] coronary artery with unstable angina pectoris (13) Type 2 diabetes mellitus Current Visit: Yes Status: Chronic stop metformin SSI monitor glucose cardiac diet Qualifiers: Diabetes mellitus complication status: with circulatory complication Diabetes mellitus complication detail: with other circulatory complications Diabetes mellitus fdc insulin use: without fdc use Qualified Code( s): E11.59 - Type 2 diabetes mellitus with other circulatory complications (14) DVT prophylaxis Current Visit: Yes Status: Acute on coumadin for atrial fibrillation and left ventricular thrombus monitor PT/INR TRIMMER HAND: alert and oriented, no acute distress Pulm: good oxygen saturations on 4L home oxygen supplementation here, BiPAP PRN , symptoms have improved with diuretics, cardiology recommends continued IV lasix until tomorrow. Hemoptysis is likely due to anticoagulation, if continues may consider bronchoscopy, patient is aware and agrees with plan. Suspected pneumonia from prior admission, placed on out-patient antibiotics, will discontinue Zyvox and continue Zosyn, awaiting cultures Cardio: A-fib normal ventricular response, cardiology consulted and recommends IV lasix, NO CHEST PAIN GI: cardiac diet Heme: INR 2.8, on coumadin, no active bleeding and hgb stable ID: continue Zosyn, awaiting sputum cultures. Prior cultures NGTD on last admission (sputum, urine, blood) Renal: strict I/O, monitor renal function, continue diuresis Endocrine: cardiac diet, T2DM on ISS Lines: all lines checked and no evidence of infection Skin: continue skin care Plan: transfer from ICU to , spoke with Dr. Mcrae who accepts History of Present Illness Consult date: 07/25/16 Requesting physician: Nicolás Nava Reason for consult: dyspnea, hypoxemia Chief complaint: Respiratory failure, SOB, hemoptysis History of present illness: 80-year-old male history significant for CAD s/p recent anterolateral STEMI 3 weeks ago, SCHF (EF 25-30%), T2DM, HTN, chronic atrial fibrillation with dual chamber pacemaker and anticoagulation, and left ventricular apical thrombosis was admitted to [facility] for likely acute exacerbation of systolic heart failure. Initially presented for significant shortness of breath with increasing edema. Symptoms occurred overnight after being discharged from previous admission 2 days ago fro similar symptoms. In the ED he responded to BiPAP and diuretics, UOP of 700 after 1 dose. Chest x-ray performed showed airspace edema with large bilateral pleural effusions. EKG was abnormal and initial troponin was elevated at 1.0. Cardiology was consulted at that time and recommended admission to ICU for medical stabilization for CHF respiratory failure. He denies any fevers or chills. Reports some blood-tinged sputum but denies any chest pain. Labs reviewed. Mild leukocytosis and stable hemoglobin. INR therapeutic at 2.8. He has an elevated creatinine 1.6849 and a lactic acidosis that is down trending from 5.2 initial. Past Med Surg Social Fam HX - Past Medical History Medical history: cancer, coronary artery disease, diabetes, GERD, hyperlipidemia , hypertension, myocardial infarction, sudden cardiac , TIA Psychiatric history: no psych history - Past Surgical History Surgical History: angioplasty/stent, herniorrhaphy, pacemaker - Social History Smoking Status: Never smoker Smokeless Tobacco Status: No Alcohol use: none Drug use: none - Family History Brother Hx Family Cardiac Disorders: Yes (multiple siblings with CAD) All Systems: A 10-system review of systems was performed and is negative for pertinent findings except as documented above in the HPI. Physical Examination Vital Signs: Vital Signs, Last 4 Hours Pulse Resp BP Pulse Ox 07/25/16 06:00 80 12 159/94 95 07/25/16 05:44 84 07/25/16 05:00 84 12 137/84 89 07/25/16 04:00 70 12 130/78 92 General appearance: no acute distress, alert Eyes: nonicteric ENT: oropharynx moist Neck: supple Effort: normal, other (no accessory muscle use) Inspection: normal Auscultation: bilateral: diminished breath sounds (lower lung harris R > L), rales (R > L) Cardiovascular: irregular rhythm Gastrointestinal: normoactive bowel sounds, soft, non-tender, non-distended Integumentary: normal, other (papcemaker left chest wall) Extremities: pink and warm, pulses normal, edema (upper extremities, no pedal edema) Musculoskeletal: no deformities, ROM normal normal mental status, non-focal exam, pupils equal and round, motor strength normal and symmetric Results - Laboratory Findings CBC and BMP: 07/25/16 02:30 07/25/16 02:30 PT/INR, D-dimer PT 31.7 Seconds (9.4-12.1) H 07/25/16 02:30 D-Dimer 888 ng/mLFEU (0-500) H 07/24/16 15:53 Abnormal lab findings: Abnormal lab results WBC 12.2 K/mcL (4.3-11.1) H 07/25/16 02:30 RBC 4.16 M/mcL (4.19-5.50) L 07/25/16 02:30 Hgb 12.7 g/dL (12.9-16.9) L 07/25/16 02:30 MCHC 31.3 g/dL (31.6-35.5) L 07/25/16 02:30 RDW 15.6 % (11.5-14.5) H 07/25/16 02:30 Neutrophils # 10.0 K/mcL (1.6-8.9) H 07/25/16 02:30 Nucleated RBCs/100 WBC 0.2 /100 WBC (0) H 07/25/16 02:30 PT 31.7 Seconds (9.4-12.1) H 07/25/16 02:30 D-Dimer 888 ng/mLFEU (0-500) H 07/24/16 15:53 VBG pH 7.30 pH Units (7.32-7.42) L 07/24/16 15:53 VBG pCO2 61 mmHg (41-51) H 07/24/16 15:53 VBG pO2 24 mmHg (25-40) L 07/24/16 15:53 VBG HCO3 30.0 mEq/L (21-27) H 07/24/16 15:53 Sodium 146 mEq/L (136-145) H 07/25/16 02:30 BUN 31 mg/dL (8-26) H 07/25/16 02:30 Creatinine 1.49 mg/dL (0.72-1.25) H 07/25/16 02:30 Est GFR ( Amer) 55 (> 60) L 07/25/16 02:30 Est GFR (Non-Af Amer) 45 (> 60) L 07/25/16 02:30 Glucose 106 mg/dL (70-99) H 07/25/16 02:30 Hemoglobin A1c 8.1 % (-5.6) H 07/24/16 21:28 Calculated Osmolality 309 (280-300) H 07/25/16 02:30 Lactic Acid 3.7 mmol/L (0.5-2.2) H 07/25/16 02:30 Alkaline Phosphatase 134 Units/L (38-126) H 07/24/16 15:53 Troponin I 0.99 ng/mL (0-0.03) H* 07/25/16 02:30 B-Natriuretic Peptide 4193 pg/mL (0-100) H 07/24/16 15:53 Albumin 3.2 g/dL (3.5-5.0) L 07/24/16 15:53 Globulin 3.9 g/dL (2.4-3.5) H 07/24/16 15:53 Albumin/Globulin Ratio 0.8 (1.1-2.2) L 07/24/16 15:53 Urine Blood Moderate (Negative) H 07/24/16 20:24 Urine Microscopic RBC 15-30 per hpf (0-3) H 07/24/16 20:24 Ur Squamous Epith Cells Moderate per lpf (None-Few) H 07/24/16 20:24 - Diagnostic Findings Chest x-ray: report reviewed, image reviewed CT scan - chest: report reviewed, image reviewed Additional studies: Chest X-Ray 07/24/16 15:13 IMPRESSION: CHF with airspace edema and large bilateral pleural effusions D/ / Elmer Norris MD / Elmer Norris MD Interpreting Provider: Elmer Norris MD - Clinical Findings Intake & Output: Intake & Output 07/24/16 07/24/16 07/25/16 15:59 23:59 07:59 Output Total 1000 / 1000 800 / 800 Balance -1000 / -1000 -800 / -800
[2016-07-25] MEDS ORDERED: Metoprolol XL (24 HR) Succ 50 MG TAB.ER.24H PO SCH (09:00)
[2016-07-25] MEDS ORDERED: Aspirin 81 MG TAB.CHEW PO SCH (09:00)
[2016-07-25] MEDS ORDERED: Famotidine 20 MG TABLET PO SCH (09:00)
[2016-07-25] MEDS ORDERED: *HR* Amiodarone 200 MG TABLET PO SCH (09:00)
[2016-07-25] MEDS: Nystatin SUSP 5 ML UD.LIQ PO SCH ×4 (09:26→21:30)
--- NOTE | 2016-07-25 11:00 | Cardiology Consult Note ---
Date of Encounter: 07/25/16 Time of Encounter: 10:50 Assessment and Plan (1) STEMI (ST elevation myocardial infarction) Current Visit: No Status: Acute S/P successful PCI. Qualifiers: Involved coronary artery: LAD coronary artery Qualified Code(s): I21.02 - ST elevation (STEMI) myocardial infarction involving left anterior descending coronary artery (2) Cardiopulmonary arrest with successful resuscitation Current Visit: No Status: Resolved Arrest in setting of STEMI. Was dicharged on amiodarone. Will discontinue, no indication to continue at this point. (3) CHF (congestive heart failure) Current Visit: Yes Status: Acute Significantly improved with BiPAP and lasix drip overnight. Would continus IV lasix today and restart po tomorrow. Qualifiers: Congestive heart failure type: systolic Congestive heart failure chronicity : acute Qualified Code(s): I50.21 - Acute systolic (congestive) heart failure Discussion w patient/family: The assessment and plan as outlined above was discussed with the patient and/or family members who expressed understanding and agreement. All questions were answered. Thank you for involving us in the care of your patient. Please call with any questions. History of Present Illness Consult date: 07/25/16 Requesting physician: Nicolás Nava Consult reason: CHF Chief complaint: SOB History of present illness: Mr. Langford is a 80 year old male with a history of CAD, S/P anterolateral STEMI about 3 wks ago. Has had multiple admissions since. Currently admitted with SOB/ CHF. Has responded to IV diuresis. Past Med Surg Social Fam HX - Past Medical History Medical history: cancer, coronary artery disease, diabetes, GERD, hyperlipidemia , hypertension, myocardial infarction, sudden cardiac , TIA Psychiatric history: no psych history - Past Surgical History Surgical History: angioplasty/stent, herniorrhaphy, pacemaker - Social History Smoking Status: Never smoker Smokeless Tobacco Status: No Alcohol use: none Drug use: none - Family History Brother Hx Family Cardiac Disorders: Yes (multiple siblings with CAD) Medications and Allergies Allopurinol [Zyloprim 100 MG] 100 mg PO BID 07/06/16 [History] Clopidogrel [Plavix] 75 mg PO DAILY 07/06/16 [History] Loperamide HCl [Imodium A-D] 2 mg PO BID PRN 07/06/16 [History] Omeprazole [PriLOSEC] 20 mg PO DAILY 07/06/16 [History] Amiodarone [Cordarone] 200 mg PO DAILY #30 tablet 07/10/16 [Rx] Aspirin 81 mg PO DAILY #30 tab.chew 07/10/16 [Rx] Atorvastatin [Lipitor] 80 mg PO HS #30 tablet 07/10/16 [Rx] Metformin HCl [Fortamet] 500 mg PO DAILY #30 tab.er.24 07/10/16 [Rx] Nitroglycerin 0.4 mg SL Q5MIN PRN #15 tab.subl 07/10/16 [Rx] Amoxicillin/Clavulanate [Augmentin] 875 mg PO BIDWM #8 tablet 07/23/16 [Rx] Furosemide [Lasix] 20 mg PO TID #90 tablet 07/23/16 [Rx] Linezolid [Zyvox] 600 mg PO Q12H #9 tablet 07/23/16 [Rx] Metoprolol XL (24 HR) Succ [Toprol Xl] 50 mg PO DAILY #30 tab.er.24h 07/23/16 [ Rx] hydrALAZINE [HydrALAZINE] 50 mg PO Q8HR #90 tablet 07/23/16 [Rx] Warfarin [Coumadin] 1 mg PO QPM 07/24/16 [History] Allergies aspirin Adverse Reaction (Verified 07/12/16 16:02) See Comments urinate blood All Systems Review: A 10-system review of systems was performed and is negative for pertinent findings except as documented above in the HPI. Physical Examination Vital Signs, Last 4 Hours Temp Pulse Resp BP Pulse Ox 07/25/16 08:00 80 12 129/108 95 07/25/16 07:39 97.7 F General: Conversant, Other (mild distress) HEENT: Atraumatic, Normocephaly, Mucus Membranes Moist Neck: No JVD, Normal carotid pulses Cardiac: Reg Rate and Rhythm, Normal S1 and S2, No Murmur, Other (Irreg) Lungs: Other (scattered ronchi) Neuro: Alert and responsive, No focal deficits noted Abdomen: Soft, Non-Tender Musculoskeletal: No Chest Wall Tenderness Extremities: Other (edema LE) Results 07/25/16 02:30 07/25/16 02:30 Lab Results 07/24/16 07/24/16 07/25/16 21:28 21:28 02:30 WBC 12.2 H Hgb 12.7 L Hct 40.6 Plt Count 367 INR 2.8 Sodium Potassium Chloride Carbon Dioxide BUN Creatinine Glucose Calcium Magnesium Troponin I 0.91 H* 07/25/16 07/25/16 07/25/16 02:30 02:30 02:30 WBC Hgb Hct Plt Count INR 2.8 Sodium 146 H Potassium 3.8 D Chloride 105 Carbon Dioxide 29 BUN 31 H Creatinine 1.49 H Glucose 106 H Calcium 9.2 Magnesium Troponin I 0.99 H* 07/25/16 02:30 WBC Hgb Hct Plt Count INR Sodium Potassium Chloride Carbon Dioxide BUN Creatinine Glucose Calcium Magnesium 2.0 Troponin I Consult Discharge Plan - Plan Referrals: Kings Kaiser MD [Primary Care Provider] -
[2016-07-25] MEDS ORDERED: Naloxone 0.4 MG/ML INJ IVP PRN ×2 (11:40)
[2016-07-25] MEDS ORDERED: Nitroglycerin 0.4 MG TAB.SUBL SL PRN (11:40)
[2016-07-25] MEDS ORDERED: *HR* Promethazine 25 MG/ML VIAL IVP PRN (11:40)
[2016-07-25] MEDS ORDERED: Dextrose Gel 15 GM PO PRN ×2 (11:40)
[2016-07-25] MEDS ORDERED: *HR* Dextrose 50 % in Water (Syg) 50 ML SYRINGE IVP PRN (11:40)
[2016-07-25] MEDS ORDERED: *HR* Morphine 2 MG/ML SYRINGE IVP PRN (11:40)
[2016-07-25] MEDS ORDERED: D5% in Water 1,000 ML IVC PRN (11:40)
--- NOTE | 2016-07-25 12:50 | Electrocardiograph Report ---
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
[2016-07-25] MEDS: Piperacillin/Tazobactam 3.375 GM in D5% in Water (Mini-Bag+) 100 ML IVPB SCH (14:47)
[2016-07-25] MEDS: *HR* Warfarin 1 MG TABLET PO SCH (17:30)
[2016-07-25] MEDS ORDERED: *HR* Warfarin 1 MG TABLET PO SCH (18:00)
[2016-07-25] MEDS: Furosemide 240 MG in D5% in Water 96 ML IVC SCH (19:00)
[2016-07-25] MEDS: Famotidine 20 MG TABLET PO SCH (21:30)
[2016-07-26] MEDS: hydrALAZINE 25 MG TABLET PO SCH ×4 (00:21→23:36)
[2016-07-26] MEDS: Piperacillin/Tazobactam 3.375 GM in D5% in Water (Mini-Bag+) 100 ML IVPB SCH ×3 (00:21→15:08)
[2016-07-26] MEDS: Insulin LISPRO 300 UNITS/3 ML VIAL SQ SCH ×5 (00:31→19:58)
[2016-07-26 04:49] LABS: Basophils % 0.2 %; Eosinophils # 0.2 K/mcL (0.0-0.6); Eosinophils % 1.8 %; Hematocrit 39.3 % (37.5-50.1); Hemoglobin 12.3 g/dL (12.9-16.9); Immature Granulocytes % 0.3 % (0-4); Lymphocytes # 1.8 K/mcL (0.6-4.6); Lymphocytes % 14.5 %; Mean Corpuscular HGB Conc 31.3 g/dL (31.6-35.5); Mean Corpuscular Hemoglobin 30.2 pg (28.0-33.3); Mean Corpuscular Volume 96.6 fL (83.0-100.0); Monocytes # 0.9 K/mcL (0.0-1.3); Neutrophils # 9.3 K/mcL (1.6-8.9); Nucleated Red Blood Cells 0.2 /100 WBC (0); Platelet Count 330 K/mcL (140-400); Red Blood Count 4.07 M/mcL (4.19-5.50); Red Cell Distribution Width 15.6 % (11.5-14.5); Segmented Neutrophils % 76.2 %
[2016-07-26 04:58] LABS: Prothrombin Time 33.5 Seconds (9.4-12.1)
[2016-07-26 05:00] LABS: BUN/Creatinine Ratio 20 (6-26); Blood Urea Nitrogen 25 mg/dL (8-26); Calcium 8.6 mg/dL (8.6-10.8); Carbon Dioxide 32 mEq/L (19-29); Chloride 101 mEq/L (98-109); Glucose 149 mg/dL (70-99); Osmolality,Calculated 305 (280-300); Potassium 3.3 mEq/L (3.5-4.5); Sodium 144 mEq/L (136-145); eGFR For African Americans > 60 (> 60); eGFR For Non-African Americans 54 (> 60)
[2016-07-26] MEDS ORDERED: 0.9 % Sodium Chloride 500 ML ONE (06:10)
--- NOTE | 2016-07-26 07:40 | Pulmonology Progress Note ---
<Rolando Hazel - Last Filed: 07/26/16 13:49> Date of Encounter: 07/26/16 Time of Encounter: 07:40 Assessment and Plan (1) Acute hypoxemic respiratory failure Current Visit: Yes Status: Acute improved, currently on 4L NC likely secondary to systolic heart failure - ECHO 07/12/2016 severe LV systolic dysfunction 25-30% with wall motion abnormalities, LV apical thrombus, and RV apical hypokinesis - BNP elevated 4193 CXR reviewed from 07/24, shows CHF with large pleural effusions - currently being treated for possible pneumonia as outpatient, on Augmentin at home - placed on Linezolid and Zosyn on admission, will discontinue Linezolid as this appears to be CHF exacerbation Cardio consulted - responded well with BiPAP and diuretics - UOP 1000 cc - currently on Lasix drip 2.5, cardiology to manage sputum culture sent will de-escalate antibiotics as appropriate BiPAP overnight PRN (2) Hemoptysis Current Visit: Yes Status: Acute reports persistent hemoptysis, worse last few days but reports since June STEMI mostly brown and blood-tinged and sometimes bright red - 3-4 times last night will continue to monitor, request he cough into an emesis basin so we can see and monitor NPO at midnight consider bronchoscopy if persists or worsens - he is currently on ASA, plavix, and Coumadin - due to hemoptysis and history of left ventricular apical thrombus concern with anticoagulation status before bronchoscopy - recommend to address with cardio on possible discontinuation of coumadin (3) Acute on chronic systolic (congestive) heart failure Current Visit: Yes Status: Acute 4L home oxygen dependent CXR reviewed consistent with CHF exacerbation BNP 4193 last ECHO 07/12/2016 severe LV systolic dysfunction 25-30% with wall motion abnormalities, LV apical thrombus, and RV apical hypokinesis continue Lasix gtt, cardiology to manage monitor I/O and renal function continue home meds (4) Left ventricular thrombosis Current Visit: Yes Status: Chronic history of left ventricular thrombus cardio consulted on possible discontinuation of coumadin for hemoptysis and possible bronch tomorrow 07/27 current INR 3.0 (5) Atrial fibrillation Current Visit: Yes Status: Acute history of atrial fibrillation with pacemaker currently normal sinus rhythm INR is therapeutic 3.0 Qualifiers: Atrial fibrillation type: unspecified Qualified Code(s): I48.91 - Unspecified atrial fibrillation (6) Coronary artery disease Current Visit: No Status: Chronic Qualifiers: Coronary Disease-Associated Artery/Lesion type: [place] artery [place] vs. transplanted heart: [place] heart Associated angina: with unstable angina Qualified Code(s): I25.110 - Atherosclerotic heart disease of [place] coronary artery with unstable angina pectoris Subjective Principal diagnosis: Dyspnea 2/2 CHF, hemoptysis Interval history: No major events overnight. Patient seen and examined at bedside. Denies any shortness of breath overnight and continued to remain on 4 liters oxygen supplementation. Around 0600 this morning while laying flat he did have episode of air hunger and felt very anxious making him short of breath. Denies any lightheadedness, chest pain, nausea, vomiting. Continues to have some hemoptysis, some bright red blood otherwise mostly brown and blood-tinged. No other complaints. Continues to diuresis with 500 cc in his catheter. Objective PUL Vital signs: Last Vital Signs Temp 97.6 F 07/26/16 07:22 Pulse 80 07/26/16 07:22 Resp 20 07/26/16 07:22 BP 133/78 07/26/16 07:22 Pulse Ox 94 07/26/16 07:22 General appearance: no acute distress, alert Eyes: nonicteric ENT: oropharynx moist Neck: supple Effort: normal, other (4L NC, no accessory muscle use) Auscultation: bilateral: clear, diminished breath sounds Cardiovascular: irregular rhythm Gastrointestinal: normoactive bowel sounds, soft, non-tender, non-distended Integumentary: normal, other (pacemaker in the left chest wall) Extremities: pulses normal, edema (mild in the LE) Musculoskeletal: no deformities, ROM normal normal mental status, non-focal exam, pupils equal and round, motor strength normal and symmetric anxious Results - Laboratory Findings CBC and BMP: 07/26/16 04:39 07/26/16 04:39 PT/INR, D-dimer PT 33.5 Seconds (9.4-12.1) H 07/26/16 04:39 D-Dimer 888 ng/mLFEU (0-500) H 07/24/16 15:53 Abnormal lab findings: Abnormal lab results WBC 12.2 K/mcL (4.3-11.1) H 07/26/16 04:39 RBC 4.07 M/mcL (4.19-5.50) L 07/26/16 04:39 Hgb 12.3 g/dL (12.9-16.9) L 07/26/16 04:39 MCHC 31.3 g/dL (31.6-35.5) L 07/26/16 04:39 RDW 15.6 % (11.5-14.5) H 07/26/16 04:39 Neutrophils # 9.3 K/mcL (1.6-8.9) H 07/26/16 04:39 Nucleated RBCs/100 WBC 0.2 /100 WBC (0) H 07/26/16 04:39 PT 33.5 Seconds (9.4-12.1) H 07/26/16 04:39 D-Dimer 888 ng/mLFEU (0-500) H 07/24/16 15:53 VBG pH 7.30 pH Units (7.32-7.42) L 07/24/16 15:53 VBG pCO2 61 mmHg (41-51) H 07/24/16 15:53 VBG pO2 24 mmHg (25-40) L 07/24/16 15:53 VBG HCO3 30.0 mEq/L (21-27) H 07/24/16 15:53 Potassium 3.3 mEq/L (3.5-4.5) L 07/26/16 04:39 Carbon Dioxide 32 mEq/L (19-29) H 07/26/16 04:39 Creatinine 1.28 mg/dL (0.72-1.25) H 07/26/16 04:39 Est GFR (Non-Af Amer) 54 (> 60) L 07/26/16 04:39 Glucose 149 mg/dL (70-99) H 07/26/16 04:39 POC Glucose 140 (58-89) H 07/26/16 05:41 Hemoglobin A1c 8.1 % (-5.6) H 07/24/16 21:28 Calculated Osmolality 305 (280-300) H 07/26/16 04:39 Lactic Acid 2.7 mmol/L (0.5-2.2) H 07/25/16 10:33 Alkaline Phosphatase 134 Units/L (38-126) H 07/24/16 15:53 Troponin I 0.96 ng/mL (0-0.03) H* 07/25/16 10:33 B-Natriuretic Peptide 4193 pg/mL (0-100) H 07/24/16 15:53 Albumin 3.2 g/dL (3.5-5.0) L 07/24/16 15:53 Globulin 3.9 g/dL (2.4-3.5) H 07/24/16 15:53 Albumin/Globulin Ratio 0.8 (1.1-2.2) L 07/24/16 15:53 Urine Blood Moderate (Negative) H 07/24/16 20:24 Urine Microscopic RBC 15-30 per hpf (0-3) H 07/24/16 20:24 Ur Squamous Epith Cells Moderate per lpf (None-Few) H 07/24/16 20:24 - Clinical Findings Intake & Output: Intake & Output 07/25/16 07/25/16 07/26/16 15:59 23:59 07:59 Intake Total 940 / 940 220 / 220 Output Total 350 / 350 1000 / 1000 1000 / 1000 Balance 590 / 590 -780 / -780 -1000 / -1000 Weight 90.6 kg Consult Discharge Plan - Plan Referrals: Kings Kaiser MD [Primary Care Provider] - <Zev Gonsalves W - Last Filed: 07/26/16 17:46> Date of Encounter: 07/26/16 Objective PUL Vital signs: Last Vital Signs Temp 97.6 F 07/26/16 15:47 Pulse 76 07/26/16 16:44 Resp 17 07/26/16 15:47 BP 102/74 07/26/16 15:47 Pulse Ox 96 07/26/16 15:47 Results - Laboratory Findings CBC and BMP: 07/26/16 04:39 07/26/16 04:39 PT/INR, D-dimer PT 33.5 Seconds (9.4-12.1) H 07/26/16 04:39 D-Dimer 888 ng/mLFEU (0-500) H 07/24/16 15:53 Abnormal lab findings: Abnormal lab results WBC 12.2 K/mcL (4.3-11.1) H 07/26/16 04:39 RBC 4.07 M/mcL (4.19-5.50) L 07/26/16 04:39 Hgb 12.3 g/dL (12.9-16.9) L 07/26/16 04:39 MCHC 31.3 g/dL (31.6-35.5) L 07/26/16 04:39 RDW 15.6 % (11.5-14.5) H 07/26/16 04:39 Neutrophils # 9.3 K/mcL (1.6-8.9) H 07/26/16 04:39 Nucleated RBCs/100 WBC 0.2 /100 WBC (0) H 07/26/16 04:39 PT 33.5 Seconds (9.4-12.1) H 07/26/16 04:39 D-Dimer 888 ng/mLFEU (0-500) H 07/24/16 15:53 VBG pH 7.30 pH Units (7.32-7.42) L 07/24/16 15:53 VBG pCO2 61 mmHg (41-51) H 07/24/16 15:53 VBG pO2 24 mmHg (25-40) L 07/24/16 15:53 VBG HCO3 30.0 mEq/L (21-27) H 07/24/16 15:53 Potassium 3.3 mEq/L (3.5-4.5) L 07/26/16 04:39 Carbon Dioxide 32 mEq/L (19-29) H 07/26/16 04:39 Creatinine 1.28 mg/dL (0.72-1.25) H 07/26/16 04:39 Est GFR (Non-Af Amer) 54 (> 60) L 07/26/16 04:39 Glucose 149 mg/dL (70-99) H 07/26/16 04:39 POC Glucose 140 (58-89) H 07/26/16 05:41 Hemoglobin A1c 8.1 % (-5.6) H 07/24/16 21:28 Calculated Osmolality 305 (280-300) H 07/26/16 04:39 Lactic Acid 2.7 mmol/L (0.5-2.2) H 07/25/16 10:33 Alkaline Phosphatase 134 Units/L (38-126) H 07/24/16 15:53 Troponin I 0.96 ng/mL (0-0.03) H* 07/25/16 10:33 B-Natriuretic Peptide 4193 pg/mL (0-100) H 07/24/16 15:53 Albumin 3.2 g/dL (3.5-5.0) L 07/24/16 15:53 Globulin 3.9 g/dL (2.4-3.5) H 07/24/16 15:53 Albumin/Globulin Ratio 0.8 (1.1-2.2) L 07/24/16 15:53 Urine Blood Moderate (Negative) H 07/24/16 20:24 Urine Microscopic RBC 15-30 per hpf (0-3) H 07/24/16 20:24 Ur Squamous Epith Cells Moderate per lpf (None-Few) H 07/24/16 20:24 - Microbiology Findings Microbiology Findings: Microbiology, Last 48 Hours 07/26/16 09:15 Sputum Culture - Preliminary Sputum - Clinical Findings Intake & Output: Intake & Output 07/26/16 07/26/16 07/26/16 07:59 15:59 23:59 Intake Total 570 / 570 Output Total 1000 / 1000 675 / 675 Balance -1000 / -1000 -105 / -105 Weight 90.6 kg - Attending Attestation I examined this patient and my medical decision-making was reviewed with the BLENDER/PA/Advanced Practice Nurse/Resident Physician. I agree with the documented findings, disposition and treatment plan as described except to the extent set forth below. Minor hemoptysis in a patient on DAPT and Anticoagulation with warfarin. Suspect this is s/t CHF with acute exacerbation (pressure volume overload) D/w Cardiology attending we will hold coumadin and bridge with heparin for likely bronchoscopy (this will likely be in 48-72 hours). Will follow clinically but given that hemoptysis at least per patient has been ongoing it would be reasonable to performed airway inspection and BAL. I do not feel that current presentation is likely s/ t to Pulmonary Capilliritis (inflammatory) Clearly if patient can stop at least one antiplatelet agent this would likely decrease risk of repeat hemoptysis and cardiology is making recommendations to this end. He is responding well to ongoing diruresis for treatment of CHF and appreciate ongoing cardiology mgnt Recommend bedside basin to collect/quantify hemoptysis volume over next 24 hours. we will cont to follow.
[2016-07-26] MEDS: Metoprolol XL (24 HR) Succ 50 MG TAB.ER.24H PO SCH (07:46)
[2016-07-26] MEDS: Aspirin 81 MG TAB.CHEW PO SCH (07:46)
[2016-07-26] MEDS: Nystatin SUSP 5 ML UD.LIQ PO SCH ×4 (07:46→19:58)
[2016-07-26] MEDS: Famotidine 20 MG TABLET PO SCH ×2 (07:46→19:58)
--- NOTE | 2016-07-26 10:05 | Cardiology Progress Note ---
Date of Encounter: 07/26/16 Time of Encounter: 08:00 Assessment and Plan (1) Acute on chronic systolic (congestive) heart failure Current Visit: Yes Status: Acute Per cardiology: -EF 25-30% per last echocardiogram. -Patient with acute CHF exacerbation. -NYHA class III. -BNP on admission 4193. -On lasix drip, creatinine 1.28, improved from admission. -Chest x-ray with CHF, large bilateral pleural effusions. -Net negative 3400ml this admission. -States shortness of breath has improved, however still mor short of breath than baseline. Moderate pedal edema note, states worse than baseline. Also states increased abdominal girth from baseline. -Recommned continuing lasix drip for one more day. Can consider switching to PO tomorrow based on patient's symptoms. -Will continue to follow. (2) Recent ST elevation myocardial infarction (STEMI) Current Visit: Yes Status: Chronic Per cardiology: -Recent STEMI 07/07/16 with balloon angioplasty to in-stent thrombosis to occluded proximal LAD. -On asa and plavix. -Denies chest pain. -Troponin peak 1. Appears to still be down trending. Troponin during STEMI >50. -ECG with no ischemic changes. -Will continue to monitor. (3) Coronary artery disease Current Visit: No Status: Chronic Per cardiology: -KNown history of CAD> -[facility] 07/07/16 with occluded proximal LAD with balloon angioplasty performed to previous placed stent, 20% left main, 30% proximal circ, 30% OM 1, 30% proximal RCA, 30% mid RCA, 30% distal RCA. -ON asa, statin, plavix, beta bi, and hydralazine. -Limited echo 07/12/16 with mildly dilated left ventricle, LVEF 25-30%, regional wall motion abnormalities, mild concentric left ventricular hypertophy, LV apical echodensity consistent with LV apical thrombus, RV apical hypokinesis, severealy dilated left atrium, severely dilated right atrium, valvular function not assessed. -Denies chest pain. -Will continue to monitor. Qualifiers: Coronary Disease-Associated Artery/Lesion type: [place] artery [place] vs. transplanted heart: [place] heart Associated angina: with unstable angina Qualified Code(s): I25.110 - Atherosclerotic heart disease of [place] coronary artery with unstable angina pectoris (4) LV (left ventricular) mural thrombus following UT Current Visit: No Status: Acute Per cardiology: -LV thrombus noted per echo during last admission. -ON coumadin. -INR therapuetic. -Will continue coumadin. (5) Atrial fibrillation Current Visit: Yes Status: Acute Per cardiology: -Atrial fibrillation noted per ECG. -On toprol and coumadin. -INR therapeutic. -Telemetry reviewed with average HR previous 12 hours noted to be 82. No atrial fibrillation noted previous 12 hours. -Will continue to monitor. Qualifiers: Atrial fibrillation type: unspecified Qualified Code(s): I48.91 - Unspecified atrial fibrillation (6) Elevated troponin Current Visit: Yes Status: Chronic Per cardiology: -Troponin peak this admission 1. -During recent STEMI troponin >50. -Troponin appears to be down trending. -NO ischemic ECG changes. -Patient deneis chest pain. -DO not suspect NSTEMI, suspect troponin may be still be downtrending versus demand ischemia. NO cardiac rehab consult warranted for this admission. Patient is enrolled in cardiac rehab from previous admission. Discussion w patient/family: The assessment and plan as outlined above was discussed with the patient and/or family members who expressed understanding and agreement. All questions were answered. Thank you for involving us in the care of your patient. Please call with any questions. Discussed and reviewed with . Subjective Principal diagnosis: Dyspnea 2/2 CHF, hemoptysis Interval history: Patient with recent STEMI, s/p v.fib arrest. Patient was discharged and was re- admitted with pneumonia. Patient was discharged on Tuesday and was re-admitted Tuesday with CHF exacerbation, increased shortness of breath. Patient has been on lasix drip and states he is feeling better than prior to admission. Patient denies chest pain. States shortness of breath has improved, but he is still mildly short of breath. Patient states pedal edema is worse than baseline. Also patient states he has increased abdominal girth and has been unable to put on his normal jeans that he wears at home. Objective Vital Signs, Last 4 Hours Temp Pulse Resp BP Pulse Ox 07/26/16 07:54 83 95 07/26/16 07:22 97.6 F 80 20 133/78 94 General: Conversant, No Apparent Distress HEENT: Atraumatic, Normocephaly, Mucus Membranes Moist Neck: No JVD, Normal carotid pulses Cardiac: Reg Rate and Rhythm, Normal S1 and S2, No Murmur Lungs: Normal Breath Sounds, No Wheeze, Rales, Rhonchi Neuro: Alert and responsive, No focal deficits noted Abdomen: Soft, Non-Tender Skin: No rashes noted on visualized skin Musculoskeletal: No Chest Wall Tenderness Extremities: No Clubbing, No Cyanosis, Normal Pulses, Other (Moderate bilateral pedal edema, non-pitting. ) Results 07/26/16 04:39 07/26/16 04:39 Lab Results Current Medications Acetaminophen (Tylenol) 650 mg PO Q6HR PRN PRN Reason: Mild Pain (1-3) Stop: 01/23/17 17:45 Allopurinol (Zyloprim) 100 mg PO BID [facility] Stop: 01/24/17 09:01 Last Admin: 07/26/16 07:46 Dose: 100 mg Aspirin (Aspirin) 81 mg PO DAILY [facility] Stop: 01/24/17 09:01 Last Admin: 07/26/16 07:46 Dose: 81 mg Atorvastatin Calcium (Lipitor) 80 mg PO HS [facility] Stop: 01/24/17 21:01 Last Admin: 07/25/16 21:30 Dose: 80 mg Clopidogrel Bisulfate (Plavix) 75 mg PO DAILY [facility] Stop: 01/24/17 09:01 Last Admin: 07/26/16 07:46 Dose: 75 mg Dextrose/Water (Dextrose 50% (Syg)) 25 ml IVP AD PRN PRN Reason: Hypoglycemia Stop: 01/23/17 20:54 Famotidine (Pepcid) 10 mg PO BID [facility] Stop: 01/24/17 21:01 Last Admin: 07/26/16 07:46 Dose: 10 mg Glucagon (Glucagen) 1 mg IM ONCE PRN PRN Reason: Hypoglycemia Stop: 01/23/17 20:54 Glucose (Gluctose) 15 gm PO ONCE PRN PRN Reason: Hypoglycemia Stop: 01/23/17 20:54 Glucose (Gluctose) 30 gm PO ONCE PRN PRN Reason: Hypoglycemia Stop: 01/23/17 20:54 Hydralazine HCl (Hydralazine) 50 mg PO Q8HR [facility] Stop: 01/24/17 00:01 Last Admin: 07/26/16 07:46 Dose: 50 mg Dextrose (Dextrose 5%) 1,000 mls @ 100 mls/hr IVC .Q10H PRN PRN Reason: HYPOGLYCEMIA Stop: 01/23/17 20:54 Furosemide 240 mg/ Dextrose 120 mls @ 2.5 mls/hr IVC .Q24H [facility] PRN Reason: 5 MG/HR Stop: 01/23/17 21:03 Last Infusion: 07/26/16 08:45 Dose: 10 mg/hr, 5 mls/hr Piperacillin Sod/Tazobactam (Sod 3.375 gm/ Dextrose) 100 mls @ 25 mls/hr IVPB Q8H [facility] PRN Reason: Protocol Stop: 01/25/17 08:31 Last Admin: 07/26/16 07:47 Dose: 25 mls/hr Insulin Human Lispro (Humalog) 0 units SQ Q6HR [facility] PRN Reason: Protocol Stop: 01/24/17 00:01 Last Admin: 07/26/16 05:55 Dose: Not Given Metoprolol Succinate (Toprol Xl) 50 mg PO DAILY [facility] Stop: 01/24/17 09:01 Last Admin: 07/26/16 07:46 Dose: 50 mg Morphine Sulfate (Morphine Sulfate) 2 mg IVP Q4HR PRN PRN Reason: Chest Pain Stop: 01/23/17 20:54 Naloxone HCl (Narcan) 0.4 mg IVP Q2MIN PRN PRN Reason: Opioid Reversal Stop: 01/23/17 17:45 Nitroglycerin (Nitroglycerin) 0.4 mg SL Q5MIN PRN PRN Reason: Chest Pain Stop: 01/23/17 21:05 Nystatin (Mycostatin Suspension) 5 ml PO QID [facility] Stop: 01/23/17 21:01 Last Admin: 07/26/16 07:46 Dose: 5 ml Promethazine HCl (Phenergan) 12.5 mg IVP Q8HR PRN PRN Reason: Nausea And Vomiting Stop: 01/23/17 21:05 Warfarin Sodium (Coumadin) 1 mg PO QPM [facility] Stop: 01/24/17 18:01 Last Admin: 07/25/16 17:30 Dose: 1 mg Laboratory Tests 07/12/16 07/24/16 07/24/16 21:59 15:53 15:53 WBC Hgb Potassium Creatinine 1.68 H Troponin I 27.45 H* 1.00 H* B-Natriuretic Peptide 05/07/24/16 07/25/16 15:53 21:28 02:30 WBC Hgb Potassium Creatinine Troponin I 0.91 H* 0.99 H* B-Natriuretic Peptide 4193 H 07/25/16 07/26/16 07/26/16 10:33 04:39 04:39 WBC 12.2 H Hgb 12.3 L Potassium 3.3 L Creatinine 1.28 H Troponin I 0.96 H* B-Natriuretic Peptide - Imaging and Cardiology Chest Xray: report reviewed Echo: report reviewed Cardiac cath: report reviewed - EKG Interpretation EKG results cardiology: personally reviewed (ECG with atrial fibrillation, HR 103.), other (Telemetry reviewed with average HR 82, sinus rhythm with interrmittent pacing. PVCs and PACS noted.) Consult Discharge Plan - Plan Referrals: Kings Kaiser MD [Primary Care Provider] -
[2016-07-26] MEDS: Furosemide 240 MG in D5% in Water 96 ML IVC SCH (13:07)
[2016-07-26 17:47] LABS: Calcium 8.5 mg/dL (8.6-10.8); Potassium 3.4 mEq/L (3.5-4.5)
--- NOTE | 2016-07-26 18:08 | Internal Med Progress Note ---
Date of Encounter: 07/26/16 Time of Encounter: 12:30 - Assessment and plan (1) Acute hypoxemic respiratory failure Current Visit: Yes Status: Acute Assessment and plan: Secondary to acute systolic heart failure LVEF 25-30%, and bilateral large pleural effusions. Chest x-ray showed pulmonary vascular congestion with airspace edema and large bilateral pleural effusions. Sputum culture negative. Blood cultures no growth to date. Requiring ICU care, BiPAP and Lasix drip with slow clinical improvement. Appreciate pulmonology and cardiology input. Continue Lasix drip, fluid restriction and continue O2 supplementation. Stop IV Zosyn given no clinical signs of infection. (2) Acute on chronic systolic (congestive) heart failure Current Visit: Yes Status: Acute Assessment and plan: Plan as above. (3) Pleural effusion Current Visit: Yes Status: Acute Assessment and plan: Bilateral large pleural effusion. Plan as above. (4) Coronary artery disease Current Visit: No Status: Chronic Assessment and plan: Recent STEMI on 07/06 with Vfib cardiac arrest and CPR. EKG showed no acute ischemic changes. continue amiodarone, plavix, aspirin, lipitor 80, metoprolol xl 25 Qualifiers: Coronary Disease-Associated Artery/Lesion type: [place] artery [place] vs. transplanted heart: [place] heart Associated angina: with unstable angina Qualified Code(s): I25.110 - Atherosclerotic heart disease of [place] coronary artery with unstable angina pectoris (5) Diabetes mellitus, type 2 Current Visit: No Status: Chronic Assessment and plan: Adequate Accu-Cheks. Continue insulin sliding scale and diabetic diet. Qualifiers: Diabetes mellitus complication status: with hyperglycemia Diabetes mellitus skilled nursing insulin use: without skilled nursing use Qualified Code(s): E11.65 - Type 2 diabetes mellitus with hyperglycemia (6) Essential hypertension Current Visit: No Status: Chronic Assessment and plan: Well-controlled. - Subjective Interval history: Patient reports mild shortness of breath and productive cough. No chest pain - Constitutional Vitals: Temp Pulse Resp BP Pulse Ox 97.6 F 76 17 102/74 96 07/26/16 15:47 07/26/16 16:44 07/26/16 15:47 07/26/16 15:47 07/26/16 15:47 General appearance: Present: cooperative, A&O X 3, pleasant, no acute distress, answers questions appropriately - Neck Neck exam general surgery: Present: supple, trachea midline. Absent: lymphadenopathy - Respiratory Respiratory exam: Present: decreased breath sounds (at lung bases), rhonchi - Cardiovascular Cardiovascular exam: Present: RRR - GI/Abdominal GI/Abdominal exam: Present: normal bowel sounds, soft. Absent: distended, tenderness - Extremities Exam Extremities exam: Present: pedal edema (1+ LE edema) - Back Exam Back exam: Absent: CVA tenderness (L), CVA tenderness (R) - Neurological Exam Neurological exam: Present: alert, oriented X3, no focal deficits, strengths equal and symetr throughout. Absent: facial droop, speech deficit - Skin Skin exam: Absent: rash Internal Medicine: Result - Labs CBC & Chem 7: 07/26/16 04:39 07/26/16 17:25 Labs: Short CBC 07/26/16 Range/Units 04:39 WBC 12.2 H (4.3-11.1) K/mcL Hgb 12.3 L (12.9-16.9) g/dL Hct 39.3 (37.5-50.1) % Plt Count 330 (140-400) K/mcL Neutrophils # 9.3 H (1.6-8.9) K/mcL BMP 07/26/16 07/26/16 04:39 17:25 Sodium 144 144 Potassium 3.3 L 3.4 L Chloride 101 99 Carbon Dioxide 32 H 31 H BUN 25 23 Creatinine 1.28 H 1.44 H Glucose 149 H 157 H Calcium 8.6 8.5 L - ABG Interpretation ABG results: PT/INR, D-dimer PT 33.5 Seconds (9.4-12.1) H 07/26/16 04:39 D-Dimer 888 ng/mLFEU (0-500) H 07/24/16 15:53 Consult Discharge Plan - Plan Referrals: Kings Kiaser MD [Primary Care Provider] -
[2016-07-26] MEDS: Acetaminophen 325 MG TABLET PO PRN (23:36)
[2016-07-27 05:03] LABS: Basophils % 0.3 %; Eosinophils # 0.4 K/mcL (0.0-0.6); Eosinophils % 3.1 %; Hematocrit 39.1 % (37.5-50.1); Hemoglobin 12.3 g/dL (12.9-16.9); Immature Granulocytes % 0.4 % (0-4); Lymphocytes % 14.7 %; Mean Corpuscular HGB Conc 31.5 g/dL (31.6-35.5); Mean Corpuscular Hemoglobin 30.6 pg (28.0-33.3); Mean Corpuscular Volume 97.3 fL (83.0-100.0); Mean Platelet Volume 10.2 fL (9.4-12.4); Monocytes % 7.2 %; Neutrophils # 9.9 K/mcL (1.6-8.9); Nucleated Red Blood Cells 0.2 /100 WBC (0); Platelet Count 331 K/mcL (140-400); Red Blood Count 4.02 M/mcL (4.19-5.50); Red Cell Distribution Width 15.8 % (11.5-14.5); Segmented Neutrophils % 74.3 %
[2016-07-27 05:12] LABS: BUN/Creatinine Ratio 17 (6-26); Blood Urea Nitrogen 22 mg/dL (8-26); Calcium 8.4 mg/dL (8.6-10.8); Carbon Dioxide 31 mEq/L (19-29); Chloride 99 mEq/L (98-109); Glucose 136 mg/dL (70-99); Osmolality,Calculated 303 (280-300); Sodium 144 mEq/L (136-145); eGFR For African Americans > 60 (> 60); eGFR For Non-African Americans 53 (> 60)
--- NOTE | 2016-07-27 08:04 | Pulmonology Progress Note ---
<MajorZev W - Last Filed: 07/27/16 12:52> Date of Encounter: 07/27/16 Objective PUL Vital signs: Last Vital Signs Temp 98.1 F 07/27/16 11:23 Pulse 69 07/27/16 11:23 Resp 16 07/27/16 11:23 BP 112/73 07/27/16 11:23 Pulse Ox 97 07/27/16 11:23 Results - Laboratory Findings CBC and BMP: 07/27/16 04:00 07/27/16 04:00 PT/INR, D-dimer PT 33.5 Seconds (9.4-12.1) H 07/26/16 04:39 D-Dimer 888 ng/mLFEU (0-500) H 07/24/16 15:53 Abnormal lab findings: Abnormal lab results WBC 13.4 K/mcL (4.3-11.1) H 07/27/16 04:00 RBC 4.02 M/mcL (4.19-5.50) L 07/27/16 04:00 Hgb 12.3 g/dL (12.9-16.9) L 07/27/16 04:00 MCHC 31.5 g/dL (31.6-35.5) L 07/27/16 04:00 RDW 15.8 % (11.5-14.5) H 07/27/16 04:00 Neutrophils # 9.9 K/mcL (1.6-8.9) H 07/27/16 04:00 Nucleated RBCs/100 WBC 0.2 /100 WBC (0) H 07/27/16 04:00 PT 33.5 Seconds (9.4-12.1) H 07/26/16 04:39 D-Dimer 888 ng/mLFEU (0-500) H 07/24/16 15:53 VBG pH 7.30 pH Units (7.32-7.42) L 07/24/16 15:53 VBG pCO2 61 mmHg (41-51) H 07/24/16 15:53 VBG pO2 24 mmHg (25-40) L 07/24/16 15:53 VBG HCO3 30.0 mEq/L (21-27) H 07/24/16 15:53 Potassium 3.0 mEq/L (3.5-4.5) L 07/27/16 04:00 Carbon Dioxide 31 mEq/L (19-29) H 07/27/16 04:00 Creatinine 1.30 mg/dL (0.72-1.25) H 07/27/16 04:00 Est GFR (Non-Af Amer) 53 (> 60) L 07/27/16 04:00 Glucose 136 mg/dL (70-99) H 07/27/16 04:00 POC Glucose 215 (58-89) H 07/26/16 19:51 Hemoglobin A1c 8.1 % (-5.6) H 07/24/16 21:28 Calculated Osmolality 303 (280-300) H 07/27/16 04:00 Lactic Acid 2.7 mmol/L (0.5-2.2) H 07/25/16 10:33 Calcium 8.4 mg/dL (8.6-10.8) L 07/27/16 04:00 Alkaline Phosphatase 134 Units/L (38-126) H 07/24/16 15:53 Troponin I 0.96 ng/mL (0-0.03) H* 07/25/16 10:33 B-Natriuretic Peptide 4193 pg/mL (0-100) H 07/24/16 15:53 Albumin 3.2 g/dL (3.5-5.0) L 07/24/16 15:53 Globulin 3.9 g/dL (2.4-3.5) H 07/24/16 15:53 Albumin/Globulin Ratio 0.8 (1.1-2.2) L 07/24/16 15:53 Urine Blood Moderate (Negative) H 07/24/16 20:24 Urine Microscopic RBC 15-30 per hpf (0-3) H 07/24/16 20:24 Ur Squamous Epith Cells Moderate per lpf (None-Few) H 07/24/16 20:24 - Microbiology Findings Microbiology Findings: Microbiology, Last 48 Hours 07/26/16 09:15 Sputum Culture - Preliminary Sputum - Clinical Findings Intake & Output: Intake & Output 07/26/16 07/27/16 07/27/16 23:59 07:59 15:59 Intake Total 120 / 120 240 / 240 Output Total 2600 / 2600 Balance 120 / 120 -2600 / -2600 240 / 240 Weight 91 kg Consult Discharge Plan - Plan Referrals: Okolie,Ku, MD [Primary Care Provider] - - Attending Attestation I examined this patient and my medical decision-making was reviewed with the BOAT MASTER/PA/Advanced Practice Nurse/Resident Physician. I agree with the documented findings, disposition and treatment plan as described except to the extent set forth below. Minor Hemoptysis has resolved and it is felt that this is most likely secondary to CHF with pressure/volume overload context of dual antiplatelet therapy and anticoagulation. We will continue to watch the patient over the next 48 hours and it is still reasonable to hold warfarin and bridge with heparin if no further episodes of hemoptysis in the next 48 hours I do not feel that there is no urgent indication for bronchoscopy Appreciate the management of heart failure per cardiology service We will continue to follow <Nancy Marx - Last Filed: 07/27/16 15:21> Date of Encounter: 07/27/16 Time of Encounter: 08:04 Assessment and Plan (1) Acute hypoxemic respiratory failure Current Visit: Yes Status: Acute Patient with acute hypoemic respiratory failure - improving O2 saturation 94-98% on 4L NC Likely secondary to systolic heart failure - 07/12/2016 ECHO showed severe LV systolic dysfunction 25-30% with wall motion abnormalities, LV apical thrombus, and RV apical hypokinesis Cardiology consulted for further management - currently on lasix drip Prelim sputum - mod WBC, few epithelial cells, no bacteria, few yeast species BiPAP overnight as needed. Continue management of systolic heart failure per cardiology (2) Hemoptysis Current Visit: Yes Status: Acute Patient reported persistent hemoptysis worsening on admission No hemoptysis overnight. As patient is not continuing to have hemoptysis and it was likely secondary to his CHF, bronchoscopy is not indicated at this time. If hemoptysis does reoccur , may need to re-evaluate. Recommend continue to hold warfarin and bridge with heparin for the next 48 hours. Will follow along. (3) Acute on chronic systolic (congestive) heart failure Current Visit: Yes Status: Acute Acute on chronic CHF - on 4L oxygen at home CXR suggested fluid overload and BNP was 4193 Last ECHO 07/12/2016 severe LV systolic dysfunction 25-30% with wall motion abnormalities, LV apical thrombus, and RV apical hypokinesis Continue Lasix gtt, cardiology to manage Monitor I/O and renal function continue home meds (4) DVT prophylaxis Current Visit: Yes Status: Acute Continue to hold warfarin and bridge with heparin Subjective Principal diagnosis: Dyspnea 2/2 CHF, hemoptysis Interval history: No acute events overnight. Patient was afebrile, vital signs within normal limits. Patient required 4L supplemental oxygen overnight to maintain O2 saturation around 95%. He reports that he is feeling much better "now that a lot of fluid has come off." Patient seen and examined. He was awake and alert , in no acute distress. Lungs with improved aeration, minimal crackles in bases. Abdomen soft, nontender. Legs with no edema. Objective PUL Vital signs: Last Vital Signs Temp 98.0 F 07/27/16 07:20 Pulse 74 07/27/16 07:20 Resp 17 07/27/16 07:20 BP 133/78 07/27/16 07:20 Pulse Ox 97 07/27/16 07:20 General appearance: no acute distress Eyes: nonicteric ENT: oropharynx moist Neck: supple Effort: normal Auscultation: bilateral: clear, rales Cardiovascular: regular rate and rhythm Gastrointestinal: normoactive bowel sounds, soft, non-tender, non-distended Integumentary: normal Extremities: no cyanosis, no edema normal mental status, non-focal exam mood appropriate, affect normal Results - Laboratory Findings CBC and BMP: 07/27/16 04:00 07/27/16 04:00 PT/INR, D-dimer PT 33.5 Seconds (9.4-12.1) H 07/26/16 04:39 D-Dimer 888 ng/mLFEU (0-500) H 07/24/16 15:53 Abnormal lab findings: Abnormal lab results WBC 13.4 K/mcL (4.3-11.1) H 07/27/16 04:00 RBC 4.02 M/mcL (4.19-5.50) L 07/27/16 04:00 Hgb 12.3 g/dL (12.9-16.9) L 07/27/16 04:00 MCHC 31.5 g/dL (31.6-35.5) L 07/27/16 04:00 RDW 15.8 % (11.5-14.5) H 07/27/16 04:00 Neutrophils # 9.9 K/mcL (1.6-8.9) H 07/27/16 04:00 Nucleated RBCs/100 WBC 0.2 /100 WBC (0) H 07/27/16 04:00 PT 33.5 Seconds (9.4-12.1) H 07/26/16 04:39 D-Dimer 888 ng/mLFEU (0-500) H 07/24/16 15:53 VBG pH 7.30 pH Units (7.32-7.42) L 07/24/16 15:53 VBG pCO2 61 mmHg (41-51) H 07/24/16 15:53 VBG pO2 24 mmHg (25-40) L 07/24/16 15:53 VBG HCO3 30.0 mEq/L (21-27) H 07/24/16 15:53 Potassium 3.0 mEq/L (3.5-4.5) L 07/27/16 04:00 Carbon Dioxide 31 mEq/L (19-29) H 07/27/16 04:00 Creatinine 1.30 mg/dL (0.72-1.25) H 07/27/16 04:00 Est GFR (Non-Af Amer) 53 (> 60) L 07/27/16 04:00 Glucose 136 mg/dL (70-99) H 07/27/16 04:00 POC Glucose 215 (58-89) H 07/26/16 19:51 Hemoglobin A1c 8.1 % (-5.6) H 07/24/16 21:28 Calculated Osmolality 303 (280-300) H 07/27/16 04:00 Lactic Acid 2.7 mmol/L (0.5-2.2) H 07/25/16 10:33 Calcium 8.4 mg/dL (8.6-10.8) L 07/27/16 04:00 Alkaline Phosphatase 134 Units/L (38-126) H 07/24/16 15:53 Troponin I 0.96 ng/mL (0-0.03) H* 07/25/16 10:33 B-Natriuretic Peptide 4193 pg/mL (0-100) H 07/24/16 15:53 Albumin 3.2 g/dL (3.5-5.0) L 07/24/16 15:53 Globulin 3.9 g/dL (2.4-3.5) H 07/24/16 15:53 Albumin/Globulin Ratio 0.8 (1.1-2.2) L 07/24/16 15:53 Urine Blood Moderate (Negative) H 07/24/16 20:24 Urine Microscopic RBC 15-30 per hpf (0-3) H 07/24/16 20:24 Ur Squamous Epith Cells Moderate per lpf (None-Few) H 07/24/16 20:24 - Microbiology Findings Microbiology Findings: Microbiology, Last 48 Hours 07/26/16 09:15 Sputum Culture - Preliminary Sputum - Clinical Findings Intake & Output: Intake & Output 07/26/16 07/27/16 07/27/16 23:59 07:59 15:59 Intake Total 120 / 120 Output Total 2600 / 2600 Balance 120 / 120 -2600 / -2600 Weight 91 kg
[2016-07-27] MEDS: hydrALAZINE 25 MG TABLET PO SCH ×2 (08:07→16:30)
[2016-07-27] MEDS: Metoprolol XL (24 HR) Succ 50 MG TAB.ER.24H PO SCH (08:07)
[2016-07-27] MEDS: Nystatin SUSP 5 ML UD.LIQ PO SCH ×4 (08:07→20:43)
[2016-07-27] MEDS: Famotidine 20 MG TABLET PO SCH ×2 (08:08→20:42)
[2016-07-27] MEDS: Aspirin 81 MG TAB.CHEW PO SCH (08:08)
[2016-07-27] MEDS: Insulin LISPRO 300 UNITS/3 ML VIAL SQ SCH ×4 (08:10→20:38)
[2016-07-27] MEDS ORDERED: Potassium Chloride 40 MEQ, Lidocaine 1% 2 ML in D5% in Water 500 ML IVPB ONE (08:23)
--- NOTE | 2016-07-27 09:34 | Cardiology Progress Note ---
Date of Encounter: 07/27/16 Time of Encounter: 09:00 Assessment and Plan (1) Acute on chronic systolic (congestive) heart failure Current Visit: Yes Status: Acute Per cardiology: -EF 25-30% per last echocardiogram. -Patient with acute CHF exacerbation. -NYHA class III. -BNP on admission 4193. -On lasix drip, creatinine 1.3, improved from admission. -Chest x-ray with CHF, large bilateral pleural effusions. -Net negative 6025ml this admission. -States shortness of breath has improved. Mild pedal edema note, states at baseline. -K 3.0 today, IV replacement given per primary service. -Strict I/Os, daily weights, fluid and Na restriction. -Will stop lasix drip. Will start on lasix po. -CHF education re-inforced. -Cardiology will sign off and will follow closely in outpatient setting. Follow up set. (2) Recent ST elevation myocardial infarction (STEMI) Current Visit: Yes Status: Chronic Per cardiology: -Recent STEMI 07/07/16 with balloon angioplasty to in-stent thrombosis to occluded proximal LAD. -On asa and plavix. -Denies chest pain. -Troponin peak 1. Appears to still be down trending. Troponin during STEMI >50. -ECG with no ischemic changes. -Will continue to monitor in outpatient setting. -Can consider stopping ASA in outpatient setting if deemed clinically appropriate due to triple therapy. (3) Coronary artery disease Current Visit: No Status: Chronic Per cardiology: -KNown history of CAD> -[facility] 07/07/16 with occluded proximal LAD with balloon angioplasty performed to previous placed stent, 20% left main, 30% proximal circ, 30% OM 1, 30% proximal RCA, 30% mid RCA, 30% distal RCA. -ON asa, statin, plavix, beta bi, and hydralazine. -Limited echo 07/12/16 with mildly dilated left ventricle, LVEF 25-30%, regional wall motion abnormalities, mild concentric left ventricular hypertophy, LV apical echodensity consistent with LV apical thrombus, RV apical hypokinesis, severealy dilated left atrium, severely dilated right atrium, valvular function not assessed. -Denies chest pain. -Will continue to monitor in outpatient setting. (4) LV (left ventricular) mural thrombus following [facility] Current Visit: No Status: Acute Per cardiology: -LV thrombus noted per echo during last admission. -ON coumadin. -INR therapuetic. -Will continue coumadin. (5) Atrial fibrillation Current Visit: Yes Status: Acute Per cardiology: -Atrial fibrillation noted per ECG. -On toprol and coumadin. -INR therapeutic. -Telemetry reviewed with average HR previous 12 hours noted to be 78. No atrial fibrillation noted previous 12 hours. -[id number] score 5 (age, HTN, CHF, vascular disease). ON coumadin. -Will continue to monitor in outpatient setting. Qualifiers: Atrial fibrillation type: unspecified Qualified Code(s): I48.91 - Unspecified atrial fibrillation (6) Elevated troponin Current Visit: Yes Status: Chronic Per cardiology: -Troponin peak this admission 1. -During recent STEMI troponin >50. -Troponin appears to be down trending. -NO ischemic ECG changes. -Patient deneis chest pain. -DO not suspect NSTEMI, suspect troponin may be still be downtrending versus demand ischemia. NO cardiac rehab consult warranted for this admission. Patient is enrolled in cardiac rehab from previous admission. Discussion w patient/family: The assessment and plan as outlined above was discussed with the patient and/or family members who expressed understanding and agreement. All questions were answered. Thank you for involving us in the care of your patient. Please call with any questions. Discussed and reviewed with . Subjective Principal diagnosis: Dyspnea 2/2 CHF, hemoptysis Interval history: Patient with recent STEMI, s/p v.fib arrest. Patient was discharged and was re- admitted with pneumonia. Patient was discharged on Tuesday and was re-admitted Tuesday with CHF exacerbation, increased shortness of breath. Patient has been on lasix drip and states he is feeling better than prior to admission. Patient denies chest pain. States shortness of breath has improved. Patient states pedal edema is at baseline. Objective Vital Signs, Last 4 Hours Temp Pulse Resp BP Pulse Ox 07/27/16 07:20 98.0 F 74 17 133/78 97 General: Conversant, No Apparent Distress HEENT: Atraumatic, Normocephaly, Mucus Membranes Moist Neck: No JVD, Normal carotid pulses Cardiac: Reg Rate and Rhythm, Normal S1 and S2, No Murmur Lungs: Normal Breath Sounds, No Wheeze, Rales, Rhonchi Neuro: Alert and responsive, No focal deficits noted Abdomen: Soft, Non-Tender Skin: No rashes noted on visualized skin Musculoskeletal: No Chest Wall Tenderness Extremities: No Clubbing, No Cyanosis, Normal Pulses, Other (Mild bilateral, non -pitting pedal edema.) Results 07/27/16 04:00 07/27/16 04:00 Lab Results Active Medications Acetaminophen (Tylenol) 650 mg PO Q6HR PRN PRN Reason: Mild Pain (1-3) Stop: 01/23/17 17:45 Last Admin: 07/26/16 23:36 Dose: 650 mg Allopurinol (Zyloprim) 100 mg PO BID [facility] Stop: 01/24/17 09:01 Last Admin: 07/27/16 08:08 Dose: 100 mg Aspirin (Aspirin) 81 mg PO DAILY [facility] Stop: 01/24/17 09:01 Last Admin: 07/27/16 08:08 Dose: 81 mg Atorvastatin Calcium (Lipitor) 80 mg PO HS [facility] Stop: 01/24/17 21:01 Last Admin: 07/26/16 19:58 Dose: 80 mg Clopidogrel Bisulfate (Plavix) 75 mg PO DAILY [facility] Stop: 01/24/17 09:01 Last Admin: 07/27/16 08:07 Dose: 75 mg Dextrose/Water (Dextrose 50% (Syg)) 25 ml IVP AD PRN PRN Reason: Hypoglycemia Stop: 01/23/17 20:54 Famotidine (Pepcid) 10 mg PO BID [facility] Stop: 01/24/17 21:01 Last Admin: 07/27/16 08:08 Dose: 10 mg Glucagon (Glucagen) 1 mg IM ONCE PRN PRN Reason: Hypoglycemia Stop: 01/23/17 20:54 Glucose (Gluctose) 15 gm PO ONCE PRN PRN Reason: Hypoglycemia Stop: 01/23/17 20:54 Glucose (Gluctose) 30 gm PO ONCE PRN PRN Reason: Hypoglycemia Stop: 01/23/17 20:54 Hydralazine HCl (Hydralazine) 50 mg PO Q8HR [facility] Stop: 01/24/17 00:01 Last Admin: 07/27/16 08:07 Dose: 50 mg Dextrose (Dextrose 5%) 1,000 mls @ 100 mls/hr IVC .Q10H PRN PRN Reason: HYPOGLYCEMIA Stop: 01/23/17 20:54 Furosemide 240 mg/ Dextrose 120 mls @ 2.5 mls/hr IVC .Q24H TEOFILO PRN Reason: 5 MG/HR Stop: 01/23/17 21:03 Last Admin: 07/26/16 13:07 Dose: 10 mg/hr, 5 mls/hr Potassium Chloride 40 meq/ (Lidocaine 2 ml/ Dextrose) 522 mls @ 130.5 mls/hr IVPB ONCE ONE Stop: 07/27/16 12:22 Insulin Human Lispro (Humalog) 0 units SQ HS [facility] PRN Reason: Protocol Stop: 01/25/17 21:01 Last Admin: 07/26/16 19:58 Dose: 2 units Insulin Human Lispro (Humalog) 0 units SQ TIDAC [facility] PRN Reason: Protocol Stop: 01/26/17 07:31 Last Admin: 07/27/16 08:10 Dose: 2 units Metoprolol Succinate (Toprol Xl) 50 mg PO DAILY [facility] Stop: 01/24/17 09:01 Last Admin: 07/27/16 08:07 Dose: 50 mg Morphine Sulfate (Morphine Sulfate) 2 mg IVP Q4HR PRN PRN Reason: Chest Pain Stop: 01/23/17 20:54 Naloxone HCl (Narcan) 0.4 mg IVP Q2MIN PRN PRN Reason: Opioid Reversal Stop: 01/23/17 17:45 Nitroglycerin (Nitroglycerin) 0.4 mg SL Q5MIN PRN PRN Reason: Chest Pain Stop: 01/23/17 21:05 Nystatin (Mycostatin Suspension) 5 ml PO QID [facility] Stop: 01/23/17 21:01 Last Admin: 07/27/16 08:07 Dose: 5 ml Potassium Chloride (Potassium Chloride) 20 meq PO DAILY [facility] Stop: 01/25/17 10:46 Last Admin: 07/27/16 08:08 Dose: 20 meq Promethazine HCl (Phenergan) 12.5 mg IVP Q8HR PRN PRN Reason: Nausea And Vomiting Stop: 01/23/17 21:05 Warfarin Sodium (Coumadin) 1 mg PO QPM [facility] Stop: 01/24/17 18:01 Last Admin: 07/25/16 17:30 Dose: 1 mg Laboratory Tests 07/24/16 07/24/16 07/24/16 15:53 15:53 21:28 WBC Hgb Potassium Creatinine Troponin I 1.00 H* 0.91 H* B-Natriuretic Peptide 4193 H 07/25/16 07/25/16 07/27/16 02:30 10:33 04:00 WBC Hgb Potassium 3.0 L Creatinine 1.30 H Troponin I 0.99 H* 0.96 H* B-Natriuretic Peptide 07/27/16 04:00 WBC 13.4 H Hgb 12.3 L Potassium Creatinine Troponin I B-Natriuretic Peptide - Imaging and Cardiology Chest Xray: report reviewed Echo: report reviewed Cardiac cath: report reviewed - EKG Interpretation EKG results cardiology: other (Telemetry reviewed with average HR 78, sinus rhythm with intermittent pacing. PACs noted.) Consult Discharge Plan - Plan Referrals: Kings Kaiser MD [Primary Care Provider] -
--- NOTE | 2016-07-27 17:45 | Internal Med Progress Note ---
Date of Encounter: 07/27/16 Time of Encounter: 11:00 - Assessment and plan (1) Acute hypoxemic respiratory failure Current Visit: Yes Status: Acute Assessment and plan: Secondary to acute systolic heart failure LVEF 25-30%, and bilateral large pleural effusions. Chest x-ray showed pulmonary vascular congestion with airspace edema and large bilateral pleural effusions. Sputum culture negative. Blood cultures no growth to date. Required ICU care, and BiPAP for 2 days. Good diuresis with Lasix drip. slowly improving. Appreciate pulmonology and cardiology input. change lasix to oral. fluid restriction and continue O2 supplementation. (2) Acute on chronic systolic (congestive) heart failure Current Visit: Yes Status: Acute Assessment and plan: Plan as above. (3) Pleural effusion Current Visit: Yes Status: Acute Assessment and plan: Bilateral large pleural effusion. Plan as above. (4) Acute kidney injury superimposed on CKD Current Visit: Yes Status: Acute Assessment and plan: CKD3. At baseline. Close monitor. (5) Coronary artery disease Current Visit: No Status: Chronic Assessment and plan: Recent STEMI on 07/06 with Vfib cardiac arrest and CPR. EKG showed no acute ischemic changes. continue amiodarone, plavix, aspirin, lipitor 80, metoprolol xl 25 Qualifiers: Coronary Disease-Associated Artery/Lesion type: [place] artery [place] vs. transplanted heart: [place] heart Associated angina: with unstable angina Qualified Code(s): I25.110 - Atherosclerotic heart disease of [place] coronary artery with unstable angina pectoris (6) Diabetes mellitus, type 2 Current Visit: No Status: Chronic Assessment and plan: Adequate Accu-Cheks. Continue insulin sliding scale and diabetic diet. Qualifiers: Diabetes mellitus complication status: with hyperglycemia Diabetes mellitus termite exterminator helper insulin use: without termite exterminator helper use Qualified Code(s): E11.65 - Type 2 diabetes mellitus with hyperglycemia (7) Essential hypertension Current Visit: No Status: Chronic Assessment and plan: Well-controlled. - Subjective Interval history: Patient still having mild hemoptysis. No chest pain - Constitutional Vitals: Temp Pulse Resp BP Pulse Ox 97.9 F 182 18 126/69 100 07/27/16 15:44 07/27/16 15:44 07/27/16 15:44 07/27/16 15:44 07/27/16 15:44 General appearance: Present: cooperative, A&O X 3, pleasant, no acute distress, answers questions appropriately - Neck Neck exam general surgery: Present: supple, trachea midline. Absent: lymphadenopathy - Respiratory Respiratory exam: Present: CTAB - Cardiovascular Cardiovascular exam: Present: RRR - GI/Abdominal GI/Abdominal exam: Present: normal bowel sounds, soft. Absent: distended, tenderness - Extremities Exam Extremities exam: Absent: pedal edema - Back Exam Back exam: Absent: CVA tenderness (L), CVA tenderness (R) - Neurological Exam Neurological exam: Present: alert, oriented X3, no focal deficits, strengths equal and symetr throughout. Absent: facial droop, speech deficit - Skin Skin exam: Absent: rash Internal Medicine: Result - Labs CBC & Chem 7: 07/27/16 04:00 07/27/16 04:00 Labs: Short CBC 07/27/16 Range/Units 04:00 WBC 13.4 H (4.3-11.1) K/mcL Hgb 12.3 L (12.9-16.9) g/dL Hct 39.1 (37.5-50.1) % Plt Count 331 (140-400) K/mcL Neutrophils # 9.9 H (1.6-8.9) K/mcL BMP 07/26/16 07/27/16 17:25 04:00 Sodium 144 144 Potassium 3.4 L 3.0 L Chloride 99 99 Carbon Dioxide 31 H 31 H BUN 23 22 Creatinine 1.44 H 1.30 H Glucose 157 H 136 H Calcium 8.5 L 8.4 L - ABG Interpretation ABG results: PT/INR, D-dimer PT 33.5 Seconds (9.4-12.1) H 07/26/16 04:39 D-Dimer 888 ng/mLFEU (0-500) H 07/24/16 15:53 Consult Discharge Plan - Plan Referrals: Kings Kaiser MD [Primary Care Provider] -
[2016-07-28] MEDS: hydrALAZINE 25 MG TABLET PO SCH ×3 (00:18→15:25)
[2016-07-28 04:30] LABS: INR 1.9; Prothrombin Time 20.8 Seconds (9.4-12.1)
[2016-07-28 04:39] LABS: BUN/Creatinine Ratio 19 (6-26); Blood Urea Nitrogen 21 mg/dL (8-26); Calcium 8.8 mg/dL (8.6-10.8); Carbon Dioxide 36 mEq/L (19-29); Chloride 98 mEq/L (98-109); Glucose 148 mg/dL (70-99); Magnesium 1.8 mg/dL (1.6-2.6); Osmolality,Calculated 302 (280-300); Potassium 3.6 mEq/L (3.5-4.5); Sodium 143 mEq/L (136-145); eGFR For African Americans > 60 (> 60); eGFR For Non-African Americans > 60 (> 60)
[2016-07-28 04:59] LABS: Basophils # 0.1 K/mcL (0.0-0.2); Basophils % 0.4 %; Eosinophils # 0.6 K/mcL (0.0-0.6); Eosinophils % 4.1 %; Hematocrit 39.3 % (37.5-50.1); Hemoglobin 12.5 g/dL (12.9-16.9); Immature Granulocytes % 0.5 % (0-4); Immature Platelets 6.3 % (1.1-6.1); Lymphocytes % 13.8 %; Mean Corpuscular HGB Conc 31.8 g/dL (31.6-35.5); Mean Corpuscular Volume 97.5 fL (83.0-100.0); Mean Platelet Volume 10.2 fL (9.4-12.4); Monocytes # 1.1 K/mcL (0.0-1.3); Monocytes % 7.9 %; Neutrophils # 10.5 K/mcL (1.6-8.9); Nucleated Red Blood Cells 0.6 /100 WBC (0); Platelet Count 304 K/mcL (140-400); Red Blood Count 4.03 M/mcL (4.19-5.50); Red Cell Distribution Width 15.7 % (11.5-14.5); Segmented Neutrophils % 73.3 %
[2016-07-28] MEDS: Famotidine 20 MG TABLET PO SCH ×2 (08:01→20:22)
[2016-07-28] MEDS: Nystatin SUSP 5 ML UD.LIQ PO SCH ×4 (08:02→20:21)
[2016-07-28] MEDS: Aspirin 81 MG TAB.CHEW PO SCH (08:02)
[2016-07-28] MEDS: Metoprolol XL (24 HR) Succ 50 MG TAB.ER.24H PO SCH (08:02)
[2016-07-28] MEDS: Insulin LISPRO 300 UNITS/3 ML VIAL SQ SCH ×4 (08:06→20:37)
--- NOTE | 2016-07-28 09:04 | Pulmonology Progress Note ---
<Nancy Marx - Last Filed: 07/28/16 11:29> Date of Encounter: 07/28/16 Time of Encounter: 09:04 Assessment and Plan (1) Acute hypoxemic respiratory failure Current Visit: Yes Status: Acute Patient with acute hypoemic respiratory failure - improving O2 saturation 94-98% on 4L NC (home amount of O2) Likely secondary to systolic heart failure - 07/12/2016 ECHO showed severe LV systolic dysfunction 25-30% with wall motion abnormalities, LV apical thrombus, and RV apical hypokinesis Cardiology consulted for further management - transition from lasix drip to PO Prelim sputum - Yeast species BiPAP overnight as needed. Continue management of systolic heart failure per cardiology (2) Hemoptysis Current Visit: Yes Status: Acute Patient reported persistent hemoptysis worsening on admission No hemoptysis for over 24 hours. Patient's breathing status is back to baseline and symptoms are controlled so no procedures indicated at this time. As patient is not continuing to have hemoptysis, bronchoscopy is not indicated at this time. If hemoptysis does reoccur, may need to re-evaluate. Recommend following cardiology recommendations. Hemoptysis is secondary to the CHF exacerbated by the fact that patient is on warfarin, ASA, and plavix. Would recommend stopping antiplatelets as soon as possible per cardiology. Pulmonology will sign off. Please call with any questions. Thank you (3) Acute on chronic systolic (congestive) heart failure Current Visit: Yes Status: Acute Acute on chronic CHF - on 4L oxygen at home CXR suggested fluid overload and BNP was 4193 Last ECHO 07/12/2016 severe LV systolic dysfunction 25-30% with wall motion abnormalities, LV apical thrombus, and RV apical hypokinesis Continue lasix per cardiology Monitor I/O and renal function Continue home meds Subjective Principal diagnosis: Dyspnea 2/2 CHF, hemoptysis Interval history: No acute events overnight. Patient was afebrile, vital signs within normal limits. Patient on 4L supplemental oxygen, his home dose. He reports that he feels good and his breathing is much improved from admission. He denies any cough overnight or hemoatysis. He denies wheezing, dyspnea or difficulty breathing. Patient seen and examined. He was awake and alert, in no acute distress. Lungs with good aeration. Abdomen soft, nontender. Legs with no edema. Objective PUL Vital signs: Last Vital Signs Temp 98.0 F 07/28/16 07:09 Pulse 83 07/28/16 07:09 Resp 17 07/28/16 07:09 BP 159/98 07/28/16 08:09 Pulse Ox 95 07/28/16 07:09 General appearance: no acute distress Eyes: nonicteric ENT: oropharynx moist Effort: normal Auscultation: bilateral: clear Cardiovascular: regular rate and rhythm Gastrointestinal: soft, non-tender, non-distended Extremities: no cyanosis, no edema normal mental status, non-focal exam mood appropriate, affect normal Results - Laboratory Findings CBC and BMP: 07/28/16 03:55 07/28/16 03:55 PT/INR, D-dimer PT 20.8 Seconds (9.4-12.1) H 07/28/16 03:55 D-Dimer 888 ng/mLFEU (0-500) H 07/24/16 15:53 Abnormal lab findings: Abnormal lab results WBC 14.3 K/mcL (4.3-11.1) H 07/28/16 03:55 RBC 4.03 M/mcL (4.19-5.50) L 07/28/16 03:55 Hgb 12.5 g/dL (12.9-16.9) L 07/28/16 03:55 RDW 15.7 % (11.5-14.5) H 07/28/16 03:55 Neutrophils # 10.5 K/mcL (1.6-8.9) H 07/28/16 03:55 Nucleated RBCs/100 WBC 0.6 /100 WBC (0) H 07/28/16 03:55 Immature Plt Fraction 6.3 % (1.1-6.1) H 07/28/16 03:55 PT 20.8 Seconds (9.4-12.1) H 07/28/16 03:55 D-Dimer 888 ng/mLFEU (0-500) H 07/24/16 15:53 VBG pH 7.30 pH Units (7.32-7.42) L 07/24/16 15:53 VBG pCO2 61 mmHg (41-51) H 07/24/16 15:53 VBG pO2 24 mmHg (25-40) L 07/24/16 15:53 VBG HCO3 30.0 mEq/L (21-27) H 07/24/16 15:53 Carbon Dioxide 36 mEq/L (19-29) H 07/28/16 03:55 Glucose 148 mg/dL (70-99) H 07/28/16 03:55 POC Glucose 115 (58-89) H 07/27/16 20:00 Hemoglobin A1c 8.1 % (-5.6) H 07/24/16 21:28 Calculated Osmolality 302 (280-300) H 07/28/16 03:55 Lactic Acid 2.7 mmol/L (0.5-2.2) H 07/25/16 10:33 Alkaline Phosphatase 134 Units/L (38-126) H 07/24/16 15:53 Troponin I 0.96 ng/mL (0-0.03) H* 07/25/16 10:33 B-Natriuretic Peptide 4193 pg/mL (0-100) H 07/24/16 15:53 Albumin 3.2 g/dL (3.5-5.0) L 07/24/16 15:53 Globulin 3.9 g/dL (2.4-3.5) H 07/24/16 15:53 Albumin/Globulin Ratio 0.8 (1.1-2.2) L 07/24/16 15:53 Urine Blood Moderate (Negative) H 07/24/16 20:24 Urine Microscopic RBC 15-30 per hpf (0-3) H 07/24/16 20:24 Ur Squamous Epith Cells Moderate per lpf (None-Few) H 07/24/16 20:24 - Microbiology Findings Microbiology Findings: Microbiology, Last 48 Hours 07/26/16 09:15 Sputum Culture - Preliminary Sputum Yeast Species - Clinical Findings Intake & Output: Intake & Output 07/27/16 07/28/16 07/28/16 23:59 07:59 15:59 Intake Total 480 / 480 240 / 240 Balance 480 / 480 240 / 240 Weight 90.4 kg Consult Discharge Plan - Plan Referrals: Kings Kaiser MD [Primary Care Provider] - Carolina Ann CNP [Advanced Practice Nurse] - 08/04/16 9:00 am Ade Garcia CNP [Advanced Practice Nurse] - 08/03/16 1:00 pm <Zev Gonsalves - Last Filed: 07/28/16 11:53> Date of Encounter: 07/28/16 Objective PUL Vital signs: Last Vital Signs Temp 97.8 F 07/28/16 11:08 Pulse 74 07/28/16 11:08 Resp 18 07/28/16 11:08 BP 124/86 07/28/16 11:08 Pulse Ox 96 07/28/16 11:08 Results - Laboratory Findings CBC and BMP: 07/28/16 03:55 07/28/16 03:55 PT/INR, D-dimer PT 20.8 Seconds (9.4-12.1) H 07/28/16 03:55 D-Dimer 888 ng/mLFEU (0-500) H 07/24/16 15:53 Abnormal lab findings: Abnormal lab results WBC 14.3 K/mcL (4.3-11.1) H 07/28/16 03:55 RBC 4.03 M/mcL (4.19-5.50) L 07/28/16 03:55 Hgb 12.5 g/dL (12.9-16.9) L 07/28/16 03:55 RDW 15.7 % (11.5-14.5) H 07/28/16 03:55 Neutrophils # 10.5 K/mcL (1.6-8.9) H 07/28/16 03:55 Nucleated RBCs/100 WBC 0.6 /100 WBC (0) H 07/28/16 03:55 Immature Plt Fraction 6.3 % (1.1-6.1) H 07/28/16 03:55 PT 20.8 Seconds (9.4-12.1) H 07/28/16 03:55 D-Dimer 888 ng/mLFEU (0-500) H 07/24/16 15:53 VBG pH 7.30 pH Units (7.32-7.42) L 07/24/16 15:53 VBG pCO2 61 mmHg (41-51) H 07/24/16 15:53 VBG pO2 24 mmHg (25-40) L 07/24/16 15:53 VBG HCO3 30.0 mEq/L (21-27) H 07/24/16 15:53 Carbon Dioxide 36 mEq/L (19-29) H 07/28/16 03:55 Glucose 148 mg/dL (70-99) H 07/28/16 03:55 POC Glucose 115 (58-89) H 07/27/16 20:00 Hemoglobin A1c 8.1 % (-5.6) H 07/24/16 21:28 Calculated Osmolality 302 (280-300) H 07/28/16 03:55 Lactic Acid 2.7 mmol/L (0.5-2.2) H 07/25/16 10:33 Alkaline Phosphatase 134 Units/L (38-126) H 07/24/16 15:53 Troponin I 0.96 ng/mL (0-0.03) H* 07/25/16 10:33 B-Natriuretic Peptide 4193 pg/mL (0-100) H 07/24/16 15:53 Albumin 3.2 g/dL (3.5-5.0) L 07/24/16 15:53 Globulin 3.9 g/dL (2.4-3.5) H 07/24/16 15:53 Albumin/Globulin Ratio 0.8 (1.1-2.2) L 07/24/16 15:53 Urine Color Red (Yellow) A 07/28/16 10:56 Urine Clarity Cloudy (Clear) A 07/28/16 10:56 Urine Protein 30 mg/dL (Neg-Trace) H 07/28/16 10:56 Urine Ketones Trace mg/dL (Negative) H 07/28/16 10:56 Urine Blood Large (Negative) H 07/28/16 10:56 Ur Leukocyte Esterase Moderate (Negative) H 07/28/16 10:56 Urine Microscopic RBC 15-30 per hpf (0-3) H 07/24/16 20:24 Urine Microscopic WBC 15-30 per hpf (0-3) H 07/28/16 10:56 Ur Squamous Epith Cells Many per lpf (None-Few) H 07/28/16 10:56 Ur Culture Indicated? YES (NO) A 07/28/16 10:56 - Microbiology Findings Microbiology Findings: Microbiology, Last 48 Hours 07/26/16 09:15 Sputum Culture - Preliminary Sputum Yeast Species - Clinical Findings Intake & Output: Intake & Output 07/27/16 07/28/16 07/28/16 23:59 07:59 15:59 Intake Total 480 / 480 240 / 240 Output Total 800 / 800 Balance 480 / 480 -560 / -560 Weight 90.4 kg - Attending Attestation I examined this patient and my medical decision-making was reviewed with the SEARCH ENGINE OPTIMIZATION MANAGER/PA/Advanced Practice Nurse/Resident Physician. I agree with the documented findings, disposition and treatment plan as described except to the extent set forth below. Impression: 1. Minor Hemoptysis 2. Decompensated HFrEF 3. Pleural Effusion Recs: 1. Resolved. this is s/t Pressure/volume overload with dCHF on DAPT/Warfarin- defer to cardiology recs for DAPT if needed. The indication for anticoagulation with warfarin is cardiac thrombus and thus quite necessary 2. Improving with ongoing diuresis; recommend outpatient PSG if not performed 3. S/t to #2. no urgent need for therapeutic thoracentesis and given anticoagulation constraints would advise against at present given how comfortable the patient is. Pulmonary will sign off please call with question
[2016-07-28 11:32] LABS: Bilirubin,Urine Negative (Negative); Blood,Urine Large (Negative); Clarity,Urine Cloudy (Clear); Color,Urine Red (Yellow); Glucose,Urine (UA) Normal (Normal); Ketones,Urine Trace mg/dL (Negative); Leukocyte Esterase,Urine Moderate (Negative); Nitrite,Urine Negative (Negative); PH,Urine 6.5 pH Units (5.0-8.0); Protein,Urine 30 mg/dL (Neg-Trace); Specific Gravity,Urine 1.016 (1.010-1.025); Urobilinogen,Urine Normal (Normal)
[2016-07-28 11:35] LABS: Bacteria,Urine None Seen per hpf (None-Few); Hyaline Casts,Urine Few per lpf (None-Few); Squamous Epithelial Cell,Urine Many per lpf (None-Few); WBC,Urine 15-30 per hpf (0-3)
[2016-07-28] MEDS: Doxycycline 100 MG in 0.9 % Sodium Chloride Mini Bag 100 ML IVPB SCH ×2 (11:43→18:29)
--- NOTE | 2016-07-28 15:09 | Internal Med Progress Note ---
Date of Encounter: 07/28/16 Time of Encounter: 09:30 - Assessment and plan (1) Leukocytosis Current Visit: Yes Status: Acute Assessment and plan: unclear etiology. could be secondary to parapneumonic effusion. will repeat UA/ Ucx, CXR, LUE venous doppler. Qualifiers: Leukocytosis type: other Qualified Code(s): D72.828 - Other elevated white blood cell count (2) Acute hypoxemic respiratory failure Current Visit: Yes Status: Acute Assessment and plan: Secondary to acute systolic heart failure LVEF 25-30%, and bilateral large pleural effusions. Chest x-ray showed pulmonary vascular congestion with airspace edema and large bilateral pleural effusions. Sputum culture negative. Blood cultures no growth to date. improved. Appreciate pulmonology and cardiology input. Received ICU care, and BiPAP for 2 days on arrival. He improved after aggressive diuresis with Lasix drip. tolerating oral lasix well, fluid restriction and O2 supplementation. (3) Acute on chronic systolic (congestive) heart failure Current Visit: Yes Status: Acute Assessment and plan: Plan as above. (4) Pleural effusion Current Visit: Yes Status: Acute Assessment and plan: Bilateral large pleural effusion. Plan as above. (5) Acute kidney injury superimposed on CKD Current Visit: Yes Status: Acute Assessment and plan: cardiorenal secondaryto acute heart failure. CKD3. At baseline. Close monitor. (6) Coronary artery disease Current Visit: No Status: Chronic Assessment and plan: Recent STEMI on 07/06 with Vfib cardiac arrest and CPR. EKG showed no acute ischemic changes. continue amiodarone, plavix, aspirin, lipitor 80, metoprolol xl 25. may consider stopping aspirin in August 2016, will follow in the cardiology clinic. Qualifiers: Coronary Disease-Associated Artery/Lesion type: [place] artery [place] vs. transplanted heart: [place] heart Associated angina: with unstable angina Qualified Code(s): I25.110 - Atherosclerotic heart disease of [place] coronary artery with unstable angina pectoris (7) Diabetes mellitus, type 2 Current Visit: No Status: Chronic Assessment and plan: Adequate Accu-Cheks. Continue insulin sliding scale and diabetic diet. Qualifiers: Diabetes mellitus complication status: with hyperglycemia Diabetes mellitus chcf insulin use: without chcf use Qualified Code(s): E11.65 - Type 2 diabetes mellitus with hyperglycemia (8) Essential hypertension Current Visit: No Status: Chronic Assessment and plan: Well-controlled. - Subjective Interval history: No hemoptysis. No chest pain. his shortness of breath is better compared to admission. - Constitutional Vitals: Temp Pulse Resp BP Pulse Ox 97.8 F 74 18 124/86 96 07/28/16 11:08 07/28/16 11:08 07/28/16 11:08 07/28/16 11:08 07/28/16 11:08 General appearance: Present: cooperative, A&O X 3, pleasant, no acute distress, answers questions appropriately - Respiratory Respiratory exam: Present: decreased breath sounds - Cardiovascular Cardiovascular exam: Present: RRR - GI/Abdominal GI/Abdominal exam: Present: normal bowel sounds, soft. Absent: distended, tenderness - Extremities Exam Extremities exam: Present: pedal edema (ankle edema) Additional comments: LUE is more swollen than RUE - Neurological Exam Neurological exam: Present: alert, oriented X3, no focal deficits, strengths equal and symetr throughout. Absent: facial droop, speech deficit - Skin Skin exam: Absent: intact (multiple bruises on extremities) Internal Medicine: Result - Labs CBC & Chem 7: 07/28/16 03:55 07/28/16 03:55 Labs: Short CBC 07/28/16 Range/Units 03:55 WBC 14.3 H (4.3-11.1) K/mcL Hgb 12.5 L (12.9-16.9) g/dL Hct 39.3 (37.5-50.1) % Plt Count 304 (140-400) K/mcL Neutrophils # 10.5 H (1.6-8.9) K/mcL BMP 07/28/16 03:55 Sodium 143 Potassium 3.6 Chloride 98 Carbon Dioxide 36 H BUN 21 Creatinine 1.10 Glucose 148 H Calcium 8.8 Urine 07/28/16 Range/Units 10:56 Urine Color Red A (Yellow) Urine Clarity Cloudy A (Clear) Urine pH 6.5 (5.0-8.0) pH Units Ur Specific [place] 1.016 (1.010-1.025) Urine Protein 30 H (Neg-Trace) mg/dL Urine Glucose (UA) Normal (Normal) mg/dL - ABG Interpretation ABG results: PT/INR, D-dimer PT 20.8 Seconds (9.4-12.1) H 07/28/16 03:55 D-Dimer 888 ng/mLFEU (0-500) H 07/24/16 15:53 Consult Discharge Plan - Plan Referrals: Kings Kaiser MD [Primary Care Provider] - Carolina Ann CNP [Advanced Practice Nurse] - 08/04/16 9:00 am Ade Garcia CNP [Advanced Practice Nurse] - 08/03/16 1:00 pm
[2016-07-28] MEDS: *HR* Warfarin 1 MG TABLET PO SCH (17:31)
[2016-07-28] MEDS: Acetaminophen 325 MG TABLET PO PRN (20:20)
[2016-07-29] MEDS ORDERED: Melatonin 3 MG TABLET PO ONE (01:55)
[2016-07-29] MEDS ORDERED: Melatonin 3 MG TABLET ONE (02:02)
[2016-07-29] MEDS: hydrALAZINE 25 MG TABLET PO SCH ×3 (02:04→16:28)
[2016-07-29 05:27] LABS: INR 1.5; Prothrombin Time 16.6 Seconds (9.4-12.1)
[2016-07-29] MEDS: Doxycycline 100 MG in 0.9 % Sodium Chloride Mini Bag 100 ML IVPB SCH ×2 (05:34→20:59)
[2016-07-29 05:45] LABS: Basophils % 0.3 %; Eosinophils # 0.6 K/mcL (0.0-0.6); Eosinophils % 4.5 %; Hematocrit 39.4 % (37.5-50.1); Hemoglobin 12.4 g/dL (12.9-16.9); Immature Granulocytes % 0.6 % (0-4); Lymphocytes % 14.8 %; Mean Corpuscular HGB Conc 31.5 g/dL (31.6-35.5); Mean Corpuscular Hemoglobin 30.8 pg (28.0-33.3); Mean Platelet Volume 10.7 fL (9.4-12.4); Monocytes % 7.6 %; Neutrophils # 9.5 K/mcL (1.6-8.9); Nucleated Red Blood Cells 0.7 /100 WBC (0); Platelet Count 298 K/mcL (140-400); Red Blood Count 4.02 M/mcL (4.19-5.50); Red Cell Distribution Width 15.9 % (11.5-14.5); Segmented Neutrophils % 72.2 %
[2016-07-29 06:00] LABS: BUN/Creatinine Ratio 19 (6-26); Blood Urea Nitrogen 21 mg/dL (8-26); Calcium 8.8 mg/dL (8.6-10.8); Carbon Dioxide 34 mEq/L (19-29); Chloride 98 mEq/L (98-109); Glucose 151 mg/dL (70-99); Magnesium 1.8 mg/dL (1.6-2.6); Osmolality,Calculated 302 (280-300); Potassium 3.5 mEq/L (3.5-4.5); Sodium 143 mEq/L (136-145); eGFR For African Americans > 60 (> 60); eGFR For Non-African Americans > 60 (> 60)
[2016-07-29] MEDS: Famotidine 20 MG TABLET PO SCH ×2 (07:39→21:12)
[2016-07-29] MEDS: Metoprolol XL (24 HR) Succ 50 MG TAB.ER.24H PO SCH (07:39)
[2016-07-29] MEDS: Nystatin SUSP 5 ML UD.LIQ PO SCH ×4 (07:40→21:12)
[2016-07-29] MEDS: Aspirin 81 MG TAB.CHEW PO SCH (07:40)
[2016-07-29] MEDS: Insulin LISPRO 300 UNITS/3 ML VIAL SQ SCH ×4 (07:55→21:03)
--- NOTE | 2016-07-29 13:05 | Venous Imaging Report ---
LE Venous Duplex Patient Name:Ras Langford Order Number:[id number] Procedure Date:07/28/2016 Date:1935ge:80 yrs Gender:Male Location:[facility] Room #: 2NE25 Back Up Machine Operator:Kya Gaines Referring MD:Concha Gentile MD laborer construction or leak gang:Kings Kaiser MD Reading MD:Álvaro Pérez MD Primary Indications:BLEV swelling Secondary Indications: Risk Factors Yes/No Anticoagulants Impressions: Normal bilateral lower extremity deep and superficial venous exam. Reflux noted below There is reflux lasting 1002.7 milliseconds in the right posterior tibial. Findings Venous Duplex Results: Right: There is reflux lasting 1002.7 milliseconds in the right posterior tibial. Lower Extremity Venous Duplex Side Vein Compress Spontaneous Flow Augment Diameter (cm) Depth (cm) Right Distal Iliac Normal Yes Phasic Yes Right Common Femoral Normal Yes Phasic Yes Right Superficial Femoral Normal Yes Phasic Yes Right Popliteal Normal Yes Phasic Yes Right Posterior Tibial Normal Yes Phasic Yes 0.65 0.66 Right Peroneal Normal Yes Phasic Yes Right Saphenofemoral [place] Normal Yes Phasic Yes Right Great Saphenous Normal Yes Phasic Yes Right Lesser Saphenous Normal Yes Phasic Yes Left Distal Iliac Normal Yes Phasic Yes Left Common Femoral Normal Yes Phasic Yes Left Superficial Femoral Normal Yes Phasic Yes Left Popliteal Normal Yes Phasic Yes Left Posterior Tibial Normal Yes Phasic Yes Left Peroneal Normal Yes Phasic Yes Left Saphenofemoral [place] Normal Yes Phasic Yes Left Great Saphenous Normal Yes Phasic Yes Left Lesser Saphenous Normal Yes Phasic Yes Updated by Álvaro Pérez MD on 07/29/2016 1:00:15 PM electronically signed on 07/29/2016 1:00:46 PM with status of Final
--- NOTE | 2016-07-29 13:05 | Venous Imaging Report ---
UE Venous Duplex Patient Name:Ras Langford Order Number:[id number] Procedure Date:07/28/2016 Date:1935ge:80 yrs Gender:Male Location:[facility] Room #: 2NE25 Circuit Manager:Kya Gaines Referring MD:Concha Gentile MD pipeline dispatcher:Kings Kaiser MD Reading MD:Álvaro Pérez MD Primary Indications:Left Upper extremity swelling Secondary Indications: Risk Factors Yes/No Anticoagulants Impressions: Normal left lower extremity deep and superficial venous exam. Normal contralateral common femoral vein. Recommendations: After imaging the patient returned to their room. Findings Prior Study: No prior study available for comparison. Upper Extremity Venous Duplex Side Vein Compress Spontaneous Flow Augment Left Jugular Normal Yes Phasic Yes Left Subclavian Normal Yes Phasic Yes Left Axillary Normal Yes Phasic Yes Left Brachial Normal Yes Phasic Yes Left Cephalic Normal Yes Phasic Yes Left Basilic Normal Yes Phasic Yes Left Radial Normal Yes Phasic Yes Left Ulnar Normal Yes Phasic Yes Right Subclavian Normal Yes Phasic Yes Updated by Álvaro Pérez MD on 07/29/2016 1:01:13 PM electronically signed on 07/29/2016 1:01:45 PM with status of Final
[2016-07-29] MEDS: *HR* Enoxaparin 80 MG/0.8 ML SYRINGE SQ SCH (16:30)
--- NOTE | 2016-07-29 16:37 | Internal Med Progress Note ---
Date of Encounter: 07/29/16 Time of Encounter: 13:45 - Assessment and plan (1) Leukocytosis Current Visit: Yes Status: Acute Assessment and plan: unclear etiology. could be secondary to parapneumonic effusion. negative Ucx, CXR shows decrease in size of bilateral pleural effusions but still moderate amount and improvement of airspace disease. negative LUE and bilateral LE venous doppler. IR left-sided thoracentesis done with removal of 1.1 liter of hemorrhagic fluid. diagnostic tests in pleural fluid ordered. Qualifiers: Leukocytosis type: other Qualified Code(s): D72.828 - Other elevated white blood cell count (2) Acute hypoxemic respiratory failure Current Visit: Yes Status: Acute Assessment and plan: Secondary to acute systolic heart failure LVEF 25-30%, and bilateral large pleural effusions. Chest x-ray showed pulmonary vascular congestion with airspace edema and large bilateral pleural effusions. Sputum culture negative. Blood cultures no growth to date. Improved. Appreciate pulmonology and cardiology input. Received ICU care, and BiPAP for 2 days on arrival. He improved after aggressive diuresis with Lasix drip. tolerating oral lasix well, fluid restriction and O2 supplementation. (3) Acute on chronic systolic (congestive) heart failure Current Visit: Yes Status: Acute Assessment and plan: Plan as above. (4) Pleural effusion Current Visit: Yes Status: Acute Assessment and plan: Bilateral large pleural effusion. Plan as above. (5) Acute kidney injury superimposed on CKD Current Visit: Yes Status: Acute Assessment and plan: resolved. cardiorenal secondary to acute heart failure. CKD3. (6) Coronary artery disease Current Visit: No Status: Chronic Assessment and plan: Recent STEMI on 07/06 with Vfib cardiac arrest and CPR. EKG showed no acute ischemic changes. continue amiodarone, plavix, aspirin, lipitor 80, metoprolol xl 25. may consider stopping aspirin in August 2016, will follow in the cardiology clinic. Qualifiers: Coronary Disease-Associated Artery/Lesion type: [place] artery [place] vs. transplanted heart: [place] heart Associated angina: with unstable angina Qualified Code(s): I25.110 - Atherosclerotic heart disease of [place] coronary artery with unstable angina pectoris (7) Diabetes mellitus, type 2 Current Visit: No Status: Chronic Assessment and plan: Adequate Accu-Cheks. Continue insulin sliding scale and diabetic diet. Qualifiers: Diabetes mellitus complication status: with hyperglycemia Diabetes mellitus local company intermodal truck driver insulin use: without jail use Qualified Code(s): E11.65 - Type 2 diabetes mellitus with hyperglycemia (8) Essential hypertension Current Visit: No Status: Chronic Assessment and plan: Well-controlled. (9) Afib Current Visit: No Status: Chronic Assessment and plan: heart rate is adequate. Resume home dose amiodarone. 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 Patient on Coumadin. INR is 1.5 today. Will restart Lovenox for bridging along with Coumadin until INR 2-3. - Subjective Interval history: Patient reports minimal hemoptysis this morning. - Constitutional Vitals: Temp Pulse Resp BP Pulse Ox 97.8 F 70 18 116/80 95 07/29/16 16:31 07/29/16 16:31 07/29/16 16:31 07/29/16 16:31 07/29/16 16:31 General appearance: Present: cooperative, A&O X 3, pleasant, no acute distress, answers questions appropriately - Neck Neck exam general surgery: Present: supple, trachea midline. Absent: lymphadenopathy - Respiratory Respiratory exam: Present: CTAB - Cardiovascular Cardiovascular exam: Present: RRR - GI/Abdominal GI/Abdominal exam: Present: normal bowel sounds, soft. Absent: distended, tenderness - Extremities Exam Extremities exam: Present: pedal edema - Back Exam Back exam: Absent: CVA tenderness (L), CVA tenderness (R) - Neurological Exam Neurological exam: Present: alert, oriented X3, no focal deficits, strengths equal and symetr throughout. Absent: facial droop, speech deficit Internal Medicine: Result - Labs CBC & Chem 7: 07/29/16 04:10 07/29/16 04:10 Labs: Short CBC 07/29/16 Range/Units 04:10 WBC 13.2 H (4.3-11.1) K/mcL Hgb 12.4 L (12.9-16.9) g/dL Hct 39.4 (37.5-50.1) % Plt Count 298 (140-400) K/mcL Neutrophils # 9.5 H (1.6-8.9) K/mcL BMP 07/29/16 04:10 Sodium 143 Potassium 3.5 Chloride 98 Carbon Dioxide 34 H BUN 21 Creatinine 1.09 Glucose 151 H Calcium 8.8 - ABG Interpretation ABG results: PT/INR, D-dimer PT 16.6 Seconds (9.4-12.1) H 07/29/16 04:10 D-Dimer 888 ng/mLFEU (0-500) H 07/24/16 15:53 - Impressions Impressions Chest X-Ray 07/28/16 08:09 IMPRESSION: Decreasing bibasilar pleuroparenchymal disease as compared to prior exam dated 07/24/2016. Left greater than right pleural effusions and bibasilar airspace disease persists. D/ / Luis Carlos Katz MD / Luis Carlos Katz MD Interpreting Provider: Luis Carlos Katz MD Thoracentesis Ultrasound 07/29/16 00:00 IMPRESSION: Successful ultrasound guided right thoracentesis. D/ / Devin Cassidy MD / Devin Cassidy MD Interpreting Provider: Devin Cassidy MD Thoracentesis Ultrasound 07/29/16 08:15 IMPRESSION: Successful ultrasound guided left thoracentesis. D/ / Devin Cassidy MD / Devin Cassidy MD Interpreting Provider: Devin Cassidy MD Chest X-Ray 07/29/16 10:23 IMPRESSION: Negative for pneumothorax status post bilateral thoracentesis D/ / Devin Cassidy MD / Devin Cassidy MD Interpreting Provider: Devin Cassidy MD Consult Discharge Plan - Plan Referrals: Kings Kaiser MD [Primary Care Provider] - Carolina Ann INSIDE SALES EXECUTIVE [Advanced Practice Nurse] - 08/04/16 9:00 am Ade Garcia CNP [Advanced Practice Nurse] - 08/03/16 1:00 pm
[2016-07-29] MEDS ORDERED: Warfarin perPT PO PRN (18:00)
[2016-07-29] MEDS ORDERED: *HR* Warfarin 5 MG TABLET PO ONE (18:00)
[2016-07-30] MEDS: hydrALAZINE 25 MG TABLET PO SCH ×3 (00:39→17:54)
[2016-07-30 05:01] LABS: Basophils % 0.3 %; Eosinophils # 0.5 K/mcL (0.0-0.6); Eosinophils % 3.9 %; Hematocrit 38.7 % (37.5-50.1); Hemoglobin 12.2 g/dL (12.9-16.9); Immature Granulocytes % 0.4 % (0-4); Lymphocytes # 1.4 K/mcL (0.6-4.6); Lymphocytes % 11.7 %; Mean Corpuscular HGB Conc 31.5 g/dL (31.6-35.5); Mean Corpuscular Hemoglobin 30.7 pg (28.0-33.3); Mean Corpuscular Volume 97.2 fL (83.0-100.0); Mean Platelet Volume 10.3 fL (9.4-12.4); Monocytes # 0.8 K/mcL (0.0-1.3); Monocytes % 6.7 %; Nucleated Red Blood Cells 0.7 /100 WBC (0); Platelet Count 290 K/mcL (140-400); Red Blood Count 3.98 M/mcL (4.19-5.50); Red Cell Distribution Width 15.9 % (11.5-14.5)
[2016-07-30 05:17] LABS: INR 1.8; Prothrombin Time 19.6 Seconds (9.4-12.1)
[2016-07-30 05:21] LABS: BUN/Creatinine Ratio 20 (6-26); Blood Urea Nitrogen 21 mg/dL (8-26); Calcium 8.5 mg/dL (8.6-10.8); Carbon Dioxide 30 mEq/L (19-29); Chloride 102 mEq/L (98-109); Glucose 152 mg/dL (70-99); Magnesium 1.6 mg/dL (1.6-2.6); Osmolality,Calculated 304 (280-300); Phosphorous 3.1 mg/dL (2.3-4.7); Potassium 3.3 mEq/L (3.5-4.5); Sodium 144 mEq/L (136-145); eGFR For African Americans > 60 (> 60); eGFR For Non-African Americans > 60 (> 60)
[2016-07-30] MEDS: Doxycycline 100 MG in 0.9 % Sodium Chloride Mini Bag 100 ML IVPB SCH ×2 (06:03→17:53)
[2016-07-30] MEDS: *HR* Enoxaparin 80 MG/0.8 ML SYRINGE SQ SCH ×2 (06:09→17:54)
[2016-07-30] MEDS: Nystatin SUSP 5 ML UD.LIQ PO SCH ×4 (09:27→20:55)
[2016-07-30] MEDS: Aspirin 81 MG TAB.CHEW PO SCH (09:28)
[2016-07-30] MEDS: Famotidine 20 MG TABLET PO SCH ×2 (09:28→20:53)
[2016-07-30] MEDS: *HR* Amiodarone 200 MG TABLET PO SCH (09:29)
[2016-07-30] MEDS: Metoprolol XL (24 HR) Succ 50 MG TAB.ER.24H PO SCH (09:29)
[2016-07-30] MEDS: Insulin LISPRO 300 UNITS/3 ML VIAL SQ SCH ×4 (09:37→20:52)
[2016-07-30] MEDS ORDERED: *HR* Warfarin 2.5 MG TABLET PO ONE (18:00)
--- NOTE | 2016-07-30 18:29 | Internal Med Progress Note ---
Date of Encounter: 07/30/16 Time of Encounter: 11:45 - Assessment and plan (1) Leukocytosis Current Visit: Yes Status: Acute Assessment and plan: unclear etiology. could be secondary to parapneumonic effusion. negative Ucx, CXR shows decrease in size of bilateral pleural effusions but still moderate amount and improvement of airspace disease. negative LUE and bilateral LE venous doppler. 07/29: IR left-sided thoracentesis done with removal of 1.1 liter of hemorrhagic fluid. IR right sided thoracentesis with removal of 1L of straw-colored fluid. Exudative effusion per Light's criteria. 07/30: leukocytosis has trended down. awaiting final results of pleural culture. afebrile. continue IV doxycycline. close monitor. Qualifiers: Leukocytosis type: other Qualified Code(s): D72.828 - Other elevated white blood cell count (2) Acute hypoxemic respiratory failure Current Visit: Yes Status: Acute Assessment and plan: Secondary to acute systolic heart failure LVEF 25-30%, and bilateral large pleural effusions. Chest x-ray showed pulmonary vascular congestion with airspace edema and large bilateral pleural effusions. Sputum culture negative. Blood cultures no growth to date. 07/29: IR left-sided thoracentesis done with removal of 1.1 liter of hemorrhagic fluid. IR right sided thoracentesis with removal of 1L of straw-colored fluid. Exudative effusion per Light's criteria. Improved. Appreciate pulmonology and cardiology input. Received ICU care, and BiPAP for 2 days on arrival. He improved after aggressive diuresis with Lasix drip. tolerating oral lasix well, fluid restriction and O2 supplementation at 2L NC. (3) Acute on chronic systolic (congestive) heart failure Current Visit: Yes Status: Acute Assessment and plan: Plan as above. (4) Pleural effusion Current Visit: Yes Status: Acute Assessment and plan: Bilateral large pleural effusion. s/p bilateral thoracentesis 07/29. Plan as above. (5) Acute kidney injury superimposed on CKD Current Visit: Yes Status: Acute Assessment and plan: resolved. cardiorenal secondary to acute heart failure. CKD3. (6) Coronary artery disease Current Visit: No Status: Chronic Assessment and plan: Recent STEMI on 07/06 with Vfib cardiac arrest and CPR. EKG showed no acute ischemic changes. continue amiodarone, plavix, aspirin, lipitor 80, metoprolol xl 25. may consider stopping aspirin in August 2016, will follow in the cardiology clinic. Qualifiers: Coronary Disease-Associated Artery/Lesion type: [place] artery [place] vs. transplanted heart: [place] heart Associated angina: with unstable angina Qualified Code(s): I25.110 - Atherosclerotic heart disease of [place] coronary artery with unstable angina pectoris (7) Diabetes mellitus, type 2 Current Visit: No Status: Chronic Assessment and plan: Adequate Accu-Cheks. Continue insulin sliding scale and diabetic diet. Qualifiers: Diabetes mellitus complication status: with hyperglycemia Diabetes mellitus rn long term care insulin use: without rn long term care use Qualified Code(s): E11.65 - Type 2 diabetes mellitus with hyperglycemia (8) Essential hypertension Current Visit: No Status: Chronic Assessment and plan: Well-controlled. (9) Afib Current Visit: No Status: Chronic Assessment and plan: heart rate is adequate. Resume home dose amiodarone. 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 Patient on Coumadin. INR is 1.8 today. Will restart Lovenox for bridging along with Coumadin until INR 2-3. Pharmacy to bridge coumadin. - Subjective Interval history: Patient had one episode of hemoptysis this morning. - Constitutional Vitals: Temp Pulse Resp BP Pulse Ox 98.2 F 75 15 111/76 97 07/30/16 15:41 07/30/16 15:41 07/30/16 15:41 07/30/16 15:41 07/30/16 15:41 General appearance: Present: cooperative, A&O X 3, pleasant, no acute distress, answers questions appropriately - Neck Neck exam general surgery: Present: supple, trachea midline. Absent: lymphadenopathy - Respiratory Respiratory exam: Present: rhonchi Additional comments: improved air entry in lower bases. - Cardiovascular Cardiovascular exam: Present: RRR - GI/Abdominal GI/Abdominal exam: Present: normal bowel sounds, soft. Absent: distended, tenderness - Extremities Exam Extremities exam: Present: pedal edema - Neurological Exam Neurological exam: Present: alert, oriented X3, no focal deficits, strengths equal and symetr throughout. Absent: facial droop, speech deficit Internal Medicine: Result - Labs CBC & Chem 7: 07/30/16 04:39 07/30/16 04:39 Labs: Short CBC 07/30/16 Range/Units 04:39 WBC 11.7 H (4.3-11.1) K/mcL Hgb 12.2 L (12.9-16.9) g/dL Hct 38.7 (37.5-50.1) % Plt Count 290 (140-400) K/mcL Neutrophils # 9.0 H (1.6-8.9) K/mcL BMP 07/30/16 04:39 Sodium 144 Potassium 3.3 L Chloride 102 Carbon Dioxide 30 H BUN 21 Creatinine 1.04 Glucose 152 H Calcium 8.5 L - ABG Interpretation ABG results: PT/INR, D-dimer PT 19.6 Seconds (9.4-12.1) H 07/30/16 04:39 D-Dimer 888 ng/mLFEU (0-500) H 07/24/16 15:53 Consult Discharge Plan - Plan Referrals: Kings Kaiser MD [Primary Care Provider] - Carolina Ann CNP [Advanced Practice Nurse] - 08/04/16 9:00 am Ade Garcia CNP [Advanced Practice Nurse] - 08/03/16 1:00 pm
[2016-07-30] MEDS: Acetaminophen 325 MG TABLET PO PRN (22:51)
[2016-07-31] MEDS: hydrALAZINE 25 MG TABLET PO SCH ×2 (00:06→07:55)
[2016-07-31 05:35] LABS: Basophils # 0.1 K/mcL (0.0-0.2); Basophils % 0.4 %; Eosinophils # 0.7 K/mcL (0.0-0.6); Eosinophils % 5.8 %; Hematocrit 38.3 % (37.5-50.1); Hemoglobin 12.1 g/dL (12.9-16.9); Immature Granulocytes % 0.6 % (0-4); Lymphocytes # 2.2 K/mcL (0.6-4.6); Lymphocytes % 19.6 %; Mean Corpuscular HGB Conc 31.6 g/dL (31.6-35.5); Mean Corpuscular Hemoglobin 30.9 pg (28.0-33.3); Mean Platelet Volume 10.3 fL (9.4-12.4); Monocytes % 8.7 %; Neutrophils # 7.4 K/mcL (1.6-8.9); Nucleated Red Blood Cells 0.4 /100 WBC (0); Platelet Count 274 K/mcL (140-400); Red Blood Count 3.91 M/mcL (4.19-5.50); Red Cell Distribution Width 16.2 % (11.5-14.5); Segmented Neutrophils % 64.9 %
[2016-07-31 05:38] LABS: INR 2.4; Prothrombin Time 26.3 Seconds (9.4-12.1)
[2016-07-31 05:50] LABS: Alanine Aminotransferase 23 Units/L (0-55); Albumin/Globulin Ratio 0.8 (1.1-2.2); Alkaline Phosphatase 118 Units/L (38-126); Aspartate Amino Transferase 20 Units/L (5-34); BUN/Creatinine Ratio 20 (6-26); Bilirubin,Direct 0.4 mg/dL (0.0-0.5); Bilirubin,Indirect 0.3 mg/dL (0.0-1.2); Bilirubin,Total 0.7 mg/dL (0.2-1.2); Blood Urea Nitrogen 23 mg/dL (8-26); Calcium 8.7 mg/dL (8.6-10.8); Carbon Dioxide 30 mEq/L (19-29); Chloride 104 mEq/L (98-109); Globulin 3.3 g/dL (2.4-3.5); Glucose 140 mg/dL (70-99); Magnesium 1.7 mg/dL (1.6-2.6); Osmolality,Calculated 302 (280-300); Phosphorous 3.2 mg/dL (2.3-4.7); Potassium 3.5 mEq/L (3.5-4.5); Sodium 143 mEq/L (136-145); eGFR For African Americans > 60 (> 60); eGFR For Non-African Americans > 60 (> 60)
[2016-07-31 05:51] LABS: Albumin 2.7 g/dL (3.5-5.0)
[2016-07-31] MEDS: Doxycycline 100 MG in 0.9 % Sodium Chloride Mini Bag 100 ML IVPB SCH (06:08)
[2016-07-31] MEDS: *HR* Enoxaparin 80 MG/0.8 ML SYRINGE SQ SCH (06:10)
[2016-07-31] MEDS: Insulin LISPRO 300 UNITS/3 ML VIAL SQ SCH (07:50)
[2016-07-31 07:53] VITALS: BP 116/79
[2016-07-31] MEDS: Famotidine 20 MG TABLET PO SCH (07:55)
[2016-07-31] MEDS: Nystatin SUSP 5 ML UD.LIQ PO SCH (07:55)
[2016-07-31] MEDS: Aspirin 81 MG TAB.CHEW PO SCH (07:56)
[2016-07-31] MEDS: Metoprolol XL (24 HR) Succ 50 MG TAB.ER.24H PO SCH (07:56)
[2016-07-31] MEDS: *HR* Amiodarone 200 MG TABLET PO SCH (08:06)
--- NOTE | 2016-07-31 09:57 | Discharge Summary ---
Date of Encounter: 07/31/16 Time of Encounter: 09:45 - Discharge Diagnosis (1) Leukocytosis Priority: Primary Status: Acute Qualifiers: Leukocytosis type: other Qualified Code(s): D72.828 - Other elevated white blood cell count (2) Acute hypoxemic respiratory failure Priority: Primary Status: Acute (3) Acute on chronic systolic (congestive) heart failure Priority: Primary Status: Acute (4) Pleural effusion Priority: Primary Status: Acute (5) Acute kidney injury superimposed on CKD Priority: Primary Status: Acute (6) Coronary artery disease Priority: Secondary Status: Chronic Qualifiers: Coronary Disease-Associated Artery/Lesion type: [place] artery [place] vs. transplanted heart: [place] heart Associated angina: with unstable angina Qualified Code(s): I25.110 - Atherosclerotic heart disease of [place] coronary artery with unstable angina pectoris (7) Diabetes mellitus, type 2 Priority: Secondary Status: Chronic Qualifiers: Diabetes mellitus complication status: with hyperglycemia Diabetes mellitus group home insulin use: without group home use Qualified Code(s): E11.65 - Type 2 diabetes mellitus with hyperglycemia (8) Essential hypertension Priority: Secondary Status: Chronic (9) Afib Priority: Secondary Status: Chronic Qualifiers: Atrial fibrillation type: chronic Qualified Code(s): I48.2 - Chronic atrial fibrillation (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 Priority: Secondary Status: Chronic - Discharge Medications Prescriptions: Famotidine [Pepcid] 10 mg PO BID #30 tablet Furosemide [Lasix] 60 mg PO BID #120 tablet Potassium Chloride 20 meq PO DAILY #30 tab.er.prt Home Medications: Allopurinol [Zyloprim 100 MG] 100 mg PO BID 07/06/16 [History] Clopidogrel [Plavix] 75 mg PO DAILY 07/06/16 [History] Loperamide HCl [Imodium A-D] 2 mg PO BID PRN 07/06/16 [History] Amiodarone [Cordarone] 200 mg PO DAILY #30 tablet 07/10/16 [Rx] Aspirin 81 mg PO DAILY #30 tab.chew 07/10/16 [Rx] Atorvastatin [Lipitor] 80 mg PO HS #30 tablet 07/10/16 [Rx] Metformin HCl [Fortamet] 500 mg PO DAILY #30 tab.er.24 07/10/16 [Rx] Nitroglycerin 0.4 mg SL Q5MIN PRN #15 tab.subl 07/10/16 [Rx] Metoprolol XL (24 HR) Succ [Toprol Xl] 50 mg PO DAILY #30 tab.er.24h 07/23/16 [ Rx] hydrALAZINE [HydrALAZINE] 50 mg PO Q8HR #90 tablet 07/23/16 [Rx] Warfarin [Coumadin] 1 mg PO QPM 07/24/16 [History] Famotidine [Pepcid] 10 mg PO BID #30 tablet 07/31/16 [Rx] Furosemide [Lasix] 60 mg PO BID #120 tablet 07/31/16 [Rx] Potassium Chloride 20 meq PO DAILY #30 tab.er.prt 07/31/16 [Rx] Allergies/Adverse Reactions: Allergies aspirin Adverse Reaction (Verified 07/12/16 16:02) See Comments urinate blood Procedures/tests Complete & Pending: Procedures Performed prior 72 hours Category Date Time Status IR thoracentesis ultrasound [IR] Routine IR 07/29/16 Completed IR thoracentesis ultrasound [IR] Routine IR 07/29/16 08:15 Completed Venous Doppler [EV venous imaging UE LT] Stat Y 07/28/16 09:02 Completed Date of admission: 07/24/16 16:58 Primary care physician: Kings Kaiser MD Consults: 07/24/16 20:53 Consult to Pulmonology [CONS] Routine Consulting Provider: [facility] [place] Reason for Consult: ICU management Call Completed: No 07/24/16 21:02 Consult to Cardiology [CONS] Routine Comment: Consulting Provider: Cardiology [place] Reason for Consult: CHF; S/p recent STEMI Call Completed: Yes 07/25/16 13:30 Consult to Obstetrician [CONS] Routine Reason for SW Consult: Legal and financial concerns - Patient Status Disposition: Home Health Service Condition: Good Functional capacity at discharge: uses cane/walker Overall status at discharge: patient is progressing back to baseline - Discharge Instructions Follow Up With: Kings Kaiser MD [Primary Care Provider] - Carolina Ann CNP [Advanced Practice Nurse] - 08/04/16 9:00 am Ade Garcia CNP [Advanced Practice Nurse] - 08/03/16 1:00 pm Additional Instructions: please follow a strict low salt, diabetic diet and drink no more than 1.8 liter of fluids a day. weight yourself every day, if you gain more than 1 pound in a day pls call your nurse. please follow up in the coumadin clinic as scheduled. - Diet and Activity Activity: wear oxygen at all times (2 L NC ) Diet: diabetic diet, low fat, low cholesterol, low salt diet, other (fluid restriction no more than 1.8 liters a day) Interval History: patient had an episode of left-sided epistaxis that resolved spontaneously. likely from dry oxygen, it has improved after they brought a humidifier for his oxygen. he has no other complains. he is eager to go home. Hospital course: Mr. Langford is a 80 year old male with past medical history of diabetes, and hypertension who was hospitalized at this hospital on 07/06 to 07/10 and treated for anterolateral STEMI with cardiogenic shock requiring defibrillation and CPR. Two days later, he was re-admitted for shortness of breath and productive cough. He was found to have PNA and systolic heart failure exacerbation (LVEF 25 %). He was also diagnosed of LV apical thrombus and started on coumadin. He went home and returned the next day due to worsening shortness of breath. He was treated for acute systolic heart failure requiring ICU care and Lasix drip with clinical improvement. Due to history of pneumonia and persistent leukocytosis and moderate bilateral effusions, he underwent bilateral thoracentesis (07/29: IR left-sided thoracentesis done with removal of 1.1 liter of hemorrhagic fluid. IR right sided thoracentesis with removal of 1L of straw- colored fluid. Exudative effusion per Light's criteria). Blood cultures were negative. Pleural fluid culture was negative. His WBC trended down to 11 at discharge. His INR went down to 1.5 and he required Lovenox for bridging. PLAN: Patient was encouraged to follow a low-salt, and fluid restriction diet. Per , he does not follow those instructions when he goes back home. Repeat CBC in 1 week. Follow-up with in the cardiology clinic. Follow up in the Coumadin clinic. He will need a CXR in 4 weeks to address resolution of findings. - Time Spent with Patient Total time spent providing and/or coordinating discharge services: - Constitutional Vitals: Temp Pulse Resp BP Pulse Ox 97.6 F 72 16 116/79 99 07/31/16 07:51 07/31/16 07:51 07/31/16 07:51 07/31/16 07:51 07/31/16 08:09 General appearance: Present: cooperative, A&O X 3, pleasant, no acute distress, answers questions appropriately - Respiratory Respiratory exam: Present: rhonchi Additional comments: better air entry bibasal, some rhonchi at left base. - Cardiovascular Cardiovascular exam: Present: RRR - GI/Abdominal GI/Abdominal exam: Present: normal bowel sounds, soft. Absent: distended, tenderness - Extremities Exam Extremities exam: Absent: pedal edema - Back Exam Back exam: Absent: CVA tenderness (L), CVA tenderness (R) - Neurological Exam Neurological exam: Present: alert, oriented X3, no focal deficits, strengths equal and symetr throughout. Absent: facial droop, speech deficit
--- NOTE | 2016-07-31 11:56 | Physician Discharge Referral ---
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 For more information, call the [place] Tobacco Quit Line at 7-154-GWSH-NOW. - Diet/Nutrition Diet/Nutrition Orders: No Added Salt (CINDY) (fluid restriction 1.8 liter a day), Cardiac, No Concentrated Sweets - Activity Activity Orders: Walker - Services Needed Following services are medically necessary services: Physical Therapy, Occupational Therapy - Transfer Medications Prescriptions: Famotidine [Pepcid] 10 mg PO BID #30 tablet Furosemide [Lasix] 60 mg PO BID #120 tablet Potassium Chloride 20 meq PO DAILY #30 tab.er.prt Home Medications: Allopurinol [Zyloprim 100 MG] 100 mg PO BID 07/06/16 [History] Clopidogrel [Plavix] 75 mg PO DAILY 07/06/16 [History] Loperamide HCl [Imodium A-D] 2 mg PO BID PRN 07/06/16 [History] Amiodarone [Cordarone] 200 mg PO DAILY #30 tablet 07/10/16 [Rx] Aspirin 81 mg PO DAILY #30 tab.chew 07/10/16 [Rx] Atorvastatin [Lipitor] 80 mg PO HS #30 tablet 07/10/16 [Rx] Metformin HCl [Fortamet] 500 mg PO DAILY #30 tab.er.24 07/10/16 [Rx] Nitroglycerin 0.4 mg SL Q5MIN PRN #15 tab.subl 07/10/16 [Rx] Metoprolol XL (24 HR) Succ [Toprol Xl] 50 mg PO DAILY #30 tab.er.24h 07/23/16 [ Rx] hydrALAZINE [HydrALAZINE] 50 mg PO Q8HR #90 tablet 07/23/16 [Rx] Warfarin [Coumadin] 1 mg PO QPM 07/24/16 [History] Famotidine [Pepcid] 10 mg PO BID #30 tablet 07/31/16 [Rx] Furosemide [Lasix] 60 mg PO BID #120 tablet 07/31/16 [Rx] Potassium Chloride 20 meq PO DAILY #30 tab.er.prt 07/31/16 [Rx] Allergies/Adverse Reactions: Allergies aspirin Adverse Reaction (Verified 07/12/16 16:02) See Comments urinate blood Certification: Further, I certify that my clinical findings support that this patient is homebound (i.e. absences from home require considerable and taxing effort and are for medical reasons or adventist services or infrequently or short duration when for other reasons) because: Homebound Reason: Patient requires assistance of a person or device to safely leave home, Leaving home requires considerable and taxing effort due to condition, Severity of cardiac or pulmonary status limits activity tolerance Attestation: My signature below is to certify that this patient is under my care and that I, or nurse practitioner, or a physician's litigation assistant working with me, has a face-to -face encounter with this patient.
[2016-07-31] MEDS ORDERED: *HR* Warfarin 2 MG TABLET PO ONE (18:00)
== END 2016-07-31 16:25 | disposition home health service (06) | DRG 280 ==
LOC: EMEROO 15:03 → SUATTDRO 16:58 → ICNU 16:58 → 2NNU 07-25 13:06 → 2NENU 07-28 15:14
PROVIDERS: ADMIT Internal Medicine; ATTEND Internal Medicine

== ENCOUNTER 2016-10-18 09:09 | Observation (INO) ==
[2016-10-18 10:16] LABS: Basophils % 0.3 %; Eosinophils # 0.1 K/mcL (0.0-0.6); Eosinophils % 0.5 %; Hematocrit 38.9 % (37.5-50.1); Immature Granulocytes % 0.8 % (0-4); Lymphocytes % 9.4 %; Mean Corpuscular HGB Conc 30.8 g/dL (31.6-35.5); Mean Corpuscular Hemoglobin 29.1 pg (28.0-33.3); Mean Corpuscular Volume 94.2 fL (83.0-100.0); Monocytes # 0.5 K/mcL (0.0-1.3); Monocytes % 5.1 %; Nucleated Red Blood Cells 0.4 /100 WBC (0); Platelet Count 372 K/mcL (140-400); Red Blood Count 4.13 M/mcL (4.19-5.50); Red Cell Distribution Width 18.4 % (11.5-14.5); Segmented Neutrophils % 83.9 %
[2016-10-18 10:22] LABS: INR 8.5; Prothrombin Time 98.3 Seconds (9.4-12.1)
[2016-10-18 10:26] LABS: Calcium 9.2 mg/dL (8.6-10.8); Potassium 3.8 mEq/L (3.5-4.5)
[2016-10-18] MEDS ORDERED: *HR* Phytonadione 5 MG TABLET PO ONE (10:55)
--- NOTE | 2016-10-18 10:56 | Emergency Department Note ---
START Narrative - START START: I examined this patient and my medical decision-making was reviewed with the Resident Physician. I agree with the documented findings, disposition and treatment plan as described except to the extent set forth below. Very pleasant [place] with shortness of breath and orthopnea. Present from the Coumadin clinic to an INR that was elevated, current INR is 8.5. However, in addition to the elevated INR, he complains of some weakness, hemorrhoidal bleeding that is more brisk than usual, and the respiratory difficulty. No chest pain or ischemic symptoms. EKG is stable per my interpretation, anteroseptal Q waves. Chest x-ray reveals a large pleural effusion on the left, he has decreased breath sounds and dullness to percussion in this area on exam. Treating his elevated INR with vitamin K. Vital signs are stable, not a life-threatening hemorrhage. I did review his previous chest x-rays, he has a history of pleural effusion and has been drinking in the past, but the last time he had a pleural effusion that appear to be secondary to heart failure, as chest x-ray also showed vascular congestion. I do not appreciate any changes consistent with vascular congestion today. Thoracentesis for diagnostic and therapeutic purposes is indicated but is not emergent, can wait until the INR comes down. Arranging for admission to the hospital.
--- NOTE | 2016-10-18 11:01 | Emergency Department Note ---
Disposition Clinical Impression: Pleural effusion, Elevated INR, Difficulty breathing Disposition: Admitted As Inpatient Condition: Fair Time of Disposition: 11:34 General Adult HPI - General Chief complaint: ED Shortness of Breath/Dyspnea Stated complaint: INR 8, ANETA, Weak Time Seen by Provider: 10/18/16 09:23 Source: patient, family Limitations: no limitations Nursing Notes Reviewed: Yes Vital Signs Reviewed: Yes - History of Present Illness HPI Narrative: Patient is a 81-year-old male with past medical history of CHF, coronary artery bypass grafts 5, A. fib presenting from the Coumadin clinic with a supratherapeutic INR of 8. Upon further questioning the patient states he has also had gradual onset progressive shortening of breath that has been going on for the past 2 weeks. He states the shortness of breath is worse when he lays flat. He denies any cardiac symptoms such as chest pain, nausea, vomiting, lower extremity swelling OR diaphoresis. Pain Scale: 7 - Related Data Home Medications Medication Instructions Recorded Confirmed Allopurinol [Zyloprim 100 MG] 100 mg PO BID 07/06/16 09/22/16 Clopidogrel [Plavix] 75 mg PO DAILY 07/06/16 09/22/16 Warfarin [Coumadin] 1 mg PO MOWETH 07/24/16 09/22/16 Warfarin [Coumadin] 2 mg PO SUTUFRSA 09/07/16 09/22/16 Famotidine [Pepcid] 20 mg PO BID 09/22/16 09/22/16 Furosemide [Lasix] 60 mg PO BID PRN 09/22/16 09/22/16 Losartan Potassium [Cozaar] 50 mg PO DAILY 09/22/16 09/22/16 Metformin HCl [Metformin HCl ER] 500 mg PO DAILY 09/22/16 09/22/16 Omeprazole [PriLOSEC] 40 mg PO DAILY 09/22/16 09/22/16 Pravastatin Sodium [Pravachol] 80 mg PO DAILY 09/22/16 09/22/16 hydrALAZINE [HydrALAZINE] 25 mg PO BID 09/22/16 09/22/16 Previous Rx's Medication Instructions Recorded Amiodarone [Cordarone] 200 mg PO DAILY #30 tablet 07/10/16 Aspirin 81 mg PO DAILY #30 tab.chew 07/10/16 Atorvastatin [Lipitor] 80 mg PO HS #30 tablet 07/10/16 Nitroglycerin 0.4 mg SL Q5MIN PRN #15 tab.subl 07/10/16 Potassium Chloride 20 meq PO DAILY #30 tab.er.prt 07/31/16 Tramadol HCl [Tramadol HCl ER] 100 mg PO QAM PRN #20 tbmp.24hr 09/22/16 Allergies Allergy/AdvReac Type Severity Reaction Status Date / Time aspirin AdvReac See Verified 10/18/16 09:17 Comments All systems ED: reviewed and negative except as stated. Constitutional: Denies: fever, chills Cardiovascular: Reports: orthopnea. Denies: chest pain, palpitations, dyspnea on exertion Respiratory: Reports: cough, dyspnea, sputum production (CLEAR). Denies: wheezes, hemoptysis, stridor Gastrointestinal: Reports: other (Patient states he has a history of hemorrhoids and last night he notices hemorrhage or bleeding more than normal.) . Denies: abdominal pain, nausea, vomiting, hematemesis, melena, hematochezia Musculoskeletal: Denies: back pain Integumentary: Denies: rash Neurological: Denies: headache Past Medical History - Past Medical History Medical history: Reports: cancer, coronary artery disease, diabetes, GERD, hyperlipidemia, hypertension, myocardial infarction, sudden cardiac , TIA Surgical history: Reports: angioplasty/stent, herniorrhaphy, pacemaker Psychiatric history: Reports: depression - Social History Smoking Status: Never smoker Smokeless Tobacco Status: No Alcohol use: Reports: none Drug use: Reports: none Physical Exam Patient is in no acute distress. He does seem to become out of breath when he is talking he still able speak in full sentences though. - General Limitations: no limitations General appearance: alert, in no apparent distress - Head Head exam: atraumatic, normocephalic, normal inspection - Eye Eye exam: Present: normal appearance, PERRL, EOMI - ENT ENT exam: normal exam, normal oropharynx, mucous membranes dry - Neck Neck exam: Present: normal inspection, full ROM, trachea midline. Absent: tenderness - Chest Chest inspection: Present: normal inspection, symmetric chest wall rise - Respiratory Respiratory exam: Present: other (Patient has decreased lung sounds on the left side). Absent: respiratory distress, wheezes, stridor - Cardiovascular Cardiovascular exam: Present: regular rate, normal rhythm, normal heart sounds - Abdominal Exam Abdominal exam: Present: soft, Non-Tender, normal bowel sounds. Absent: tenderness - Rectal Exam Block Engraver present during exam: No Rectal exam: Present: normal rectal tone, bloody stool (small amount of bloody mucus in rectal vault.). Absent: black stool, fecal impaction, tenderness - Extremities Exam Extremities exam: Present: normal inspection, full ROM, normal capillary refill. Absent: tenderness, pedal edema, calf tenderness - Expanded Lower Extremity Exam Neurovascular/Tendon exam: Present: normal capillary refill. Absent: pulse deficit - Back Exam Back exam: Present: normal inspection, full ROM. Absent: tenderness - Neurological Exam Neurological exam: Present: alert, oriented X3 - Psychiatric Psychiatric exam: Present: normal affect, normal mood - Skin Skin exam: Present: warm, dry, intact, normal color Course Course Narrative: Patient is a 1-year-old male with past medical history of 6 stents placed, CHF, A. fib presents from the Coumadin clinic with INR of 8. He also complains of difficulty breathing has been going on for the past 2 weeks this onset is gradual and has been progressive. He has a history of a thoracentesis due to fluid collection on his lungs back in July 2016. Order basic labs on the patient , order a repeat INR here, chest x-ray, troponin and EKG to rule out any cardiac cause of the shortness of breath. - Reevaluation(s) Reevaluation #1: Patient's INR is 8.5 which is consistent with the Coumadin clinic. His hemoglobin is 12.0. His creatinine is 1.53 which he has had elevations in the past since July 2015. He has a troponin of 0.06 which is actually improved from prior troponins in the past. He has a BNP of 2835 which is improved compared to prior BNP in the 4000's during prior exacerbations. The patient's chest x- ray shows a large left-sided pleural effusion. The past the patient has had bilateral transfusions 1 that the left-sided was hemorrhagic in the right-sided showed a yellow serous fluid. Due to the patient's supratherapeutic INR and the new left-sided pleural effusion that looks worse when compared to old x- rays I will admit the patient for a therapeutic thoracentesis and diagnostic workup. I will also give the patient a dose of oral vitamin K in the emergency department. Time: 11:19 Reevaluation #2: I spoke with Dr. Sweeney about the patient's case. I recommended the patient be admitted for therapeutic thoracentesis of his left-sided pleural effusion. She agrees with the plan and will accept the patient. Time: 11:35 Vital Signs Temperature 97.6 F 10/18/16 09:11 Pulse Rate 88 10/18/16 09:11 Respiratory Rate 20 10/18/16 09:11 Blood Pressure 132/69 10/18/16 09:11 O2 Sat by Pulse Oximetry 96 10/18/16 09:11 Temperature 97.6 F 10/18/16 09:11 Pulse Rate 75 10/18/16 11:53 Respiratory Rate 20 10/18/16 11:53 Blood Pressure 112/84 10/18/16 11:53 O2 Sat by Pulse Oximetry 97 10/18/16 11:53 Oxygen Delivery Oxygen Delivery Nasal Cannula Medical Decision Making - Medical Records Medical records reviewed: Yes I reviewed the patient's medical records. - Lab Data Lab results reviewed: Yes I reviewed the patient's lab results. Result diagrams: 10/18/16 09:59 10/18/16 09:59 Lab Results 10/18/16 10/18/16 10/18/16 Range/Units 09:59 09:59 09:59 WBC 10.7 (4.3-11.1) K/mcL RBC 4.13 L (4.19-5.50) M/mcL Hgb 12.0 L (12.9-16.9) g/dL Hct 38.9 (37.5-50.1) % MCV 94.2 (83.0-100.0) fL MCH 29.1 (28.0-33.3) pg MCHC 30.8 L (31.6-35.5) g/dL RDW 18.4 H (11.5-14.5) % Plt Count 372 (140-400) K/mcL MPV 10.0 (9.4-12.4) fL Immature Gran % 0.8 (0-4) % Seg Neutrophils % 83.9 % Lymphocytes % 9.4 % Monocytes % 5.1 % Eosinophils % 0.5 % Basophils % 0.3 % Neutrophils # 9.0 H (1.6-8.9) K/mcL Lymphocytes # 1.0 (0.6-4.6) K/mcL Monocytes # 0.5 (0.0-1.3) K/mcL Eosinophils # 0.1 (0.0-0.6) K/mcL Basophils # 0.0 (0.0-0.2) K/mcL Nucleated RBCs/100 WBC 0.4 H (0) /100 WBC PT (9.4-12.1) Seconds INR Sodium 141 (136-145) mEq/L Potassium 3.8 (3.5-4.5) mEq/L Chloride 107 (98-109) mEq/L Carbon Dioxide 24 (19-29) mEq/L BUN 24 (8-26) mg/dL Creatinine 1.53 H (0.72-1.25) mg/dL Est GFR ( Amer) 53 L (> 60) Est GFR (Non-Af Amer) 44 L (> 60) BUN/Creatinine Ratio 16 (6-26) Glucose 169 H (70-99) mg/dL Calculated Osmolality 300 (280-300) Calcium 9.2 (8.6-10.8) mg/dL Troponin I 0.06 H* (0-0.03) ng/mL B-Natriuretic Peptide (0-100) pg/mL 10/18/16 10/18/16 Range/Units 09:59 09:59 WBC (4.3-11.1) K/mcL RBC (4.19-5.50) M/mcL Hgb (12.9-16.9) g/dL Hct (37.5-50.1) % MCV (83.0-100.0) fL MCH (28.0-33.3) pg MCHC (31.6-35.5) g/dL RDW (11.5-14.5) % Plt Count (140-400) K/mcL MPV (9.4-12.4) fL Immature Gran % (0-4) % Seg Neutrophils % % Lymphocytes % % Monocytes % % Eosinophils % % Basophils % % Neutrophils # (1.6-8.9) K/mcL Lymphocytes # (0.6-4.6) K/mcL Monocytes # (0.0-1.3) K/mcL Eosinophils # (0.0-0.6) K/mcL Basophils # (0.0-0.2) K/mcL Nucleated RBCs/100 WBC (0) /100 WBC PT 98.3 H* (9.4-12.1) Seconds INR 8.5 H* Sodium (136-145) mEq/L Potassium (3.5-4.5) mEq/L Chloride (98-109) mEq/L Carbon Dioxide (19-29) mEq/L BUN (8-26) mg/dL Creatinine (0.72-1.25) mg/dL Est GFR ( Amer) (> 60) Est GFR (Non-Af Amer) (> 60) BUN/Creatinine Ratio (6-26) Glucose (70-99) mg/dL Calculated Osmolality (280-300) Calcium (8.6-10.8) mg/dL Troponin I (0-0.03) ng/mL B-Natriuretic Peptide 2835 H (0-100) pg/mL - Radiology Data Radiology results reviewed: Yes I reviewed the patient's radiology results. Chest X-Ray 10/18/16 09:44 IMPRESSION: 1. Large size left pleural effusion, increased in size from previous study. Small left pleural effusion also present. 2. Left mid and lower lung opacities may represent atelectasis, however superimposed infiltrate or mass is difficult to exclude. D/ / [place] Kathleen MD / [place] Kathleen MD Interpreting Provider: [place] Kathleen MD - EKG Data EKG #1 EKG attestation: Yes I reviewed and interpreted this EKG. EKG results narrative: I have interpreted this EKG. Performed at 10:12. EKG shows atrial fibrillation at a rate of 94 bpm. QRS is 105, QT is 360, QTC is 412 these are within normal limits. The patient does have some T-wave abnormalities in inferior lateral leads. No change from his EKG done on October [id number].
[2016-10-18] MEDS ORDERED: Acetaminophen 325 MG TABLET PO PRN (13:29)
[2016-10-18] MEDS ORDERED: *HR* Morphine 2 MG/ML SYRINGE IVP PRN (13:29)
[2016-10-18] MEDS ORDERED: *HR* HYDROcodone/Acet 5/325 mg TABLET PO PRN (13:29)
[2016-10-18] MEDS ORDERED: Ondansetron 4 MG/2 ML VIAL IVP PRN (13:29)
[2016-10-18] MEDS ORDERED: Naloxone 0.4 MG/ML INJ IVP PRN (13:29)
[2016-10-18] MEDS ORDERED: 0.9 % Sodium Chloride 1,000 ML IVC SCH (13:45)
--- NOTE | 2016-10-18 14:15 | Internal Med History&Physical ---
Date of Encounter: 10/18/16 Time of Encounter: 13:00 Assessment and Plan (1) Pleural effusion on left Current visit: Yes Status: Acute Patient presents with history of pleural effusion with today's CT showing an increase in size from previous imaging. Previous admission was for bilateral pleural effusions of the left which was hemorrhagic and the right which yielded yellow serous fluid. Patient's current INR is 8 so he received vitamin K to address. Will monitor INR in follow-up labs. Consult to Interventional Radiology placed for therapeutic thoracentesis when INR is therapeutic level. IVP lasix 40 mg daily ordered. Supplemental O2 with SpO2 monitoring. Will monitor patient for signs of respiratory distress. (2) Elevated troponin Current visit: Yes Status: Acute Patient presents with initial troponin 0.06 today on admission to ED. Patient's troponin is historically elevated, but will trend troponins 2 today. (3) Elevated INR Current visit: Yes Status: Acute Patient presents with elevated INR of 8 on admission to the ED. Vitamin K administered in the ED and we will monitor INR through follow-up labs in preparation for patient's therapeutic thoracentesis. (4) Generalized weakness Current visit: Yes Status: Acute Patient presents with generalized weakness related to his shortness of breath, CHF, and pleural effusion. Patient places falls precautions/up with assist/ bedrest with bathroom privileges with assist only due to current SOB and weakness. (5) Acute kidney injury superimposed on CKD Current visit: Yes Status: Acute Patient presents with acute kidney injury superimposed on chronic kidney disease. Patient's current GFR is 44 and creatinine is 1.53 which is not far from his baseline. Will use IV fluids judiciously, 1.5 L fluid restriction daily , monitor I&O, and daily weight. (6) HTN (hypertension) Current visit: Yes Status: Chronic Patient presents with history of chronic hypertension. Will monitor patient vital signs and continue patient's hydralazine and Cozaar. Qualifiers: Hypertension type: essential hypertension Qualified Code(s): I10 - Essential (primary) hypertension (7) Acute on chronic systolic (congestive) heart failure Current visit: Yes Status: Chronic Patient presents with history of chronic CHF and reports current orthopnea. IVP lasix 40 mg ordered daily. Will monitor I&O and daily weight. Fluid restriction of 1.5L daily. (8) Diabetes mellitus Current visit: Yes Status: Chronic Patient presents with history of chronic diabetes controlled with oral hypoglycemics. A1c ordered. Will hold patient's Glucophage and administer low- dose correction insulin sliding scale and hypoglycemic protocol. Blood glucose monitoring before meals at bedtime. Qualifiers: Diabetes mellitus type: type 2 Diabetes mellitus complication status: without complication Diabetes mellitus buttermaker continuous churn insulin use: without correction use Qualified Code(s): E11.9 - Type 2 diabetes mellitus without complications (9) Afib Current visit: Yes Status: Chronic Patient presents with history of chronic Afib. Patient to be placed on continuous cardiac telemetry. Will continue amiodarone. Qualifiers: Atrial fibrillation type: chronic Qualified Code(s): I48.2 - Chronic atrial fibrillation (10) Hyperlipidemia Current visit: Yes Status: Chronic Patient presents with history of chronic hyperlipidemia. Lipid panel ordered. Will continue patient's Lipitor. Qualifiers: Hyperlipidemia type: pure hypercholesterolemia Qualified Code(s): E78.00 - Pure hypercholesterolemia, unspecified; E78.0 - Pure hypercholesterolemia (11) DVT prophylaxis Current visit: Yes Status: Acute Patient to be placed on DVT prophylaxis due to current admission protocol and bed rest status. Due to patient's elevated INR, mechanical prophylaxis will be used. Bilateral SCDs for LEs ordered. Internal Medicine - H&P: HPI Chief complaint: Shortness of Breath/Dyspnea Admitted From: Emergency Dept Plans for Post Hospital Care: Home History of present illness: Mr. Langford is a 81 year old male who presents from the ED with chief complaint of shortness of breath and dyspnea for the past two weeks that has become worse. Patient was also at the Coumadin clinic today when he was found to have an INR of 8 and was sent to the ED. He reports the SOB becomes worse when he is laying flat or when he is exerting himself. He states he is also experiencing generalized weakness. Mr. Langford denies chest pain, nausea, vomiting, diaphoresis, recent illness, fever, chills, abdominal pain, dizziness, calf tenderness or edema of the LEs, pre-syncope, or syncope. His medical history includes A. fib, CHF, cancer (melanoma of the right cheek and left neck) CAD, IBS, diabetes controlled with oral hypoglycemics, GERD, hyperlipidemia, hypertension, previous DE, sudden cardiac , and TIAs. Patient also has a history of pleural effusion with today's CT showing an increase in size from previous imaging. Previous admission was for bilateral pleural effusions of the left which was hemorrhagic and the right which yielded yellow serous fluid. Mr. Langford is at moderate risk for further respiratory decline based on his current symptoms and history and will be placed as inpatient with orders for IVP lasix 40 mg daily, vitamin K therapy to address his elevated INR, trended troponins x2 due to his initial troponin level of 0.06 today and history of CAD , fluid restriction of 1.5L daily, and supplemental O2 and continuous SpO2 monitoring. Due to his current SOB and weakness, he will be placed as safety precautions as well. Time spent with patient > 40 minutes. Past Med Surg Social Fam HX - Past Medical History Source: patient Medical history: cancer, coronary artery disease, diabetes, GERD, hyperlipidemia , hypertension, myocardial infarction, sudden cardiac , TIA Psychiatric history: depression - Past Surgical History Surgical History: angioplasty/stent, herniorrhaphy, pacemaker - Social History Smoking Status: Never smoker Smokeless Tobacco Status: No Alcohol use: none Drug use: none Occupational status: previously employed Current living situation: Home, With Family Activity Level: Independent ambulation Recent Out of Country Travel Within the Last 8 Weeks: No Exposure or Possible Exposure to Illness During Travel: No - Family History Brother Race: Family Member Ethnicity: Non- Living Status: Age at : 68 Cause of : HD Hx Family Cardiac Disorders: Yes (HD) Hx Family Endocrine Disorder: Yes (DM) Sister Race: Family Member Ethnicity: Non- Living Status: Age at : 65 Cause of : HD Hx Family Cardiac Disorders: Yes (HD) Hx Family Endocrine Disorder: Yes (DM) Mother Race: Family Member Ethnicity: Non- Living Status: Age at : 77 Cause of : HD Hx Family Cardiac Disorders: Yes (HD, HTN) Hx Family Endocrine Disorder: Yes (DM) Father Race: Family Member Ethnicity: Non- Living Status: Age at : 63 Cause of : DE Hx Family Cardiac Disorders: Yes (DE, HD, HTN) Hx Family Endocrine Disorder: Yes (DM) Internal Medicine - H&P: Meds Allopurinol [Zyloprim 100 MG] 100 mg PO BID 07/06/16 [History] Clopidogrel [Plavix] 75 mg PO DAILY 07/06/16 [History] Amiodarone [Cordarone] 200 mg PO DAILY #30 tablet 07/10/16 [Rx] Aspirin 81 mg PO DAILY #30 tab.chew 07/10/16 [Rx] Atorvastatin [Lipitor] 80 mg PO HS #30 tablet 07/10/16 [Rx] Nitroglycerin 0.4 mg SL Q5MIN PRN #15 tab.subl 07/10/16 [Rx] Warfarin [Coumadin] 1 mg PO MOWETH 07/24/16 [History] Potassium Chloride 20 meq PO DAILY #30 tab.er.prt 07/31/16 [Rx] Warfarin [Coumadin] 2 mg PO TU 09/07/16 [History] Furosemide [Lasix] 60 mg PO BID PRN 09/22/16 [History] Losartan Potassium [Cozaar] 50 mg PO DAILY 09/22/16 [History] Omeprazole [PriLOSEC] 40 mg PO DAILY 09/22/16 [History] hydrALAZINE [HydrALAZINE] 25 mg PO BID 09/22/16 [History] metFORMIN [Glucophage] 500 mg PO DAILY 10/18/16 [History] Allergies aspirin Adverse Reaction (Verified 10/18/16 09:17) See Comments urinate blood CAN TAKE 81 MG BUT NOT 325MG All Systems PM: A 10-system review of systems was performed and is negative for pertinent findings except as documented above in the HPI. - Constitutional Constitutional: as per HPI, weakness - EENT Eyes: no change in vision, no discharge, no pain, no photophobia Ears: no ear discharge, no ear pain, no tinnitus Nose, mouth and throat: no dysphagia, no nasal discharge, no neck pain, no sore throat - Breasts Breasts: as per HPI - Cardiovascular Cardiovascular ROS IM: as per HPI, dyspnea, dyspnea on exertion, irregular heart rhythm, orthopnea - Respiratory Respiratory: as per HPI, dyspnea, dyspnea on exertion - Gastrointestinal Gastrointestinal: no abdominal pain, no diarrhea, no hematemesis, no hematochezia, no melena, no nausea, no vomiting - Genitourinary Genitourinary ROS male: as per HPI - Musculoskeletal Musculoskeletal ROS IM: no numbness, no tingling - Integumentary Integumentary IM: no rash, no unusual bruising - Neurological Neurological ROS: no confusion, no convulsions, no focal weakness, no numbness, no tingling, no tremor(s) - Psychiatric Psychiatric: as per HPI - Endocrine Endocrine IM: as per HPI - Hematologic/Lymphatic Hematologic/Lymphatic: no easy bruising - Allergic/Immunologic Allergic/Immunologic: as per HPI - Constitutional Vitals: Temp Pulse Resp BP Pulse Ox 97.6 F 74 20 106/83 99 10/18/16 09:11 10/18/16 13:50 10/18/16 13:50 10/18/16 13:50 10/18/16 13:50 General appearance: Present: cooperative, A&O X 3, pleasant, no acute distress, obese, answers questions appropriately - Head Head exam: Present: atraumatic, normal inspection, normocephalic Additional comments: Patient has three areas of previous melanoma on the right cheek which are scabbed but bleeding slightly. He states that his PCP saw him last week and is aware. - Eye Eye exam: Present: PERRL, conjuntiva pink, sclera anicteric Pupils: Present: PERRL - ENT ENT exam: Present: normal exam, normal external ear exam - Neck Neck exam general surgery: Present: normal inspection, supple, trachea midline. Absent: lymphadenopathy - Respiratory Respiratory exam: Present: accessory muscle use. Absent: rales, rhonchi, wheezes - Cardiovascular Cardiovascular exam: Present: irregular rhythm - GI/Abdominal GI/Abdominal exam: Present: normal bowel sounds, soft, no peritoneal signs. Absent: distended, tenderness - Rectal Rectal exam: Present: deferred - Additional comments: exam deferred. - Extremities Exam Extremities exam: Present: warm, radial pulses palpable and symetrical. Absent : calf tenderness, cyanotic, pedal edema - Back Exam Back exam: Present: normal inspection - Neurological Exam Neurological exam: Present: CN II-XII intact, oriented X3, no focal deficits. Absent: pronater drift, facial droop, speech deficit - Psychiatric Psychiatric exam: Present: normal affect, normal mood - Skin Skin exam: Present: dry, intact Internal Med - H&P Results - Labs CBC & Chem 7: 10/18/16 09:59 10/18/16 09:59 - EKG Data Prior EKG available for review: yes When compared to previous EKG: there is no significant change EKG comments: 10/18/16 14:22 EKG dated 07/24/16 shows atrial fibrillation with rapid ventricular response, right bundle branch block, left anterior fascicular block. EKG dated 10/18/16 shows atrial fibrillation with right bundle branch block, left anterior fascicular block, anteroseptal myocardial infarction (probably old ). - Diagnostic Studies Chest x-ray Additional comments: Impressions Chest X-Ray 10/18/16 09:44 IMPRESSION: 1. Large size left pleural effusion, increased in size from previous study. Small left pleural effusion also present. 2. Left mid and lower lung opacities may represent atelectasis, however superimposed infiltrate or mass is difficult to exclude. D/ / [place] Kathleen MD / [place] Kathleen MD Interpreting Provider: [place] Kathleen MD
[2016-10-18] MEDS ORDERED: D5% in Water 1,000 ML IVC PRN (14:32)
[2016-10-18] MEDS ORDERED: Dextrose Gel 15 GM PO PRN ×2 (14:32)
[2016-10-18] MEDS ORDERED: *HR* Dextrose 50 % in Water (Syg) 50 ML SYRINGE IVP PRN (14:32)
[2016-10-18] MEDS: Insulin LISPRO 300 UNITS/3 ML VIAL SQ SCH ×2 (17:57→19:56)
[2016-10-18] MEDS: Furosemide 40 MG/4 ML VIAL IVP SCH (17:57)
[2016-10-18] MEDS ORDERED: Nitroglycerin 0.4 MG TAB.SUBL SL PRN (18:03)
[2016-10-18] MEDS: hydrALAZINE 25 MG TABLET PO SCH (19:56)
[2016-10-19 04:02] LABS: Hemoglobin A1C 7.6 %
[2016-10-19 04:05] LABS: Activated Partial Thrombo Time 37.8 Seconds (26.0-36.0)
[2016-10-19 04:06] LABS: Basophils % 0.4 %; Eosinophils # 0.3 K/mcL (0.0-0.6); Eosinophils % 3.1 %; Hematocrit 35.1 % (37.5-50.1); Hemoglobin 11.1 g/dL (12.9-16.9); Immature Granulocytes % 0.6 % (0-4); Lymphocytes # 2.1 K/mcL (0.6-4.6); Lymphocytes % 20.9 %; Mean Corpuscular HGB Conc 31.6 g/dL (31.6-35.5); Mean Corpuscular Hemoglobin 29.7 pg (28.0-33.3); Mean Corpuscular Volume 93.9 fL (83.0-100.0); Mean Platelet Volume 10.2 fL (9.4-12.4); Monocytes # 0.7 K/mcL (0.0-1.3); Monocytes % 6.7 %; Neutrophils # 6.9 K/mcL (1.6-8.9); Nucleated Red Blood Cells 0.5 /100 WBC (0); Platelet Count 327 K/mcL (140-400); Red Blood Count 3.74 M/mcL (4.19-5.50); Red Cell Distribution Width 18.3 % (11.5-14.5); Segmented Neutrophils % 68.3 %
[2016-10-19 04:10] LABS: Albumin 2.8 g/dL (3.5-5.0); Albumin/Globulin Ratio 0.9 (1.1-2.2); Bilirubin,Total 0.7 mg/dL (0.2-1.2); Calcium 8.7 mg/dL (8.6-10.8); Chol/HDL Ratio 2.3 (0-4.9); Magnesium 1.6 mg/dL (1.6-2.6); Potassium 3.8 mEq/L (3.5-4.5); Total Protein 5.8 g/dL (6.0-8.3)
[2016-10-19 04:11] LABS: INR 2.4; Prothrombin Time 26.2 Seconds (9.4-12.1)
[2016-10-19] MEDS: Pantoprazole 40 MG VIAL IVP SCH (07:31)
[2016-10-19] MEDS: *HR* Amiodarone 200 MG TABLET PO SCH (07:32)
[2016-10-19] MEDS: Furosemide 40 MG/4 ML VIAL IVP SCH (07:32)
[2016-10-19] MEDS: Aspirin 81 MG TAB.CHEW PO SCH (07:32)
[2016-10-19] MEDS: hydrALAZINE 25 MG TABLET PO SCH ×2 (07:32→20:29)
[2016-10-19] MEDS: Insulin LISPRO 300 UNITS/3 ML VIAL SQ SCH ×4 (07:33→21:29)
--- NOTE | 2016-10-19 09:51 | Internal Med Progress Note ---
Date of Encounter: 10/19/16 Time of Encounter: 09:30 - Assessment and plan (1) Elevated troponin Current Visit: Yes Status: Acute Assessment and plan: Serial Troponins flat and adynamic, around 0.05; likely related to pleural effusion and hypoxemia. Continue to monitor. Telemetry. (2) Pleural effusion Current Visit: Yes Status: Acute Assessment and plan: Recurrent pleural effusion, likely related to CHF following recent cardiac arrest. Continue supplemental oxygen as needed and supportive care. Plan for ultrasound-guided thoracentesis when INR is less than 2. Continue Lasix. (3) Elevated INR Current Visit: Yes Status: Acute Assessment and plan: Patient is noted to be on long-term anticoagulation with Coumadin for underlying atrial fibrillation and recent diagnosis of left ventricular thrombus following a cardiac arrest. Noted to have INR above 8, received vitamin K in the emergency room, INR noted to be improving. Continue to monitor. (4) Generalized weakness Current Visit: Yes Status: Chronic Assessment and plan: Patient reports ongoing generalized weakness and intermittent shortness of breath. However, he refuses home physical therapy. Patient does have home health with visiting nurse services and would like to resume these upon discharge. (5) CKD (chronic kidney disease) Current Visit: Yes Status: Chronic Assessment and plan: Patient serum creatinine is noted to be around 1.4 for the last 2-3 months. This is likely secondary to cardiac arrest, systolic CHF, use of Lasix. Continue Lasix and continue to monitor serum creatinine. Qualifiers: Chronic kidney disease stage: stage 3 (moderate) Qualified Code(s): N18.3 - Chronic kidney disease, stage 3 (moderate) (6) Essential hypertension Current Visit: Yes Status: Chronic Assessment and plan: Blood pressure noted to be well controlled. Continue home medications. (7) Hyperlipidemia Current Visit: Yes Status: Chronic Qualifiers: Hyperlipidemia type: unspecified Qualified Code(s): E78.5 - Hyperlipidemia , unspecified (8) Coronary artery disease Current Visit: Yes Status: Chronic Assessment and plan: Continue aspirin, Plavix, statin, ARB. Qualifiers: Coronary Disease-Associated Artery/Lesion type: [place] artery [place] vs. transplanted heart: [place] heart Associated angina: with unstable angina Qualified Code(s): I25.110 - Atherosclerotic heart disease of [place] coronary artery with unstable angina pectoris (9) Diabetes mellitus, type 2 Current Visit: Yes Status: Chronic Assessment and plan: Continue Accu-Chek blood glucose monitoring with sliding scale insulin as needed. Diabetic diet. Qualifiers: Diabetes mellitus complication status: with hyperglycemia Diabetes mellitus rn long term care insulin use: without rn long term care use Qualified Code(s): E11.65 - Type 2 diabetes mellitus with hyperglycemia (10) Afib Current Visit: Yes Status: Chronic Assessment and plan: Continue telemetry monitoring. Currently rate controlled. Coumadin is on hold due to supratherapeutic INR. Plan to restart Coumadin after thoracentesis. Qualifiers: Atrial fibrillation type: chronic Qualified Code(s): I48.2 - Chronic atrial fibrillation (11) CHF (congestive heart failure) Current Visit: Yes Status: Chronic Qualifiers: Congestive heart failure type: systolic Congestive heart failure chronicity : chronic Qualified Code(s): I50.22 - Chronic systolic (congestive) heart failure (12) LV (left ventricular) mural thrombus Current Visit: Yes Status: Chronic - Subjective Interval history: Feels better, wants to be discharged today; awaiting thoracentesis. No chest pain, dyspnea, nausea; - Constitutional Vitals: Temp Pulse Resp BP Pulse Ox 96.9 F L 72 16 117/80 98 10/19/16 07:24 10/19/16 07:24 10/19/16 07:24 10/19/16 07:24 10/19/16 07:24 General appearance: Present: A&O X 3, answers questions appropriately - Respiratory Respiratory exam: Present: decreased breath sounds (at left base and midaxillary line), CTAB. Absent: accessory muscle use, rales, rhonchi, wheezes - Cardiovascular Cardiovascular exam: Present: RRR, +S1, +S2. Absent: diastolic murmur, gallop, rubs, systolic murmur - GI/Abdominal GI/Abdominal exam: Present: normal bowel sounds, soft, no peritoneal signs. Absent: distended, tenderness - Neurological Exam Neurological exam: Present: CN II-XII intact, oriented X3, no focal deficits. Absent: pronater drift, facial droop, speech deficit Internal Medicine: Result - Labs CBC & Chem 7: 10/19/16 03:26 10/19/16 03:26 Labs: Short CBC 10/19/16 Range/Units 03:26 WBC 10.0 (4.3-11.1) K/mcL Hgb 11.1 L (12.9-16.9) g/dL Hct 35.1 L (37.5-50.1) % Plt Count 327 (140-400) K/mcL Neutrophils # 6.9 (1.6-8.9) K/mcL BMP 10/19/16 03:26 Sodium 141 Potassium 3.8 Chloride 107 Carbon Dioxide 25 BUN 24 Creatinine 1.40 H Glucose 115 H Calcium 8.7 Cardiac Enzymes 10/18/16 10/18/16 Range/Units 17:11 23:02 Troponin I 0.05 H* 0.04 H* (0-0.03) ng/mL Liver Function 10/19/16 Range/Units 03:26 Total Bilirubin 0.7 (0.2-1.2) mg/dL AST 14 (5-34) Units/L ALT 13 (0-55) Units/L Alkaline Phosphatase 125 (38-126) Units/L Albumin 2.8 L (3.5-5.0) g/dL - ABG Interpretation ABG results: PT/INR, D-dimer PT 26.2 Seconds (9.4-12.1) H D 10/19/16 03:26 Consult Discharge Plan - Plan Referrals: Kings Kaiser MD [Primary Care Provider] - 10/28/16 9:45 am
[2016-10-19 13:18] LABS: INR 1.5; Prothrombin Time 16.2 Seconds (9.4-12.1)
--- NOTE | 2016-10-19 15:23 | IR Procedure Note ---
Date of procedure: 10/19/16 Consent Obtained: Verbal consent, Written consent Timeout: Correct patient and procedure verified, Correct site verified, Time out performed, Skin prep completed Local anesthetic: Lidocaine 1% Indications: Pleural effusion Procedure Performed: Therapeutic thoracentesis Site/Technique: Ultrasound guided left thoracentesis Results/Findings: Large pleural effusion Estimated blood loss (cc): 1 Complications: None; Tolerated procedure well Post Procedure Treatment Plan: Continue inpatient care
[2016-10-19] MEDS ORDERED: *HR* Warfarin 5 MG TABLET PO ONE (18:08)
[2016-10-20] MEDS: Insulin LISPRO 300 UNITS/3 ML VIAL SQ SCH ×2 (07:32→12:49)
[2016-10-20] MEDS: *HR* Amiodarone 200 MG TABLET PO SCH (07:33)
[2016-10-20] MEDS: hydrALAZINE 25 MG TABLET PO SCH (07:33)
[2016-10-20] MEDS: Aspirin 81 MG TAB.CHEW PO SCH (07:33)
[2016-10-20] MEDS: Pantoprazole 40 MG VIAL IVP SCH (07:34)
[2016-10-20] MEDS: Furosemide 40 MG/4 ML VIAL IVP SCH (07:34)
[2016-10-20 09:10] LABS: INR 1.3; Prothrombin Time 14.1 Seconds (9.4-12.1)
[2016-10-20 09:17] LABS: BUN/Creatinine Ratio 20 (6-26); Blood Urea Nitrogen 23 mg/dL (8-26); Calcium 8.5 mg/dL (8.6-10.8); Carbon Dioxide 29 mEq/L (19-29); Chloride 103 mEq/L (98-109); Glucose 119 mg/dL (70-99); Osmolality,Calculated 291 (280-300); Potassium 3.9 mEq/L (3.5-4.5); Sodium 138 mEq/L (136-145); eGFR For African Americans > 60 (> 60); eGFR For Non-African Americans > 60 (> 60)
[2016-10-20 10:59] VITALS: BP 93/64
--- NOTE | 2016-10-20 13:46 | Discharge Summary ---
Date of Encounter: 10/20/16 Time of Encounter: 08:30 - Discharge Diagnosis (1) Elevated troponin Priority: Primary Status: Acute (2) Pleural effusion Priority: Primary Status: Acute (3) Elevated INR Priority: Primary Status: Acute (4) Generalized weakness Priority: Primary Status: Chronic (5) CKD (chronic kidney disease) Priority: Secondary Status: Chronic Qualifiers: Chronic kidney disease stage: stage 3 (moderate) Qualified Code(s): N18.3 - Chronic kidney disease, stage 3 (moderate) (6) Essential hypertension Priority: Secondary Status: Chronic (7) Hyperlipidemia Priority: Secondary Status: Chronic Qualifiers: Hyperlipidemia type: unspecified Qualified Code(s): E78.5 - Hyperlipidemia , unspecified (8) Coronary artery disease Priority: Secondary Status: Chronic Qualifiers: Coronary Disease-Associated Artery/Lesion type: [place] artery [place] vs. transplanted heart: [place] heart Associated angina: with unstable angina Qualified Code(s): I25.110 - Atherosclerotic heart disease of [place] coronary artery with unstable angina pectoris (9) Diabetes mellitus, type 2 Priority: Secondary Status: Chronic Qualifiers: Diabetes mellitus complication status: with hyperglycemia Diabetes mellitus termite control servicer insulin use: without fdc use Qualified Code(s): E11.65 - Type 2 diabetes mellitus with hyperglycemia (10) Afib Priority: Secondary Status: Chronic Qualifiers: Atrial fibrillation type: chronic Qualified Code(s): I48.2 - Chronic atrial fibrillation (11) CHF (congestive heart failure) Priority: Secondary Status: Chronic Qualifiers: Congestive heart failure type: systolic Congestive heart failure chronicity : chronic Qualified Code(s): I50.22 - Chronic systolic (congestive) heart failure (12) LV (left ventricular) mural thrombus Priority: Secondary Status: Chronic - Discharge Medications Prescriptions: Enoxaparin [Lovenox] 80 mg SQ Q12HR #14 syr Home Medications: Allopurinol [Zyloprim 100 MG] 100 mg PO BID 07/06/16 [History] Clopidogrel [Plavix] 75 mg PO DAILY 07/06/16 [History] Amiodarone [Cordarone] 200 mg PO DAILY #30 tablet 07/10/16 [Rx] Aspirin 81 mg PO DAILY #30 tab.chew 07/10/16 [Rx] Atorvastatin [Lipitor] 80 mg PO HS #30 tablet 07/10/16 [Rx] Nitroglycerin 0.4 mg SL Q5MIN PRN #15 tab.subl 07/10/16 [Rx] Potassium Chloride 20 meq PO DAILY #30 tab.er.prt 07/31/16 [Rx] Furosemide [Lasix] 60 mg PO BID PRN 09/22/16 [History] Losartan Potassium [Cozaar] 50 mg PO DAILY 09/22/16 [History] Omeprazole [PriLOSEC] 40 mg PO DAILY 09/22/16 [History] hydrALAZINE [HydrALAZINE] 25 mg PO BID 09/22/16 [History] metFORMIN [Glucophage] 500 mg PO DAILY 10/18/16 [History] Enoxaparin [Lovenox] 80 mg SQ Q12HR #14 syr 10/20/16 [Rx] Warfarin [Coumadin] 2 mg PO MOWETH #30 10/20/16 [Rx] Warfarin [Coumadin] 3 mg PO TU #30 10/20/16 [Rx] Allergies/Adverse Reactions: Allergies aspirin Adverse Reaction (Verified 10/18/16 09:17) See Comments urinate blood CAN TAKE 81 MG BUT NOT 325MG Procedures/tests Complete & Pending: Procedures Performed prior 72 hours Category Date Time Status IR thoracentesis ultrasound [IR] Routine IR 10/19/16 Completed Date of admission: 10/18/16 11:23 Primary care physician: Kings Kaiser MD Consults: 10/18/16 13:46 Consult to Interventional Radiology [CONS] Routine Consulting Provider: Radiology Interventional Cols Reason for Consult: Patient will need therapeutic thoracentesis due to left pleural effusion but his INR is currently 8. Pt. receiving vitamin K to address before procedure can be done Call Completed: Yes 10/18/16 16:00 Consult to Nutrition [CONS] Routine Comment: Consulting Provider: NUTRITION Reason for Dietary Consult: MST Score Discharging clinician: Jazmin Christensen Anticipated date of discharge: 10/20/16 - Patient Status Disposition: Home Health Service Condition: Fair Functional capacity at discharge: uses cane/walker Overall status at discharge: patient is progressing back to baseline - Discharge Instructions Instructions: Enoxaparin (Injection), Heart Failure (DC), Atrial Fibrillation ( DC), Chest Pain (DC), Thoracentesis (DC), Acute Kidney Injury (DC), Acute Kidney Injury (GEN), Chronic Kidney Disease (DC), Chronic Kidney Disease (GEN), Diabetes Mellitus Type 2 in Adults (DC), Using Oxygen at Home (DC), Using Oxygen at Home (GEN), Chronic Hypertension (DC), Pneumonia (DC), Acute Kidney Injury, Systems Support Officer (GEN) Follow Up With: Kings Kaiser MD [Primary Care Provider] - 10/28/16 9:45 am Additional Instructions: F/up with Coumadin clinic in 3-5 days - Diet and Activity Activity: resume usual activities as tolerated, wear oxygen at all times Diet: diabetic diet, low fat, low cholesterol, low salt diet (fluid restriction to 1.2L/day) Hospital course: Mr. Langford is a 81 year old male with multiple medical problems as mentioned above, was admitted with worsening shortness of breath. Chest x-ray showed worsening of left-sided pleural effusion with associated compressive atelectasis. He was noted to be hypoxic, saturating well on supplemental oxygen via nasal cannula. Initial labs also revealed a supratherapeutic INR, 8.5. Patient received vitamin K and his INR decreased appropriately. He underwent ultrasound guided left sided thoracentesis by IR, draining slightly hematologic fluid. Patient also underwent bilateral thoracentesis during his previous admissions. His respiratory status is improved at this time. However, he continues to require at least 2 L/m supplemental oxygen via nasal cannula, Continuously. Home oxygen evaluation was completed and he qualifies for home oxygen. He is noted to be ambulatory at home and would benefit from portable home oxygen. Patient is anxious to be discharged and is otherwise medically stable at this time. He was noted to have subtherapeutic INR at this time and will be discharged on bridging Lovenox along with oral Coumadin due to history of recent cardiac arrest/ventricular thrombus/atrial fibrillation. Home health services will be resumed at discharge. - Time Spent with Patient Total time spent providing and/or coordinating discharge services: Greater than 30 minutes (40 min) - Constitutional Vitals: Temp Pulse Resp BP Pulse Ox 97.6 F 92 18 93/64 93 10/20/16 10:54 10/20/16 10:54 10/20/16 10:54 10/20/16 10:54 10/20/16 10:54 General appearance: Present: A&O X 3, answers questions appropriately - Respiratory Respiratory exam: Present: CTAB. Absent: accessory muscle use, rales, rhonchi, wheezes - Cardiovascular Cardiovascular exam: Present: irregular rhythm, +S1, +S2. Absent: diastolic murmur, gallop, rubs, systolic murmur
--- NOTE | 2016-10-20 13:49 | Physician Discharge Referral ---
Home Health/Hosp Referral Info Transfer to: Home Health Attending Provider: Jazmin Christensen Provider in Charge Post Discharge: PCP - Diagnosis (1) Elevated troponin Priority: Primary Status: Acute (2) Pleural effusion Priority: Primary Status: Acute (3) Elevated INR Priority: Primary Status: Acute (4) Generalized weakness Priority: Primary Status: Chronic (5) CKD (chronic kidney disease) Priority: Secondary Status: Chronic (6) Essential hypertension Priority: Secondary Status: Chronic (7) Hyperlipidemia Priority: Secondary Status: Chronic (8) Coronary artery disease Priority: Secondary Status: Chronic (9) Diabetes mellitus, type 2 Priority: Secondary Status: Chronic (10) Afib Priority: Secondary Status: Chronic (11) CHF (congestive heart failure) Priority: Secondary Status: Chronic (12) LV (left ventricular) mural thrombus Priority: Secondary Status: Chronic - Respiratory Orders Oxygen / L per min (3-4L/min via NC) Smoking Cessation: Smoking cessation has been advised. For more information, call the [employer] Quit Line at 6-081-EYTA-NOW. - Diet/Nutrition Diet/Nutrition Orders: Renal, Cardiac, No Concentrated Sweets (diabetic) - Activity Activity Orders: Ambulate - Services Needed Following services are medically necessary services: Nursing - Transfer Medications Prescriptions: Enoxaparin [Lovenox] 80 mg SQ Q12HR #14 syr Home Medications: Allopurinol [Zyloprim 100 MG] 100 mg PO BID 07/06/16 [History] Clopidogrel [Plavix] 75 mg PO DAILY 07/06/16 [History] Amiodarone [Cordarone] 200 mg PO DAILY #30 tablet 07/10/16 [Rx] Aspirin 81 mg PO DAILY #30 tab.chew 07/10/16 [Rx] Atorvastatin [Lipitor] 80 mg PO HS #30 tablet 07/10/16 [Rx] Nitroglycerin 0.4 mg SL Q5MIN PRN #15 tab.subl 07/10/16 [Rx] Potassium Chloride 20 meq PO DAILY #30 tab.er.prt 07/31/16 [Rx] Furosemide [Lasix] 60 mg PO BID PRN 09/22/16 [History] Losartan Potassium [Cozaar] 50 mg PO DAILY 09/22/16 [History] Omeprazole [PriLOSEC] 40 mg PO DAILY 09/22/16 [History] hydrALAZINE [HydrALAZINE] 25 mg PO BID 09/22/16 [History] metFORMIN [Glucophage] 500 mg PO DAILY 10/18/16 [History] Enoxaparin [Lovenox] 80 mg SQ Q12HR #14 syr 10/20/16 [Rx] Warfarin [Coumadin] 2 mg PO MOWETH #30 10/20/16 [Rx] Warfarin [Coumadin] 3 mg PO TU #30 10/20/16 [Rx] Allergies/Adverse Reactions: Allergies aspirin Adverse Reaction (Verified 10/18/16 09:17) See Comments urinate blood CAN TAKE 81 MG BUT NOT 325MG Certification: Further, I certify that my clinical findings support that this patient is homebound (i.e. absences from home require considerable and taxing effort and are for medical reasons or [employer] services or infrequently or short duration when for other reasons) because: Homebound Reason: Patient requires assistance of a person or device to safely leave home, Severity of cardiac or pulmonary status limits activity tolerance Attestation: My signature below is to certify that this patient is under my care and that I, or nurse practitioner, or a physician's college sports assistant working with me, has a face-to -face encounter with this patient.
--- NOTE | 2016-10-20 20:13 | Electrocardiograph Report ---
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
== END 2016-10-20 18:55 | disposition home health service (06) ==
LOC: ICNU 09:09 → EMEROO 09:09 → SUATTDRO 11:23 → 2NENU 11:42
PROVIDERS: ADMIT Internal Medicine; ATTEND Internal Medicine

== ENCOUNTER 2017-04-01 10:20 | Inpatient (IN) ==
--- NOTE | 2017-04-01 10:33 | Emergency Department Note ---
Disposition Clinical Impression: Elevated troponin Congestive heart failure Qualifiers: Congestive heart failure type: unspecified Congestive heart failure chronicity : unspecified Qualified Code(s): I50.9 - Heart failure, unspecified Chronic kidney disease Qualifiers: Chronic kidney disease stage: unspecified stage Qualified Code(s): N18.9 - Chronic kidney disease, unspecified Disposition: Admitted As Inpatient Condition: Fair Time of Disposition: 11:36 General Adult HPI - General Chief complaint: ED Shortness of Breath/Dyspnea Stated complaint: ANETA Time Seen by Provider: 04/01/17 10:28 Source: patient, EMS Mode of arrival: EMS Limitations: no limitations Nursing Notes Reviewed: Yes Vital Signs Reviewed: Yes - History of Present Illness HPI Narrative: 81-year-old male with a history of CHF, COPD, A. fib, chronic thoracentesis presents for evaluation of dyspnea and weakness. Patient returns from home. Patient states he has been generally weak. Patient notes that he was ambulating with a walker and slid down. Patient had difficulty time getting up. Patient notes progressively worsening dyspnea. Denies any fevers or cough. Denies any chest pain. 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 Patient denies any abdominal pain. Patient states that he is typically on 3 L however his increase his oxygen requirement of 4 L. States he does take his medications which includes Lasix 40 mg twice a day with increasing swelling in his arms and his lower legs. - Related Data Home Medications Medication Instructions Recorded Confirmed Allopurinol [Zyloprim 100 MG] 100 mg PO BID 07/06/16 04/01/17 Clopidogrel [Plavix] 75 mg PO DAILY 07/06/16 04/01/17 Furosemide [Lasix] 40 mg PO DAILY 09/22/16 04/01/17 Losartan Potassium [Cozaar] 50 mg PO DAILY 09/22/16 04/01/17 Omeprazole [PriLOSEC] 40 mg PO DAILY 09/22/16 04/01/17 hydrALAZINE [HydrALAZINE] 25 mg PO BID 09/22/16 04/01/17 metFORMIN [Glucophage] 500 mg PO DAILY 10/18/16 04/01/17 Potassium Chloride 10 meq PO DAILY 11/08/16 04/01/17 Warfarin [Coumadin] 1 mg PO DAILY 11/08/16 04/01/17 Previous Rx's Medication Instructions Recorded Amiodarone [Cordarone] 200 mg PO DAILY #30 tablet 07/10/16 Aspirin 81 mg PO DAILY #30 tab.chew 07/10/16 Atorvastatin [Lipitor] 80 mg PO HS #30 tablet 07/10/16 Allergies Allergy/AdvReac Type Severity Reaction Status Date / Time aspirin AdvReac See Verified 11/24/16 00:05 Comments NSAIDS (Non-Steroidal AdvReac See Verified 11/24/16 00:05 Anti-Inflamma Comments All systems ED: reviewed and negative except as stated. Constitutional: Reports: as per HPI. Denies: fever Eyes: Reports: as per HPI ENT ED: Reports: as per HPI Cardiovascular: Reports: as per HPI. Denies: chest pain Respiratory: Reports: as per HPI, dyspnea. Denies: cough Gastrointestinal: Reports: as per HPI. Denies: abdominal pain, nausea, vomiting Genitourinary: Reports: as per HPI Musculoskeletal: Reports: as per HPI Integumentary: Reports: as per HPI Neurological: Reports: as per HPI Psychiatric: Reports: as per HPI Endocrine: Reports: as per HPI Hematological/Lymphatic: Reports: as per HPI Allergic/Immunologic: Reports: as per HPI Past Medical History - Past Medical History Attestation: Yes The following information was validated with the patient. Medical history: Reports: cancer, CHF, coronary artery disease, diabetes, GERD, hyperlipidemia, hypertension, myocardial infarction, sudden cardiac , TIA Surgical history: Reports: angioplasty/stent, herniorrhaphy, pacemaker Psychiatric history: Reports: depression - Social History Smoking Status: Never smoker Smokeless Tobacco Status: No Alcohol use: Reports: none Drug use: Reports: none Physical Exam - General Limitations: no limitations General appearance: alert, in no apparent distress, other (Appears chronically ill) - Head Head exam: atraumatic, normocephalic, normal inspection - Eye Eye exam: Present: normal appearance, PERRL, EOMI - ENT ENT exam: normal exam, normal oropharynx, mucous membranes moist - Neck Neck exam: Present: normal inspection, full ROM, trachea midline - Chest Chest inspection: Present: normal inspection, symmetric chest wall rise - Respiratory Respiratory exam: Present: other (Diminished left side with right-sided rails.) . Absent: respiratory distress - Cardiovascular Cardiovascular exam: Present: regular rate, irregular rhythm. Absent: systolic murmur - Abdominal Exam Abdominal exam: Present: soft, Non-Tender. Absent: rebound, rigidity - Extremities Exam Extremities exam: Present: other (Swelling to the bilateral upper extremities with a pressure dressing applied to the left upper extremity) - Back Exam Back exam: Present: normal inspection - Neurological Exam Neurological exam: Present: alert, oriented X3, CN II-XII intact - Skin Skin exam: Present: warm, dry, intact, normal color Course Course Narrative: Patient seen and examined initially upon arrival. Patient appears to be in no acute distress. Patient was evaluated in the past and has at home thoracentesis every other day. States his last time they drained his lungs was on Tuesday. Patient notes worsening dyspnea and weakness. Patient will get an extensive cardiopulmonary evaluation including EKG, x-ray. Patient will also be diuresed. Disposition admission. - Reevaluation(s) Reevaluation #1: Patient seen and examined. Patient states that his chest pain symptoms have resolved. Will attempt to gradually drain with the pleurodesis. Time: 11:47 - Consultations Consultation #1: Consult IR Time: 11:08 Vital Signs Temperature 98.2 F 04/01/17 10:22 Pulse Rate 84 04/01/17 10:22 Respiratory Rate 18 04/01/17 10:22 Blood Pressure 115/74 04/01/17 10:22 O2 Sat by Pulse Oximetry 99 04/01/17 10:22 Temperature 98 F 04/01/17 15:06 Pulse Rate 90 04/01/17 13:43 Respiratory Rate 18 04/01/17 15:06 Blood Pressure 90/38 04/01/17 15:06 O2 Sat by Pulse Oximetry 99 04/01/17 13:43 Oxygen Delivery Oxygen Delivery Nasal Cannula Medical Decision Making - [facility] Narrative Medical decision making narrative: 81-year-old male patient for evaluation of dyspnea. Patient does have a history of heart failure with low EF. Patient's anticoagulant with Coumadin. Patient also reports generalized weakness. Patient appears chronically ill. Patient does have a thoracentesis and drain in his left chest. Patient's chest x-ray shows a pleural effusion. Spoke with IR who attempted to drain the thorax however the patient was starting to complain of chest pain he stopped the procedure. Patient's last region has an elevated troponin likely secondary to demand ischemia. Patient is given an aspirin. Patient also has chronic kidney disease as well as hyperkalemia of 6.0 with no acute EKG changes. Patient's given Lasix to help diurese. Patient will be admitted possible service for further diuresis and respiratory support. Recommendation of palliative and goals of care conversation. Patient is agreeable with this current plan of care. - Lab Data Lab results reviewed: Yes I reviewed the patient's lab results. Result diagrams: 04/01/17 10:41 04/01/17 10:41 Lab Results 04/01/17 04/01/17 04/01/17 Range/Units 10:41 10:41 10:41 WBC 7.9 (4.3-11.1) K/mcL RBC 3.70 L (4.19-5.50) M/mcL Hgb 11.3 L (12.9-16.9) g/dL Hct 35.7 L (37.5-50.1) % MCV 96.5 (83.0-100.0) fL MCH 30.5 (28.0-33.3) pg MCHC 31.7 (31.6-35.5) g/dL RDW 20.8 H (11.5-14.5) % Plt Count 265 (140-400) K/mcL MPV 11.3 (9.4-12.4) fL Immature Gran % 0.3 (0-4) % Seg Neutrophils % 86.6 % Lymphocytes % 9.2 % Monocytes % 3.4 % Eosinophils % 0.4 % Basophils % 0.1 % Neutrophils # 6.9 (1.6-8.9) K/mcL Lymphocytes # 0.7 (0.6-4.6) K/mcL Monocytes # 0.3 (0.0-1.3) K/mcL Eosinophils # 0.0 (0.0-0.6) K/mcL Basophils # 0.0 (0.0-0.2) K/mcL Nucleated RBCs/100 WBC 0.3 H (0) /100 WBC PT 29.5 H (9.4-12.1) Seconds INR 2.7 Sodium 137 (136-145) mEq/L Potassium 6.0 H (3.5-5.1) mEq/L Chloride 105 (98-107) mEq/L Carbon Dioxide 23 (23-29) mEq/L BUN 40 H (8-23) mg/dL Creatinine 2.99 H (0.70-1.30) mg/dL Est GFR ( Amer) 24 L (> 60) Est GFR (Non-Af Amer) 20 L (> 60) BUN/Creatinine Ratio 13 (6-26) Glucose 197 H (70-105) mg/dL Calculated Osmolality 299 (280-300) Calcium 8.7 (8.6-10.3) mg/dL Total Bilirubin 0.6 (0.3-1.0) mg/dL Direct Bilirubin 0.1 (0.0-0.2) mg/dL Indirect Bilirubin 0.5 (0.0-1.2) mg/dL AST 18 (13-39) Units/L ALT 17 (7-52) Units/L Alkaline Phosphatase 136 H (34-104) Units/L Troponin I (< 0.04) ng/mL B-Natriuretic Peptide (Less than 100) pg/mL Serum Total Protein 5.8 L (6.4-8.9) g/dL Albumin 3.1 L (3.5-5.7) g/dL Globulin 2.7 (2.4-3.5) g/dL Albumin/Globulin Ratio 1.1 (1.1-2.2) 04/01/17 04/01/17 Range/Units 10:41 10:41 WBC (4.3-11.1) K/mcL RBC (4.19-5.50) M/mcL Hgb (12.9-16.9) g/dL Hct (37.5-50.1) % MCV (83.0-100.0) fL MCH (28.0-33.3) pg MCHC (31.6-35.5) g/dL RDW (11.5-14.5) % Plt Count (140-400) K/mcL MPV (9.4-12.4) fL Immature Gran % (0-4) % Seg Neutrophils % % Lymphocytes % % Monocytes % % Eosinophils % % Basophils % % Neutrophils # (1.6-8.9) K/mcL Lymphocytes # (0.6-4.6) K/mcL Monocytes # (0.0-1.3) K/mcL Eosinophils # (0.0-0.6) K/mcL Basophils # (0.0-0.2) K/mcL Nucleated RBCs/100 WBC (0) /100 WBC PT (9.4-12.1) Seconds INR Sodium (136-145) mEq/L Potassium (3.5-5.1) mEq/L Chloride (98-107) mEq/L Carbon Dioxide (23-29) mEq/L BUN (8-23) mg/dL Creatinine (0.70-1.30) mg/dL Est GFR ( Amer) (> 60) Est GFR (Non-Af Amer) (> 60) BUN/Creatinine Ratio (6-26) Glucose (70-105) mg/dL Calculated Osmolality (280-300) Calcium (8.6-10.3) mg/dL Total Bilirubin (0.3-1.0) mg/dL Direct Bilirubin (0.0-0.2) mg/dL Indirect Bilirubin (0.0-1.2) mg/dL AST (13-39) Units/L ALT (7-52) Units/L Alkaline Phosphatase (34-104) Units/L Troponin I 0.05 H* (< 0.04) ng/mL B-Natriuretic Peptide > 5000 H (Less than 100) pg/mL Serum Total Protein (6.4-8.9) g/dL Albumin (3.5-5.7) g/dL Globulin (2.4-3.5) g/dL Albumin/Globulin Ratio (1.1-2.2) - Radiology Data Radiology results reviewed: Yes I reviewed the patient's radiology results. Chest X-Ray 04/01/17 10:29 IMPRESSION: Small right and moderate left pleural effusions have increased since the prior examination. D/ / 04/01/2017 11:23:42 Paulina Whitt MD / [email or web address] Interpreting Provider: Paulina Whitt MD - EKG Data EKG #1 EKG attestation: Yes I reviewed and interpreted this EKG. Rate: tachycardia Rhythm: A.Fib [place]/QRS: normal Q waves: III, v1, v2, v3 Interpretation: no acute changes, nonspecific ST-T wave changes S.B.A.R. - S.B.A.R. Situation: Demographics Background: Presenting Complaint Assessment: Vital Signs, Course and respsone to treatment, Patient/Family Expectation Recommendation: Barrier(s) to disposition, Recommendation based on pending studies, treatments, or consults Cameron Report Given to: Dr. Ministerio Barnes Repor Time: 12:07 Attestation Statement - Attestation Attestation: I examined this patient and my medical decision-making was reviewed with the Resident Physician. I agree with the documented findings, disposition and treatment plan as described except to the extent set forth below. 81-year-old male presents to emergency department because of difficulty breathing and generalized weakness. He has history of just for further with recurrent pleural effusions. He has indwelling pleural catheter in the left side used to evacuate pleural transudate couple times a week. This was recently done twice in the past week. He complains of generalized weakness and worsening dyspnea. No focal pain. No fevers or chills. No dysuria. Elderly male who is pleasant, in no apparent physiologic distress except for mild tachypnea. Pharynx clear. Trachea midline. Chest with diminished breath sounds throughout both bases worse on the left. No wheezing. Cardiac exam distant heart tones. Chest wall nontender. Abdomen soft, nondistended nontender. Extremities with bilateral edema Chest x-ray reveals recurrence of a large left pleural effusion with a small right-sided pleural effusion. Renal function is worsened and troponin was elevated. Potassium 6.0. He will be admitted for aggressive diuresis and further evaluation with regards to his renal insufficiency. Patient has requested to be a DNR CC arrest with no intubation The high probability of a clinically significant, sudden or life threatening deterioration of the [cardiopulmonary, renal] system(s) required my full and direct attention, intervention and personal management. The aggregate critical care time was [32] minutes. This time is in addition to time spent performing reported procedures but includes the following: [x] Data Review and interpretation [x] Patient assessment and monitoring of vital signs [x] Documentation [x] Medication orders and management
[2017-04-01 10:49] LABS: Basophils % 0.1 %; Eosinophils % 0.4 %; Hematocrit 35.7 % (37.5-50.1); Hemoglobin 11.3 g/dL (12.9-16.9); Immature Granulocytes % 0.3 % (0-4); Lymphocytes # 0.7 K/mcL (0.6-4.6); Lymphocytes % 9.2 %; Mean Corpuscular HGB Conc 31.7 g/dL (31.6-35.5); Mean Corpuscular Hemoglobin 30.5 pg (28.0-33.3); Mean Corpuscular Volume 96.5 fL (83.0-100.0); Mean Platelet Volume 11.3 fL (9.4-12.4); Monocytes # 0.3 K/mcL (0.0-1.3); Monocytes % 3.4 %; Neutrophils # 6.9 K/mcL (1.6-8.9); Nucleated Red Blood Cells 0.3 /100 WBC (0); Platelet Count 265 K/mcL (140-400); Red Cell Distribution Width 20.8 % (11.5-14.5); Segmented Neutrophils % 86.6 %
[2017-04-01 11:00] LABS: INR 2.7; Prothrombin Time 29.5 Seconds (9.4-12.1)
[2017-04-01 11:04] LABS: Albumin 3.1 g/dL (3.5-5.7); Albumin/Globulin Ratio 1.1 (1.1-2.2); Bilirubin,Direct 0.1 mg/dL (0.0-0.2); Bilirubin,Indirect 0.5 mg/dL (0.0-1.2); Bilirubin,Total 0.6 mg/dL (0.3-1.0); Calcium 8.7 mg/dL (8.6-10.3); Globulin 2.7 g/dL (2.4-3.5); Total Protein 5.8 g/dL (6.4-8.9)
[2017-04-01] MEDS ORDERED: Furosemide 40 MG/4 ML VIAL IVP ONE (11:09)
[2017-04-01] MEDS ORDERED: Aspirin 81 MG TAB.CHEW PO ONE (11:10)
[2017-04-01] MEDS ORDERED: Sodium Bicarbonate 50 MEQ/50 ML VIAL IVP ONE (12:02)
[2017-04-01] MEDS ORDERED: Calcium Gluconate 1,000 MG in D5% in Water 100 ML IVPB ONE (12:02)
[2017-04-01] MEDS ORDERED: Naloxone 0.4 MG/ML INJ IVP PRN (12:54)
[2017-04-01] MEDS ORDERED: *HR* Dextrose 50 % in Water (Syg) 50 ML SYRINGE IVP PRN (13:04)
[2017-04-01] MEDS ORDERED: D5% in Water 1,000 ML IVC PRN (13:04)
[2017-04-01] MEDS ORDERED: Dextrose Gel 15 GM/37.5 ML TUBE PO PRN ×2 (13:04)
--- NOTE | 2017-04-01 13:19 | Internal Med History&Physical ---
Date of Encounter: 04/01/17 Time of Encounter: 12:15 Assessment and Plan (1) Acute exacerbation of CHF (congestive heart failure) Current visit: Yes Status: Acute Acute exacerbation of CHF. Pt. reports recent increase in weight, abdominal girth, and increased bilateral pedal edema. On exam, pedal edema is 2+ bilaterally. Pt. has diminished breath sounds and uses accessory muscles for breathing. Pt. reports taking PO lasix 40 mg BID. Will hold oral and administer 40 mg IVP lasix BID. Monitor I&O and daily weight. 1.5L daily fluid restriction. Continuous cardiac telemetry. Echocardiogram ordered. DuoNebs Q6 PRN. Supplemental O2 w/titration and SpO2 monitoring. Monitor pt. closely for signs of respiratory and/or cardiac distress. Pt. discussed w/Dr. Mandel who is in agreement w/plan of care. Pt. is high risk for further morbidity d/t current SOB/dyspnea, increased fluid from CHF exacerbation and recurrent left-sided pleural effusion, generalized weakness resulting in falls, hyperkalemia, hx of CAD and MIs x2 and stent x6, and risk factors. Inpatient. Qualifiers: Congestive heart failure type: systolic Qualified Code(s): I50.23 - Acute on chronic systolic (congestive) heart failure (2) Generalized weakness Current visit: Yes Status: Acute Acute generalized weakness in the past day. Pt. reports falling in the bathroom this morning and being unable to turn over or help himself up. Reports UE and LE weakness which has resolved on exam w/reduced but equal strength bilaterally in UEs and LEs. Pt. denies blacking out or striking head. Falls/safety precautions, up with assist, bed rest w/bedside commode. SW/PT/OT consults ordered to assess pt. for possible rehabilitation needs for post-discharge planning. (3) Swelling of left upper extremity Current visit: Yes Status: Acute Acute swelling of LUE. Concern is for possible DVT. Venous Doppler of LUE ordered. Continue pts. Coumadin w/pharmacy dosing for DVT prophylaxis. (4) Hyperkalemia Current visit: Yes Status: Acute Acute hyperkalemia w/potassium of 6.0 on admission. Kayexalate 30 mg ordered once. Will repeat potassium @ 15:00. Monitor pt. and f/u labs. Continuous cardiac telemetry. (5) Recurrent pleural effusion on left Current visit: Yes Status: Chronic Hx of recurrent pleural effusion of the left lung requiring repeat thoracentesis. ED began draining effusion. 700 mL drained during exam. Monitor pt. and repeat imaging to assess resolution. (6) CKD (chronic kidney disease) stage 4, GFR 15-29 ml/min Current visit: Yes Status: Chronic Hx of CKD. Currently stage 4 w/GFR of 20 and creatinine of 2.99. Will use IV fluids judiciously d/t current renal dysfunction as well as exacerbation of CHF. Avoid nephrotoxins. Monitor I&O and f/u labs. (7) HTN (hypertension) Current visit: Yes Status: Chronic Hx of chronic HTN. Monitor pt. and VS. Continue pts. Cozaar, hydralazine, and amiodarone. Qualifiers: Hypertension type: essential hypertension Qualified Code(s): I10 - Essential (primary) hypertension (8) HLD (hyperlipidemia) Current visit: Yes Status: Chronic Hx of chronic HLD. Lipid panel in a.m. labs. Continue pts. Lipitor. Qualifiers: Hyperlipidemia type: pure hypercholesterolemia Qualified Code(s): E78.00 - Pure hypercholesterolemia, unspecified; E78.0 - Pure hypercholesterolemia (9) Anemia Current visit: Yes Status: Chronic Hx of chronic anemia. Hgb 11.3 and Hct 35.7 on admission which is pts. recent baseline. Pt. reports bright blood w/BMs and reports he has hemorrhoids and IBS. Monitor H/H in a.m. labs. Fecal hemoccult ordered. Consider GI consult if fecal hemoccult +. Qualifiers: Anemia type: unspecified type Qualified Code(s): D64.9 - Anemia, unspecified (10) GERD (gastroesophageal reflux disease) Current visit: Yes Status: Chronic Hx of chronic GERD. IVP Zofran 4 mg Q8 for N/V. IVP Protonix 40 mg BID. Qualifiers: Esophagitis presence: esophagitis presence not specified Qualified Code(s) : K21.9 - Gastro-esophageal reflux disease without esophagitis (11) Elevated troponin Current visit: Yes Status: Chronic Hx of chronically elevated troponin. Initial troponin 0.05 on admission. Pt. denies chest pain. Will trend x2. Continuous cardiac telemetry. (12) Afib Current visit: Yes Status: Chronic Hx of chronic atrial fibrillation. Continuous cardiac telemetry. Continue pts. Coumadin w/pharmacy dosing. Qualifiers: Atrial fibrillation type: chronic Qualified Code(s): I48.2 - Chronic atrial fibrillation (13) Coronary artery disease Current visit: Yes Status: Chronic Hx of chronic CAD w/OK x2 and stent placement x6 in 2003. Continue patient's aspirin therapy, Plavix, Cozaar, hydralazine, Coumadin with pharmacy dosing, Lipitor, and amiodarone. Continuous cardiac telemetry. Echocardiogram ordered. Qualifiers: Coronary Disease-Associated Artery/Lesion type: [place] artery [place] vs. transplanted heart: [place] heart Associated angina: with unstable angina Qualified Code(s): I25.110 - Atherosclerotic heart disease of [place] coronary artery with unstable angina pectoris (14) Diabetes mellitus Current visit: Yes Status: Chronic Hx of chronic diabetes controlled w/oral anti-hyperglycemics. Hold oral and administer low-dose correction insulin sliding scale w/hypoglycemic protocol. BG checks ACHS. A1c in a.m. labs. Qualifiers: Diabetes mellitus type: type 2 Diabetes mellitus complication status: without complication Diabetes mellitus skilled nursing insulin use: without exterminator helper use Qualified Code(s): E11.9 - Type 2 diabetes mellitus without complications (15) DVT prophylaxis Current visit: Yes Status: Acute Continue pts. Coumadin w/pharmacy dosing for DVT prophylaxis. Monitor pt. for signs of bleeding. Internal Medicine - H&P: HPI Chief complaint: SOB/Dyspnea/Weakness Admitted From: Emergency Dept Plans for Post Hospital Care: Home History of present illness: Mr. Langford is a 81 year old male with medical hx of melanoma of the face, IBS, CAD, diabetes controlled w/oral anti-hyperglycemic medications, GERD, HLD, HTN, previous myocardial infarction 2 in June 2016, sudden cardiac , and TIAs presents from the ED with chief complaint of shortness of breath and dyspnea with just become worse over the past 2-3 days. Patient states he was in the bathroom this morning and became weak and fell to the floor and was unable to turn her or help himself up. Patient denies losing consciousness or hitting head. Patient also reports bright blood with bowel movements due to hemorrhoids. Patient reports generalized weakness, shortness of breath, dyspnea , dizziness, and increased weight gain and pedal edema but denies recent illness , fever, chills, nausea, vomiting, headache, changes in vision, chest pain, palpitations, cough, abdominal pain, numbness, tingling, presyncope, or syncope. Past Med Surg Social Fam HX - Past Medical History Source: patient, old records reviewed, obtained from family Medical history: cancer (Melanoma of the face), CHF, coronary artery disease, diabetes (Controlled w/oral medication), GERD, hyperlipidemia, hypertension, myocardial infarction (x2 in June 2016), sudden cardiac , TIA, other (IBS) Psychiatric history: depression - Past Surgical History Surgical History: angioplasty/stent (Stents x6 in 2003), herniorrhaphy, pacemaker - Social History Smoking Status: Never smoker Smokeless Tobacco Status: No Alcohol use: none Drug use: none Current living situation: Home, With Family Activity Level: Uses cane/walker Recent Out of Country Travel Within the Last 8 Weeks: No Exposure or Possible Exposure to Illness During Travel: No - Family History Brother Race: Family Member Ethnicity: Non- Living Status: Age at : 60 Cause of : HD Hx Family Cardiac Disorders: Yes (HD, Open heart surgery) Hx Family Endocrine Disorder: Yes (DM) Sister Race: Family Member Ethnicity: Non- Living Status: Age at : 77 Cause of : HD Hx Family Cardiac Disorders: Yes (HD, CAD) Hx Family Endocrine Disorder: Yes (DM) Mother Race: Family Member Ethnicity: Non- Living Status: Age at : 73 Cause of : CAD Hx Family Cardiac Disorders: Yes (HD, HTN) Father Race: Family Member Ethnicity: Non- Living Status: Age at : 61 Cause of : Pneumonia Hx Family Cardiac Disorders: Yes (OK, HD, HTN) Hx Family Respiratory Disorders: Yes (Pneumonia) Internal Medicine - H&P: Meds Allopurinol [Zyloprim 100 MG] 100 mg PO BID 07/06/16 [History] Clopidogrel [Plavix] 75 mg PO DAILY 07/06/16 [History] Amiodarone [Cordarone] 200 mg PO DAILY #30 tablet 07/10/16 [Rx] Aspirin 81 mg PO DAILY #30 tab.chew 07/10/16 [Rx] Atorvastatin [Lipitor] 80 mg PO HS #30 tablet 07/10/16 [Rx] Furosemide [Lasix] 40 mg PO DAILY 09/22/16 [History] Losartan Potassium [Cozaar] 50 mg PO DAILY 09/22/16 [History] Omeprazole [PriLOSEC] 40 mg PO DAILY 09/22/16 [History] hydrALAZINE [HydrALAZINE] 25 mg PO BID 09/22/16 [History] metFORMIN [Glucophage] 500 mg PO DAILY 10/18/16 [History] Potassium Chloride 10 meq PO DAILY 11/08/16 [History] Warfarin [Coumadin] 1 mg PO DAILY 11/08/16 [History] 3 Allergy/AdvReac Type Severity Reaction Status Date / Time aspirin AdvReac See Verified 11/24/16 00:05 Comments NSAIDS (Non-Steroidal AdvReac See Verified 11/24/16 00:05 Anti-Inflamma Comments All Systems PM: A 10-system review of systems was performed and is negative for pertinent findings except as documented above in the HPI. - Constitutional Constitutional: as per HPI, fatigue, falls, weakness, no chills, no fever(s), no night sweats - EENT Eyes: no change in vision, no discharge, no pain, no photophobia Ears: no ear discharge, no ear pain, no tinnitus Nose, mouth and throat: no dysphagia, no nasal discharge, no neck pain, no sore throat - Breasts Breasts: as per HPI - Cardiovascular Cardiovascular ROS IM: as per HPI, dyspnea, dyspnea on exertion, edema ( Bilateral pedal), lightheadedness, no chest pain, no diaphoresis, no palpitations, no syncope - Respiratory Respiratory: as per HPI, dyspnea, dyspnea on exertion, no cough, no wheezing, no excessive phlegm production - Gastrointestinal Gastrointestinal: as per HPI, hematochezia, no abdominal pain, no diarrhea, no hematemesis, no melena, no nausea, no vomiting - Genitourinary Genitourinary ROS male: as per HPI - Musculoskeletal Musculoskeletal ROS IM: no numbness, no tingling - Integumentary Integumentary IM: no rash, no unusual bruising - Neurological Neurological ROS: as per HPI, dizziness, no confusion, no convulsions, no focal weakness, no numbness, no tingling, no tremor(s) - Psychiatric Psychiatric: as per HPI, depression - Endocrine Endocrine IM: as per HPI - Hematologic/Lymphatic Hematologic/Lymphatic: no easy bruising - Allergic/Immunologic Allergic/Immunologic: as per HPI - Constitutional Vitals: Temp Pulse Resp BP Pulse Ox 98.2 F 72 18 120/102 99 04/01/17 10:22 04/01/17 12:40 04/01/17 12:40 04/01/17 12:40 04/01/17 12:40 General appearance: Present: cooperative, mild distress (Respiratory), A&O X 3, pleasant, answers questions appropriately - Head Head exam: Present: atraumatic, normocephalic - Eye Eye exam: Present: PERRL, conjuntiva pink, sclera anicteric Pupils: Present: PERRL - ENT ENT exam: Present: normal exam - Neck Neck exam general surgery: Present: normal inspection, supple, trachea midline. Absent: lymphadenopathy - Respiratory Respiratory exam: Present: accessory muscle use, decreased breath sounds. Absent: rales, rhonchi, wheezes - Cardiovascular Cardiovascular exam: Present: irregular rhythm (Atrial fibrillation) - GI/Abdominal GI/Abdominal exam: Present: normal bowel sounds, soft, no peritoneal signs. Absent: distended, tenderness - Rectal Rectal exam: Present: deferred - Additional comments: exam deferred. - Extremities Exam Extremities exam: Present: pedal edema (2+ pitting edema of LEs), warm, radial pulses palpable and symmetrical. Absent: calf tenderness, cyanotic - Back Exam Back exam: Present: normal inspection - Neurological Exam Neurological exam: Present: alert, CN II-XII intact, oriented X3, no focal deficits. Absent: pronater drift, facial droop, speech deficit - Psychiatric Psychiatric exam: Present: normal affect, normal mood - Skin Skin exam: Present: dry, intact Internal Med - H&P Results - Labs CBC & Chem 7: 04/01/17 10:41 04/01/17 10:41 Labs: Short CBC 04/01/17 Range/Units 10:41 WBC 7.9 (4.3-11.1) K/mcL Hgb 11.3 L (12.9-16.9) g/dL Hct 35.7 L (37.5-50.1) % Plt Count 265 (140-400) K/mcL Neutrophils # 6.9 (1.6-8.9) K/mcL BMP 04/01/17 10:41 Sodium 137 Potassium 6.0 H Chloride 105 Carbon Dioxide 23 BUN 40 H Creatinine 2.99 H Glucose 197 H Calcium 8.7 Cardiac Enzymes 04/01/17 Range/Units 10:41 Troponin I 0.05 H* (< 0.04) ng/mL Liver Function 04/01/17 Range/Units 10:41 Total Bilirubin 0.6 (0.3-1.0) mg/dL Direct Bilirubin 0.1 (0.0-0.2) mg/dL AST 18 (13-39) Units/L ALT 17 (7-52) Units/L Alkaline Phosphatase 136 H (34-104) Units/L Albumin 3.1 L (3.5-5.7) g/dL - EKG Data Prior EKG available for review: yes EKG comments: 04/01/17 13:48 EKG dated 03/28/17 shows atrial fibrillation with intraventricular conduction delay, anterior myocardial infarction (probably recent), inferior myocardial infarction of indeterminate age with posterior extension. EKG dated 04/01/17 shows atrial fibrillation with marked right axis deviation, intraventricular conduction delay, inferior myocardial infarction (probably acute), ST elevation (consider anterior injury). - Impressions ITS Impressions Chest X-Ray 04/01/17 10:29 IMPRESSION: Small right and moderate left pleural effusions have increased since the prior examination. D/ / 04/01/2017 11:23:42 Paulina Whitt MD / [email or web address] Interpreting Provider: Paulina Whitt MD - Diagnostic Studies Chest x-ray Additional comments: Impressions Chest X-Ray 04/01/17 10:29
[2017-04-01] MEDS ORDERED: Furosemide 20 MG/2 ML VIAL IVP ONE (14:04)
--- NOTE | 2017-04-01 16:04 | Event Note ---
Date of Encounter: 04/01/17 Time of Encounter: 16:03 Patient seen and examined with nurse practitioner. Agree with assessment and plan
[2017-04-01] MEDS: Pantoprazole 40 MG VIAL IVP SCH (17:13)
[2017-04-01] MEDS: Insulin LISPRO 300 UNITS/3 ML VIAL SQ SCH (17:13)
[2017-04-01] MEDS ORDERED: *HR* Warfarin 1 MG TABLET PO ONE (18:00)
[2017-04-01] MEDS ORDERED: Warfarin perPT PO PRN (18:00)
[2017-04-01] MEDS ORDERED: Perflutren Lipid Microsphere 1.3 ML in 0.9 % Sodium Chloride 8.7 ML IVP ONE (22:47)
[2017-04-01] MEDS ORDERED: Perflutren Lipid Microsphere 2 ML VIAL ONE (22:54)
[2017-04-02] MEDS: hydrALAZINE 25 MG TABLET PO SCH ×3 (00:21→21:22)
[2017-04-02] MEDS: Furosemide 40 MG/4 ML VIAL IVP SCH ×3 (00:21→17:48)
[2017-04-02 00:28] LABS: Eosinophils % 0.4 %; Hematocrit 34.4 % (37.5-50.1); Hemoglobin 10.9 g/dL (12.9-16.9); Immature Granulocytes % 0.2 % (0-4); Lymphocytes % 11.5 %; Mean Corpuscular HGB Conc 31.7 g/dL (31.6-35.5); Mean Corpuscular Hemoglobin 30.4 pg (28.0-33.3); Mean Corpuscular Volume 96.1 fL (83.0-100.0); Mean Platelet Volume 11.6 fL (9.4-12.4); Monocytes % 5.4 %; Platelet Count 253 K/mcL (140-400); Red Blood Count 3.58 M/mcL (4.19-5.50); Red Cell Distribution Width 20.5 % (11.5-14.5); Segmented Neutrophils % 82.4 %
[2017-04-02 00:29] LABS: Basophils % 0.1 %; Monocytes # 0.5 K/mcL (0.0-1.3); Neutrophils # 7.4 K/mcL (1.6-8.9); Nucleated Red Blood Cells 0.2 /100 WBC (0)
[2017-04-02 00:33] LABS: INR 3.1; Prothrombin Time 34.5 Seconds (9.4-12.1)
[2017-04-02 00:45] LABS: Albumin/Globulin Ratio 1.2 (1.1-2.2); Bilirubin,Total 0.4 mg/dL (0.3-1.0); Calcium 8.9 mg/dL (8.6-10.3); Chol/HDL Ratio 1.9 (0-4.9); Globulin 2.5 g/dL (2.4-3.5); Magnesium 2.4 mg/dL (1.6-2.6); Potassium 4.9 mEq/L (3.5-5.1); Total Protein 5.5 g/dL (6.4-8.9)
[2017-04-02 00:52] LABS: Hemoglobin A1C 6.8 %
[2017-04-02] MEDS: Insulin LISPRO 300 UNITS/3 ML VIAL SQ SCH ×5 (01:30→21:32)
[2017-04-02] MEDS: Acetaminophen 325 MG TABLET PO PRN (02:58)
[2017-04-02] MEDS: Pantoprazole 40 MG VIAL IVP SCH ×2 (06:56→17:48)
[2017-04-02] MEDS: *HR* Amiodarone 200 MG TABLET PO SCH (09:57)
[2017-04-02] MEDS: Aspirin 81 MG TAB.CHEW PO SCH (09:57)
--- NOTE | 2017-04-02 17:41 | Internal Med Progress Note ---
Date of Encounter: 04/02/17 Time of Encounter: 11:00 - Assessment and plan (1) Type 2 diabetes mellitus Current Visit: No Status: Chronic Assessment and plan: Insulin sliding scale, Accu-Cheks 4 times a day and diabetic diet. Qualifiers: Diabetes mellitus complication status: with circulatory complication Diabetes mellitus complication detail: with other circulatory complications Diabetes mellitus termite control servicer insulin use: without senior living use Qualified Code( s): E11.59 - Type 2 diabetes mellitus with other circulatory complications (2) DVT prophylaxis Current Visit: Yes Status: Acute Assessment and plan: On Coumadin. (3) Acute on chronic systolic (congestive) heart failure Current Visit: No Status: Chronic Assessment and plan: IV Lasix 60 mg twice a day. Daily weights. Strict I's and O's. Echocardiogram shows LVEF of 20% which has decreased from 25-30% in July 2016, per chart review. Continue with ARB. Patient is not on a beta bi. Upon review of his previous chart back in October 2016 he was taking metoprolol succinate. I will restart Toprol at 25 mg daily. (4) Atrial fibrillation Current Visit: No Status: Acute Assessment and plan: Continue with amiodarone and anticoagulation with Coumadin. Qualifiers: Atrial fibrillation type: unspecified Qualified Code(s): I48.91 - Unspecified atrial fibrillation (5) Recurrent pleural effusion on left Current Visit: Yes Status: Chronic Assessment and plan: Pleurx catheter drainage every 48 hours (6) Hyperkalemia Current Visit: Yes Status: Acute Assessment and plan: Resolved. Low potassium diet. (7) CKD (chronic kidney disease) stage 4, GFR 15-29 ml/min Current Visit: Yes Status: Chronic Assessment and plan: Avoid nephrotoxins including nonsteroidal anti-inflammatory drugs. Monitor kidney function. (8) HTN (hypertension) Current Visit: Yes Status: Chronic Assessment and plan: Continue home regimen. Add Toprol-XL. Qualifiers: Hypertension type: essential hypertension Qualified Code(s): I10 - Essential (primary) hypertension (9) HLD (hyperlipidemia) Current Visit: Yes Status: Chronic Assessment and plan: Continue with statin. Qualifiers: Hyperlipidemia type: pure hypercholesterolemia Qualified Code(s): E78.00 - Pure hypercholesterolemia, unspecified; E78.0 - Pure hypercholesterolemia - Subjective Interval history: Patient presented to the hospital for generalized weakness and shortness of breath. He had severe generalized weakness and shortness of breath with minimal ambulation, progressively worse over the last 3 days, associated with swelling of his lower extremities and dyspnea. Denies chest pain and palpitations. Denies cough or fevers chills nausea vomiting and diarrhea. - Constitutional Vitals: Temp Pulse Resp BP Pulse Ox 97.4 F L 93 17 109/65 96 04/02/17 15:33 04/02/17 15:33 04/02/17 15:33 04/02/17 15:33 04/02/17 15:33 General appearance: Present: cooperative, mild distress (Respiratory), A&O X 3, pleasant, answers questions appropriately - Eye Eye exam: Present: PERRL, conjuntiva pink, sclera anicteric Pupils: Present: PERRL - Respiratory Respiratory exam: Present: decreased breath sounds (Absent breath sounds at the left base), CTAB. Absent: accessory muscle use, rales, rhonchi, wheezes - Cardiovascular Cardiovascular exam: Present: RRR, +S1, +S2. Absent: diastolic murmur, gallop, rubs, systolic murmur - Extremities Exam Extremities exam: Present: pedal edema, warm, radial pulses palpable and symmetrical. Absent: calf tenderness, cyanotic - Neurological Exam Neurological exam: Present: CN II-XII intact, oriented X3, no focal deficits. Absent: pronater drift, facial droop, speech deficit - Skin Skin exam: Present: dry, intact Internal Medicine: Result - Labs CBC & Chem 7: 04/02/17 00:08 04/02/17 00:08 Labs: Short CBC 04/02/17 Range/Units 00:08 WBC 9.0 (4.3-11.1) K/mcL Hgb 10.9 L (12.9-16.9) g/dL Hct 34.4 L (37.5-50.1) % Plt Count 253 (140-400) K/mcL Neutrophils # 7.4 (1.6-8.9) K/mcL BMP 04/02/17 00:08 Sodium 140 Potassium 4.9 Chloride 104 Carbon Dioxide 29 BUN 40 H Creatinine 2.94 H Glucose 108 H Calcium 8.9 Cardiac Enzymes 04/02/17 Range/Units 00:08 Troponin I 0.06 H* (< 0.04) ng/mL Liver Function 04/02/17 Range/Units 00:08 Total Bilirubin 0.4 (0.3-1.0) mg/dL AST 18 (13-39) Units/L ALT 17 (7-52) Units/L Alkaline Phosphatase 129 H (34-104) Units/L Albumin 3.0 L (3.5-5.7) g/dL - ABG Interpretation ABG results: PT/INR, D-dimer PT 34.5 Seconds (9.4-12.1) H 04/02/17 00:08 Consult Discharge Plan - Plan Referrals: Kings Kaiser MD [Primary Care Provider] -
[2017-04-02] MEDS: *HR* HYDROcodone/Acet 5/325 mg TABLET PO PRN (17:48)
[2017-04-02] MEDS: Metoprolol XL (24 HR) Succ 25 MG TAB.ER.24H PO SCH (18:17)
[2017-04-03] MEDS: Pantoprazole 40 MG VIAL IVP SCH ×2 (05:26→18:03)
[2017-04-03] MEDS: Ipratropium/Albuterol Neb 3 ML IH PRN (05:38)
[2017-04-03 07:22] LABS: Prothrombin Time 32.8 Seconds (9.4-12.1)
[2017-04-03 07:32] LABS: Albumin 2.6 g/dL (3.5-5.7); Albumin/Globulin Ratio 1.2 (1.1-2.2); Bilirubin,Total 0.6 mg/dL (0.3-1.0); Globulin 2.2 g/dL (2.4-3.5); Potassium 3.8 mEq/L (3.5-5.1); Total Protein 4.8 g/dL (6.4-8.9)
[2017-04-03 07:36] LABS: Basophils % 0.1 %; Eosinophils # 0.1 K/mcL (0.0-0.6); Eosinophils % 1.4 %; Hematocrit 32.1 % (37.5-50.1); Hemoglobin 9.9 g/dL (12.9-16.9); Immature Granulocytes % 0.5 % (0-4); Lymphocytes # 1.4 K/mcL (0.6-4.6); Lymphocytes % 16.2 %; Mean Corpuscular HGB Conc 30.8 g/dL (31.6-35.5); Mean Corpuscular Hemoglobin 29.4 pg (28.0-33.3); Mean Corpuscular Volume 95.3 fL (83.0-100.0); Mean Platelet Volume 12.1 fL (9.4-12.4); Monocytes # 0.4 K/mcL (0.0-1.3); Monocytes % 4.1 %; Neutrophils # 6.6 K/mcL (1.6-8.9); Nucleated Red Blood Cells 0.2 /100 WBC (0); Platelet Count 242 K/mcL (140-400); Red Blood Count 3.37 M/mcL (4.19-5.50); Red Cell Distribution Width 19.8 % (11.5-14.5); Segmented Neutrophils % 77.7 %
--- NOTE | 2017-04-03 09:03 | Electrocardiograph Report ---
[facility] [employer] Test Date: 2017-04-01 Pat Name: Ras Langford Department: 103 Room: 2A44 Gender: Database Manager: ALETA : 1935 Requested By: Raul Parrish Order Number: [id number] Reading MD: Luis Grady DO Measurements Intervals [place] Rate: 126 P: 120 [place]: 156 QRS: 110 QRSD: 145 T: 93 QT: 328 QTc: 403 Interpretive Statements SINUS TACHYCARDIA ARM LEADS REVERSED [INVERTED P AND QRS IN I] MARKED ST ELEVATION, CONSIDER INFERIOR INJURY [MARKED ST ELEVATION W/O NORMALLY INFLECTED T WAVE IN II/aVF] ST DEPRESSION, CONSIDER SUBENDOCARDIAL INJURY [0.1+ mV ST DEPRESSION] Electronically Signed On 04-03-2017 9:02:19 EST by Luis Grady DO
--- NOTE | 2017-04-03 09:04 | Electrocardiograph Report ---
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
[2017-04-03] MEDS: Insulin LISPRO 300 UNITS/3 ML VIAL SQ SCH ×4 (09:18→23:08)
[2017-04-03] MEDS: Metoprolol XL (24 HR) Succ 25 MG TAB.ER.24H PO SCH (10:13)
[2017-04-03] MEDS: *HR* Amiodarone 200 MG TABLET PO SCH (10:13)
[2017-04-03] MEDS: Furosemide 40 MG/4 ML VIAL IVP SCH ×2 (10:13→18:03)
[2017-04-03] MEDS: Aspirin 81 MG TAB.CHEW PO SCH (10:13)
[2017-04-03] MEDS: hydrALAZINE 25 MG TABLET PO SCH (10:13)
--- NOTE | 2017-04-03 11:38 | Internal Med Progress Note ---
Date of Encounter: 04/03/17 Time of Encounter: 11:47 - Assessment and plan (1) Type 2 diabetes mellitus Current Visit: No Status: Chronic Assessment and plan: Insulin sliding scale, Accu-Cheks 4 times a day and diabetic diet. 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 INR is therapeutic today. (3) Acute on chronic systolic (congestive) heart failure Current Visit: No Status: Chronic Assessment and plan: IV Lasix 60 mg twice a day. Daily weights. Strict I's and O's. Echocardiogram shows LVEF of 20% which has decreased from 25-30% in July 2016. Hold HUBER inhibitor and ARB due to acute renal failure. We restarted Toprol at 25 mg daily. (4) Atrial fibrillation Current Visit: No Status: Acute Assessment and plan: Continue with amiodarone and anticoagulation with Coumadin. 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 (6) Hyperkalemia Current Visit: Yes Status: Acute Assessment and plan: Resolved. Low potassium diet. (7) CKD (chronic kidney disease) stage 4, GFR 15-29 ml/min Current Visit: Yes Status: Chronic Assessment and plan: Avoid nephrotoxins including nonsteroidal anti-inflammatory drugs. Monitor kidney function. Kidney US (8) HTN (hypertension) Current Visit: Yes Status: Chronic Assessment and plan: Added Toprol-XL. Monitor blood pressure closely. Currently on the low side with map above 70. Qualifiers: Hypertension type: essential hypertension Qualified Code(s): I10 - Essential (primary) hypertension (9) HLD (hyperlipidemia) Current Visit: Yes Status: Chronic Assessment and plan: Continue with statin. Qualifiers: Hyperlipidemia type: pure hypercholesterolemia Qualified Code(s): E78.00 - Pure hypercholesterolemia, unspecified; E78.0 - Pure hypercholesterolemia (10) Stenosis of left internal carotid artery Current Visit: Yes Status: Acute Assessment and plan: This is a new problem from today. Ultrasound Doppler revealed left ICA stenosis. She does not have stroke symptoms or syncope, I suspect this is incidental finding and does not need to be addressed during this hospitalization. We will refer to vascular surgery outpatient. (11) GI bleed Current Visit: No Status: Resolved Assessment and plan: Patient reports bright red blood per rectum and long-standing history of hemorrhoids. Hemoglobin is trending down. Continue with Protonix. Monitor H&H. Check FOBT. We will treat hemorrhoidal bleeding with Preparation H. Qualifiers: GI bleed type/associated pathology: unspecified gastrointestinal hemorrhage type Qualified Code(s): K92.2 - Gastrointestinal hemorrhage, unspecified (12) Acute kidney injury superimposed on CKD Current Visit: No Status: Acute Assessment and plan: Baseline creatinine in October 2016 was 1.5. Currently 2.8. Check renal ultrasound. Avoid nephrotoxins. Continue diuresis. Consider nephrology consult if creatinine worsens. (13) Ischemic cardiomyopathy Current Visit: No Status: Acute Assessment and plan: Continue aspirin and Plavix and beta bi. (14) Swelling of left upper extremity Current Visit: Yes Status: Acute Assessment and plan: LUE no DVT. Elevate LUE - Subjective Interval history: Patient reports gen weakness unchanged from yesterday. - Constitutional Vitals: Temp Pulse Resp BP Pulse Ox 97.3 F L 71 16 115/62 97 04/03/17 07:26 04/03/17 07:26 04/03/17 07:26 04/03/17 07:26 04/03/17 07:26 General appearance: Present: cooperative, mild distress (Respiratory), A&O X 3, pleasant, answers questions appropriately - Eye Eye exam: Present: PERRL, conjuntiva pink, sclera anicteric Pupils: Present: PERRL - Neck Neck exam general surgery: Present: supple, trachea midline. Absent: lymphadenopathy - Respiratory Respiratory exam: Present: decreased breath sounds (L base absent BS), CTAB. Absent: accessory muscle use, rales, rhonchi, wheezes - Cardiovascular Cardiovascular exam: Present: irregular rhythm, +S1, +S2. Absent: diastolic murmur, gallop, rubs, systolic murmur - GI/Abdominal GI/Abdominal exam: Present: normal bowel sounds, soft, no peritoneal signs. Absent: distended, tenderness - Extremities Exam Extremities exam: Present: pedal edema, warm, radial pulses palpable and symmetrical. Absent: calf tenderness, cyanotic - Skin Skin exam: Present: dry, intact Internal Medicine: Result - Labs CBC & Chem 7: 04/03/17 06:58 04/03/17 06:58 Labs: Short CBC 04/03/17 Range/Units 06:58 WBC 8.5 (4.3-11.1) K/mcL Hgb 9.9 L (12.9-16.9) g/dL Hct 32.1 L (37.5-50.1) % Plt Count 242 (140-400) K/mcL Neutrophils # 6.6 (1.6-8.9) K/mcL BMP 04/03/17 06:58 Sodium 138 Potassium 3.8 Chloride 101 Carbon Dioxide 30 H BUN 41 H Creatinine 2.86 H Glucose 99 Calcium 8.0 L Liver Function 04/03/17 Range/Units 06:58 Total Bilirubin 0.6 (0.3-1.0) mg/dL AST 15 (13-39) Units/L ALT 14 (7-52) Units/L Alkaline Phosphatase 109 H (34-104) Units/L Albumin 2.6 L (3.5-5.7) g/dL - ABG Interpretation ABG results: PT/INR, D-dimer PT 32.8 Seconds (9.4-12.1) H 04/03/17 06:58 - VTE Documentation of Mechanical Device: Intermittent pneumatic compression device Consult Discharge Plan - Plan Referrals: Kings Kaiser MD [Primary Care Provider] -
[2017-04-03] MEDS: Preparation H Ointment 30 GM TUBE RC SCH ×2 (14:50→23:15)
[2017-04-04] MEDS: Pantoprazole 40 MG VIAL IVP SCH ×2 (05:39→16:43)
[2017-04-04 06:25] LABS: Basophils % 0.1 %; Eosinophils # 0.2 K/mcL (0.0-0.6); Eosinophils % 2.1 %; Hematocrit 27.2 % (37.5-50.1); Hemoglobin 8.8 g/dL (12.9-16.9); Immature Granulocytes % 0.4 % (0-4); Lymphocytes % 12.5 %; Mean Corpuscular HGB Conc 32.4 g/dL (31.6-35.5); Mean Corpuscular Hemoglobin 30.3 pg (28.0-33.3); Mean Corpuscular Volume 93.8 fL (83.0-100.0); Mean Platelet Volume 11.5 fL (9.4-12.4); Monocytes # 0.4 K/mcL (0.0-1.3); Monocytes % 4.9 %; Neutrophils # 6.1 K/mcL (1.6-8.9); Nucleated Red Blood Cells 0.3 /100 WBC (0); Platelet Count 201 K/mcL (140-400); Red Cell Distribution Width 19.9 % (11.5-14.5)
[2017-04-04 06:29] LABS: INR 1.9; Prothrombin Time 20.4 Seconds (9.4-12.1)
[2017-04-04 06:49] LABS: Albumin 2.5 g/dL (3.5-5.7); Albumin/Globulin Ratio 1.3 (1.1-2.2); Bilirubin,Total 0.5 mg/dL (0.3-1.0); Calcium 7.7 mg/dL (8.6-10.3); Globulin 1.9 g/dL (2.4-3.5); Potassium 3.1 mEq/L (3.5-5.1); Total Protein 4.4 g/dL (6.4-8.9)
[2017-04-04 06:51] LABS: Ferritin 106 ng/ml (20-250); Iron < 10 mcg/dL (65-175); Transferrin 176 mg/dL (203-362)
[2017-04-04] MEDS: Insulin LISPRO 300 UNITS/3 ML VIAL SQ SCH ×4 (08:13→21:20)
[2017-04-04] MEDS: Furosemide 40 MG/4 ML VIAL IVP SCH ×2 (08:17→16:28)
[2017-04-04] MEDS: *HR* Amiodarone 200 MG TABLET PO SCH (08:18)
[2017-04-04] MEDS: Aspirin 81 MG TAB.CHEW PO SCH (08:18)
[2017-04-04] MEDS: Metoprolol XL (24 HR) Succ 25 MG TAB.ER.24H PO SCH (08:18)
[2017-04-04] MEDS: Preparation H Ointment 30 GM TUBE RC SCH ×2 (08:21→21:20)
--- NOTE | 2017-04-04 11:11 | Nephrology Consult Note ---
Date of Encounter: 04/04/17 Time of Encounter: 11:10 Assessment and Plan (1) Acute kidney injury superimposed on CKD Current Visit: Yes Status: Acute CKD stage 4, diabetes Patient is usually on 40mg Lasix PO at home. Renal U/S reveals multiple cysts with no significant findings in the kidneys. Recommend stopping Metformin Hold Cozaar until JIMBO improved Start Albumin BID and continue Lasix Continue I&Os and monitoring (2) CKD (chronic kidney disease) stage 4, GFR 15-29 ml/min Current Visit: Yes Status: Chronic Avoid nephrotoxins (3) Hypokalemia Current Visit: Yes Status: Acute Patient presented with potassium level 6.0 on admission and has been treated with Kayexalate. Potassium replaced Patient will benefit from potassium sparing Spironolactone for underlying systolic CHF Continue to monitor (4) Acute on chronic systolic (congestive) heart failure Current Visit: Yes Status: Acute Acute exacerbation of systolic CHF (EF 20% on 04/01/17), and indwelling Pleurex catheter for recurrent left side pleural effusion Start Albumin BID Continue Lasix 60mg IV BID Recommend starting Spironolactone in light of systolic CHF Management per primary team (5) Pleural effusion on left Current Visit: Yes Status: Chronic Management per primary team (6) Anemia Current Visit: Yes Status: Chronic 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 Iron < 10 Ferritin 106 Decreased transferrin 176 Vitamin B12, Vitamin D levels pending Continue to monitor Qualifiers: Anemia type: unspecified type Qualified Code(s): D64.9 - Anemia, unspecified (7) Afib Current Visit: Yes Status: Chronic Management per primary team Qualifiers: Atrial fibrillation type: chronic Qualified Code(s): I48.2 - Chronic atrial fibrillation (8) HTN (hypertension) Current Visit: Yes Status: Chronic Hold Cozaar secondary to JIMBO Start low dose Spironolactone, mointor BP Management per primary team Qualifiers: Hypertension type: essential hypertension Qualified Code(s): I10 - Essential (primary) hypertension (9) Type 2 diabetes mellitus Current Visit: No Status: Chronic Management per primary team Qualifiers: Diabetes mellitus complication status: with circulatory complication Diabetes mellitus complication detail: with other circulatory complications 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 Langford is a pleasant 81yo male with a PMH of systolic CHF (EF 20 % on 04/01/17), CKD stage 4, diabetes, and indwelling Pleurex catheter due to recurrent left side pleural effusion who was admitted on 04/01/17 for acute exacerbation of CHF. Patient is usually on 40mg Lasix PO BID and potassium chloride 10mg PO daily at home. Patient is also on Metformin 500mg BID and Cozaar at home. Nephrology was consulted 04/04/17 due to JIMBO on CKD and hypokalemia. Patient presented with potassium level 6.0 on admission and has been treated with Kayexalate. He reports decreased weakness today compared to the past few days. He has chronic edema on his left side possibly related to PACEr placement and LLE surgery. is at bedside. Past Med Surg Social Fam HX - Past Medical History Medical history: cancer, CHF, coronary artery disease, diabetes, GERD, hyperlipidemia, hypertension, myocardial infarction, sudden cardiac , TIA Psychiatric history: depression - Past Surgical History Surgical History: angioplasty/stent, herniorrhaphy, pacemaker - Social History Smoking Status: Never smoker Smokeless Tobacco Status: No Alcohol use: none Drug use: none - Family History Brother Race: Family Member Ethnicity: Non- Living Status: Age at : 60 Cause of : HD Hx Family Cardiac Disorders: Yes (HD, Open heart surgery) Hx Family Endocrine Disorder: Yes (DM) Sister Race: Family Member Ethnicity: Non- Living Status: Age at : 77 Cause of : HD Hx Family Cardiac Disorders: Yes (HD, CAD) Hx Family Endocrine Disorder: Yes (DM) Mother Race: Family Member Ethnicity: Non- Living Status: Age at : 73 Cause of : CAD Hx Family Cardiac Disorders: Yes (HD, HTN) Hx Family Endocrine Disorder: Yes (DM) Father Race: Family Member Ethnicity: Non- Living Status: Age at : 61 Cause of : Pneumonia Hx Family Cardiac Disorders: Yes (GA, HD, HTN) Hx Family Respiratory Disorders: Yes (Pneumonia) Hx Family Endocrine Disorder: Yes (DM) Medications and Allergies Allopurinol [Zyloprim 100 MG] 100 mg PO BID 07/06/16 [History] Clopidogrel [Plavix] 75 mg PO DAILY 07/06/16 [History] Amiodarone [Cordarone] 200 mg PO DAILY #30 tablet 07/10/16 [Rx] Aspirin 81 mg PO DAILY #30 tab.chew 07/10/16 [Rx] Atorvastatin [Lipitor] 80 mg PO HS #30 tablet 07/10/16 [Rx] Furosemide [Lasix] 40 mg PO DAILY 09/22/16 [History] Losartan Potassium [Cozaar] 50 mg PO DAILY 09/22/16 [History] Omeprazole [PriLOSEC] 40 mg PO DAILY 09/22/16 [History] hydrALAZINE [HydrALAZINE] 25 mg PO BID 09/22/16 [History] metFORMIN [Glucophage] 500 mg PO DAILY 10/18/16 [History] Potassium Chloride 10 meq PO DAILY 11/08/16 [History] Warfarin [Coumadin] 1 mg PO DAILY 11/08/16 [History] 3 Allergy/AdvReac Type Severity Reaction Status Date / Time aspirin AdvReac See Verified 11/24/16 00:05 Comments NSAIDS (Non-Steroidal AdvReac See Verified 11/24/16 00:05 Anti-Inflamma Comments Review of Systems Constitutional: lethargy, weakness, no chills, no fever(s) Cardiovascular: edema, pedal edema, no chest pain Respiratory: dyspnea, dyspnea on exertion, chest congestion Gastrointestinal: no abdominal pain, no constipation, no diarrhea, no nausea, no vomiting Musculoskeletal: left: foot swelling, hand swelling Integumentary: no erythema, no new lesions Neurological: weakness, no numbness, no tingling Psychiatric: no anxiety, no depression Endocrine: polydipsia Exam - Vital Signs Vital signs: Initial Vital Signs Temp Pulse Resp BP Pulse Ox 98.2 F 84 18 115/74 99 04/01/17 10:22 04/01/17 10:22 04/01/17 10:22 04/01/17 10:22 04/01/17 10:22 Vital Signs - Last 8 Hours Temp Pulse Resp BP Pulse Ox 04/04/17 07:20 97.5 F L 62 17 112/64 100 04/04/17 04:06 97.6 F 67 17 102/52 100 Intake and Output 04/03/17 04/04/17 04/04/17 23:59 07:59 15:59 Intake Total 370 / 370 1260 / 1260 Output Total 1400 / 1400 100 / 100 Balance -1030 / -1030 -100 / -100 1260 / 1260 Intake: Oral 370 / 370 1260 / 1260 Output: Urine 550 / 550 100 / 100 Wound Drainage 850 / 850 Left Abdomen 850 / 850 Other: Meal Breakfast Percent of Meal Consumed 60% Stool Size Smear Stool Color Bright Red Blood # Voids 1 1 # Urine Diapers 1 # Bowel Movements 1 Blood Glucose* 101 117 - General Appearance General appearance: well-developed, well-nourished, appears started age EENT: ATNC, PERRL, mucous membranes moist Neck: no JVD, supple Respiratory: clear Additional Comments: decreased breath sounds bilaterally Cardiology: no murmurs, edema (2+ LUE edeam, 2+ LLE edema, 1+ RLE edema), irregular rhythm Gastrointestinal: normoactive bowel sounds, no tenderness, no guarding, no organomegaly Integumentary: no rash, warm and dry Neurologic: no focal deficit, alert and oriented x3 Musculoskeletal: no deformities, no erythema Psychiatric: mood/affect appropriate, cooperative Results - Lab Results 04/04/17 06:11 04/04/17 06:11 Most recent lab results Calcium 7.7 mg/dL (8.6-10.3) L 04/04/17 06:11 Magnesium 2.4 mg/dL (1.6-2.6) 04/02/17 00:08 - Image Kidney/bladder ultrasound: pending Consult Discharge Plan - Plan Referrals: Kings Kaiser MD [Primary Care Provider] -
[2017-04-04] MEDS: Silvasorb 44.4 ML TUBE TP SCH (12:00)
[2017-04-04] MEDS: Albumin 25% 25gram/100mL 25 GM/100 ML IV.SOLN IVPB SCH (18:16)
--- NOTE | 2017-04-04 20:32 | Internal Med Progress Note ---
Date of Encounter: 04/04/17 Time of Encounter: 15:00 - Assessment and plan (1) Type 2 diabetes mellitus Current Visit: No Status: Chronic Assessment and plan: Insulin sliding scale, Accu-Cheks 4 times a day and diabetic diet. Blood glucose well controlled. Qualifiers: Diabetes mellitus complication status: with circulatory complication Diabetes mellitus complication detail: with other circulatory complications Diabetes mellitus longterm insulin use: without longterm use Qualified Code( s): E11.59 - Type 2 diabetes mellitus with other circulatory complications (2) DVT prophylaxis Current Visit: Yes Status: Acute Assessment and plan: Coumadin on hold. We will use SCDs. (3) Acute on chronic systolic (congestive) heart failure Current Visit: Yes Status: Acute Assessment and plan: IV Lasix 60 mg twice a day. Daily weights. Strict I's and O's. Echocardiogram shows LVEF of 20% which has decreased from 25-30% in July 2016. Hold HUBER inhibitor and ARB due to acute renal failure. We restarted Toprol at 25 mg daily. We will consult cardiology. (4) Atrial fibrillation Current Visit: No Status: Acute Assessment and plan: Continue with amiodarone and metoprolol. Even though he has atrial fibrillation with decreased ejection fraction he is not a good candidate for digoxin due to renal failure. We will consult cardiology. 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 (6) Hyperkalemia Current Visit: Yes Status: Acute Assessment and plan: Resolved. Currently hypokalemic. Will need potassium repletion according to daily labs. (7) CKD (chronic kidney disease) stage 4, GFR 15-29 ml/min Current Visit: Yes Status: Chronic Assessment and plan: Avoid nephrotoxins including nonsteroidal anti-inflammatory drugs. Monitor kidney function. Kidney US shows no hydronephrosis, bladder residual. Consult nephrology. (8) HTN (hypertension) Current Visit: Yes Status: Chronic Assessment and plan: Added Toprol-XL. Monitor blood pressure closely. Currently on the low side with map above 70. Qualifiers: Hypertension type: essential hypertension Qualified Code(s): I10 - Essential (primary) hypertension (9) HLD (hyperlipidemia) Current Visit: Yes Status: Chronic Assessment and plan: Continue with statin. Qualifiers: Hyperlipidemia type: pure hypercholesterolemia Qualified Code(s): E78.00 - Pure hypercholesterolemia, unspecified; E78.0 - Pure hypercholesterolemia (10) Stenosis of left internal carotid artery Current Visit: Yes Status: Acute Assessment and plan: Ultrasound Doppler revealed left ICA stenosis. He does not have stroke symptoms or syncope, I suspect this is incidental finding and does not need to be addressed during this hospitalization. We will refer to vascular surgery outpatient. (11) GI bleed Current Visit: No Status: Resolved Assessment and plan: Patient reports bright red blood per rectum and long-standing history of hemorrhoids. Hemoglobin is trending down. Continue with Protonix. Monitor H&H. Check FOBT. We will treat hemorrhoidal bleeding with Preparation H. Hemoglobin is trending down. We will stop Coumadin. Qualifiers: GI bleed type/associated pathology: unspecified gastrointestinal hemorrhage type Qualified Code(s): K92.2 - Gastrointestinal hemorrhage, unspecified (12) Acute kidney injury superimposed on CKD Current Visit: Yes Status: Acute Assessment and plan: Baseline creatinine in October 2016 was 1.5. Currently 2.8. We will consult nephrology. (13) Ischemic cardiomyopathy Current Visit: No Status: Acute Assessment and plan: Continue aspirin and Plavix and beta bi. (14) Swelling of left upper extremity Current Visit: Yes Status: Acute Assessment and plan: LUE no DVT. Elevate LUE (15) Iron deficiency anemia Current Visit: Yes Status: Acute Assessment and plan: Iron panel obtained consistent with deficiency. I suspect from lower GI bleed. We will hold Coumadin. Treat with IV iron. We will transfuse to maintain hemoglobin above 8. Qualifiers: Iron deficiency anemia type: chronic blood loss Qualified Code(s): D50.0 - Iron deficiency anemia secondary to blood loss (chronic) - Subjective Interval history: Patient reports generalized weakness unchanged from yesterday. He denies chest pain and shortness of breath. - Constitutional Vitals: Temp Pulse Resp BP Pulse Ox 97.9 F 73 18 93/59 100 04/04/17 20:03 04/04/17 20:03 04/04/17 20:03 04/04/17 20:03 04/04/17 20:03 General appearance: Present: cooperative, mild distress (Respiratory), A&O X 3, pleasant, answers questions appropriately - Eye Eye exam: Present: PERRL, conjuntiva pink, sclera anicteric Pupils: Present: PERRL - Respiratory Respiratory exam: Present: decreased breath sounds, CTAB. Absent: accessory muscle use, rales, rhonchi, wheezes - Cardiovascular Cardiovascular exam: Present: irregular rhythm, +S1, +S2, systolic murmur. Absent: diastolic murmur, gallop, rubs - GI/Abdominal GI/Abdominal exam: Present: normal bowel sounds, soft, no peritoneal signs. Absent: distended, tenderness - Extremities Exam Extremities exam: Present: pedal edema (Left upper extremity pitting edema greater than right), warm, radial pulses palpable and symmetrical. Absent: calf tenderness, cyanotic - Skin Skin exam: Present: dry, intact Internal Medicine: Result - Labs CBC & Chem 7: 04/04/17 06:11 04/04/17 06:11 Labs: Short CBC 04/04/17 Range/Units 06:11 WBC 7.6 (4.3-11.1) K/mcL Hgb 8.8 L (12.9-16.9) g/dL Hct 27.2 L (37.5-50.1) % Plt Count 201 (140-400) K/mcL Neutrophils # 6.1 (1.6-8.9) K/mcL BMP 04/04/17 06:11 Sodium 138 Potassium 3.1 L Chloride 102 Carbon Dioxide 29 BUN 44 H Creatinine 2.77 H Glucose 107 H Calcium 7.7 L Liver Function 04/04/17 Range/Units 06:11 Total Bilirubin 0.5 (0.3-1.0) mg/dL AST 13 (13-39) Units/L ALT 14 (7-52) Units/L Alkaline Phosphatase 101 (34-104) Units/L Albumin 2.5 L (3.5-5.7) g/dL - ABG Interpretation ABG results: PT/INR, D-dimer PT 20.4 Seconds (9.4-12.1) H 04/04/17 06:11 - Impressions Impressions Retroperitoneum Ultrasound 04/04/17 09:30 IMPRESSION: 1. No significant findings in the kidneys. There are multiple cysts. 2. Diffuse bladder mucosal thickening with debris in the lumen. Pattern suspected to represent underlying cystitis. There is a postvoid residual. D/ / Nikita Talley MD / Nikita Talley MD Interpreting Provider: Nikita Talley MD - VTE Documentation of Mechanical Device: Intermittent pneumatic compression device Consult Discharge Plan - Plan Referrals: Kings Kaiser MD [Primary Care Provider] -
[2017-04-05] MEDS: Albumin 25% 25gram/100mL 25 GM/100 ML IV.SOLN IVPB SCH ×2 (05:46→17:06)
[2017-04-05] MEDS: Pantoprazole 40 MG VIAL IVP SCH ×2 (05:46→16:04)
--- NOTE | 2017-04-05 07:03 | Nephrology Progress Note ---
Date of Encounter: 04/05/17 Time of Encounter: 07:03 - Assessment and Plan (1) Acute kidney injury superimposed on CKD Current Visit: Yes Status: Acute CKD stage IIIb-IV and prior AKIs Patient is usually on 40mg Lasix PO at home. Renal U/S reveals multiple cysts with no significant findings in the kidneys. UA pending Recommend stopping Metformin Hold Cozaar until JIMBO improved Continue Albumin BID Stop Lasix IV Resume Lasix 40 mg PO BID Will plan to adjust diuretics each day based upon UOP responses, daily weights and SCr changes. Continue I&Os and monitoring (2) CKD (chronic kidney disease) stage 4, GFR 15-29 ml/min Current Visit: Yes Status: Chronic CKD stage IIIb-IV Avoid nephrotoxins Continue to monitor (3) Hypokalemia Current Visit: Yes Status: Acute Patient presented with potassium level 6.0 on admission and has been treated with Kayexalate. Potassium replaced Patient will benefit from potassium sparing Spironolactone for underlying systolic CHF Start Spironolactone Continue to monitor (4) Acute on chronic systolic (congestive) heart failure Current Visit: Yes Status: Acute Acute exacerbation of systolic CHF (EF 20% on 04/01/17), and indwelling Pleurex catheter for recurrent left side pleural effusion Start Albumin BID Resume Lasix 40mg PO BID Recommend starting Spironolactone in light of systolic CHF Management per primary team (5) Pleural effusion on left Current Visit: Yes Status: Chronic Anticipate repeat pleural fluid drainage via indweling left sided pleurex cath Management per primary team (6) Anemia Current Visit: Yes Status: Chronic 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 Iron < 10 Ferritin 106 Decreased transferrin 176 Vitamin B12, Vitamin D levels pending Iron IV ordered Continue to monitor Qualifiers: Qualified Code(s): D64.9 - Anemia, unspecified (7) Afib Current Visit: Yes Status: Chronic Management per primary team Qualifiers: Qualified Code(s): I48.2 - Chronic atrial fibrillation (8) HTN (hypertension) Current Visit: Yes Status: Chronic Hold Cozaar secondary to JIMBO Start low dose Spironolactone, mointor BP Management per primary team Qualifiers: Qualified Code(s): I10 - Essential (primary) hypertension (9) Type 2 diabetes mellitus Current Visit: No Status: Chronic Management per primary team Qualifiers: Qualified Code(s): E11.59 - Type 2 diabetes mellitus with other circulatory complications Subjective Principal diagnosis: CHF Interval history: Patient seen and examined. Patient reports bleeding form LUE abrasion overnight and reports decreased edema in lower extremities. He reports adhering to fluid restrictions and reports good urine output. Left peurex drain in place, anticipate repeat pleural fluid drainage today. Objective - Vital Signs Vital signs: Vital Signs Temp Pulse Resp BP Pulse Ox 04/05/17 04:37 97.4 F L 73 18 102/52 100 04/04/17 23:25 97.9 F 74 18 98/64 100 04/04/17 21:24 90 04/04/17 20:03 97.9 F 73 18 93/59 100 04/04/17 16:27 97.3 F L 67 18 101/67 100 04/04/17 11:38 97.4 F L 67 19 101/59 100 04/04/17 07:20 97.5 F L 62 17 112/64 100 Intake and Output 04/04/17 04/04/17 04/05/17 15:59 23:59 07:59 Intake Total 1260 / 1260 400 / 400 Output Total 200 / 200 200 / 200 Balance 1060 / 1060 200 / 200 Intake: IV Fluids 100 / 100 Flexbumin 25 gm In 100 ml @ 60 100 / 100 mls/hr IVPB Q12H [facility] Rx#: [id number] Oral 1260 / 1260 300 / 300 Output: Urine 200 / 200 200 / 200 Other: Meal Lunch Dinner Percent of Meal Consumed 100% 100% Stool Consistency soft # Bowel Movements 1 Weight 78.381 kg Blood Glucose* 186 100 Patient Weight 04/05/17 23:59 Weight 78.381 kg - General Appearance General appearance: Present: well-developed, well-nourished, appears started age EENT: Present: ATNC, PERRL, mucous membranes moist Neck: Present: no JVD, supple Additional Comments: Decreased bibasilar breath sounds L>R Cardiology: Present: no murmurs, edema (2+ LUE edeam, 1+ LLE edema, 1+ RLE edema ), irregular rhythm Gastrointestinal: Present: normoactive bowel sounds, no tenderness, no guarding , no masses Integumentary: Present: no rash, warm and dry, ecchymotic (LUE, no bleeding) Neurologic: Present: no focal deficit, alert and oriented x3 Musculoskeletal: Present: no deformities, erythema (LUE) Psychiatric: Present: mood/affect appropriate, cooperative - Lab 04/05/17 07:50 04/05/17 07:50 Most recent lab results Calcium 7.7 mg/dL (8.6-10.3) L 04/04/17 06:11 Magnesium 2.4 mg/dL (1.6-2.6) 04/02/17 00:08 - Imaging Kidney/bladder ultrasound: report reviewed - VTE Documentation of Mechanical Device: Intermittent pneumatic compression device Consult Discharge Plan - Plan Referrals: Kings Kaiser MD [Primary Care Provider] -
[2017-04-05] MEDS ORDERED: Iron Sucrose Complex 400 MG in 0.9 % Sodium Chloride 250 ML IVPB SCH (08:00)
[2017-04-05 08:12] LABS: Eosinophils % 1.3 %; INR 1.3; Immature Granulocytes % 0.3 % (0-4); Lymphocytes % 18.7 %; Mean Corpuscular HGB Conc 32.1 g/dL (31.6-35.5); Mean Corpuscular Hemoglobin 30.4 pg (28.0-33.3); Mean Corpuscular Volume 94.6 fL (83.0-100.0); Mean Platelet Volume 11.9 fL (9.4-12.4); Monocytes % 4.9 %; Platelet Count 209 K/mcL (140-400); Prothrombin Time 14.2 Seconds (9.4-12.1); Red Blood Count 2.96 M/mcL (4.19-5.50); Red Cell Distribution Width 19.8 % (11.5-14.5); Segmented Neutrophils % 74.7 %
[2017-04-05 08:13] LABS: Basophils % 0.1 %; Eosinophils # 0.1 K/mcL (0.0-0.6); Lymphocytes # 1.4 K/mcL (0.6-4.6); Monocytes # 0.4 K/mcL (0.0-1.3); Neutrophils # 5.5 K/mcL (1.6-8.9); Nucleated Red Blood Cells 0.4 /100 WBC (0)
[2017-04-05] MEDS: *HR* Amiodarone 200 MG TABLET PO SCH (08:17)
[2017-04-05] MEDS: Metoprolol XL (24 HR) Succ 25 MG TAB.ER.24H PO SCH (08:17)
[2017-04-05] MEDS: Aspirin 81 MG TAB.CHEW PO SCH (08:17)
[2017-04-05] MEDS: Spironolactone 25 MG TABLET PO SCH (08:17)
[2017-04-05] MEDS: Furosemide 40 MG/4 ML VIAL IVP SCH (08:18)
[2017-04-05 08:23] LABS: Albumin 3.2 g/dL (3.5-5.7); Albumin/Globulin Ratio 1.7 (1.1-2.2); Bilirubin,Total 0.5 mg/dL (0.3-1.0); Calcium 8.2 mg/dL (8.6-10.3); Globulin 1.9 g/dL (2.4-3.5); Potassium 3.8 mEq/L (3.5-5.1); Total Protein 5.1 g/dL (6.4-8.9)
[2017-04-05] MEDS: Insulin LISPRO 300 UNITS/3 ML VIAL SQ SCH ×4 (08:23→21:02)
--- NOTE | 2017-04-05 08:35 | Internal Med Progress Note ---
Date of Encounter: 04/05/17 Time of Encounter: 08:30 - Assessment and plan (1) Acute kidney injury superimposed on CKD Current Visit: Yes Status: Acute Assessment and plan: Baseline creatinine in October 2016 was 1.5. Currently 2.8. We will consult nephrolog 04/05: Nephrology consult appreciated. Avoid nephrotoxins as best able. Monitor (2) Acute on chronic systolic (congestive) heart failure Current Visit: Yes Status: Acute Assessment and plan: IV Lasix 60 mg twice a day. Daily weights. Strict I's and O's. Echocardiogram shows LVEF of 20% which has decreased from 25-30% in July 2016. Hold HUBER inhibitor and ARB due to acute renal failure. We restarted Toprol at 25 mg daily. We will consult cardiology. 04/05: Continue to diuresis as renal function allows. HUBER inhibitor B remain on hold due to renal failure. Continue beta bi and uptitrate as able. (3) Afib Current Visit: Yes Status: Chronic Assessment and plan: Rate controlled, Coumadin on hold due to plans for pleural drain Qualifiers: Atrial fibrillation type: chronic Qualified Code(s): I48.2 - Chronic atrial fibrillation (4) Swelling of left upper extremity Current Visit: Yes Status: Acute Assessment and plan: LUE no DVT. Elevate LUE (5) CKD (chronic kidney disease) stage 4, GFR 15-29 ml/min Current Visit: Yes Status: Chronic Assessment and plan: Avoid nephrotoxins including nonsteroidal anti-inflammatory drugs. Monitor kidney function. Kidney US shows no hydronephrosis, bladder residual. Management as per nephrology. (6) Pleural effusion Current Visit: No Status: Acute Assessment and plan: Pleural drain planned (7) Type 2 diabetes mellitus Current Visit: No Status: Chronic Assessment and plan: Insulin sliding scale, Accu-Cheks 4 times a day and diabetic diet. Blood glucose well controlled. Qualifiers: Diabetes mellitus complication status: with circulatory complication Diabetes mellitus complication detail: with other circulatory complications Diabetes mellitus termination clerk insulin use: without termination clerk use Qualified Code( s): E11.59 - Type 2 diabetes mellitus with other circulatory complications (8) HTN (hypertension) Current Visit: No Status: Chronic Qualifiers: Hypertension type: essential hypertension Qualified Code(s): I10 - Essential (primary) hypertension - Subjective Interval history: Patient states breathing is improved. Awaiting chest tube placement. States he feels very weak. No chest pain. No nausea, vomiting, diarrhea. No fevers or chills. - Constitutional Vitals: Temp Pulse Resp BP Pulse Ox 98.0 F 70 18 106/66 100 04/05/17 07:40 04/05/17 07:40 04/05/17 07:40 04/05/17 07:40 04/05/17 07:40 General appearance: Present: cooperative, mild distress (Respiratory), A&O X 3, pleasant, answers questions appropriately - Head Head exam: Present: atraumatic, normocephalic - Respiratory Respiratory exam: Present: decreased breath sounds, rales. Absent: accessory muscle use, rhonchi, wheezes - Cardiovascular Cardiovascular exam: Present: irregular rhythm. Absent: diastolic murmur, gallop, rubs, systolic murmur - Extremities Exam Extremities exam: Present: pedal edema, warm, radial pulses palpable and symmetrical. Absent: calf tenderness, cyanotic Internal Medicine: Result - Labs CBC & Chem 7: 04/05/17 07:50 04/05/17 07:50 Labs: Short CBC 04/05/17 Range/Units 07:50 WBC 7.4 (4.3-11.1) K/mcL Hgb 9.0 L (12.9-16.9) g/dL Hct 28.0 L (37.5-50.1) % Plt Count 209 (140-400) K/mcL Neutrophils # 5.5 (1.6-8.9) K/mcL BMP 04/05/17 07:50 Sodium 137 Potassium 3.8 Chloride 101 Carbon Dioxide 28 BUN 51 H Creatinine 2.82 H Glucose 93 Calcium 8.2 L Liver Function 04/05/17 Range/Units 07:50 Total Bilirubin 0.5 (0.3-1.0) mg/dL AST 14 (13-39) Units/L ALT 12 (7-52) Units/L Alkaline Phosphatase 107 H (34-104) Units/L Albumin 3.2 L (3.5-5.7) g/dL - ABG Interpretation ABG results: PT/INR, D-dimer PT 14.2 Seconds (9.4-12.1) H 04/05/17 07:50 - Impressions Impressions Retroperitoneum Ultrasound 04/04/17 09:30 IMPRESSION: 1. No significant findings in the kidneys. There are multiple cysts. 2. Diffuse bladder mucosal thickening with debris in the lumen. Pattern suspected to represent underlying cystitis. There is a postvoid residual. D/ / Nikita Talley MD / Nikita Talley MD Interpreting Provider: Nikita Talley MD - VTE Documentation of Mechanical Device: Intermittent pneumatic compression device Consult Discharge Plan - Plan Referrals: Kings Kaiser MD [Primary Care Provider] -
[2017-04-05] MEDS: Preparation H Ointment 30 GM TUBE RC SCH ×2 (09:45→21:02)
[2017-04-05] MEDS: Iron Sucrose Complex 400 MG in 0.9 % Sodium Chloride 250 ML IVPB SCH (10:40)
--- NOTE | 2017-04-05 10:59 | Cardiology Consult Note ---
<KrissygissellosKendall - Last Filed: 04/05/17 15:53> Date of Encounter: 04/05/17 Time of Encounter: 08:00 Assessment and Plan (1) Acute on chronic systolic (congestive) heart failure Current Visit: Yes Status: Acute Pt with known hx of systolic CHF 2/2 ischemia. Pt's last echo 08/28 showed: " LVEF 25%. Severe global and regional LV systolic dysfunction. Left ventricle is mildly dilated. Indeterminate left ventricular diastolic function. RV size is normal. RV function is not well evaluated. Mild aortic regurgitation. Mild-moderate mitral regurgitation. Mild-moderate tricuspid regurgitation. Mild pulmonary hypertension. A pleural effusion is present. " ECHO this admission showed: "LVEF 20%. Severely dilated left ventricle. Atypical septal motion. Indeterminate diastolic function. There is no LV thrombus. Definity echo contrast was used. Normal RV size. Function appears mild to moderately reduced. Bi-atrial enlargement. Mild aortic regurgitation. Moderate mitral regurgitation. Mild-moderate tricuspid regurgitation. Moderate pulmonary hypertension." Patient has pacemaker. Attempt to upgrade to BIV-ICD in 10/28 but venogram showed occlusion of subclavian vein and Large Left pelural effusion so procedure was cancelled. Patient is on home Lasix 40 daily, Losartan 50mg daily, ASA 81mg, Plavix 75mg, Amiodarone 200mg, and Atorvastatin 80 for his CHF, CAD, and a fib. Patient not on home BB. Patient on Lasix 60mg IV BID in the hospital. Patient started on Metoprolol Succinate 25 on 04/02 during this admission. Started on Spironolactone 12.5mg daily yesterday by nephrology. Losartan currently on hold for JIMBO. Patient has recurrent L sided Pleural effusions. Currently has a pleurex catheter in that needs drianign every 48hrs. Primary team plans on placing a pleural drain today. Patient's Edema appears reduced and lungs sound improved based on prior reports. Plan: Switch metoprolol to Coreg Continue spirinolactone Continue Lasix as tolerated restart Losartan when able consider Digoxin in the future if kidney function allows Consider further medical treatments once stabalized such as Ivabradine will revisit BIV-ICD once stabilized. (2) Acute kidney injury superimposed on CKD Current Visit: Yes Status: Acute Patient with JIMBO on CKD Cr 1.5 in October. 2.99 on admission Patient's ARB on hold secondary to CKD Renal U/S showed some cysts, but otherwise normal exam Plan: Nephrology on board appreciate recommendations continue management per primary team and nephrology (3) Elevated troponin Current Visit: Yes Status: Chronic Hx of Chronically elevated Trops 2/2 CKD Patient's troponins 0.05 0.05, 0.06 Flat, adynamic, stable likely 2/2 CKD EKG with no ischemic changes Plan: no further work up at this time (4) Afib Current Visit: Yes Status: Chronic Pt c Hx of A fib on home coumadin 1mg daily, Amiodarone 200mg Daily Currently coumadin on hold for placement of a pleural drain. Plan: Continue home amiodarone restart coumadin when able Qualifiers: Atrial fibrillation type: chronic Qualified Code(s): I48.2 - Chronic atrial fibrillation (5) HTN (hypertension) Current Visit: Yes Status: Chronic Pt with Hx of HTN on home hydralazine 25mg BID, Losartan 50mg daily Plan: home meds on hold 2/2 JIMBO on CKD Qualifiers: Hypertension type: essential hypertension Qualified Code(s): I10 - Essential (primary) hypertension (6) HLD (hyperlipidemia) Current Visit: Yes Status: Chronic Pt with Hx of HLD on home atorvastatin 80mg Lipid profile shows: Cholesterol 138, LDL 47, VLDL 20, HDL 71, triglycerides 99, Cholesterol HDL ratio 1.9 Plan: continue home statin. Qualifiers: Hyperlipidemia type: pure hypercholesterolemia Qualified Code(s): E78.00 - Pure hypercholesterolemia, unspecified; E78.0 - Pure hypercholesterolemia Discussion w patient/family: The assessment and plan as outlined above was discussed with the patient and/or family members who expressed understanding and agreement. All questions were answered. Thank you for involving us in the care of your patient. Please call with any questions. History of Present Illness Consult date: 04/04/17 Requesting physician: Yaw Gooden Consult reason: Worsening systolic CHF Chief complaint: ANETA History of present illness: Mr. Langford is a 81 year old male c PMHx of systolic CHF, CAD s/p stents x 6, [place] in June 28, DM, a fib, HLD, HTN, TIA, IBS, who reports to [facility] c/o worsening SOB and dyspnea over the last 2-3 days. Patient also reports feeling weak over this time period. Patient also with bleeding hemorrhoids. Patient has a pleurex catheter in place for chronic LLL Pleural effusion. It requires drainage every 48hrs. Patient found to be in acute on chronic CHF. Patient started on 60mg IV lasix BID in hospital. Patient also started on 25mg Metoprolol succinate. Patient also found to have JIMBO on CKD. Nephrology consulted. Nephrology started on spironolactone. Past Med Surg Social Fam HX - Past Medical History Medical history: cancer, CHF, coronary artery disease, diabetes, GERD, hyperlipidemia, hypertension, myocardial infarction, sudden cardiac , TIA Psychiatric history: depression - Past Surgical History Surgical History: angioplasty/stent, herniorrhaphy, pacemaker - Social History Smoking Status: Never smoker Smokeless Tobacco Status: No Alcohol use: none Drug use: none - Family History Brother Race: Family Member Ethnicity: Non- Living Status: Age at : 60 Cause of : HD Hx Family Cardiac Disorders: Yes (HD, Open heart surgery) Hx Family Endocrine Disorder: Yes (DM) Sister Race: Family Member Ethnicity: Non- Living Status: Age at : 77 Cause of : HD Hx Family Cardiac Disorders: Yes (HD, CAD) Hx Family Endocrine Disorder: Yes (DM) Mother Race: Family Member Ethnicity: Non- Living Status: Age at : 73 Cause of : CAD Hx Family Cardiac Disorders: Yes (HD, HTN) Hx Family Endocrine Disorder: Yes (DM) Father Race: Family Member Ethnicity: Non- Living Status: Age at : 61 Cause of : Pneumonia Hx Family Cardiac Disorders: Yes (KS, HD, HTN) Hx Family Respiratory Disorders: Yes (Pneumonia) Hx Family Endocrine Disorder: Yes (DM) Medications and Allergies Allopurinol [Zyloprim 100 MG] 100 mg PO BID 07/06/16 [History] Clopidogrel [Plavix] 75 mg PO DAILY 07/06/16 [History] Amiodarone [Cordarone] 200 mg PO DAILY #30 tablet 07/10/16 [Rx] Aspirin 81 mg PO DAILY #30 tab.chew 07/10/16 [Rx] Atorvastatin [Lipitor] 80 mg PO HS #30 tablet 07/10/16 [Rx] Furosemide [Lasix] 40 mg PO DAILY 09/22/16 [History] Losartan Potassium [Cozaar] 50 mg PO DAILY 09/22/16 [History] Omeprazole [PriLOSEC] 40 mg PO DAILY 09/22/16 [History] hydrALAZINE [HydrALAZINE] 25 mg PO BID 09/22/16 [History] metFORMIN [Glucophage] 500 mg PO DAILY 10/18/16 [History] Potassium Chloride 10 meq PO DAILY 11/08/16 [History] Warfarin [Coumadin] 1 mg PO DAILY 11/08/16 [History] 3 Allergy/AdvReac Type Severity Reaction Status Date / Time aspirin AdvReac See Verified 11/24/16 00:05 Comments NSAIDS (Non-Steroidal AdvReac See Verified 11/24/16 00:05 Anti-Inflamma Comments All Systems Review: A 10-system review of systems was performed and is negative for pertinent findings except as documented above in the HPI. Physical Examination Vital Signs, Last 4 Hours Temp Pulse Resp BP Pulse Ox 04/05/17 07:40 98.0 F 70 18 106/66 100 General: Conversant, No Apparent Distress HEENT: Atraumatic, Normocephaly, Mucus Membranes Moist Cardiac: Reg Rate and Rhythm, Normal S1 and S2, No Murmur Lungs: Normal Breath Sounds, No Wheeze, Rales, Rhonchi, Other (decreased breath sounds LLL) Neuro: Alert and responsive, No focal deficits noted Abdomen: Soft, Non-Tender Skin: Other (Ecchymosis LUE) Musculoskeletal: No Chest Wall Tenderness Extremities: No Clubbing, No Cyanosis, No Edema (much improved from yesterday per patient), Normal Pulses Results 04/05/17 07:50 04/05/17 07:50 Lab Results 04/05/17 04/05/17 04/05/17 07:50 07:50 07:50 WBC 7.4 Hgb 9.0 L Hct 28.0 L Plt Count 209 INR 1.3 Sodium 137 Potassium 3.8 Chloride 101 Carbon Dioxide 28 BUN 51 H Creatinine 2.82 H Glucose 93 Calcium 8.2 L Total Bilirubin 0.5 AST 14 ALT 12 Alkaline Phosphatase 107 H Consult Discharge Plan - Plan Referrals: Kings Kaiser MD [Primary Care Provider] - <Speedy Henderson - Last Filed: 04/05/17 18:30> Date of Encounter: 04/05/17 - Attending Attestation I examined this patient and my medical decision-making was reviewed with the Resident Physician. I agree with the documented findings, disposition and treatment plan as described except to the extent set forth below. CC: Shortness of breath. Pt presents to ER with complaint of worsening shortness of breath, over last three days, with increased lower extremity swelling. He reports increased fatigue, unable to lie flat, sleeping upright in chair last two nights. IMP: 1. Acute on chronic systolic heart failure, due to none compliance with sodium and fluid restrictions, responding to IV diuresis 2. Severe, dilated ischemic cardiomyopathy, EF 25%, moderate MR, moderate TR, mild pulmonary hypertension, not a candidate for BiVAICD, due to occlusion of left subclavian vein 3. Chronic pleural effusion with indwelling Plurex catheter, with drainage of pleural effusion every 48 hours. 4. Acute on chronic kidney failure, appreciate nephrology evaluation, ARB on hold, started aldactone, would consider starting Entresto for bp control when losartin has washed out x 3 days, and kidney function improves. 5. Chronic Atrial fibrillation with controlled ventricular response, on Amiodarone and metoprolol tartrate for rate control, on systemic anticoagulation with warfarin for primary stroke risk reduction. 6. Elevated troponin, due to poor renal excretion with JIMBO, will continue to follow. Assessment and Plan Discussion w patient/family: The assessment and plan as outlined above was discussed with the patient and/or family members who expressed understanding and agreement. All questions were answered. Thank you for involving us in the care of your patient. Please call with any questions. History of Present Illness History of present illness: Mr. Langford is a 81 year old male All Systems Review: A 10-system review of systems was performed and is negative for pertinent findings except as documented above in the HPI. Physical Examination Vital Signs, Last 4 Hours Temp Pulse Resp BP Pulse Ox 04/05/17 15:45 98.0 F 81 20 98/61 94 Results 04/05/17 07:50 04/05/17 07:50 Lab Results 04/05/17 04/05/17 04/05/17 07:50 07:50 07:50 WBC 7.4 Hgb 9.0 L Hct 28.0 L Plt Count 209 INR 1.3 Sodium 137 Potassium 3.8 Chloride 101 Carbon Dioxide 28 BUN 51 H Creatinine 2.82 H Glucose 93 Calcium 8.2 L Total Bilirubin 0.5 AST 14 ALT 12 Alkaline Phosphatase 107 H
[2017-04-05] MEDS: Silvasorb 44.4 ML TUBE TP SCH (15:17)
[2017-04-05] MEDS: Furosemide 40 MG TABLET PO SCH (16:04)
[2017-04-05] MEDS: Ondansetron 4 MG/2 ML VIAL IVP PRN (18:11)
[2017-04-05 19:04] LABS: Bilirubin,Urine Negative (Negative); Blood,Urine Negative (Negative); Clarity,Urine Clear (Clear); Color,Urine Yellow (Yellow); Glucose,Urine (UA) Normal (Normal); Ketones,Urine Negative (Negative); Leukocyte Esterase,Urine Small (Negative); Nitrite,Urine Negative (Negative); Protein,Urine Negative (Neg-Trace); Specific Gravity,Urine 1.016 (1.010-1.025); Urobilinogen,Urine Normal (Normal)
[2017-04-05 19:07] LABS: Bacteria,Urine None Seen per hpf (None-Few); Hyaline Casts,Urine None Seen per lpf (None-Few); RBC,Urine 0-3 per hpf (0-3); Squamous Epithelial Cell,Urine Many per lpf (None-Few)
[2017-04-06] MEDS: Pantoprazole 40 MG VIAL IVP SCH (05:57)
[2017-04-06 06:55] LABS: Basophils % 0.1 %; Eosinophils # 0.1 K/mcL (0.0-0.6); Eosinophils % 1.1 %; Hematocrit 29.2 % (37.5-50.1); Hemoglobin 9.3 g/dL (12.9-16.9); Immature Granulocytes % 0.3 % (0-4); Lymphocytes # 1.3 K/mcL (0.6-4.6); Lymphocytes % 17.3 %; Mean Corpuscular HGB Conc 31.8 g/dL (31.6-35.5); Mean Corpuscular Hemoglobin 30.7 pg (28.0-33.3); Mean Corpuscular Volume 96.4 fL (83.0-100.0); Monocytes # 0.4 K/mcL (0.0-1.3); Monocytes % 5.4 %; Neutrophils # 5.5 K/mcL (1.6-8.9); Nucleated Red Blood Cells 0.8 /100 WBC (0); Platelet Count 222 K/mcL (140-400); Red Blood Count 3.03 M/mcL (4.19-5.50); Red Cell Distribution Width 19.9 % (11.5-14.5); Segmented Neutrophils % 75.8 %
--- NOTE | 2017-04-06 06:58 | Nephrology Progress Note ---
Date of Encounter: 04/06/17 Time of Encounter: 06:58 - Assessment and Plan (1) Acute kidney injury superimposed on CKD Current Visit: Yes Status: Acute CKD stage IIIb-IV and prior AKIs Renal U/S reveals multiple cysts with no significant findings in the kidneys. UA negative for proteinuria Patient had 1450cc UOP yesterday compared to 500cc the preceding day Recommend stopping Metformin Hold Cozaar until JIMBO improved Continue Lasix 40 mg PO BID Will plan to adjust diuretics each day based upon UOP responses, daily weights and SCr changes. Continue I&Os, dily weights, and monitoring (2) CKD (chronic kidney disease) stage 4, GFR 15-29 ml/min Current Visit: Yes Status: Chronic CKD stage IIIb-IV Avoid nephrotoxins Continue to monitor (3) Hypokalemia Current Visit: Yes Status: Acute Patient presented with potassium level 6.0 on admission and has been treated with Kayexalate. Potassium replaced Patient will benefit from potassium sparing Spironolactone for underlying systolic CHF Continue Spironolactone Continue to monitor (4) Acute on chronic systolic (congestive) heart failure Current Visit: Yes Status: Acute Acute exacerbation of systolic CHF (EF 20% on 04/01/17), and indwelling Pleurex catheter for recurrent left side pleural effusion Discontinue Albumin BID Continue Lasix 40mg PO BID Continue Spironolactone, cardiology to start Entresto for bp control when losartin has washed out x 3 days, and kidney function improves. 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 Iron < 10 Ferritin 106 Decreased transferrin 176 Vitamin B12, Vitamin D levels pending Iron IV administered Continue to monitor Qualifiers: Anemia type: iron deficiency Iron deficiency anemia type: inadequate dietary iron intake Qualified Code(s): D50.8 - Other iron deficiency anemias (7) Afib Current Visit: Yes Status: Chronic Management per primary team Qualifiers: Atrial fibrillation type: chronic Qualified Code(s): I48.2 - Chronic atrial fibrillation (8) HTN (hypertension) Current Visit: Yes Status: Chronic Hold Cozaar secondary to JIMBO Cardiology to start Entresto for bp control when losartin has washed out x 3 days, and kidney function improves. Continue low dose Spironolactone, mointor BP Management per primary team Qualifiers: Hypertension type: essential hypertension Qualified Code(s): I10 - Essential (primary) hypertension (9) Type 2 diabetes mellitus Current Visit: No Status: Chronic Management per primary team Qualifiers: Diabetes mellitus complication status: with circulatory complication Diabetes mellitus complication detail: with other circulatory complications Diabetes mellitus long-term insulin use: without court recording monitor use Qualified Code( s): E11.59 - Type 2 diabetes mellitus with other circulatory complications Subjective Principal diagnosis: CHF Interval history: Patient seen and examined. Patient reports decreased edema in lower extremities and good urine output since switchin back to oral Lasix. He reports nausea overnight and adhering to fluid restrictions. He reports 550cc of pleural fluid drained yesterday via left pleurex catheter. is at bedside. Objective - Vital Signs Vital signs: Vital Signs Temp Pulse Resp BP Pulse Ox 04/06/17 04:52 97.9 F 66 16 107/68 95 04/06/17 01:21 97.9 F 65 16 109/67 100 04/05/17 21:31 97.7 F 86 18 94/60 93 04/05/17 15:45 98.0 F 81 20 98/61 94 04/05/17 10:52 98.2 F 67 19 102/67 99 04/05/17 07:40 98.0 F 70 18 106/66 100 Intake and Output 04/05/17 04/05/17 04/06/17 15:59 23:59 07:59 Intake Total 220 / 220 0 / 0 Output Total 550 / 550 900 / 900 400 / 400 Balance -330 / -330 -900 / -900 -400 / -400 Intake: Oral 220 / 220 0 / 0 Output: Urine 900 / 900 400 / 400 Wound Drainage 550 / 550 Left Abdomen 550 / 550 Other: Meal Breakfast Dinner Percent of Meal Consumed 100% 0% # Voids 2 Weight 172.3 kg Blood Glucose* 208 103 - General Appearance General appearance: Present: well-developed, well-nourished, appears started age , chronically ill EENT: Present: ATNC, PERRL, mucous membranes moist Neck: Present: no JVD, supple Additional Comments: Diminished breath sounds LLL, left pleurex cath in place Cardiology: Present: no murmurs, edema (2+ LUE edeam, 1+ LLE edema, 1+ RLE edema ), irregular rhythm Gastrointestinal: Present: normoactive bowel sounds, no tenderness, no guarding , no organomegaly Integumentary: Present: no rash, warm and dry, ecchymotic (LUE, no bleeding) Neurologic: Present: no focal deficit, alert and oriented x3 Musculoskeletal: Present: no deformities, erythema (LUE) Psychiatric: Present: mood/affect appropriate, cooperative - Lab 04/06/17 06:46 04/06/17 06:46 Most recent lab results Calcium 8.2 mg/dL (8.6-10.3) L 04/05/17 07:50 Magnesium 2.4 mg/dL (1.6-2.6) 04/02/17 00:08 - Allied health notes Allied health notes reviewed: nursing - VTE Documentation of Mechanical Device: Intermittent pneumatic compression device Consult Discharge Plan - Plan Referrals: Kings Kaiser MD [Primary Care Provider] -
[2017-04-06 07:10] LABS: INR 1.1; Prothrombin Time 12.2 Seconds (9.4-12.1)
[2017-04-06 07:21] LABS: Albumin 3.2 g/dL (3.5-5.7); Albumin/Globulin Ratio 1.3 (1.1-2.2); Bilirubin,Total 0.7 mg/dL (0.3-1.0); Calcium 8.5 mg/dL (8.6-10.3); Globulin 2.4 g/dL (2.4-3.5); Total Protein 5.6 g/dL (6.4-8.9)
--- NOTE | 2017-04-06 09:06 | Cardiology Progress Note ---
<ShawandalosKendall - Last Filed: 04/06/17 12:59> Date of Encounter: 04/06/17 Time of Encounter: 08:30 Assessment and Plan (1) Acute on chronic systolic (congestive) heart failure Current Visit: Yes Status: Acute Pt with known hx of systolic CHF 2/2 ischemia. Pt's last echo 08/28 showed: " LVEF 25%. Severe global and regional LV systolic dysfunction. Left ventricle is mildly dilated. Indeterminate left ventricular diastolic function. RV size is normal. RV function is not well evaluated. Mild aortic regurgitation. Mild-moderate mitral regurgitation. Mild-moderate tricuspid regurgitation. Mild pulmonary hypertension. A pleural effusion is present. " ECHO this admission showed: "LVEF 20%. Severely dilated left ventricle. Atypical septal motion. Indeterminate diastolic function. There is no LV thrombus. Definity echo contrast was used. Normal RV size. Function appears mild to moderately reduced. Bi-atrial enlargement. Mild aortic regurgitation. Moderate mitral regurgitation. Mild-moderate tricuspid regurgitation. Moderate pulmonary hypertension." Patient has pacemaker. Attempt to upgrade to BIV-ICD in 10/28 but venogram showed occlusion of subclavian vein and Large Left pelural effusion so procedure was cancelled. Patient is on home Lasix 40 daily, Losartan 50mg daily, ASA 81mg, Plavix 75mg, Amiodarone 200mg, and Atorvastatin 80 for his CHF, CAD, and a fib. Patient not on home BB. Patient on Lasix 60mg IV BID in the hospital. Patient started on Metoprolol Succinate 25 on 04/02 during this admission. Started on Spironolactone 12.5mg daily yesterday by nephrology. Losartan currently on hold for JIMBO. Patient has recurrent L sided Pleural effusions. Currently has a pleurex catheter in that needs drianign every 48hrs. Primary team plans on placing a pleural drain today. Patient's Edema appears reduced and lungs sound improved based on prior reports. Switched metoprolol to Coreg Lasix was switched from IV to PO Plan: Continue Coreg Continue spirinolactone Continue PO Lasix Consider starting entresto for BP control when losartan has washed out x 3 days and kidney function improves. not a candidate for BIV-ICD (2) Acute kidney injury superimposed on CKD Current Visit: Yes Status: Acute Patient with JIMBO on CKD Cr 1.5 in October. 2.99 on admission Current Cr 2.89 Patient's ARB on hold secondary to CKD Renal U/S showed some cysts, but otherwise normal exam Plan: Nephrology on board appreciate recommendations continue management per primary team and nephrology (3) Elevated troponin Current Visit: Yes Status: Chronic Hx of Chronically elevated Trops 2/2 CKD Patient's troponins 0.05 0.05, 0.06 Flat, adynamic, stable likely 2/2 CKD EKG with no ischemic changes Plan: continue to monitor no further work up at this time (4) Afib Current Visit: Yes Status: Chronic Pt c Hx of A fib on home coumadin 1mg daily, Amiodarone 200mg Daily Currently coumadin on hold for placement of a pleural drain. Plan: Continue home amiodarone restart coumadin when able Qualifiers: Atrial fibrillation type: chronic Qualified Code(s): I48.2 - Chronic atrial fibrillation (5) HTN (hypertension) Current Visit: Yes Status: Chronic Pt with Hx of HTN on home hydralazine 25mg BID, Losartan 50mg daily Plan: home meds on hold 2/2 JIMBO on CKD Qualifiers: Hypertension type: essential hypertension Qualified Code(s): I10 - Essential (primary) hypertension (6) HLD (hyperlipidemia) Current Visit: Yes Status: Chronic Pt with Hx of HLD on home atorvastatin 80mg Lipid profile shows: Cholesterol 138, LDL 47, VLDL 20, HDL 71, triglycerides 99, Cholesterol HDL ratio 1.9 Plan: continue home statin. Qualifiers: Hyperlipidemia type: pure hypercholesterolemia Qualified Code(s): E78.00 - Pure hypercholesterolemia, unspecified; E78.0 - Pure hypercholesterolemia Discussion w patient/family: The assessment and plan as outlined above was discussed with the patient and/or family members who expressed understanding and agreement. All questions were answered. Thank you for involving us in the care of your patient. Please call with any questions. Subjective Principal diagnosis: CHF Interval history: Patient reports improvement in his SOB after drainage of his Pleural effusion yesterday. Patient switched from Metoprolol to Coreg and from IV lasix to PO lasix yesterday. Objective Vital Signs, Last 4 Hours Temp Pulse Resp BP Pulse Ox 04/06/17 07:07 97.3 F L 88 16 107/67 98 General: Conversant, No Apparent Distress HEENT: Atraumatic, Normocephaly, Mucus Membranes Moist Neck: No JVD Cardiac: Reg Rate and Rhythm, Normal S1 and S2, No Murmur Lungs: Normal Breath Sounds, No Wheeze, Rales, Rhonchi Neuro: Alert and responsive, No focal deficits noted Abdomen: Soft, Non-Tender Skin: Other (Eccyhymosis LUE) Musculoskeletal: No Chest Wall Tenderness Extremities: No Clubbing, No Cyanosis, No Edema, Normal Pulses Results 04/06/17 06:46 04/06/17 06:46 Lab Results 04/06/17 04/06/17 04/06/17 06:46 06:46 06:46 WBC 7.2 Hgb 9.3 L Hct 29.2 L Plt Count 222 INR 1.1 Sodium 139 Potassium 4.0 Chloride 102 Carbon Dioxide 29 BUN 53 H Creatinine 2.89 H Glucose 69 L Calcium 8.5 L Total Bilirubin 0.7 AST 20 ALT 16 Alkaline Phosphatase 121 H - VTE Documentation of Mechanical Device: Intermittent pneumatic compression device Consult Discharge Plan - Plan Referrals: Kings Kaiser MD [Primary Care Provider] - 04/13/17 1:15 pm (Please follow up a sschedule....) <Speedy Henderson - Last Filed: 04/06/17 18:21> Date of Encounter: 04/06/17 Time of Encounter: 10:10 Assessment and Plan Discussion w patient/family: The assessment and plan as outlined above was discussed with the patient and/or family members who expressed understanding and agreement. All questions were answered. Thank you for involving us in the care of your patient. Please call with any questions. Results 04/06/17 06:46 04/06/17 06:46 Lab Results 04/06/17 04/06/17 04/06/17 06:46 06:46 06:46 WBC 7.2 Hgb 9.3 L Hct 29.2 L Plt Count 222 INR 1.1 Sodium 139 Potassium 4.0 Chloride 102 Carbon Dioxide 29 BUN 53 H Creatinine 2.89 H Glucose 69 L Calcium 8.5 L Total Bilirubin 0.7 AST 20 ALT 16 Alkaline Phosphatase 121 H - Attending Attestation I examined this patient and my medical decision-making was reviewed with the Resident Physician. I agree with the documented findings, disposition and treatment plan as described except to the extent set forth below. CC: Shortness of breath Pt reports shortness of breath has improved. He is breathing more easily, and now able to lie flat. PE: reviewed above, agree IMP: 1. Acute on chronic systolic heart failure, due to ischemic cardiomyopathy, improving with increased diuresis, pluerocentesis with indwelling catheter, addition of aldactone, EF 20% with dialated cardiomyopathy, consider starting Entresto if renal function improves. 2. Acute on chronic kidney injury, creatinine elevated at 2.99, HUBER/ARB on hold. 3. Elevated troponin, most consistent with poor renal excretion, no ischemic EKG changes. 4. Chronic A fib with controlled ventricular response on Coreg alone.
[2017-04-06] MEDS: Insulin LISPRO 300 UNITS/3 ML VIAL SQ SCH ×4 (09:47→20:29)
[2017-04-06] MEDS: Aspirin 81 MG TAB.CHEW PO SCH (09:55)
[2017-04-06] MEDS: Furosemide 40 MG TABLET PO SCH ×2 (09:55→17:29)
[2017-04-06] MEDS: *HR* Amiodarone 200 MG TABLET PO SCH (09:55)
[2017-04-06] MEDS: Spironolactone 25 MG TABLET PO SCH (09:55)
[2017-04-06] MEDS: Silvasorb 44.4 ML TUBE TP SCH (10:00)
[2017-04-06] MEDS: Preparation H Ointment 30 GM TUBE RC SCH ×2 (10:00→20:29)
[2017-04-06] MEDS: Iron Sucrose Complex 400 MG in 0.9 % Sodium Chloride 250 ML IVPB SCH (10:01)
[2017-04-06] MEDS: *HR* HYDROcodone/Acet 5/325 mg TABLET PO PRN (13:59)
--- NOTE | 2017-04-06 14:17 | Internal Med Progress Note ---
Date of Encounter: 04/06/17 Time of Encounter: 13:00 - Assessment and plan (1) Acute kidney injury superimposed on CKD Current Visit: Yes Status: Acute Assessment and plan: Baseline creatinine in October 2016 was 1.5. Currently 2.8. We will consult nephrolog 04/05: Nephrology consult appreciated. Avoid nephrotoxins as best able. Monitor 04/06: Cr unchanged. Continuing Lasix and monitoring renal fxn daily. Diurese as renal fxn will allow. Nephrology input appreciated. (2) Acute on chronic systolic (congestive) heart failure Current Visit: Yes Status: Acute Assessment and plan: IV Lasix 60 mg twice a day. Daily weights. Strict I's and O's. Echocardiogram shows LVEF of 20% which has decreased from 25-30% in July 2016. Hold HUBER inhibitor and ARB due to acute renal failure. We restarted Toprol at 25 mg daily. We will consult cardiology. 04/05: Continue to diuresis as renal function allows. HUBER inhibitor B remain on hold due to renal failure. Continue beta bi and uptitrate as able. 04/06: MAnagement as per Cardiology, improved symptomatically. (3) Afib Current Visit: Yes Status: Chronic Assessment and plan: Rate controlled, Coumadin on hold due to plans for pleural drain 04/06: Resumed coumadin soon Qualifiers: Atrial fibrillation type: chronic Qualified Code(s): I48.2 - Chronic atrial fibrillation (4) Swelling of left upper extremity Current Visit: Yes Status: Acute Assessment and plan: LUE no DVT. Elevate LUE (5) CKD (chronic kidney disease) stage 4, GFR 15-29 ml/min Current Visit: Yes Status: Chronic Assessment and plan: Avoid nephrotoxins including nonsteroidal anti-inflammatory drugs. Monitor kidney function. Kidney US shows no hydronephrosis, bladder residual. Management as per nephrology. (6) Pleural effusion Current Visit: No Status: Acute Assessment and plan: Pleural drain planned 04/06: POD #1 Pleural drain (7) Type 2 diabetes mellitus Current Visit: No Status: Chronic Assessment and plan: Insulin sliding scale, Accu-Cheks 4 times a day and diabetic diet. Blood glucose well controlled. Qualifiers: Diabetes mellitus complication status: with circulatory complication Diabetes mellitus complication detail: with other circulatory complications Diabetes mellitus intermediate project manager insulin use: without shelter use Qualified Code( s): E11.59 - Type 2 diabetes mellitus with other circulatory complications (8) HTN (hypertension) Current Visit: No Status: Chronic Assessment and plan: BP controlled, monitor Qualifiers: Hypertension type: essential hypertension Qualified Code(s): I10 - Essential (primary) hypertension - Subjective Interval history: Patient states breathing is improved. Awaiting chest tube placement. States he feels very weak. No chest pain. No nausea, vomiting, diarrhea. No fevers or chills. 04/06: Chest tube placed. Pt states breathing is improved. Denies CP. No N/V/ D. No F/C. Currently on O2 at 4L per NC. - Constitutional Vitals: Temp Pulse Resp BP Pulse Ox 97.4 F L 83 16 100/66 94 04/06/17 11:00 04/06/17 11:00 04/06/17 11:00 04/06/17 11:00 04/06/17 11:00 General appearance: Present: cooperative, mild distress (Respiratory), A&O X 3, pleasant, answers questions appropriately - Respiratory Respiratory exam: Present: rales. Absent: accessory muscle use, rhonchi, wheezes - Cardiovascular Cardiovascular exam: Present: RRR, +S1, +S2. Absent: diastolic murmur, gallop, rubs, systolic murmur - Extremities Exam Extremities exam: Present: pedal edema, warm, radial pulses palpable and symmetrical. Absent: calf tenderness, cyanotic Internal Medicine: Result - Labs CBC & Chem 7: 04/06/17 06:46 04/06/17 06:46 Labs: Short CBC 04/06/17 Range/Units 06:46 WBC 7.2 (4.3-11.1) K/mcL Hgb 9.3 L (12.9-16.9) g/dL Hct 29.2 L (37.5-50.1) % Plt Count 222 (140-400) K/mcL Neutrophils # 5.5 (1.6-8.9) K/mcL BMP 04/06/17 06:46 Sodium 139 Potassium 4.0 Chloride 102 Carbon Dioxide 29 BUN 53 H Creatinine 2.89 H Glucose 69 L Calcium 8.5 L Liver Function 04/06/17 Range/Units 06:46 Total Bilirubin 0.7 (0.3-1.0) mg/dL AST 20 (13-39) Units/L ALT 16 (7-52) Units/L Alkaline Phosphatase 121 H (34-104) Units/L Albumin 3.2 L (3.5-5.7) g/dL Urine 04/05/17 Range/Units 18:50 Urine Color Yellow (Yellow) Urine Clarity Clear (Clear) Urine pH 6.0 (5.0-8.0) pH Units Ur Specific [place] 1.016 (1.010-1.025) Urine Protein Negative (Neg-Trace) mg/dL Urine Glucose (UA) Normal (Normal) mg/dL - ABG Interpretation ABG results: PT/INR, D-dimer PT 12.2 Seconds (9.4-12.1) H 04/06/17 06:46 - VTE Documentation of Mechanical Device: Intermittent pneumatic compression device Consult Discharge Plan - Plan Referrals: Kings Kaiser MD [Primary Care Provider] -
[2017-04-06] MEDS: Ipratropium/Albuterol Neb 3 ML IH PRN ×2 (16:47→23:20)
[2017-04-06] MEDS: Ondansetron 4 MG/2 ML VIAL IVP PRN (17:33)
[2017-04-06] MEDS ORDERED: Furosemide 20 MG TABLET PO ONE (23:57)
[2017-04-07 05:43] LABS: INR 1.1
[2017-04-07 06:03] LABS: Calcium 8.5 mg/dL (8.6-10.3); Potassium 4.4 mEq/L (3.5-5.1)
--- NOTE | 2017-04-07 07:08 | Nephrology Progress Note ---
Date of Encounter: 04/07/17 Time of Encounter: 07:08 - Assessment and Plan (1) Acute kidney injury superimposed on CKD Current Visit: Yes Status: Acute CKD stage IIIb-IV and prior AKIs Renal U/S reveals multiple cysts with no significant findings in the kidneys. UA negative for proteinuria Recommend stopping Metformin Hold Cozaar until JIMBO improved Continue Lasix 40 mg PO BID SCr relatively stable and non-oliguric. No need for HD at this time. I agree with Cardio in terms of Entresto. Will plan to adjust diuretics each day based upon UOP responses, daily weights and SCr changes. Continue I&Os, daily weights, and monitoring (2) CKD (chronic kidney disease) stage 4, GFR 15-29 ml/min Current Visit: Yes Status: Chronic CKD stage IIIb-IV Avoid nephrotoxins Continue to monitor (3) Hypokalemia Current Visit: Yes Status: Acute Patient presented with potassium level 6.0 on admission and has been treated with Kayexalate. Potassium replaced Patient will benefit from potassium sparing Spironolactone for underlying systolic CHF I agree with Cardio in terms of Entresto. Once Entresto is added, the pt will need outpt labs after this hospitalization to monitor serum K+ levels, which so far have been on the low side fortunately. Continue to monitor (4) Acute on chronic systolic (congestive) heart failure Current Visit: Yes Status: Acute Acute exacerbation of systolic CHF (EF 20% on 04/01/17), and indwelling Pleurex catheter for recurrent left side pleural effusion Discontinue Albumin BID Continue Lasix 40mg PO BID Continue Spironolactone, agree with Cardiology to start Entresto for bp control when Losartin has washed out x 3 days, and kidney function improves. 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 Iron < 10 Ferritin 106 Decreased transferrin 176 Vitamin B12 level 261 Vitamin D level 13 Iron IV administered Continue to monitor Qualifiers: Anemia type: iron deficiency Iron deficiency anemia type: inadequate dietary iron intake Qualified Code(s): D50.8 - Other iron deficiency anemias (7) Afib Current Visit: Yes Status: Chronic Management per primary team Qualifiers: Atrial fibrillation type: chronic Qualified Code(s): I48.2 - Chronic atrial fibrillation (8) HTN (hypertension) Current Visit: Yes Status: Chronic Hold Cozaar secondary to JIMBO Agree with Cardiology to start Entresto for bp control when losartin has washed out x 3 days, and kidney function improves. Continue low dose Spironolactone, monitor BP Management per primary team Qualifiers: Hypertension type: essential hypertension Qualified Code(s): I10 - Essential (primary) hypertension (9) Type 2 diabetes mellitus Current Visit: No Status: Chronic Management per primary team Qualifiers: Diabetes mellitus complication status: with circulatory complication Diabetes mellitus complication detail: with other circulatory complications Diabetes mellitus nursing home insulin use: without nursing home use Qualified Code( s): E11.59 - Type 2 diabetes mellitus with other circulatory complications Subjective Principal diagnosis: CHF Interval history: Patient seen and examined. Patient reports decreased edema in lower extremities and good urine output since switching back to oral Lasix. He reports nausea overnight and adhering to fluid restrictions. Patient had 800cc of pleural fluid drained this AM via left pleurex catheter. is at bedside. Objective - Vital Signs Vital signs: Vital Signs Temp Pulse Resp BP Pulse Ox 04/07/17 06:54 97.2 F L 93 15 111/63 100 04/06/17 23:47 97.6 F 98 18 96/69 92 04/06/17 23:20 18 99 04/06/17 20:16 98.3 F 88 16 101/57 95 04/06/17 16:49 16 96 04/06/17 15:00 97.3 F L 84 16 81/59 97 04/06/17 11:00 97.4 F L 83 16 100/66 94 Intake and Output 04/06/17 04/06/17 04/07/17 15:59 23:59 07:59 Intake Total 240 / 240 Output Total 150 / 150 Balance 240 / 240 -150 / -150 Intake: Oral 240 / 240 Output: Urine 150 / 150 Other: Meal Breakfast Percent of Meal Consumed 75% Blood Glucose* 147 169 121 - General Appearance General appearance: Present: well-developed, well-nourished, appears started age , chronically ill EENT: Present: ATNC, PERRL, mucous membranes moist Neck: Present: no JVD, supple Additional Comments: Diminished breath sounds LLL, left pleurex cath in place Cardiology: Present: no murmurs, edema (2+ LUE edema, 1+ LLE edema, 1+ RLE edema ) Gastrointestinal: Present: normoactive bowel sounds, no tenderness, no guarding , no organomegaly Integumentary: Present: no rash, warm and dry, ecchymotic Neurologic: Present: no focal deficit, alert and oriented x3 Musculoskeletal: Present: no deformities, erythema (LUE) Psychiatric: Present: mood/affect appropriate, cooperative - Lab 04/06/17 06:46 04/07/17 05:11 Most recent lab results Calcium 8.5 mg/dL (8.6-10.3) L 04/07/17 05:11 Magnesium 2.4 mg/dL (1.6-2.6) 04/02/17 00:08 - VTE Documentation of Mechanical Device: Intermittent pneumatic compression device Consult Discharge Plan - Plan Referrals: Kings Kaiser MD [Primary Care Provider] - 04/13/17 1:15 pm (Please follow up a sschedule....)
[2017-04-07] MEDS: Insulin LISPRO 300 UNITS/3 ML VIAL SQ SCH ×4 (07:57→20:50)
--- NOTE | 2017-04-07 09:18 | Internal Med Progress Note ---
Date of Encounter: 04/07/17 Time of Encounter: 09:00 - Assessment and plan (1) Acute kidney injury superimposed on CKD Current Visit: Yes Status: Acute Assessment and plan: Baseline creatinine in October 2016 was 1.5. Currently 2.8. We will consult nephrolog 04/05: Nephrology consult appreciated. Avoid nephrotoxins as best able. Monitor 04/07: Cr unchanged. Continuing Lasix and monitoring renal fxn daily. Diurese as renal fxn will allow. Nephrology input appreciated. (2) Acute on chronic systolic (congestive) heart failure Current Visit: Yes Status: Acute Assessment and plan: IV Lasix 60 mg twice a day. Daily weights. Strict I's and O's. Echocardiogram shows LVEF of 20% which has decreased from 25-30% in July 2016. Hold HUBER inhibitor and ARB due to acute renal failure. We restarted Toprol at 25 mg daily. We will consult cardiology. 04/05: Continue to diuresis as renal function allows. HUBER inhibitor B remain on hold due to renal failure. Continue beta bi and uptitrate as able. 04/07: Management as per Cardiology, patient reports being a little more dyspneic today. Continues to diuresis as renal function will allow. (3) Afib Current Visit: Yes Status: Chronic Assessment and plan: Rate controlled, Coumadin on hold due to plans for pleural drain 04/06: Resume coumadin pending follow-up imaging Qualifiers: Atrial fibrillation type: chronic Qualified Code(s): I48.2 - Chronic atrial fibrillation (4) Swelling of left upper extremity Current Visit: Yes Status: Acute Assessment and plan: LUE no DVT. Elevate LUE (5) CKD (chronic kidney disease) stage 4, GFR 15-29 ml/min Current Visit: Yes Status: Chronic Assessment and plan: Avoid nephrotoxins including nonsteroidal anti-inflammatory drugs. Monitor kidney function. Kidney US shows no hydronephrosis, bladder residual. Management as per nephrology. (6) Pleural effusion Current Visit: No Status: Acute Assessment and plan: Pleural drain planned 04/06: POD #1 Pleural drain 04/07: Postoperative day #2 pleural drain. Given his worsening shortness of breath ever repeat a chest x-ray today. (7) Type 2 diabetes mellitus Current Visit: No Status: Chronic Assessment and plan: Insulin sliding scale, Accu-Cheks 4 times a day and diabetic diet. Blood glucose well controlled. Qualifiers: Diabetes mellitus complication status: with circulatory complication Diabetes mellitus complication detail: with other circulatory complications Diabetes mellitus fpc insulin use: without fpc use Qualified Code( s): E11.59 - Type 2 diabetes mellitus with other circulatory complications (8) HTN (hypertension) Current Visit: No Status: Chronic Assessment and plan: BP controlled, monitor Qualifiers: Hypertension type: essential hypertension Qualified Code(s): I10 - Essential (primary) hypertension - Time Spent With Patient 25 - 35 minutes - Subjective Interval history: History of present illness: Mr. Langford is a 81 year old male with medical hx of melanoma of the face, IBS, CAD, diabetes controlled w/oral anti-hyperglycemic medications, GERD, HLD, HTN, previous myocardial infarction 2 in June 2016, sudden cardiac , and TIAs presents from the ED with chief complaint of shortness of breath and dyspnea with just become worse over the past 2-3 days. Patient states he was in the bathroom this morning and became weak and fell to the floor and was unable to turn her or help himself up. Patient denies losing consciousness or hitting head. Patient also reports bright blood with bowel movements due to hemorrhoids. Patient reports generalized weakness, shortness of breath, dyspnea , dizziness, and increased weight gain and pedal edema but denies recent illness , fever, chills, nausea, vomiting, headache, changes in vision, chest pain, palpitations, cough, abdominal pain, numbness, tingling, presyncope, or syncope Patient states breathing is improved. Awaiting chest tube placement. States he feels very weak. No chest pain. No nausea, vomiting, diarrhea. No fevers or chills. 04/06: Chest tube placed. Pt states breathing is improved. Denies CP. No N/V/ D. No F/C. Currently on O2 at 4L per NC. 04/07: She states his breathing feels a little worse today. He has very little energy and has difficulty getting up without feeling short of breath or dizzy. He is not complaining of any significant amount of pain. No nausea, vomiting, diarrhea. He does have a decreased appetite however no fevers or chills. He still remains on oxygen at 4 L per nasal cannula, vitals otherwise remained stable. Pleural drain output not recorded as of yet. His white blood cell count remains normal. His creatinine continues to remain in the 2.8 to 2.9 range. She voices frustration over lack of progress. We discussed goals of care and he would like to discuss further treatment with palliative care medicine as well. - Constitutional Vitals: Temp Pulse Resp BP Pulse Ox 97.2 F L 93 15 111/63 100 04/07/17 06:54 04/07/17 06:54 04/07/17 06:54 04/07/17 06:54 04/07/17 06:54 General appearance: Present: cooperative, mild distress (Respiratory), A&O X 3, pleasant, answers questions appropriately - Respiratory Respiratory exam: Present: decreased breath sounds (Crackles bilaterally, no wheezes). Absent: accessory muscle use, rales, rhonchi, wheezes Additional comments: Plueral drain intact - Extremities Exam Extremities exam: Present: pedal edema, warm, radial pulses palpable and symmetrical. Absent: calf tenderness, cyanotic Internal Medicine: Result - Labs CBC & Chem 7: 04/06/17 06:46 04/07/17 05:11 Labs: BMP 04/07/17 05:11 Sodium 135 L Potassium 4.4 Chloride 99 Carbon Dioxide 27 BUN 62 H Creatinine 2.90 H Glucose 131 H Calcium 8.5 L - ABG Interpretation ABG results: PT/INR, D-dimer PT 12.0 Seconds (9.4-12.1) 04/07/17 05:11 - VTE Documentation of Mechanical Device: Intermittent pneumatic compression device Consult Discharge Plan - Plan Referrals: Kings Kaiser MD [Primary Care Provider] - 04/13/17 1:15 pm (Please follow up a sschedule....)
[2017-04-07] MEDS: Aspirin 81 MG TAB.CHEW PO SCH (10:18)
[2017-04-07] MEDS: Silvasorb 44.4 ML TUBE TP SCH (10:18)
[2017-04-07] MEDS: Preparation H Ointment 30 GM TUBE RC SCH ×2 (10:18→20:50)
[2017-04-07] MEDS: *HR* Amiodarone 200 MG TABLET PO SCH (10:18)
[2017-04-07] MEDS: Spironolactone 25 MG TABLET PO SCH (10:18)
[2017-04-07] MEDS: Furosemide 40 MG TABLET PO SCH ×2 (10:18→17:56)
--- NOTE | 2017-04-07 10:21 | Cardiology Progress Note ---
<Kendall Joseph - Last Filed: 04/07/17 14:36> Date of Encounter: 04/07/17 Time of Encounter: 08:00 Assessment and Plan (1) Acute on chronic systolic (congestive) heart failure Current Visit: Yes Status: Acute Pt with known hx of systolic CHF 2/2 ischemia. EF 20% this admission down form 25% prior. Patient has pacemaker. Patient is on home Lasix 40 daily, Losartan 50mg daily, ASA 81mg, Plavix 75mg, Amiodarone 200mg, and Atorvastatin 80 for his CHF, CAD, and a fib. Patient not on home BB. Patient started on Metoprolol Succinate 25 on 04/02 during this admission. Started on Spironolactone 12.5mg daily Losartan currently on hold for JIMBO. Patient has recurrent L sided Pleural effusions. Currently has a pleurex catheter in that needs draining every 48hrs. Primary team plans on placing a pleural drain. Switched metoprolol to Coreg Plan: Continue Coreg Continue spirinolactone Continue PO Lasix Consider starting entresto for BP control when nephrology feels he can handle it from a kidney perspective, and when his BP will allow. continue to monitor (2) Acute kidney injury superimposed on CKD Current Visit: Yes Status: Acute Patient with JIMBO on CKD Cr 1.5 in October. 2.99 on admission Current Cr 2.9 Patient's ARB on hold secondary to CKD Renal U/S showed some cysts, but otherwise normal exam Plan: Nephrology on board appreciate recommendations continue management per primary team and nephrology (3) Elevated troponin Current Visit: Yes Status: Chronic Hx of Chronically elevated Trops 2/2 CKD Patient's troponins 0.05 0.05, 0.06 Flat, adynamic, stable likely 2/2 CKD EKG with no ischemic changes Plan: continue to monitor no further work up at this time (4) Afib Current Visit: Yes Status: Chronic Pt c Hx of A fib on home coumadin 1mg daily, Amiodarone 200mg Daily Currently coumadin on hold for placement of a pleural drain. Plan: Continue home amiodarone restart coumadin when able Qualifiers: Atrial fibrillation type: chronic Qualified Code(s): I48.2 - Chronic atrial fibrillation (5) HTN (hypertension) Current Visit: Yes Status: Chronic Pt with Hx of HTN on home hydralazine 25mg BID, Losartan 50mg daily Plan: home meds on hold 2/2 JIMBO on CKD Qualifiers: Hypertension type: essential hypertension Qualified Code(s): I10 - Essential (primary) hypertension (6) HLD (hyperlipidemia) Current Visit: Yes Status: Chronic Pt with Hx of HLD on home atorvastatin 80mg Lipid profile shows: Cholesterol 138, LDL 47, VLDL 20, HDL 71, triglycerides 99, Cholesterol HDL ratio 1.9 Plan: continue home statin. Qualifiers: Hyperlipidemia type: pure hypercholesterolemia Qualified Code(s): E78.00 - Pure hypercholesterolemia, unspecified; E78.0 - Pure hypercholesterolemia Discussion w patient/family: The assessment and plan as outlined above was discussed with the patient and/or family members who expressed understanding and agreement. All questions were answered. Thank you for involving us in the care of your patient. Please call with any questions. Subjective Principal diagnosis: CHF Interval history: Patient reports worsening SOB today and needing his pleural effusion drained. He reports overall just feeling weak and sick over this admission. No change in patient's Cr. Nephrology and primary team managing. Objective Vital Signs, Last 4 Hours Temp Pulse Resp BP Pulse Ox 04/07/17 06:54 97.2 F L 93 15 111/63 100 General: Conversant, No Apparent Distress HEENT: Atraumatic, Normocephaly, Mucus Membranes Moist Neck: No JVD Cardiac: Reg Rate and Rhythm, Normal S1 and S2, No Murmur Lungs: Normal Breath Sounds, No Wheeze, Rales, Rhonchi, Other (decreased breath sounds LLL) Neuro: Alert and responsive, No focal deficits noted Abdomen: Soft, Non-Tender Skin: No rashes noted on visualized skin, Other (ecchymosis LUE) Musculoskeletal: No Chest Wall Tenderness Extremities: No Clubbing, No Cyanosis, No Edema, Normal Pulses Results 04/06/17 06:46 04/07/17 05:11 Lab Results 04/07/17 04/07/17 05:11 05:11 INR 1.1 Sodium 135 L Potassium 4.4 Chloride 99 Carbon Dioxide 27 BUN 62 H Creatinine 2.90 H Glucose 131 H Calcium 8.5 L - VTE Documentation of Mechanical Device: Intermittent pneumatic compression device Consult Discharge Plan - Plan Referrals: Kings Kaiser MD [Primary Care Provider] - 04/13/17 1:15 pm (Please follow up a sschedule....) <Speedy Henderson - Last Filed: 04/08/17 16:06> Date of Encounter: 04/07/17 Time of Encounter: 17:00 Assessment and Plan Discussion w patient/family: The assessment and plan as outlined above was discussed with the patient and/or family members who expressed understanding and agreement. All questions were answered. Thank you for involving us in the care of your patient. Please call with any questions. Results 04/08/17 05:26 04/08/17 05:26 Lab Results 04/08/17 04/08/17 04/08/17 05:26 05:26 05:26 WBC 7.6 Hgb 8.5 L Hct 26.8 L Plt Count 219 INR 1.1 Sodium 134 L Potassium 4.5 Chloride 99 Carbon Dioxide 29 BUN 66 H Creatinine 3.38 H Glucose 119 H Calcium 8.4 L - Attending Attestation I examined this patient and my medical decision-making was reviewed with the Resident Physician. I agree with the documented findings, disposition and treatment plan as described except to the extent set forth below. CC: Shortness of breath: Pt reports is breathing easier, less short of breath at rest, however, very short of breath with minimal activity. He has been up to chair with assist. PE: Reviewed, agree with above except for heart rhythm is irregularly irregular , decreased breath sounds and L lower lobe scattered rhonchi. IMP: 1. Acute on chronic systolic heart failure seconday to ischemic cardiomyopathy, not responding well to continued diuresis, now with po lasix and aldactone, appears volume overloaded, had plueralcentesis through indwelling catheter today , breathing easier. 2. Acute on chronic kidney injury, renal function continues to decline, ARB/HUBER on hold. 3. Chronic a fib with adequate rate control. 4. Elevated troponin, mild, chronic, due to poor renal excretion.
--- NOTE | 2017-04-07 11:46 | Palliative - Consult Note ---
<Seun Hutchinson - Last Filed: 04/07/17 11:43> Date of Encounter: 04/07/17 Time of Encounter: 10:40 - Assessment and Plan (1) Goals of care, counseling/discussion Current Visit: Yes Status: Acute Assessment and plan: Patient confirm his current code status of DNR-Comfort Care Arrest and DNI. He is not interested in hospice at this time. is at bedside. Patient confirms that he would like his to be his POA. He stated that him and his has been for 62 years and has 5 children. One of his children has passed this year due to a heart attack. The patient states that he came from home and ultimately wants to at home because he has built his house from scratch. He states he is currently receiving home health care from [facility] and does not need anything additional from them. He states that his quality of life is good and that he was ambulating without any difficulty prior to this admission, but he does not get out much. He clearly states that he is still interested in any treatment cardiology or nephrology has to offer. He also admits he would like to have an AICD when he is able to receive it. At this time, palliative team will follow from a distance. (2) Chest pain Current Visit: No Status: Acute Assessment and plan: Treatment per hospitalist and/or cardiology. Qualifiers: Chest pain type: unspecified Qualified Code(s): R07.9 - Chest pain, unspecified (3) Pleural effusion Current Visit: No Status: Acute Assessment and plan: Patient currently has a pleurex catheter on the left side of his chest. Plan per hospitalist team. (4) Acute kidney injury superimposed on CKD Current Visit: No Status: Acute Assessment and plan: Plan per nephrology team. (5) Acute on chronic systolic (congestive) heart failure Current Visit: Yes Status: Acute Assessment and plan: Patient continues to have shortness of breath but admits it is near his baseline. Continue plan per hospitalist team. Palliative-CN HPI - Data of Consult Requesting Physician: Yaw Gooden MD Primary Care Provider: Kings Kaiser MD - Consult Narrative History of present illness: Mr. Langford is a 81 year old male with a past medical history of melanoma of the face, IBS, CAD, diabetes, HTN, previous myocardial infarction,sudden cardiac , and TIAs who is admitted to the hospital on 03/31/17 for acute on chronic congestive heart failure and JIMBO superimposed on CKD. Palliative team was consulted to discuss goals of care with the patient. Patient states that he came from home and ultimately wants to at home. He stated that he has built his house from scratch and it means alot to him to there. He admits he is currently receiving home health care from [facility] and states that he has a good quality of life. He states he gets around the house without any difficulty prior to this admission, but he does not get out much. Patient confirms that he wants his of 62 years to be his POA and he made it clear that he is not interested in hospice. He states that whatever treatment cardiology and nephrology has to offer, he wants. He is still interested in receiving an AICD when appropiate. Patient is currently complaining of left sharp chest pain that is constant with no radiation. Nurse is aware and EKG is ordered at this time. Patient admits his breathing has improved and is better compared to admission. Patient denies any fever, headaches, vision changes, abdominal pain, changes in his bowel movements, dysuria, hematuria, numbness and tingling. Patient has no other concerns at this time. CC: Yaw Gooden MD Past Med Surg Social Fam HX - Past Medical History Medical history: cancer, CHF, coronary artery disease, diabetes, GERD, hyperlipidemia, hypertension, myocardial infarction, sudden cardiac , TIA Psychiatric history: depression - Past Surgical History Surgical History: angioplasty/stent, herniorrhaphy, pacemaker - Social History Smoking Status: Never smoker Smokeless Tobacco Status: No Alcohol use: none Drug use: none - Family History Brother Race: Family Member Ethnicity: Non- Living Status: Age at : 60 Cause of : HD Hx Family Cardiac Disorders: Yes (HD, Open heart surgery) Hx Family Endocrine Disorder: Yes (DM) Sister Race: Family Member Ethnicity: Non- Living Status: Age at : 77 Cause of : HD Hx Family Cardiac Disorders: Yes (HD, CAD) Hx Family Endocrine Disorder: Yes (DM) Mother Race: Family Member Ethnicity: Non- Living Status: Age at : 73 Cause of : CAD Hx Family Cardiac Disorders: Yes (HD, HTN) Hx Family Endocrine Disorder: Yes (DM) Father Race: Family Member Ethnicity: Non- Living Status: Age at : 61 Cause of : Pneumonia Hx Family Cardiac Disorders: Yes (OR, HD, HTN) Hx Family Respiratory Disorders: Yes (Pneumonia) Hx Family Endocrine Disorder: Yes (DM) Medications and Allergies Allopurinol [Zyloprim 100 MG] 100 mg PO BID 07/06/16 [History] Clopidogrel [Plavix] 75 mg PO DAILY 07/06/16 [History] Amiodarone [Cordarone] 200 mg PO DAILY #30 tablet 07/10/16 [Rx] Aspirin 81 mg PO DAILY #30 tab.chew 07/10/16 [Rx] Atorvastatin [Lipitor] 80 mg PO HS #30 tablet 07/10/16 [Rx] Furosemide [Lasix] 40 mg PO DAILY 09/22/16 [History] Losartan Potassium [Cozaar] 50 mg PO DAILY 09/22/16 [History] Omeprazole [PriLOSEC] 40 mg PO DAILY 09/22/16 [History] hydrALAZINE [HydrALAZINE] 25 mg PO BID 09/22/16 [History] metFORMIN [Glucophage] 500 mg PO DAILY 10/18/16 [History] Potassium Chloride 10 meq PO DAILY 11/08/16 [History] Warfarin [Coumadin] 1 mg PO DAILY 11/08/16 [History] 3 Allergy/AdvReac Type Severity Reaction Status Date / Time aspirin AdvReac See Verified 11/24/16 00:05 Comments NSAIDS (Non-Steroidal AdvReac See Verified 11/24/16 00:05 Anti-Inflamma Comments Review of systems: Per HPI Palliative Care-Exam - Constitutional Vitals: Temp Pulse Resp BP Pulse Ox 97.2 F L 93 15 111/63 100 04/07/17 06:54 04/07/17 06:54 04/07/17 06:54 04/07/17 06:54 04/07/17 06:54 General appearance: Present: cooperative, obese. Absent: no acute distress - Head Head Exam: Present: atraumatic - Eye Eye exam: Present: EOMI, normal appearance, PERRL - ENT ENT exam: Present: mucous membranes moist - Neck Neck exam: Present: normal inspection. Absent: lymphadenopathy, tenderness - Respiratory Respiratory exam: Present: rales (Rales and crackles bilaterally). Absent: accessory muscle use, respiratory distress, wheezes, tachypnea Additional comments: Currently has a pleurex catheter on the left side of patient's chest. - Expanded Respiratory Exam Location: rales: Left, Right, Lower - Cardiovascular Cardiovascular exam: Present: RRR, +S1, +S2. Absent: bradycardia, tachycardia - GI/Abdominal Exam GI/Abdominal exam: Present: soft. Absent: distended, rebound, tenderness - Extremities Exam Extremities exam: Present: pedal edema. Absent: calf tenderness Additional comments: Bilateral lower and upper extremities are swollen. - Neurological Exam Neurological exam: Present: alert, CN II-XII intact, oriented X3. Absent: altered, motor sensory deficit, facial droop, speech deficit - Expanded Neurological Exam Neurological exam expanded: Present: protecting the airway Patient oriented to: Present: person, place, time Speech: Present: fluid speech. Absent: slurred, stutter - Psychiatric Psychiatric exam: Absent: agitated, anxious - Skin Skin exam: Present: dry, intact, warm Internal Medicine - CN: Reslt - Labs CBC & Chem 7: 04/06/17 06:46 04/07/17 05:11 Labs: BMP 04/07/17 05:11 Sodium 135 L Potassium 4.4 Chloride 99 Carbon Dioxide 27 BUN 62 H Creatinine 2.90 H Glucose 131 H Calcium 8.5 L - ABG Interpretation ABG results: PT/INR, D-dimer PT 12.0 Seconds (9.4-12.1) 04/07/17 05:11 Consult Discharge Plan - Plan Referrals: Kings Kaiser MD [Primary Care Provider] - 04/13/17 1:15 pm (Please follow up a sschedule....) Palliative Quality Palliative Quality: Screen for Code Status: Yes, Screen for Goals of Care: Yes, Screen for Pain: Yes, If Pain Regimen Started, Initiate Bowel Regimen: NA, Screen for Nausea/Vomitting: Yes <Ashutosh Durand - Last Filed: 04/07/17 12:49> Date of Encounter: 04/07/17 Palliative-CN HPI - Data of Consult Requesting Physician: Yaw Gooden MD Primary Care Provider: Kings Kaiser MD - Consult Narrative History of present illness: Mr. Langford is a 81 year old male CC: Yaw Gooden MD Palliative Care-Exam - Constitutional Vitals: Temp Pulse Resp BP Pulse Ox 97.2 F L 84 16 95/68 100 04/07/17 11:58 04/07/17 11:58 04/07/17 11:58 04/07/17 11:58 04/07/17 11:58 Internal Medicine - CN: Reslt - Labs CBC & Chem 7: 04/06/17 06:46 04/07/17 05:11 Labs: BMP 04/07/17 05:11 Sodium 135 L Potassium 4.4 Chloride 99 Carbon Dioxide 27 BUN 62 H Creatinine 2.90 H Glucose 131 H Calcium 8.5 L - ABG Interpretation ABG results: PT/INR, D-dimer PT 12.0 Seconds (9.4-12.1) 04/07/17 05:11 - Attending Attestation I examined this patient and my medical decision-making was reviewed with the Resident Physician. I agree with the documented findings, disposition and treatment plan as described except to the extent set forth below. as already noted pt not interested in hospice at this time ( he knows he is eligible) palliative has nothing further to provide so e will follow at a distance.
[2017-04-07] MEDS: Piperacillin/Tazobactam 3.375 GM/200 ML BAG IVPB SCH (17:56)
[2017-04-08] MEDS: Acetaminophen 325 MG TABLET PO PRN (02:54)
[2017-04-08] MEDS: Piperacillin/Tazobactam 3.375 GM/200 ML BAG IVPB SCH ×2 (05:35→18:08)
[2017-04-08 06:01] LABS: Basophils % 0.1 %; Eosinophils # 0.2 K/mcL (0.0-0.6); Eosinophils % 2.4 %; Hematocrit 26.8 % (37.5-50.1); Hemoglobin 8.5 g/dL (12.9-16.9); Immature Granulocytes % 0.4 % (0-4); Lymphocytes % 12.8 %; Mean Corpuscular HGB Conc 31.7 g/dL (31.6-35.5); Mean Corpuscular Hemoglobin 30.2 pg (28.0-33.3); Mean Corpuscular Volume 95.4 fL (83.0-100.0); Mean Platelet Volume 12.4 fL (9.4-12.4); Monocytes # 0.5 K/mcL (0.0-1.3); Neutrophils # 5.9 K/mcL (1.6-8.9); Nucleated Red Blood Cells 4.1 /100 WBC (0); Platelet Count 219 K/mcL (140-400); Red Blood Count 2.81 M/mcL (4.19-5.50); Red Cell Distribution Width 19.9 % (11.5-14.5); Segmented Neutrophils % 77.3 %
[2017-04-08 06:16] LABS: INR 1.1; Prothrombin Time 11.6 Seconds (9.4-12.1)
[2017-04-08 06:24] LABS: Calcium 8.4 mg/dL (8.6-10.3); Potassium 4.5 mEq/L (3.5-5.1)
--- NOTE | 2017-04-08 06:59 | Nephrology Progress Note ---
<Jaret Comer - Last Filed: 04/08/17 11:54> Date of Encounter: 04/08/17 Time of Encounter: 06:59 - Assessment and Plan (1) Acute kidney injury superimposed on CKD Status: Acute CKD stage IIIb-IV and prior AKIs Renal U/S reveals multiple cysts with no significant findings in the kidneys. UA negative for proteinuria Recommend stopping Metformin Hold Cozaar until JIMBO improved Continue Albumin and Lasix 40 mg PO BID x2 days SCr relatively stable and non-oliguric. No need for HD at this time. Cardiology considering starting Entresto once hypotension and JIMBO improved Will plan to adjust diuretics each day based upon UOP responses, daily weights and SCr changes. Continue I&Os, daily weights, and monitoring (2) CKD (chronic kidney disease) stage 4, GFR 15-29 ml/min Status: Chronic CKD stage IIIb-IV Avoid nephrotoxins Continue to monitor (4) Acute on chronic systolic (congestive) heart failure Status: Acute Acute exacerbation of systolic CHF (EF 20% on 04/01/17), and indwelling Pleurex catheter for recurrent left side pleural effusion Discontinue Albumin BID Continue Lasix 40mg PO BID Continue Spironolactone Agree with Cardiology to start Entresto for bp control when and kidney function improves. 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 Iron < 10 Ferritin 106 Decreased transferrin 176 Vitamin B12 level 261 Vitamin D level 13 Iron IV administered Continue to monitor Qualifiers: Anemia type: iron deficiency Iron deficiency anemia type: inadequate dietary iron intake Qualified Code(s): D50.8 - Other iron deficiency anemias (7) Afib Status: Chronic Management per primary team Qualifiers: Atrial fibrillation type: chronic Qualified Code(s): I48.2 - Chronic atrial fibrillation (8) HTN (hypertension) Status: Chronic Hold Cozaar secondary to JIMBO Cardiology considering Entresto once hypotension and JIMBO improves Continue low dose Spironolactone, monitor BP Management per primary team Qualifiers: Hypertension type: essential hypertension Qualified Code(s): I10 - Essential (primary) hypertension (9) Type 2 diabetes mellitus Status: Chronic Management per primary team Qualifiers: Diabetes mellitus complication status: with circulatory complication Diabetes mellitus complication detail: with other circulatory complications Diabetes mellitus skilled nursing insulin use: without intermediate accountant use Qualified Code( s): E11.59 - Type 2 diabetes mellitus with other circulatory complications (10) Hypokalemia Status: Acute Patient presented with potassium level 6.0 on admission and has been treated with Kayexalate. Potassium replaced Patient will benefit from potassium sparing Spironolactone for underlying systolic CHF Cardiology is cautious about starting Entresto secondary to hypotension and JIMBO. Once Entresto is added, the pt will need outpt labs after this hospitalization to monitor serum K+ levels, which so far have been on the low side fortunately. Continue to monitor Subjective Principal diagnosis: CHF Interval history: Patient seen and examined. Patient reports difficulty sleeping last night due to uncomfortable mattress. He reports decreased edema in lower extremities and less urine output overnight. He reports adhering to fluid restrictions and was started on empiric antibiotics yesterday due to worsening infiltrates on chest x -ray and possible PNA. Cardiology is cautious about starting Entresto secondary to hypotension and JIMBO. is at bedside. Objective - Vital Signs Vital signs: Vital Signs Temp Pulse Resp BP Pulse Ox 04/08/17 03:00 97.3 F L 78 17 105/61 98 04/07/17 23:42 97.5 F L 71 16 97/69 99 04/07/17 19:15 97.5 F L 61 16 95/55 100 04/07/17 17:23 98.4 F 65 65 97/63 93 04/07/17 11:58 97.2 F L 84 16 95/68 100 Intake and Output 04/07/17 04/07/17 04/08/17 15:59 23:59 07:59 Intake Total 350 / 350 320 / 320 Output Total 800 / 800 300 / 300 Balance -450 / -450 20 / 20 Intake: IV Fluids 200 / 200 Zosyn Premix 3.375 GM/200 ML 3. 200 / 200 375 gm In 200 ml @ 50 mls/hr IVPB Q12H [facility] Rx#:[id number] Oral 350 / 350 120 / 120 Output: Urine 300 / 300 Wound Drainage 800 / 800 Left Abdomen 800 / 800 Other: Meal Lunch Percent of Meal Consumed 40% Blood Glucose* 160 170 - General Appearance General appearance: Present: well-developed, well-nourished, appears started age , chronically ill EENT: Present: ATNC, PERRL, mucous membranes moist Neck: Present: no JVD, supple Additional Comments: Diminished breath sounds LLL, left pleurex cath in place Cardiology: Present: no murmurs, edema (2+ LUE edema, 1+ LLE edema, 1+ RLE edema ) Gastrointestinal: Present: normoactive bowel sounds, no tenderness, no guarding , no organomegaly Integumentary: Present: no rash, warm and dry, ecchymotic (LUE) Neurologic: Present: no focal deficit, alert and oriented x3 Musculoskeletal: Present: no deformities, erythema (LUE), no cyanosis Psychiatric: Present: mood/affect appropriate, cooperative - Lab 04/08/17 05:26 04/08/17 05:26 Most recent lab results Calcium 8.4 mg/dL (8.6-10.3) L 04/08/17 05:26 Magnesium 2.4 mg/dL (1.6-2.6) 04/02/17 00:08 - VTE Documentation of Mechanical Device: Intermittent pneumatic compression device Consult Discharge Plan - Plan Instructions: Heart Failure (DC) Referrals: Kings Kaiser MD [Primary Care Provider] - (SENT A WEB REQIEST TO CANCEL THE APPOINTMENT LISTED BELOW @ 5679. 04/13/17 @ 6151) <Ellen Shaffer - Last Filed: 05/06/17 09:24> Date of Encounter: 04/08/17 - Assessment and Plan (1) Acute kidney injury superimposed on CKD Status: Acute (2) CKD (chronic kidney disease) stage 3, GFR 30-59 ml/min Status: Acute (3) Acute exacerbation of CHF (congestive heart failure) Status: Acute (4) Anemia Status: Deleted Qualifiers: Anemia type: iron deficiency Iron deficiency anemia type: inadequate dietary iron intake Qualified Code(s): D50.8 - Other iron deficiency anemias Objective - Lab 04/12/17 06:42 04/12/17 06:42 Most recent lab results Calcium 8.6 mg/dL (8.6-10.3) 04/12/17 06:42 Magnesium 2.4 mg/dL (1.6-2.6) 04/02/17 00:08 - Attending Attestation I examined this patient and my medical decision-making was reviewed with the Resident Physician. I agree with the documented findings, disposition and treatment plan as described except to the extent set forth below. Pt seen and examined with at bedside. Interim events noted. SCr worse today at 3.38, GFR 18. Continue lasix/albumin regimen but decrease dose. Will await decision from cardio whether entresto will be added to regimen or something else. Continue to avoid nephrotoxins if possible. No acute indication for CONTRACT ASSOCIATE today but will need to discuss if no improvement.
--- NOTE | 2017-04-08 07:54 | Internal Med Progress Note ---
Date of Encounter: 04/08/17 Time of Encounter: 08:00 - Assessment and plan (1) Acute kidney injury superimposed on CKD Current Visit: Yes Status: Acute Assessment and plan: Baseline creatinine in October 2016 was 1.5. Currently 2.8. We will consult nephrolog 04/05: Nephrology consult appreciated. Avoid nephrotoxins as best able. Monitor 04/07: Cr unchanged. Continuing Lasix and monitoring renal fxn daily. Diurese as renal fxn will allow. Nephrology input appreciated. 04/08: Creatinine is slightly worse today. Patient has had poor oral intake. Will await nephrology recommendations. Continue to hold nephrotoxic agents, monitor. (2) Acute on chronic systolic (congestive) heart failure Current Visit: Yes Status: Acute Assessment and plan: IV Lasix 60 mg twice a day. Daily weights. Strict I's and O's. Echocardiogram shows LVEF of 20% which has decreased from 25-30% in July 2016. Hold HUBER inhibitor and ARB due to acute renal failure. We restarted Toprol at 25 mg daily. We will consult cardiology. 04/05: Continue to diuresis as renal function allows. HUBER inhibitor remains on hold due to renal failure. Continue beta bi and uptitrate as able. 04/07: Management as per Cardiology, patient reports being a little more dyspneic today. Continues to diuresis as renal function will allow. 04/08: Vitals remained stable, continue medical management. Pleural drain as necessary for symptom control. (3) Afib Current Visit: Yes Status: Chronic Assessment and plan: Rate controlled, Coumadin on hold due to plans for pleural drain 04/06: Resume coumadin pending follow-up imaging 04/08: Rate controlled. Resume Coumadin. Qualifiers: Atrial fibrillation type: chronic Qualified Code(s): I48.2 - Chronic atrial fibrillation (4) Swelling of left upper extremity Current Visit: Yes Status: Acute Assessment and plan: LUE no DVT. Elevate LUE (5) CKD (chronic kidney disease) stage 4, GFR 15-29 ml/min Current Visit: Yes Status: Chronic Assessment and plan: Avoid nephrotoxins including nonsteroidal anti-inflammatory drugs. Monitor kidney function. Kidney US shows no hydronephrosis, bladder residual. Management as per nephrology. (6) Pleural effusion Current Visit: No Status: Acute (7) Type 2 diabetes mellitus Current Visit: No Status: Chronic Assessment and plan: Insulin sliding scale, Accu-Cheks 4 times a day and diabetic diet. Blood glucose well controlled. Qualifiers: Diabetes mellitus complication status: with circulatory complication Diabetes mellitus complication detail: with other circulatory complications Diabetes mellitus halfway insulin use: without halfway use Qualified Code( s): E11.59 - Type 2 diabetes mellitus with other circulatory complications (8) HTN (hypertension) Current Visit: No Status: Chronic Assessment and plan: BP controlled, monitor Qualifiers: Hypertension type: essential hypertension Qualified Code(s): I10 - Essential (primary) hypertension (9) Sacral decubitus ulcer Current Visit: Yes Status: Acute Assessment and plan: Will re-eval today once dressing removed. Qualifiers: Pressure ulcer stage: unspecified pressure ulcer stage Qualified Code(s): L89.159 - Pressure ulcer of sacral region, unspecified stage - Time Spent With Patient Greater than 35 minutes - Subjective Interval history: History of present illness: Mr. Langford is a 81 year old male with medical hx of melanoma of the face, IBS, CAD, diabetes controlled w/oral anti-hyperglycemic medications, GERD, HLD, HTN, previous myocardial infarction 2 in June 2016, sudden cardiac , and TIAs presents from the ED with chief complaint of shortness of breath and dyspnea with just become worse over the past 2-3 days. Patient states he was in the bathroom this morning and became weak and fell to the floor and was unable to turn her or help himself up. Patient denies losing consciousness or hitting head. Patient also reports bright blood with bowel movements due to hemorrhoids. Patient reports generalized weakness, shortness of breath, dyspnea , dizziness, and increased weight gain and pedal edema but denies recent illness , fever, chills, nausea, vomiting, headache, changes in vision, chest pain, palpitations, cough, abdominal pain, numbness, tingling, presyncope, or syncope Patient states breathing is improved. Awaiting chest tube placement. States he feels very weak. No chest pain. No nausea, vomiting, diarrhea. No fevers or chills. 04/06: Chest tube placed. Pt states breathing is improved. Denies CP. No N/V/ D. No F/C. Currently on O2 at 4L per NC. 04/07: She states his breathing feels a little worse today. He has very little energy and has difficulty getting up without feeling short of breath or dizzy. He is not complaining of any significant amount of pain. No nausea, vomiting, diarrhea. He does have a decreased appetite however no fevers or chills. He still remains on oxygen at 4 L per nasal cannula, vitals otherwise remained stable. Pleural drain output not recorded as of yet. His white blood cell count remains normal. His creatinine continues to remain in the 2.8 to 2.9 range. Pt voices frustration over lack of progress. We discussed goals of care and he would like to discuss further treatment with palliative care medicine as well. 04/08: Breathing is better at times but at other times still has shortness of breath. No chest pain. He states he is very uncomfortable sitting in bed in voices frustration over his lack of activity. He denies any fevers or chills. No nausea, vomiting, diarrhea, although states food just does not taste good. Patient was started on antibiotics yesterday, IV Zosyn for which he is currently day #2 for possible pneumonia. Renal function is slightly worse today with a creatinine of 3.38 up from 2.9. Patient continues to have drainage from his Pleurx, 800 mL's yesterday. - Constitutional Vitals: Temp Pulse Resp BP Pulse Ox 97.4 F L 74 17 96/65 97 04/08/17 07:06 04/08/17 07:06 04/08/17 07:06 04/08/17 07:06 04/08/17 07:06 General appearance: Present: cooperative, mild distress (Respiratory), A&O X 3, pleasant, answers questions appropriately - Respiratory Respiratory exam: Present: decreased breath sounds, rales (Pleural drain in place, left chest). Absent: accessory muscle use, rhonchi, wheezes - Skin Skin exam: Present: dry, intact Additional comments: Sacral decubitus ulcer dressed, will review later today Internal Medicine: Result - Labs CBC & Chem 7: 04/08/17 05:26 04/08/17 05:26 Labs: Short CBC 04/08/17 Range/Units 05:26 WBC 7.6 (4.3-11.1) K/mcL Hgb 8.5 L (12.9-16.9) g/dL Hct 26.8 L (37.5-50.1) % Plt Count 219 (140-400) K/mcL Neutrophils # 5.9 (1.6-8.9) K/mcL BMP 04/08/17 05:26 Sodium 134 L Potassium 4.5 Chloride 99 Carbon Dioxide 29 BUN 66 H Creatinine 3.38 H Glucose 119 H Calcium 8.4 L - ABG Interpretation ABG results: PT/INR, D-dimer PT 11.6 Seconds (9.4-12.1) 04/08/17 05:26 - Impressions Impressions Chest X-Ray 04/07/17 00:00 IMPRESSION: Decrease in left pleural effusion. Slight increase in right perihilar opacities likely representing worsening edema or infection. D/ / Agatha Shen MD / Agatha Shen MD Interpreting Provider: Agatha Shen MD - VTE Documentation of Mechanical Device: Intermittent pneumatic compression device Consult Discharge Plan - Plan Referrals: Kings Kaiser MD [Primary Care Provider] - 04/13/17 1:15 pm (Please follow up a sschedule....)
[2017-04-08] MEDS ORDERED: *HR* Warfarin 1 MG TABLET PO SCH (09:00)
[2017-04-08] MEDS: Insulin LISPRO 300 UNITS/3 ML VIAL SQ SCH ×4 (09:38→21:03)
[2017-04-08] MEDS: Spironolactone 25 MG TABLET PO SCH (09:38)
[2017-04-08] MEDS: *HR* Amiodarone 200 MG TABLET PO SCH (09:39)
[2017-04-08] MEDS: Aspirin 81 MG TAB.CHEW PO SCH (09:39)
[2017-04-08] MEDS: Preparation H Ointment 30 GM TUBE RC SCH ×2 (09:40→21:05)
--- NOTE | 2017-04-08 09:52 | Cardiology Progress Note ---
<Kendall Joseph - Last Filed: 04/08/17 14:51> Date of Encounter: 04/08/17 Time of Encounter: 09:52 Assessment and Plan (1) Acute on chronic systolic (congestive) heart failure Current Visit: Yes Status: Acute Pt with known hx of systolic CHF 2/2 ischemia. EF 20% this admission down form 25% prior. Patient has pacemaker. Patient is on home Lasix 40 daily, Losartan 50mg daily, ASA 81mg, Plavix 75mg, Amiodarone 200mg, and Atorvastatin 80 for his CHF, CAD, and a fib. Patient not on home BB. Patient started on Metoprolol Succinate 25 on 04/02 during this admission. Started on Spironolactone 12.5mg daily Losartan currently on hold for JIMBO. Patient has recurrent L sided Pleural effusions. Currently has a pleurex catheter in that needs draining every 48hrs. Primary team plans on placing a pleural drain. Switched metoprolol to Coreg Plan: Patient's Cr worsened today. Likely 2/2 to poor renal perfusion 2/2 systolic CHF Started patient on dobutamine drip to increase renal perfusion. Continue Coreg Continue spirinolactone Continue PO Lasix Consider starting entresto for BP control when nephrology feels he can handle it from a kidney perspective, and when his BP will allow. continue to monitor (2) Acute kidney injury superimposed on CKD Current Visit: Yes Status: Acute Patient with JIMBO on CKD Cr 1.5 in October. 2.99 on admission Current Cr 3.38 Patient's ARB on hold secondary to CKD Renal U/S showed some cysts, but otherwise normal exam Plan: Patient's Cr worsened today. Likely 2/2 to poor renal perfusion 2/2 systolic CHF Started patient on dobutamine drip to increase renal perfusion. Continue Coreg Nephrology on board appreciate recommendations continue management per primary team and nephrology (3) Elevated troponin Current Visit: Yes Status: Chronic Hx of Chronically elevated Trops 2/2 CKD Patient's troponins 0.05 0.05, 0.06 Flat, adynamic, stable likely 2/2 CKD EKG with no ischemic changes Plan: continue to monitor no further work up at this time (4) Afib Current Visit: Yes Status: Chronic Pt c Hx of A fib on home coumadin 1mg daily, Amiodarone 200mg Daily Currently coumadin on hold for placement of a pleural drain. Plan: Continue home amiodarone restart coumadin when able Qualifiers: Atrial fibrillation type: chronic Qualified Code(s): I48.2 - Chronic atrial fibrillation (5) HTN (hypertension) Current Visit: Yes Status: Chronic Pt with Hx of HTN on home hydralazine 25mg BID, Losartan 50mg daily Plan: home meds on hold 2/2 JIMBO on CKD Qualifiers: Hypertension type: essential hypertension Qualified Code(s): I10 - Essential (primary) hypertension (6) HLD (hyperlipidemia) Current Visit: Yes Status: Chronic Pt with Hx of HLD on home atorvastatin 80mg Lipid profile shows: Cholesterol 138, LDL 47, VLDL 20, HDL 71, triglycerides 99, Cholesterol HDL ratio 1.9 Plan: continue home statin. Qualifiers: Hyperlipidemia type: pure hypercholesterolemia Qualified Code(s): E78.00 - Pure hypercholesterolemia, unspecified; E78.0 - Pure hypercholesterolemia Discussion w patient/family: The assessment and plan as outlined above was discussed with the patient and/or family members who expressed understanding and agreement. All questions were answered. Thank you for involving us in the care of your patient. Please call with any questions. Subjective Principal diagnosis: CHF Interval history: Patient's Cr worsened today. Will start 5mcg dobutamine drip to increase renal profusion. Patient resting comfortably in bed on examination. Objective Vital Signs, Last 4 Hours Temp Pulse Resp BP Pulse Ox 04/08/17 07:06 97.4 F L 74 17 96/65 97 General: Conversant, No Apparent Distress HEENT: Atraumatic, Normocephaly, Mucus Membranes Moist Neck: No JVD Cardiac: Reg Rate and Rhythm, Normal S1 and S2, No Murmur Lungs: Other (decreased breath sounds LLL, R sided Rhonchi) Neuro: Alert and responsive, No focal deficits noted Abdomen: Soft, Non-Tender Skin: No rashes noted on visualized skin Musculoskeletal: No Chest Wall Tenderness Extremities: No Clubbing, No Cyanosis, No Edema, Normal Pulses Results 04/08/17 05:26 04/08/17 05:26 Lab Results 04/08/17 04/08/17 04/08/17 05:26 05:26 05:26 WBC 7.6 Hgb 8.5 L Hct 26.8 L Plt Count 219 INR 1.1 Sodium 134 L Potassium 4.5 Chloride 99 Carbon Dioxide 29 BUN 66 H Creatinine 3.38 H Glucose 119 H Calcium 8.4 L - VTE Documentation of Mechanical Device: Intermittent pneumatic compression device Consult Discharge Plan - Plan Referrals: Kings Kaiser MD [Primary Care Provider] - 04/13/17 1:15 pm (Please follow up a sschedule....) <Speedy Henderson - Last Filed: 04/08/17 16:17> Date of Encounter: 04/08/17 Time of Encounter: 19:30 Assessment and Plan Discussion w patient/family: The assessment and plan as outlined above was discussed with the patient and/or family members who expressed understanding and agreement. All questions were answered. Thank you for involving us in the care of your patient. Please call with any questions. Objective Vital Signs, Last 4 Hours Temp Resp BP Pulse Ox 04/08/17 15:46 98.2 F 91 144/87 96 Results 04/08/17 05:26 04/08/17 05:26 Lab Results 04/08/17 04/08/17 04/08/17 05:26 05:26 05:26 WBC 7.6 Hgb 8.5 L Hct 26.8 L Plt Count 219 INR 1.1 Sodium 134 L Potassium 4.5 Chloride 99 Carbon Dioxide 29 BUN 66 H Creatinine 3.38 H Glucose 119 H Calcium 8.4 L - Attending Attestation I examined this patient and my medical decision-making was reviewed with the Resident Physician. I agree with the documented findings, disposition and treatment plan as described except to the extent set forth below. CC: Shortness of breath PT reports less short of breath since yesterday, ok at rest, becomes very short of breath with minimal activity. PE; Reviewed above, agree. IMP: 1. Acute on chronic systolic heart failure, due to ischemic cardiomyopathy, not responding to diuretics, continues to decline, will add dobutamine continuous infusion for ionotropoic support, continue to monitor volume status and renal function. 2. Acute on chronic renal impairment, not improving, will monitor on inotropic support 3. Chronic a fib, slower rate today, paced rhythm, continue Coreg, amiodarone
--- NOTE | 2017-04-08 10:05 | Event Note ---
Date of Encounter: 04/08/17 Time of Encounter: 09:47 pt is clear on his desire for dnr i dna he has jessie hh and does not feel he needs more help at home. Palliative has nothing further to add so will sign off please reconsult as needed
[2017-04-08] MEDS: Furosemide 40 MG TABLET PO SCH (12:23)
--- NOTE | 2017-04-08 13:39 | Electrocardiograph Report ---
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
[2017-04-08] MEDS: Albumin 25% 25gram/100mL 25 GM/100 ML IV.SOLN IVPB SCH (14:55)
[2017-04-08] MEDS ORDERED: Bisacodyl 10 MG RECTAL SUPPOSITORY RC PRN (15:41)
[2017-04-08] MEDS ORDERED: *HR* Warfarin 1 MG TABLET PO ONE (18:00)
[2017-04-08] MEDS ORDERED: Warfarin perPT PO PRN (18:00)
[2017-04-08] MEDS: Ipratropium/Albuterol Neb 3 ML IH PRN (22:46)
[2017-04-09] MEDS: Furosemide 40 MG TABLET PO SCH (00:51)
[2017-04-09] MEDS: Albumin 25% 25gram/100mL 25 GM/100 ML IV.SOLN IVPB SCH ×2 (03:32→11:57)
[2017-04-09] MEDS: Piperacillin/Tazobactam 3.375 GM/200 ML BAG IVPB SCH ×2 (05:52→17:10)
[2017-04-09] MEDS: Ipratropium/Albuterol Neb 3 ML IH PRN (05:57)
[2017-04-09] MEDS: Insulin LISPRO 300 UNITS/3 ML VIAL SQ SCH ×4 (08:14→20:02)
[2017-04-09] MEDS: Spironolactone 25 MG TABLET PO SCH (08:17)
[2017-04-09] MEDS: Aspirin 81 MG TAB.CHEW PO SCH (08:18)
[2017-04-09] MEDS: *HR* Amiodarone 200 MG TABLET PO SCH (08:18)
[2017-04-09] MEDS: Preparation H Ointment 30 GM TUBE RC SCH ×2 (08:20→22:20)
[2017-04-09] MEDS: Silvasorb 44.4 ML TUBE TP SCH ×2 (08:27)
[2017-04-09 08:33] LABS: INR 1.2; Prothrombin Time 12.6 Seconds (9.4-12.1)
[2017-04-09 08:45] LABS: Calcium 8.6 mg/dL (8.6-10.3); Potassium 4.4 mEq/L (3.5-5.1)
[2017-04-09 09:20] LABS: Basophils % 0.1 %; Eosinophils # 0.1 K/mcL (0.0-0.6); Eosinophils % 0.7 %; Hematocrit 25.4 % (37.5-50.1); Hemoglobin 8.2 g/dL (12.9-16.9); Immature Granulocytes % 0.5 % (0-4); Lymphocytes # 0.4 K/mcL (0.6-4.6); Lymphocytes % 4.9 %; Mean Corpuscular HGB Conc 32.3 g/dL (31.6-35.5); Mean Corpuscular Hemoglobin 30.7 pg (28.0-33.3); Mean Corpuscular Volume 95.1 fL (83.0-100.0); Mean Platelet Volume 12.2 fL (9.4-12.4); Monocytes # 0.5 K/mcL (0.0-1.3); Neutrophils # 7.2 K/mcL (1.6-8.9); Platelet Count 200 K/mcL (140-400); Red Blood Count 2.67 M/mcL (4.19-5.50); Red Cell Distribution Width 19.9 % (11.5-14.5); Segmented Neutrophils % 87.8 %
--- NOTE | 2017-04-09 09:24 | Cardiology Progress Note ---
Date of Encounter: 04/09/17 Time of Encounter: 07:30 Assessment and Plan (1) GI bleed Current Visit: Yes Status: Acute Stool positive for occult blood. Discussed with Dr. Henderson, recommend holding coumadin (Afib). Recommend continue DAPT if able. Recommend GI consult, will defer to primary service. Qualifiers: GI bleed type/associated pathology: unspecified gastrointestinal hemorrhage type Qualified Code(s): K92.2 - Gastrointestinal hemorrhage, unspecified (2) Acute exacerbation of CHF (congestive heart failure) Current Visit: Yes Status: Acute Patient presented with acute on chronic systolic CHF. Hx of severe systolic dysfunction, EF 20-25%. TTE 04/01/17: EF 20%, severely dilated LV, no thrombus, bi-atrial enlargement, moderate MR, mild AR, moderate PH, mild-moderate TR. Outpatient procedure for upgrade from PPM-BiVICD, however was cancelled (October 2016) due to occluded subclavian, patient has declined referral to tertiary center. Home medications include: Lasix 40 daily, Losartan 50mg daily, ASA 81mg, Plavix 75mg, Amiodarone 200mg, and Atorvastatin 80 for his CHF, CAD, and a fib. On coreg, po lasix, and aldactone. Doubutamine started late 04/08/17. Upon exam this morning patient reports he feels worse--dyspnea/edema worsening since yesterday. SCr continues to worsen, recommend holding lasix. (SCr 3.38-->3.7). Continue doubutamine. Recommend strict I&Os, place ibarra cath if needed. Na/fluid restriction diet. Daily weights. Qualifiers: Congestive heart failure type: systolic Qualified Code(s): I50.23 - Acute on chronic systolic (congestive) heart failure (3) Coronary artery disease Current Visit: Yes Status: Chronic Hx of CAD s/p PCI [facility] 06/2016: successful PTCA of pLAD ISR, otherwise non-obstructive CAD (EF 20%) . Continue DAPT, statin, and betablocker. Qualifiers: Coronary Disease-Associated Artery/Lesion type: [place] artery [place] vs. transplanted heart: [place] heart Associated angina: with unstable angina Qualified Code(s): I25.110 - Atherosclerotic heart disease of [place] coronary artery with unstable angina pectoris (4) LV (left ventricular) mural thrombus Current Visit: No Status: Resolved Hx of LV thrombus following SD in June 2016. Recent TTE shows no evidence of LV thrombus. (5) Acute kidney injury superimposed on CKD Current Visit: Yes Status: Acute Kidney function continues to worsen. Discussed with Dr. Henderson, will stop oral lasix. Continue dobutamine. Appreciate Nephrology recommendations. (6) Atrial fibrillation Current Visit: Yes Status: Acute Hx of afib on coumadin. PPM. 12 hour tele: avg HR=88. Continue betablocker for rate control. Qualifiers: Atrial fibrillation type: persistent Qualified Code(s): I48.1 - Persistent atrial fibrillation Discussion w patient/family: The assessment and plan as outlined above was discussed with the patient and/or family members who expressed understanding and agreement. All questions were answered. Thank you for involving us in the care of your patient. Please call with any questions. The patient was discussed and reviewed with Dr. Henderson, changes to be made accordingly. Subjective Principal diagnosis: CHF Interval history: Seen and examined earlier this AM. Continues to be volume overload upon exam. Patient reports shortness of breath is worse than yesterday. Continues to have constipation as well. No chest pain/discomfort. Objective Vital Signs, Last 4 Hours Temp Pulse Resp BP Pulse Ox 04/09/17 08:47 94 04/09/17 07:22 97.4 F L 87 21 96/57 94 04/09/17 05:58 18 94 General: Conversant, Other (appears chronically ill) HEENT: Atraumatic, Normocephaly Cardiac: Other (irregularly irregular) Neuro: Alert and responsive Abdomen: Soft Skin: No rashes noted on visualized skin Musculoskeletal: No Chest Wall Tenderness Extremities: Other (+2 BLE edema) Results 04/09/17 08:21 04/09/17 08:21 Lab Results 04/09/17 04/09/17 04/09/17 08:21 08:21 08:21 WBC 8.2 Hgb 8.2 L Hct 25.4 L Plt Count 200 INR 1.2 Sodium 135 L Potassium 4.4 Chloride 99 Carbon Dioxide 28 BUN 67 H Creatinine 3.75 H Glucose 117 H Calcium 8.6 Active Medications Acetaminophen (Tylenol) 650 mg PO Q6HR PRN PRN Reason: Mild Pain (1-3) Stop: 10/01/17 12:55 Last Admin: 04/08/17 02:54 Dose: 650 mg Hydrocodone Bitart/Acetaminophen ([place] 5-325 Mg) 1 tab PO Q4HR PRN PRN Reason: Moderate Pain (4-6) Stop: 10/01/17 12:55 Last Admin: 04/06/17 13:59 Dose: 1 tab Albuterol/Ipratropium (Duoneb) 3 ml IH [id number] PRN PRN Reason: Shortness Of Breath/Wheezing Stop: 10/01/17 13:08 Last Admin: 04/09/17 05:57 Dose: 3 ml Allopurinol (Zyloprim) 100 mg PO DAILY [facility] Stop: 10/04/17 09:01 Last Admin: 04/09/17 08:18 Dose: 100 mg Amiodarone HCl (Cordarone) 200 mg PO DAILY [facility] Stop: 10/02/17 09:01 Last Admin: 04/09/17 08:18 Dose: 200 mg Aspirin (Aspirin) 81 mg PO DAILY [facility] Stop: 10/02/17 09:01 Last Admin: 04/09/17 08:18 Dose: 81 mg Atorvastatin Calcium (Lipitor) 80 mg PO HS [facility] Stop: 10/01/17 21:01 Last Admin: 04/08/17 21:00 Dose: 80 mg Bisacodyl (Dulcolax) 10 mg RC DAILY PRN PRN Reason: Constipation Stop: 10/08/17 15:42 Carvedilol (Coreg) 3.125 mg PO BIDWM [facility] PRN Reason: Protocol Stop: 10/06/17 09:01 Last Admin: 04/09/17 08:18 Dose: 3.125 mg Clopidogrel Bisulfate (Plavix) 75 mg PO DAILY [facility] Stop: 10/02/17 09:01 Last Admin: 04/09/17 08:16 Dose: 75 mg Docusate Sodium (Colace) 100 mg PO BID [facility] PRN Reason: Protocol Stop: 10/08/17 21:01 Last Admin: 04/09/17 08:16 Dose: 100 mg Guaifenesin (Mucinex) 600 mg PO BID [facility] Stop: 10/09/17 09:01 Last Admin: 04/09/17 08:49 Dose: 600 mg Dextrose (Dextrose 5%) 1,000 mls @ 100 mls/hr IVC .Q10H PRN PRN Reason: HYPOGLYCEMIA Stop: 10/01/17 13:05 Piperacillin Sod/Tazobactam Sod (Zosyn Premix 3.375 Gm/200 Ml) 3.375 gm in 200 mls @ 50 mls/hr IVPB Q12H [facility] Stop: 10/07/17 18:01 Last Admin: 04/09/17 05:52 Dose: 50 mls/hr Albumin Human (Flexbumin) 25 gm in 100 mls @ 60 mls/hr IVPB Q12H [facility] Stop: 10/08/17 12:01 Last Infusion: 04/09/17 05:54 Dose: Infused Dobutamine HCl/Dextrose (Dobutamine Premix 250 Mg/250 Ml) 250 mg in 250 mls @ 51.69 mls/hr IVC .Q4H51M [facility] PRN Reason: 5 MCG/KG/MIN Stop: 10/09/17 02:01 Last Admin: 04/09/17 07:26 Dose: 5 mcg/kg/min, 51.69 mls/hr Insulin Human Lispro (Humalog) 0 units SQ TIDAC [facility] PRN Reason: Protocol Stop: 10/01/17 16:31 Last Admin: 04/09/17 08:14 Dose: Not Given Insulin Human Lispro (Humalog) 0 units SQ HS [facility] PRN Reason: Protocol Stop: 10/01/17 21:01 Last Admin: 04/08/17 21:03 Dose: Not Given Lansoprazole (Prevacid) 15 mg PO BIDAC [facility] PRN Reason: Protocol Stop: 10/07/17 16:31 Last Admin: 04/09/17 08:20 Dose: 15 mg Naloxone HCl (Narcan) 0.4 mg IVP Q2MIN PRN PRN Reason: Opioid Reversal Stop: 10/01/17 12:55 Ondansetron HCl (Zofran) 4 mg IVP Q8HR PRN PRN Reason: Nausea And Vomiting Stop: 10/01/17 12:55 Last Admin: 04/06/17 17:33 Dose: 4 mg Phenyleph/Shark Oil/Min Oil/Petrol (Preparation H Ointment) 1 appl RC BID [facility] Stop: 10/03/17 11:46 Last Admin: 04/09/17 08:20 Dose: 1 appl Silver Nitrate (Silvasorb) 1 appl TP DAILY [facility] Stop: 10/04/17 12:01 Last Admin: 04/09/17 08:27 Dose: 1 appl Spironolactone (Aldactone) 12.5 mg PO DAILY [facility] Stop: 10/05/17 09:01 Last Admin: 04/09/17 08:17 Dose: 12.5 mg Warfarin Sodium (Coumadin Perpt) 1 each PO DAILY@1800 PRN PRN Reason: SEE COMMENTS Stop: 10/08/17 18:01 - Imaging and Cardiology Echo: report reviewed Cardiac cath: report reviewed - EKG Interpretation EKG results cardiology: personally reviewed - VTE Documentation of Mechanical Device: Intermittent pneumatic compression device Consult Discharge Plan - Plan Referrals: Kings Kaiser MD [Primary Care Provider] - 04/13/17 1:15 pm (Please follow up a sschedule....)
--- NOTE | 2017-04-09 09:56 | Internal Med Progress Note ---
Date of Encounter: 04/09/17 Time of Encounter: 09:15 - Assessment and plan (1) Acute kidney injury superimposed on CKD Current Visit: Yes Status: Acute Assessment and plan: Baseline creatinine in October 2016 was 1.5. Currently 2.8. We will consult nephrolog 04/05: Nephrology consult appreciated. Avoid nephrotoxins as best able. Monitor 04/07: Cr unchanged. Continuing Lasix and monitoring renal fxn daily. Diurese as renal fxn will allow. Nephrology input appreciated. 04/08: Creatinine is slightly worse today. Patient has had poor oral intake. Will await nephrology recommendations. Continue to hold nephrotoxic agents, monitor. 04/09: Creatinine continues to worsen despite inotropic support. OG is following. Avoid nephrotoxins as best stable, monitor. (2) Acute on chronic systolic (congestive) heart failure Current Visit: Yes Status: Acute Assessment and plan: IV Lasix 60 mg twice a day. Daily weights. Strict I's and O's. Echocardiogram shows LVEF of 20% which has decreased from 25-30% in July 2016. Hold HUBER inhibitor and ARB due to acute renal failure. We restarted Toprol at 25 mg daily. We will consult cardiology. 04/05: Continue to diuresis as renal function allows. HUBER inhibitor remains on hold due to renal failure. Continue beta bi and uptitrate as able. 04/07: Management as per Cardiology, patient reports being a little more dyspneic today. Continues to diuresis as renal function will allow. 04/08: Vitals remained stable, continue medical management. Pleural drain as necessary for symptom control. 04/09: As per cardiology. Inotropic support continues in the form of dobutamine , although despite this his renal function is worsening. (3) Afib Current Visit: Yes Status: Chronic Assessment and plan: Rate controlled, Coumadin on hold due to plans for pleural drain 04/06: Resume coumadin pending follow-up imaging 04/08: Rate controlled. Resume Coumadin. 04/09: Coumadin held due to concerns for possible GI bleed. Rate is controlled. Qualifiers: Atrial fibrillation type: chronic Qualified Code(s): I48.2 - Chronic atrial fibrillation (4) Swelling of left upper extremity Current Visit: Yes Status: Acute Assessment and plan: LUE no DVT. Elevate LUE (5) CKD (chronic kidney disease) stage 4, GFR 15-29 ml/min Current Visit: Yes Status: Chronic Assessment and plan: Avoid nephrotoxins including nonsteroidal anti-inflammatory drugs. Monitor kidney function. Kidney US shows no hydronephrosis, bladder residual. Management as per nephrology. Renal function continues to decline (6) Pleural effusion Current Visit: No Status: Acute Assessment and plan: Pleural drain planned 04/06: POD #1 Pleural drain 04/07: Postoperative day #2 pleural drain. Given his worsening shortness of breath ever repeat a chest x-ray today. 04/09: Postop day #4 pleural drain. Will drain as able. No output documented for the last 2 days. (7) Type 2 diabetes mellitus Current Visit: No Status: Chronic Assessment and plan: Insulin sliding scale, Accu-Cheks 4 times a day and diabetic diet. Blood glucose well controlled. Qualifiers: Diabetes mellitus complication status: with circulatory complication Diabetes mellitus complication detail: with other circulatory complications Diabetes mellitus residential insulin use: without residential use Qualified Code( s): E11.59 - Type 2 diabetes mellitus with other circulatory complications (8) HTN (hypertension) Current Visit: No Status: Chronic Assessment and plan: BP controlled, monitor Qualifiers: Hypertension type: essential hypertension Qualified Code(s): I10 - Essential (primary) hypertension (9) Sacral decubitus ulcer Current Visit: Yes Status: Acute Assessment and plan: Will re-eval today once dressing removed. 04/09: Patient has a quarter-sized scab over his sacrum and surrounding erythema. Ulcer is unstageable at the site of the scab, otherwise it is a stage II, approximately 4" wide x 6" diameter region over his sacrum Qualifiers: Pressure ulcer stage: unspecified pressure ulcer stage Qualified Code(s): L89.159 - Pressure ulcer of sacral region, unspecified stage (10) HCAP (healthcare-associated pneumonia) Current Visit: No Status: Acute Assessment and plan: Not entirely convinced he has pneumonia although he continues to decline despite treatment, therefore antibiotics were ordered. His chest x-ray showed what appeared to be progressive infiltrates in his mid lung harris bilaterally. He should and is day 3 IV Zosyn. I do not see any fluid analysis results. Coverage for MRSA was considered with vancomycin although given his worsening renal function, and the fact that were not entirely convinced he has pneumoniae held off on vancomycin. He does not have a leukocytosis and is not having fevers. (11) Acute on chronic respiratory failure with hypoxemia Current Visit: Yes Status: Acute Assessment and plan: Multifactorial due to COPD, acute on chronic systolic congestive heart failure, pleural effusion, and suspected healthcare associated pneumonia. (12) Heme positive stool Current Visit: Yes Status: Acute Assessment and plan: Not entirely convinced he is having a GI bleed. His stool was brown without gross blood. It was heme positive on Hemoccult however. If he does show any further drop in his hemoglobin, or should he show any giovany bleeding I will consult gastroenterology. I will monitor his hemoglobin closely. The eye evaluation could pose potential increased risk given his tenuous respiratory status, and therefore will hold on this for now. I will start patient on Protonix 40 mg by mouth daily - Time Spent With Patient Greater than 35 minutes - Subjective Interval history: History of present illness: Mr. Langford is a 81 year old male with medical hx of melanoma of the face, IBS, CAD, diabetes controlled w/oral anti-hyperglycemic medications, GERD, HLD, HTN, previous myocardial infarction 2 in June 2016, sudden cardiac , and TIAs presents from the ED with chief complaint of shortness of breath and dyspnea with just become worse over the past 2-3 days. Patient states he was in the bathroom this morning and became weak and fell to the floor and was unable to turn her or help himself up. Patient denies losing consciousness or hitting head. Patient also reports bright blood with bowel movements due to hemorrhoids. Patient reports generalized weakness, shortness of breath, dyspnea , dizziness, and increased weight gain and pedal edema but denies recent illness , fever, chills, nausea, vomiting, headache, changes in vision, chest pain, palpitations, cough, abdominal pain, numbness, tingling, presyncope, or syncope Patient states breathing is improved. Awaiting chest tube placement. States he feels very weak. No chest pain. No nausea, vomiting, diarrhea. No fevers or chills. 04/06: Chest tube placed. Pt states breathing is improved. Denies CP. No N/V/ D. No F/C. Currently on O2 at 4L per NC. 04/07: She states his breathing feels a little worse today. He has very little energy and has difficulty getting up without feeling short of breath or dizzy. He is not complaining of any significant amount of pain. No nausea, vomiting, diarrhea. He does have a decreased appetite however no fevers or chills. He still remains on oxygen at 4 L per nasal cannula, vitals otherwise remained stable. Pleural drain output not recorded as of yet. His white blood cell count remains normal. His creatinine continues to remain in the 2.8 to 2.9 range. Pt voices frustration over lack of progress. We discussed goals of care and he would like to discuss further treatment with palliative care medicine as well. 04/08: Breathing is better at times but at other times still has shortness of breath. No chest pain. He states he is very uncomfortable sitting in bed in voices frustration over his lack of activity. He denies any fevers or chills. No nausea, vomiting, diarrhea, although states food just does not taste good. Patient was started on antibiotics yesterday, IV Zosyn for which he is currently day #2 for possible pneumonia. Renal function is slightly worse today with a creatinine of 3.38 up from 2.9. Patient continues to have drainage from his Pleurx, 800 mL's yesterday. 04/09: Patient states he was more short of breath last night but did not improve with bronchodilator therapy. This morning he states his breathing is slightly improved. He denies any chest pain. No nausea, vomiting, diarrhea. No fevers or chills although he did have a low temperature last night. He was offered a Funmi hugger but did not want. Patient was constipated but states he had a large bowel movement yesterday and feels much better. Did not notice any blood. He did have heme positive stools and Coumadin has been held for concerns of GI bleed. His hemoglobin has remained in the 8-9 range, no obvious bleeding noted. Patient continues on dobutamine but despite this his creatinine continues to worsen. - Constitutional Vitals: Temp Pulse Resp BP Pulse Ox 97.4 F L 87 21 96/57 94 04/09/17 07:22 04/09/17 07:22 04/09/17 07:22 04/09/17 07:22 04/09/17 08:47 General appearance: Present: cooperative, mild distress (Respiratory), A&O X 3, pleasant, answers questions appropriately - Head Head exam: Present: atraumatic, normocephalic - Eye Eye exam: Present: conjuntiva pink, sclera anicteric - Neck Neck exam general surgery: Present: supple, trachea midline. Absent: lymphadenopathy - Respiratory Respiratory exam: Present: rales. Absent: accessory muscle use, rhonchi, wheezes - Cardiovascular Cardiovascular exam: Present: irregular rhythm, +S1, +S2. Absent: diastolic murmur, gallop, rubs, systolic murmur - GI/Abdominal GI/Abdominal exam: Present: normal bowel sounds, soft, no peritoneal signs. Absent: distended, tenderness - Extremities Exam Extremities exam: Present: pedal edema, warm, radial pulses palpable and symmetrical. Absent: calf tenderness, cyanotic - Neurological Exam Neurological exam: Present: CN II-XII intact, oriented X3, no focal deficits. Absent: pronater drift, facial droop, speech deficit - Skin Skin exam: Present: dry, intact Internal Medicine: Result - Labs CBC & Chem 7: 04/09/17 08:21 04/09/17 08:21 Labs: Short CBC 04/09/17 Range/Units 08:21 WBC 8.2 (4.3-11.1) K/mcL Hgb 8.2 L (12.9-16.9) g/dL Hct 25.4 L (37.5-50.1) % Plt Count 200 (140-400) K/mcL Neutrophils # 7.2 (1.6-8.9) K/mcL BMP 04/09/17 08:21 Sodium 135 L Potassium 4.4 Chloride 99 Carbon Dioxide 28 BUN 67 H Creatinine 3.75 H Glucose 117 H Calcium 8.6 - ABG Interpretation ABG results: PT/INR, D-dimer PT 12.6 Seconds (9.4-12.1) H 04/09/17 08:21 - VTE Documentation of Mechanical Device: Intermittent pneumatic compression device Consult Discharge Plan - Plan Referrals: Kings Kaiser MD [Primary Care Provider] - 04/13/17 1:15 pm (Please follow up a sschedule....)
[2017-04-09] MEDS ORDERED: Famotidine 20 MG TABLET PO SCH (10:15)
--- NOTE | 2017-04-09 10:40 | Nephrology Progress Note ---
Date of Encounter: 04/09/17 Time of Encounter: 10:40 - Assessment and Plan (1) Acute kidney injury superimposed on CKD Status: Acute SCr worsening despite inotropic support with dobutamine gtt Will discuss goal of care, whether open to renal replacement therapy Continue to avoid nephrotoxins if possible Will stop albumin after today's doses (2) CKD (chronic kidney disease) stage 3, GFR 30-59 ml/min Status: Acute Baseline GFR appears to be above 30 as of february (3) Anemia Status: Acute Hgb noted at 8.2 with positive stool guaiac, primary team addressing Transfusion parameters per primary team Qualifiers: Anemia type: iron deficiency Iron deficiency anemia type: inadequate dietary iron intake Qualified Code(s): D50.8 - Other iron deficiency anemias (4) Acute on chronic systolic (congestive) heart failure Status: Acute holding lasix noted per cardio but still concerned about continued SOB Subjective Principal diagnosis: CHF Interval history: Interim events noted, pt seen and examined still with SOB worsening despite dobutamin gtt and continued lasix/albumin Objective - Vital Signs Vital signs: Vital Signs Temp Pulse Resp BP Pulse Ox 04/09/17 08:47 94 04/09/17 07:22 97.4 F L 87 21 96/57 94 04/09/17 05:58 18 94 04/09/17 04:24 97.3 F L 90 16 115/77 93 04/09/17 01:47 97.5 F L 98 16 104/67 96 04/08/17 22:46 18 95 04/08/17 22:35 97.4 F L 04/08/17 21:43 96.1 F L 04/08/17 19:59 96.0 F L 94 14 119/78 94 04/08/17 15:46 98.2 F 91 144/87 96 04/08/17 10:42 97.4 F L 94 16 94/62 97 Intake and Output 04/08/17 04/09/17 04/09/17 23:59 07:59 15:59 Intake Total 550 / 550 350 / 350 240 / 240 Output Total 0 / 0 125 / 125 Balance 550 / 550 225 / 225 240 / 240 Intake: IV Fluids 550 / 550 350 / 350 DOBUTamine Premix 250 MG/250 ML 250 / 250 250 / 250 250 mg In 250 ml @ 5 MCG/KG/ MIN 51.69 mls/hr IVC .Q4H51M [facility] Rx#:[id number] Flexbumin 25 gm In 100 ml @ 60 100 / 100 100 / 100 mls/hr IVPB Q12H [facility] Rx#: [id number] Zosyn Premix 3.375 GM/200 ML 3. 200 / 200 375 gm In 200 ml @ 50 mls/hr IVPB Q12H [facility] Rx#:[id number] Oral 0 / 0 240 / 240 Output: Urine 0 / 0 125 / 125 Other: Meal Dinner Breakfast Percent of Meal Consumed 0% 0% Stool Size Moderate Large Stool Consistency soft loose soft Stool Characteristics Normal for Patient Stool Color Brown Brown Blood Tinged # Bowel Movements 1 1 Weight 87.8 kg Blood Glucose* 169 126 Patient Weight 04/09/17 23:59 Weight 87.8 kg - General Appearance General appearance: Present: chronically ill, fatigue, frail EENT: Present: ATNC, mucous membranes moist Neck: Present: no JVD, supple Additional Comments: decreased BS throughout bilat Cardiology: Present: edema (lE bilat), normal S1, normal S2 Gastrointestinal: Present: no tenderness, no guarding Integumentary: Present: warm and dry Neurologic: Present: no asterixis Musculoskeletal: Present: no deformities Psychiatric: Present: mood/affect appropriate, cooperative - Lab 04/12/17 06:42 04/12/17 06:42 Most recent lab results Calcium 8.6 mg/dL (8.6-10.3) 04/09/17 08:21 Magnesium 2.4 mg/dL (1.6-2.6) 04/02/17 00:08 - VTE Documentation of Mechanical Device: Intermittent pneumatic compression device Consult Discharge Plan - Plan Instructions: Heart Failure (DC) Referrals: Kings Kaiser MD [Primary Care Provider] - (SENT A WEB REQIEST TO CANCEL THE APPOINTMENT LISTED BELOW @ 1402. 04/13/17 @ 1313)
[2017-04-09] MEDS: Ondansetron 4 MG/2 ML VIAL IVP PRN (13:50)
[2017-04-09] MEDS ORDERED: *HR* Promethazine 25 MG/ML VIAL IM PRN (14:53)
[2017-04-09] MEDS: *HR* Promethazine 25 MG/ML VIAL IVP PRN (16:22)
[2017-04-09] MEDS ORDERED: *HR* Warfarin 1 MG TABLET PO ONE (18:00)
[2017-04-10] MEDS: Albumin 25% 25gram/100mL 25 GM/100 ML IV.SOLN IVPB SCH ×2 (00:09→11:45)
[2017-04-10] MEDS ORDERED: Famotidine 20 MG TABLET PO SCH (03:17)
[2017-04-10] MEDS: Piperacillin/Tazobactam 3.375 GM/200 ML BAG IVPB SCH ×2 (05:34→17:20)
[2017-04-10] MEDS: Famotidine 20 MG TABLET PO SCH (06:39)
[2017-04-10] MEDS: *HR* Amiodarone 200 MG TABLET PO SCH (08:09)
[2017-04-10] MEDS: Spironolactone 25 MG TABLET PO SCH (08:10)
[2017-04-10] MEDS: *HR* HYDROcodone/Acet 5/325 mg TABLET PO PRN (08:10)
[2017-04-10] MEDS: Aspirin 81 MG TAB.CHEW PO SCH (08:10)
[2017-04-10] MEDS: Preparation H Ointment 30 GM TUBE RC SCH ×2 (08:11→21:21)
[2017-04-10] MEDS: Silvasorb 44.4 ML TUBE TP SCH (08:11)
[2017-04-10] MEDS: Insulin LISPRO 300 UNITS/3 ML VIAL SQ SCH ×4 (08:12→20:50)
[2017-04-10 09:12] LABS: Basophils % 0.1 %; Eosinophils # 0.2 K/mcL (0.0-0.6); Eosinophils % 2.2 %; Hematocrit 25.1 % (37.5-50.1); Immature Granulocytes % 0.3 % (0-4); Lymphocytes # 0.8 K/mcL (0.6-4.6); Lymphocytes % 9.1 %; Mean Corpuscular HGB Conc 31.9 g/dL (31.6-35.5); Mean Corpuscular Hemoglobin 30.4 pg (28.0-33.3); Mean Corpuscular Volume 95.4 fL (83.0-100.0); Mean Platelet Volume 12.3 fL (9.4-12.4); Monocytes # 0.6 K/mcL (0.0-1.3); Monocytes % 6.7 %; Neutrophils # 7.1 K/mcL (1.6-8.9); Nucleated Red Blood Cells 2.7 /100 WBC (0); Platelet Count 185 K/mcL (140-400); Red Blood Count 2.63 M/mcL (4.19-5.50); Red Cell Distribution Width 20.4 % (11.5-14.5); Segmented Neutrophils % 81.6 %
[2017-04-10 09:24] LABS: Calcium 8.7 mg/dL (8.6-10.3); Potassium 4.4 mEq/L (3.5-5.1)
--- NOTE | 2017-04-10 09:44 | Cardiology Progress Note ---
Date of Encounter: 04/10/17 Time of Encounter: 08:00 Assessment and Plan (1) GI bleed Current Visit: Yes Status: Acute Stool positive for occult blood. Discussed with Dr. Henderson, recommend holding coumadin (Afib). Recommend continue DAPT if able. H/H stable today. Qualifiers: GI bleed type/associated pathology: unspecified gastrointestinal hemorrhage type Qualified Code(s): K92.2 - Gastrointestinal hemorrhage, unspecified (2) Acute exacerbation of CHF (congestive heart failure) Current Visit: Yes Status: Acute Patient presented with acute on chronic systolic CHF. Hx of severe systolic dysfunction, EF 20-25%. TTE 04/01/17: EF 20%, severely dilated LV, no thrombus, bi-atrial enlargement, moderate MR, mild AR, moderate PH, mild-moderate TR. Outpatient procedure for upgrade from PPM-BiVICD, however was cancelled (October 2016) due to occluded subclavian, patient has declined referral to tertiary center. Home medications include: Lasix 40 daily, Losartan 50mg daily, ASA 81mg, Plavix 75mg, Amiodarone 200mg, and Atorvastatin 80 for his CHF, CAD, and a fib. On coreg, po lasix, and aldactone. Doubutamine started late 04/08/17. Upon exam this morning patient reports he has minimal improvement in symptoms; continues to have dyspnea and significant LE/generalized edema. SCr continues to worsen, recommend holding lasix. (SCr 3.7->4.1). Nephrology following, lasix d/c on 04/09/17. Discussed with Dr. Henderson, recommends to increase dobutamine gtt to 7.5 mcg/kg/ hr. Continue doubutamine. Recommend strict I&Os, place ibarra cath if needed. Na/fluid restriction diet. Daily weights. Qualifiers: Congestive heart failure type: systolic Qualified Code(s): I50.23 - Acute on chronic systolic (congestive) heart failure (3) Coronary artery disease Current Visit: Yes Status: Chronic Hx of CAD s/p PCI [facility] 06/2016: successful PTCA of pLAD ISR, otherwise non-obstructive CAD (EF 20%) . Continue DAPT, statin, and betablocker. Qualifiers: Coronary Disease-Associated Artery/Lesion type: [place] artery [place] vs. transplanted heart: [place] heart Associated angina: with unstable angina Qualified Code(s): I25.110 - Atherosclerotic heart disease of [place] coronary artery with unstable angina pectoris (4) LV (left ventricular) mural thrombus Current Visit: No Status: Resolved Hx of LV thrombus following NM in June 2016. Recent TTE shows no evidence of LV thrombus. (5) Acute kidney injury superimposed on CKD Current Visit: Yes Status: Acute Kidney function continues to worsen. Continue dobutamine at increased rate. Appreciate Nephrology recommendations. (6) Atrial fibrillation Current Visit: Yes Status: Acute Hx of afib on coumadin. PPM. 12 hour tele: avg HR=94. Continue betablocker for rate control. Coumadin d/c'ed on 04/09/17 d/t positive hemoccult. Qualifiers: Atrial fibrillation type: persistent Qualified Code(s): I48.1 - Persistent atrial fibrillation Discussion w patient/family: The assessment and plan as outlined above was discussed with the patient and/or family members who expressed understanding and agreement. All questions were answered. Thank you for involving us in the care of your patient. Please call with any questions. The patient was discussed and reviewed with Dr. Henderson, changes to be made accordingly. Subjective Principal diagnosis: CHF Interval history: Seen and examined earlier this AM. Continues to appear volume overloaded upon exam. Patient reports he may feel "a little" better than yesterday. Left elbow now has open seeping blister. Decub to coccyx. Reports minimal urine output. No chest pain/discomfort. Objective Vital Signs, Last 4 Hours Temp Pulse Resp BP Pulse Ox 04/10/17 07:32 95 04/10/17 06:46 97.8 F 91 18 100/67 95 General: Conversant, Other (appears chronically ill) HEENT: Atraumatic, Normocephaly Cardiac: Other (irregularly irregular) Lungs: Other (decreased bibasilar) Neuro: Alert and responsive Abdomen: Soft Skin: Other (multiple scabs/open areas) Extremities: Other (generalized anasarca) Results 04/10/17 08:20 04/10/17 08:20 Lab Results 04/10/17 04/10/17 08:20 08:20 WBC 8.7 Hgb 8.0 L Hct 25.1 L Plt Count 185 Sodium 133 L Potassium 4.4 Chloride 98 Carbon Dioxide 25 BUN 66 H Creatinine 4.16 H Glucose 94 Calcium 8.7 Active Medications Acetaminophen (Tylenol) 650 mg PO Q6HR PRN PRN Reason: Mild Pain (1-3) Stop: 10/01/17 12:55 Last Admin: 04/08/17 02:54 Dose: 650 mg Hydrocodone Bitart/Acetaminophen (Lytle 5-325 Mg) 1 tab PO Q4HR PRN PRN Reason: Moderate Pain (4-6) Stop: 10/01/17 12:55 Last Admin: 04/10/17 08:10 Dose: 1 tab Albuterol/Ipratropium (Duoneb) 3 ml IH [id number] PRN PRN Reason: Shortness Of Breath/Wheezing Stop: 10/01/17 13:08 Last Admin: 04/09/17 05:57 Dose: 3 ml Allopurinol (Zyloprim) 100 mg PO DAILY [facility] Stop: 10/04/17 09:01 Last Admin: 04/10/17 08:11 Dose: 100 mg Amiodarone HCl (Cordarone) 200 mg PO DAILY [facility] Stop: 10/02/17 09:01 Last Admin: 04/10/17 08:09 Dose: 200 mg Aspirin (Aspirin) 81 mg PO DAILY [facility] Stop: 10/02/17 09:01 Last Admin: 04/10/17 08:10 Dose: 81 mg Atorvastatin Calcium (Lipitor) 80 mg PO HS [facility] Stop: 10/01/17 21:01 Last Admin: 04/09/17 20:05 Dose: 80 mg Bisacodyl (Dulcolax) 10 mg RC DAILY PRN PRN Reason: Constipation Stop: 10/08/17 15:42 Carvedilol (Coreg) 3.125 mg PO BIDWM [facility] PRN Reason: Protocol Stop: 10/06/17 09:01 Last Admin: 04/10/17 08:10 Dose: 3.125 mg Clopidogrel Bisulfate (Plavix) 75 mg PO DAILY [facility] Stop: 10/02/17 09:01 Last Admin: 04/10/17 08:11 Dose: 75 mg Dextrose/Water (Dextrose 50% (Syg)) 25 ml IVP AD PRN PRN Reason: Hypoglycemia Stop: 10/01/17 13:05 Docusate Sodium (Colace) 100 mg PO BID [facility] PRN Reason: Protocol Stop: 10/08/17 21:01 Last Admin: 04/10/17 08:12 Dose: Not Given Famotidine (Pepcid) 20 mg PO DAILY [facility] PRN Reason: Protocol Stop: 10/10/17 03:31 Last Admin: 04/10/17 06:39 Dose: Not Given Glucagon (Glucagen) 1 mg IM ONCE PRN PRN Reason: Hypoglycemia Stop: 10/01/17 13:05 Glucose (Gluctose) 15 gm PO ONCE PRN PRN Reason: Hypoglycemia Stop: 10/01/17 13:05 Glucose (Gluctose) 30 gm PO ONCE PRN PRN Reason: Hypoglycemia Stop: 10/01/17 13:05 Guaifenesin (Mucinex) 600 mg PO BID [facility] Stop: 10/09/17 09:01 Last Admin: 04/10/17 08:10 Dose: 600 mg Dextrose (Dextrose 5%) 1,000 mls @ 100 mls/hr IVC .Q10H PRN PRN Reason: HYPOGLYCEMIA Stop: 10/01/17 13:05 Piperacillin Sod/Tazobactam Sod (Zosyn Premix 3.375 Gm/200 Ml) 3.375 gm in 200 mls @ 50 mls/hr IVPB Q12H [facility] Stop: 10/07/17 18:01 Last Admin: 04/10/17 05:34 Dose: 50 mls/hr Albumin Human (Flexbumin) 25 gm in 100 mls @ 60 mls/hr IVPB Q12H [facility] Stop: 10/08/17 12:01 Last Infusion: 04/10/17 08:11 Dose: Infused Dobutamine HCl/Dextrose (Dobutamine Premix 250 Mg/250 Ml) 250 mg in 250 mls @ 77.535 mls/hr IVC .Q3H14M [facility] PRN Reason: 7.5 MCG/KG/MIN Stop: 10/10/17 09:42 Insulin Human Lispro (Humalog) 0 units SQ TIDAC [facility] PRN Reason: Protocol Stop: 10/01/17 16:31 Last Admin: 04/10/17 08:12 Dose: Not Given Insulin Human Lispro (Humalog) 0 units SQ HS [facility] PRN Reason: Protocol Stop: 10/01/17 21:01 Last Admin: 04/09/17 20:02 Dose: Not Given Lansoprazole (Prevacid) 15 mg PO BIDAC [facility] PRN Reason: Protocol Stop: 10/07/17 16:31 Last Admin: 04/10/17 08:09 Dose: 15 mg Naloxone HCl (Narcan) 0.4 mg IVP Q2MIN PRN PRN Reason: Opioid Reversal Stop: 10/01/17 12:55 Ondansetron HCl (Zofran) 4 mg IVP Q8HR PRN PRN Reason: Nausea And Vomiting Stop: 10/01/17 12:55 Last Admin: 04/09/17 13:50 Dose: 4 mg Phenyleph/Shark Oil/Min Oil/Petrol (Preparation H Ointment) 1 appl RC BID [facility] Stop: 10/03/17 11:46 Last Admin: 04/10/17 08:11 Dose: 1 appl Promethazine HCl (Phenergan) 12.5 mg IVP Q8HR PRN PRN Reason: Nausea And Vomiting Stop: 10/09/17 15:40 Last Admin: 04/09/17 16:22 Dose: 12.5 mg Silver Nitrate (Silvasorb) 1 appl TP DAILY [facility] Stop: 10/04/17 12:01 Last Admin: 04/10/17 08:11 Dose: 1 appl Spironolactone (Aldactone) 12.5 mg PO DAILY [facility] Stop: 10/05/17 09:01 Last Admin: 04/10/17 08:10 Dose: 12.5 mg - Imaging and Cardiology Echo: report reviewed Cardiac cath: report reviewed Other Results: 12 hour tele: avg HR=94. - EKG Interpretation EKG results cardiology: personally reviewed - VTE Documentation of Mechanical Device: Intermittent pneumatic compression device Consult Discharge Plan - Plan Referrals: Kings Kaiser MD [Primary Care Provider] - 04/13/17 1:15 pm (Please follow up a sschedule....)
--- NOTE | 2017-04-10 10:57 | Nephrology Progress Note ---
Date of Encounter: 04/10/17 Time of Encounter: 11:00 - Assessment and Plan (1) Acute kidney injury superimposed on CKD Status: Acute SCr worsening despite inotropic support with dobutamine gtt at 4.16, GFR 12 Discussed goals of care, whether open to renal replacement therapy which pt is currently not interested in. Aware of risk of if renal fxn worsens Continue to avoid nephrotoxins if possible Continue off lasix and albumin (2) CKD (chronic kidney disease) stage 3, GFR 30-59 ml/min Status: Acute Baseline GFR appears to be above 30 as of february (3) Anemia Status: Acute Hgb noted at 8.2 with positive stool guaiac, primary team addressing Transfusion parameters per primary team Qualifiers: Anemia type: iron deficiency Iron deficiency anemia type: inadequate dietary iron intake Qualified Code(s): D50.8 - Other iron deficiency anemias (4) Acute on chronic systolic (congestive) heart failure Status: Acute holding lasix noted per cardio but still concerned about continued SOB Subjective Principal diagnosis: CHF Interval history: Interim events noted, pt seen and examined reports SOB slightly better on dobutamine gtt, increased rate. Pleural drain in place and draining. Objective - Vital Signs Vital signs: Vital Signs Temp Pulse Resp BP Pulse Ox 04/10/17 07:32 95 04/10/17 06:46 97.8 F 91 18 100/67 95 04/10/17 04:13 97.7 F 100 17 118/71 98 04/10/17 00:25 97.3 F L 94 16 112/80 98 04/09/17 20:16 98 04/09/17 19:44 97.8 F 91 16 117/89 98 04/09/17 16:04 97.5 F L 83 15 102/66 94 04/09/17 11:11 97.3 F L 79 20 102/61 96 Intake and Output 04/09/17 04/10/17 04/10/17 23:59 07:59 15:59 Intake Total 700 / 700 500 / 500 220 / 220 Output Total 100 / 100 Balance 700 / 700 400 / 400 220 / 220 Intake: IV Fluids 700 / 700 500 / 500 100 / 100 DOBUTamine Premix 250 MG/250 ML 500 / 500 500 / 500 250 mg In 250 ml @ 5 MCG/KG/ MIN 51.69 mls/hr IVC .Q4H51M [facility] Rx#:[id number] Flexbumin 25 gm In 100 ml @ 60 100 / 100 mls/hr IVPB Q12H [facility] Rx#: [id number] Zosyn Premix 3.375 GM/200 ML 3. 200 / 200 375 gm In 200 ml @ 50 mls/hr IVPB Q12H [facility] Rx#:[id number] Oral 0 / 0 120 / 120 Output: Urine 100 / 100 Other: Meal Dinner Breakfast Percent of Meal Consumed 0% 0% Stool Consistency liquid Stool Characteristics Normal for Patient Stool Color Brown # Bowel Movements 1 Weight 87.8 kg Blood Glucose* 145 106 Patient Weight 04/10/17 23:59 Weight 87.8 kg - General Appearance General appearance: Present: chronically ill (NAD), fatigue EENT: Present: ATNC, mucous membranes moist Neck: Present: no JVD, supple Additional Comments: decreased BS bases bilat Cardiology: Present: edema, normal S1, normal S2 Gastrointestinal: Present: no tenderness, no guarding Neurologic: Present: no focal deficit Musculoskeletal: Present: no deformities Psychiatric: Present: mood/affect appropriate - Lab 04/12/17 06:42 04/12/17 06:42 Most recent lab results Calcium 8.7 mg/dL (8.6-10.3) 04/10/17 08:20 Magnesium 2.4 mg/dL (1.6-2.6) 04/02/17 00:08 - VTE Documentation of Mechanical Device: Intermittent pneumatic compression device Consult Discharge Plan - Plan Instructions: Heart Failure (DC) Referrals: Kings Kaiser MD [Primary Care Provider] - (SENT A WEB REQIEST TO CANCEL THE APPOINTMENT LISTED BELOW @ 1403. 04/13/17 @ 1315)
--- NOTE | 2017-04-10 12:24 | Internal Med Progress Note ---
Date of Encounter: 04/10/17 Time of Encounter: 09:30 - Assessment and plan (1) Acute kidney injury superimposed on CKD Current Visit: Yes Status: Ruled-out Assessment and plan: Baseline creatinine in October 2016 was 1.5. Currently 2.8. We will consult nephrolog 04/05: Nephrology consult appreciated. Avoid nephrotoxins as best able. Monitor 04/07: Cr unchanged. Continuing Lasix and monitoring renal fxn daily. Diurese as renal fxn will allow. Nephrology input appreciated. 04/08: Creatinine is slightly worse today. Patient has had poor oral intake. Will await nephrology recommendations. Continue to hold nephrotoxic agents, monitor. 04/09: Creatinine continues to worsen despite inotropic support. OG is following. Avoid nephrotoxins as best stable, monitor. 04/10: Nephrology is following. Kidney function continues to worsen. Patient is discussing whether or not of renal replacement therapy per nephrology. I did discuss this with the patient as well, and we also discussed the fact that given his poor cardiac output and comorbidities, this would be challenging. (2) Acute on chronic systolic (congestive) heart failure Current Visit: Yes Status: Acute Assessment and plan: IV Lasix 60 mg twice a day. Daily weights. Strict I's and O's. Echocardiogram shows LVEF of 20% which has decreased from 25-30% in July 2016. Hold HUBER inhibitor and ARB due to acute renal failure. We restarted Toprol at 25 mg daily. We will consult cardiology. 04/05: Continue to diuresis as renal function allows. HUBER inhibitor remains on hold due to renal failure. Continue beta bi and uptitrate as able. 04/07: Management as per Cardiology, patient reports being a little more dyspneic today. Continues to diuresis as renal function will allow. 04/08: Vitals remained stable, continue medical management. Pleural drain as necessary for symptom control. 04/10: As per cardiology. Inotropic support continues in the form of dobutamine , although despite this his renal function is worsening. (3) Afib Current Visit: Yes Status: Chronic Assessment and plan: Rate controlled, Coumadin on hold due to plans for pleural drain 04/06: Resume coumadin pending follow-up imaging 04/08: Rate controlled. Resume Coumadin. 04/10: Coumadin held due to concerns for possible GI bleed. Rate is controlled. Qualifiers: Atrial fibrillation type: chronic Qualified Code(s): I48.2 - Chronic atrial fibrillation (4) Swelling of left upper extremity Current Visit: Yes Status: Acute Assessment and plan: LUE no DVT. Elevate LUE (5) CKD (chronic kidney disease) stage 4, GFR 15-29 ml/min Current Visit: Yes Status: Chronic Assessment and plan: Avoid nephrotoxins including nonsteroidal anti-inflammatory drugs. Monitor kidney function. Kidney US shows no hydronephrosis, bladder residual. Management as per nephrology. Renal function continues to decline (6) Pleural effusion Current Visit: No Status: Acute Assessment and plan: Pleural drain planned 04/06: POD #1 Pleural drain 04/07: Postoperative day #2 pleural drain. Given his worsening shortness of breath ever repeat a chest x-ray today. 04/09: Postop day #5 04/10: 1000 mL's of fluid drained yesterday. pleural drain. (7) Type 2 diabetes mellitus Current Visit: No Status: Chronic Assessment and plan: Insulin sliding scale, Accu-Cheks 4 times a day and diabetic diet. Blood glucose well controlled. Qualifiers: Diabetes mellitus complication status: with circulatory complication Diabetes mellitus complication detail: with other circulatory complications Diabetes mellitus long term care administrator insulin use: without long term care administrator use Qualified Code( s): E11.59 - Type 2 diabetes mellitus with other circulatory complications (8) HTN (hypertension) Current Visit: No Status: Chronic Assessment and plan: BP controlled, monitor Qualifiers: Hypertension type: essential hypertension Qualified Code(s): I10 - Essential (primary) hypertension (9) Sacral decubitus ulcer Current Visit: Yes Status: Acute Assessment and plan: Will re-eval today once dressing removed. 04/09: Patient has a quarter-sized scab over his sacrum and surrounding erythema. Ulcer is unstageable at the site of the scab, otherwise it is a stage II, approximately 4" wide x 6" diameter region over his sacrum Qualifiers: Pressure ulcer stage: unspecified pressure ulcer stage Qualified Code(s): L89.159 - Pressure ulcer of sacral region, unspecified stage (10) HCAP (healthcare-associated pneumonia) Current Visit: No Status: Acute Assessment and plan: Not entirely convinced he has pneumonia although he continues to decline despite treatment, therefore antibiotics were ordered. His chest x-ray showed what appeared to be progressive infiltrates in his mid lung harris bilaterally. He should and is day 3 IV Zosyn. I do not see any fluid analysis results. Coverage for MRSA was considered with vancomycin although given his worsening renal function, and the fact that were not entirely convinced he has pneumoniae held off on vancomycin. He does not have a leukocytosis and is not having fevers. 04/10: A number for IV Zosyn. Cannot entirely convinced she has pneumonia, but with progressive infiltrates and poor clinical improvement, antibiotics have been started. Did request yesterday's pleural fluid again to be sent down for analysis. (11) Acute on chronic respiratory failure with hypoxemia Current Visit: Yes Status: Acute Assessment and plan: Multifactorial due to COPD, acute on chronic systolic congestive heart failure, pleural effusion, and suspected healthcare associated pneumonia. (12) Heme positive stool Current Visit: Yes Status: Acute Assessment and plan: Not entirely convinced he is having a GI bleed. His stool was brown without gross blood. It was heme positive on Hemoccult however. If he does show any further drop in his hemoglobin, or should he show any giovany bleeding I will consult gastroenterology. I will monitor his hemoglobin closely. The eye evaluation could pose potential increased risk given his tenuous respiratory status, and therefore will hold on this for now. I will start patient on Protonix 40 mg by mouth daily 04/10: Hemoglobin is trending down, Coumadin is held. He is on Protonix twice a day. GI consultation if further drop or giovany bleeding. - Time Spent With Patient Greater than 35 minutes - Subjective Interval history: History of present illness: Mr. Langford is a 81 year old male with medical hx of melanoma of the face, IBS, CAD, diabetes controlled w/oral anti-hyperglycemic medications, GERD, HLD, HTN, previous myocardial infarction 2 in June 2016, sudden cardiac , and TIAs presents from the ED with chief complaint of shortness of breath and dyspnea with just become worse over the past 2-3 days. Patient states he was in the bathroom this morning and became weak and fell to the floor and was unable to turn her or help himself up. Patient denies losing consciousness or hitting head. Patient also reports bright blood with bowel movements due to hemorrhoids. Patient reports generalized weakness, shortness of breath, dyspnea , dizziness, and increased weight gain and pedal edema but denies recent illness , fever, chills, nausea, vomiting, headache, changes in vision, chest pain, palpitations, cough, abdominal pain, numbness, tingling, presyncope, or syncope Patient states breathing is improved. Awaiting chest tube placement. States he feels very weak. No chest pain. No nausea, vomiting, diarrhea. No fevers or chills. 04/06: Chest tube placed. Pt states breathing is improved. Denies CP. No N/V/ D. No F/C. Currently on O2 at 4L per NC. 04/07: She states his breathing feels a little worse today. He has very little energy and has difficulty getting up without feeling short of breath or dizzy. He is not complaining of any significant amount of pain. No nausea, vomiting, diarrhea. He does have a decreased appetite however no fevers or chills. He still remains on oxygen at 4 L per nasal cannula, vitals otherwise remained stable. Pleural drain output not recorded as of yet. His white blood cell count remains normal. His creatinine continues to remain in the 2.8 to 2.9 range. Pt voices frustration over lack of progress. We discussed goals of care and he would like to discuss further treatment with palliative care medicine as well. 04/08: Breathing is better at times but at other times still has shortness of breath. No chest pain. He states he is very uncomfortable sitting in bed in voices frustration over his lack of activity. He denies any fevers or chills. No nausea, vomiting, diarrhea, although states food just does not taste good. Patient was started on antibiotics yesterday, IV Zosyn for which he is currently day #2 for possible pneumonia. Renal function is slightly worse today with a creatinine of 3.38 up from 2.9. Patient continues to have drainage from his Pleurx, 800 mL's yesterday. 04/09: Patient states he was more short of breath last night but did not improve with bronchodilator therapy. This morning he states his breathing is slightly improved. He denies any chest pain. No nausea, vomiting, diarrhea. No fevers or chills although he did have a low temperature last night. He was offered a Funmi hugger but did not want. Patient was constipated but states he had a large bowel movement yesterday and feels much better. Did not notice any blood. He did have heme positive stools and Coumadin has been held for concerns of GI bleed. His hemoglobin has remained in the 8-9 range, no obvious bleeding noted. Patient continues on dobutamine but despite this his creatinine continues to worsen. 04/10: Patient states his breathing is improved today. Despite clinical improvement his creatinine continues to worsen. His hemoglobin has remained stable as there was some concern for GI bleed. Coumadin has been held as result of this. Patient currently denies any chest pain. He did have 1000 mL' s of fluid draining from his chest yesterday via pleural drain. He denies any fevers or chills. No nausea, vomiting, diarrhea, but continues to have a decreased appetite. He states he feels very weak. She continues on inotropic support with hopes to improve cardiac output, and renal perfusion. All nephrotoxins are being held. He continues on antibiotics for possible healthcare associated pneumonia, currently day #4 IV Zosyn. - Constitutional Vitals: Temp Pulse Resp BP Pulse Ox 97.8 F 86 17 95/60 98 04/10/17 10:58 04/10/17 10:58 04/10/17 10:58 04/10/17 10:58 04/10/17 10:58 General appearance: Present: cooperative, mild distress (Respiratory), A&O X 3, pleasant, answers questions appropriately - Head Head exam: Present: atraumatic, normocephalic - Eye Eye exam: Present: sclera anicteric - Neck Neck exam general surgery: Present: supple, trachea midline. Absent: lymphadenopathy - Respiratory Respiratory exam: Present: decreased breath sounds, rales. Absent: accessory muscle use, rhonchi, wheezes - Cardiovascular Cardiovascular exam: Present: RRR, +S1, +S2. Absent: diastolic murmur, gallop, rubs, systolic murmur - GI/Abdominal GI/Abdominal exam: Present: normal bowel sounds, soft, no peritoneal signs. Absent: distended, tenderness - Extremities Exam Extremities exam: Present: pedal edema - Neurological Exam Neurological exam: Present: CN II-XII intact, oriented X3, no focal deficits. Absent: pronater drift, facial droop, speech deficit - Skin Skin exam: Present: dry, intact Internal Medicine: Result - Labs CBC & Chem 7: 04/10/17 08:20 04/10/17 08:20 Labs: Short CBC 04/10/17 Range/Units 08:20 WBC 8.7 (4.3-11.1) K/mcL Hgb 8.0 L (12.9-16.9) g/dL Hct 25.1 L (37.5-50.1) % Plt Count 185 (140-400) K/mcL Neutrophils # 7.1 (1.6-8.9) K/mcL BMP 04/10/17 08:20 Sodium 133 L Potassium 4.4 Chloride 98 Carbon Dioxide 25 BUN 66 H Creatinine 4.16 H Glucose 94 Calcium 8.7 - ABG Interpretation ABG results: PT/INR, D-dimer PT 12.6 Seconds (9.4-12.1) H 04/09/17 08:21 - VTE Documentation of Mechanical Device: Intermittent pneumatic compression device Consult Discharge Plan - Plan Referrals: Kings Kaiser MD [Primary Care Provider] - 04/13/17 1:15 pm (Please follow up a sschedule....)
[2017-04-10 14:56] LABS: Appearance of Pleural Fl Bloody (Clear)
[2017-04-10] MEDS: *HR* Promethazine 25 MG/ML VIAL IVP PRN (21:08)
[2017-04-11] MEDS: Albumin 25% 25gram/100mL 25 GM/100 ML IV.SOLN IVPB SCH (00:20)
[2017-04-11] MEDS: Ipratropium/Albuterol Neb 3 ML IH PRN (01:37)
[2017-04-11] MEDS: Ondansetron 4 MG/2 ML VIAL IVP PRN ×2 (02:00→10:14)
[2017-04-11] MEDS: *HR* HYDROcodone/Acet 5/325 mg TABLET PO PRN ×2 (02:00→21:40)
[2017-04-11] MEDS ORDERED: *HR* LORazepam 2 MG/ML VIAL IVP ONE (03:26)
[2017-04-11] MEDS: Piperacillin/Tazobactam 3.375 GM/200 ML BAG IVPB SCH (05:16)
[2017-04-11] MEDS: Insulin LISPRO 300 UNITS/3 ML VIAL SQ SCH ×4 (08:17→21:00)
--- NOTE | 2017-04-11 08:27 | Nephrology Progress Note ---
<Jaret Comer - Last Filed: 04/11/17 10:57> Date of Encounter: 04/11/17 Time of Encounter: 08:26 - Assessment and Plan (1) Acute kidney injury superimposed on CKD Status: Ruled-out SCr increasing and non-oliguric. CKD stage IIIb-IV and prior AKIs Renal U/S reveals multiple cysts with no significant findings in the kidneys. UA negative for proteinuria Recommend stopping Metformin Hold Cozaar until JIMBO improved Discontinue Albumin today Lasix on hold per cardiology. Cardiology considering starting Entresto once hypotension and JIMBO improved Continue to avoid nephrotoxins if possible Will plan to adjust diuretics each day based upon UOP responses, daily weights and SCr changes. Continue I&Os, daily weights, and monitoring Will discuss goal of care, whether open to renal replacement therapy (2) CKD (chronic kidney disease) stage 4, GFR 15-29 ml/min Status: Chronic CKD stage IIIb-IV. Baseline GFR appears to be above 30 as of February Avoid nephrotoxins Continue to monitor (4) Acute on chronic systolic (congestive) heart failure Status: Acute Acute exacerbation of systolic CHF (EF 20% on 04/01/17), and indwelling Pleurex catheter for recurrent left side pleural effusion Discontinue Albumin Lasix on hold per cardiology Continue Spironolactone Patient remains on Dobutamine drip Agree with Cardiology to start Entresto for bp control when and kidney function improves. Management per primary team (5) Pleural effusion on left Status: Chronic Continue pleural fluid drainage q48h via indwelling left sided pleureX cath Empiric antibiotics started for possible PNA, avoid nephrotoxins Management per primary team (6) Anemia Status: Chronic Acute on chronic anemia in the setting of hematemesis and CKD stage 4 Iron < 10 Ferritin 106 Decreased transferrin 176 Vitamin B12 level 261 Vitamin D level 13 Iron IV administered Patent had acute episode of hematemeis, Coumadin held. 1 unit PRBCs ordered NPO, started on Protonix ggt, GI consulted, Transfer to ICU Continue to monitor (7) Afib Status: Chronic Management per primary team (8) HTN (hypertension) Status: Chronic Hold Cozaar secondary to JIMBO Cardiology considering Entresto once hypotension and JIMBO improves Continue low dose Spironolactone, monitor BP Management per primary team (9) Type 2 diabetes mellitus Status: Chronic Management per primary team (10) Hypokalemia Status: Acute Patient presented with potassium level 6.0 on admission and has been treated with Kayexalate. Potassium replaced Patient will benefit from potassium sparing Spironolactone for underlying systolic CHF Cardiology is cautious about starting Entresto secondary to hypotension and JIMBO. Once Entresto is added, the pt will need outpt labs after this hospitalization to monitor serum K+ levels, which so far have been on the low side fortunately. Continue to monitor Subjective Principal diagnosis: CHF Interval history: Patient seen and examined. Patient vomited blood this AM. is at bedside and reports patient has been very lethargic today. He is A&O x3 but has difficulty making conversation. Patient would not like dialysis. Anticipate transfer to ICU Objective - Vital Signs Vital signs: Vital Signs Temp Pulse Resp BP Pulse Ox 04/11/17 06:38 97.3 F L 94 21 111/80 91 04/11/17 03:55 97.4 F L 98 20 101/53 93 04/11/17 02:31 91 04/11/17 01:37 24 91 04/10/17 23:46 98.1 F 112 18 100/60 96 04/10/17 21:22 99 04/10/17 19:04 97.6 F 90 16 118/87 99 04/10/17 16:53 97.3 F L 80 13 137/55 100 04/10/17 10:58 97.8 F 86 17 95/60 98 Intake and Output 04/10/17 04/11/17 04/11/17 23:59 07:59 15:59 Intake Total 800 / 800 500 / 500 Balance 800 / 800 500 / 500 Intake: IV Fluids 800 / 800 500 / 500 DOBUTamine Premix 250 MG/250 ML 500 / 500 500 / 500 250 mg In 250 ml @ 7.5 MCG/KG/ MIN 77.535 mls/hr IVC .Q3H14M TEOF[facility]O Rx#:[id number] Flexbumin 25 gm In 100 ml @ 60 100 / 100 mls/hr IVPB Q12H TEOFILO Rx#: [id number] Zosyn Premix 3.375 GM/200 ML 3. 200 / 200 375 gm In 200 ml @ 50 mls/hr IVPB Q12H TEOFILO Rx#:[id number] Other: Meal Dinner Percent of Meal Consumed 0% Weight 87.8 kg Blood Glucose* 130 163 Patient Weight 04/11/17 23:59 Weight 87.8 kg - General Appearance General appearance: Present: well-developed, appears started age, moderate distress, chronically ill, fatigue Exam: lethargic, difficulty making conversation EENT: Present: ATNC, mucous membranes dry Neck: Present: no JVD, supple Additional Comments: Decreased breath sounds L > R Cardiology: Present: no murmurs, edema Additional Comments: 3+ LUE edema, 2+ LLE edema, 2+ RLE edema Gastrointestinal: Present: normoactive bowel sounds, no tenderness, no guarding , no organomegaly Integumentary: Present: no rash, warm and dry Neurologic: Present: no focal deficit, alert and oriented x3 Additional Comments: lethargic Musculoskeletal: Present: no cyanosis Additional Comments: 3+ LUE edema, 2+ LLE edema, 2+ RLE edema Psychiatric: Present: cooperative Additional Comments: change in behavior - Lab 04/11/17 09:24 04/11/17 09:24 Most recent lab results Calcium 8.7 mg/dL (8.6-10.3) 04/10/17 08:20 Magnesium 2.4 mg/dL (1.6-2.6) 04/02/17 00:08 - VTE Documentation of Mechanical Device: Intermittent pneumatic compression device Consult Discharge Plan - Plan Instructions: Heart Failure (DC) Referrals: Kings Kaiser MD [Primary Care Provider] - (SENT A WEB REQIEST TO CANCEL THE APPOINTMENT LISTED BELOW @ 1408. 04/13/17 @ 0695) <Ellen Shaffer - Last Filed: 05/09/17 17:03> Date of Encounter: 04/11/17 - Assessment and Plan (1) Acute kidney injury superimposed on CKD Status: Acute (2) CKD (chronic kidney disease) stage 3, GFR 30-59 ml/min Status: Acute (3) Anemia Status: Deleted Qualifiers: Anemia type: iron deficiency Iron deficiency anemia type: inadequate dietary iron intake Qualified Code(s): D50.8 - Other iron deficiency anemias (4) Acute on chronic systolic (congestive) heart failure Status: Acute Objective - Lab 04/12/17 06:42 04/12/17 06:42 Most recent lab results Calcium 8.6 mg/dL (8.6-10.3) 04/12/17 06:42 Magnesium 2.4 mg/dL (1.6-2.6) 04/02/17 00:08 - Attending Attestation I examined this patient and my medical decision-making was reviewed with the Resident Physician. I agree with the documented findings, disposition and treatment plan as described except to the extent set forth below. Pt seen and examined more lethargic today with at bedside. 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 Dobutamine gtt did not help much. Will follow peripherally as goals of care becomes more clearly defined especially if move to the ICU/2N anticipated for possible GI bleed and worsening dyspnea.
--- NOTE | 2017-04-11 09:11 | Cardiology Progress Note ---
Date of Encounter: 04/11/17 Time of Encounter: 09:09 Assessment and Plan (1) Acute on chronic systolic (congestive) heart failure Current Visit: Yes Status: Acute Pt with known hx of systolic CHF 2/2 ischemia. EF 20% this admission down form 25% prior. Patient has pacemaker. Patient is on home Lasix 40 daily, Losartan 50mg daily, ASA 81mg, Plavix 75mg, Amiodarone 200mg, and Atorvastatin 80 for his CHF, CAD, and a fib. Patient not on home BB. Patient started on Metoprolol Succinate 25 on 04/02 during this admission. Started on Spironolactone 12.5mg daily Losartan currently on hold for JIMBO. Patient has recurrent L sided Pleural effusions. Currently has a pleurex catheter in that needs draining every 48hrs. Primary team plans on placing a pleural drain. Switched metoprolol to Coreg Patient's Cr continuing to worsen. Likely 2/2 to poor renal perfusion 2/2 systolic CHF Started patient on dobutamine drip to increase renal perfusion. Plan: Pt's Cr continuing to worsen despite dobutamine drip. Patient's condition is continuing to decline. Consider reconsulting palliative. continue to drain patient's pleural drain. Continue Coreg Continue spirinolactone Lasix on hold 2/2 JIMBO Consider starting entresto for BP control when nephrology feels he can handle it from a kidney perspective, and when his BP will allow. continue to monitor (2) Acute kidney injury superimposed on CKD Current Visit: Yes Status: Ruled-out Patient with JIMBO on CKD Cr 1.5 in October. 2.99 on admission Current Cr 3.38 Patient's ARB on hold secondary to CKD Renal U/S showed some cysts, but otherwise normal exam Patient's Cr worsened today. Likely 2/2 to poor renal perfusion 2/2 systolic CHF Started patient on dobutamine drip to increase renal perfusion. Plan: Per Nephrology patient too weak for Dialysis at this time and patient refusing dialysis as well. Suggest reconsulting palliative care as patient continuing to decline despite best efforts. Nephrology on board appreciate recommendations continue management per primary team and nephrology (3) Elevated troponin Current Visit: Yes Status: Chronic Hx of Chronically elevated Trops 2/2 CKD Patient's troponins 0.05 0.05, 0.06 Flat, adynamic, stable likely 2/2 CKD EKG with no ischemic changes Plan: continue to monitor no further work up at this time (4) Afib Current Visit: Yes Status: Chronic Pt c Hx of A fib on home coumadin 1mg daily, Amiodarone 200mg Daily Currently coumadin on hold for concern for GI Bleed Plan: Continue home amiodarone restart coumadin when able Qualifiers: Atrial fibrillation type: chronic Qualified Code(s): I48.2 - Chronic atrial fibrillation (5) HTN (hypertension) Current Visit: Yes Status: Chronic Pt with Hx of HTN on home hydralazine 25mg BID, Losartan 50mg daily Plan: home meds on hold 2/2 JIMBO on CKD Qualifiers: Hypertension type: essential hypertension Qualified Code(s): I10 - Essential (primary) hypertension (6) HLD (hyperlipidemia) Current Visit: Yes Status: Chronic Pt with Hx of HLD on home atorvastatin 80mg Lipid profile shows: Cholesterol 138, LDL 47, VLDL 20, HDL 71, triglycerides 99, Cholesterol HDL ratio 1.9 Plan: continue home statin. Qualifiers: Hyperlipidemia type: pure hypercholesterolemia Qualified Code(s): E78.00 - Pure hypercholesterolemia, unspecified; E78.0 - Pure hypercholesterolemia Discussion w patient/family: The assessment and plan as outlined above was discussed with the patient and/or family members who expressed understanding and agreement. All questions were answered. Thank you for involving us in the care of your patient. Please call with any questions. Subjective Principal diagnosis: CHF Interval history: Patient's Cr continues to worsen despite dobutamine drip. Patient delirious overnight, still groggy this morning, but oriented x 3. Objective Vital Signs, Last 4 Hours Temp Pulse Resp BP Pulse Ox 04/11/17 08:31 91 04/11/17 06:38 97.3 F L 94 21 111/80 91 General: Conversant, No Apparent Distress HEENT: Atraumatic, Normocephaly, Mucus Membranes Moist Neck: No JVD Cardiac: Reg Rate and Rhythm, Normal S1 and S2, No Murmur Lungs: Other (coarse breathsounds throughout, decreased in LLL) Neuro: Alert and responsive, No focal deficits noted Abdomen: Soft, Non-Tender Skin: No rashes noted on visualized skin Musculoskeletal: No Chest Wall Tenderness Extremities: No Clubbing, No Cyanosis, Normal Pulses, Other (pitting Edema BLE ) Results 04/11/17 09:24 04/11/17 09:24 Lab Results 04/10/17 04/10/17 08:20 08:20 WBC 8.7 Hgb 8.0 L Hct 25.1 L Plt Count 185 Sodium 133 L Potassium 4.4 Chloride 98 Carbon Dioxide 25 BUN 66 H Creatinine 4.16 H Glucose 94 Calcium 8.7 - VTE Documentation of Mechanical Device: Intermittent pneumatic compression device Consult Discharge Plan - Plan Referrals: Kings Kaiser MD [Primary Care Provider] - 04/13/17 1:15 pm (Please follow up a sschedule....)
[2017-04-11 09:49] LABS: Eosinophils % 0.1 %; Hematocrit 26.1 % (37.5-50.1); Hemoglobin 8.1 g/dL (12.9-16.9); Immature Granulocytes % 0.4 % (0-4); Lymphocytes # 0.3 K/mcL (0.6-4.6); Lymphocytes % 2.6 %; Mean Corpuscular Volume 96.7 fL (83.0-100.0); Mean Platelet Volume 11.9 fL (9.4-12.4); Monocytes # 0.3 K/mcL (0.0-1.3); Monocytes % 2.7 %; Neutrophils # 9.1 K/mcL (1.6-8.9); Nucleated Red Blood Cells 2.2 /100 WBC (0); Platelet Count 184 K/mcL (140-400); Red Cell Distribution Width 20.1 % (11.5-14.5); Segmented Neutrophils % 94.2 %
[2017-04-11] MEDS: Spironolactone 25 MG TABLET PO SCH (09:59)
[2017-04-11] MEDS: *HR* Amiodarone 200 MG TABLET PO SCH (09:59)
[2017-04-11] MEDS: Famotidine 20 MG TABLET PO SCH (09:59)
[2017-04-11 10:04] LABS: Calcium 8.7 mg/dL (8.6-10.3); Potassium 4.7 mEq/L (3.5-5.1)
[2017-04-11] MEDS: Pantoprazole 40 MG in 0.9 % Sodium Chloride Mini Bag 100 ML IVC SCH ×2 (10:31→20:11)
[2017-04-11 10:45] LABS: INR 1.3; Prothrombin Time 14.6 Seconds (9.4-12.1)
--- NOTE | 2017-04-11 11:00 | Internal Med Progress Note ---
Date of Encounter: 04/16/17 Time of Encounter: 10:58 - Assessment and plan (1) Acute on chronic systolic (congestive) heart failure Status: Acute Assessment and plan: IV Lasix 60 mg twice a day. Daily weights. Strict I's and O's. Echocardiogram shows LVEF of 20% which has decreased from 25-30% in July 2016. Hold HUBER inhibitor and ARB due to acute renal failure. We restarted Toprol at 25 mg daily. 04/05: Continue to diuresis as renal function allows. HUBER inhibitor remains on hold due to renal failure. Continue beta bi and uptitrate as able. 04/07: Management as per Cardiology, patient reports being a little more dyspneic today. Continues to diuresis as renal function will allow. 04/08: Vitals remained stable, continue medical management. Pleural drain as necessary for symptom control. 04/10: As per cardiology. Inotropic support continues in the form of dobutamine , although despite this his renal function is worsening. 04/11: Has worsening dyspnea requiring increased O2 via mask, confused, agitated , required transfer to for increased level of care. Patient has poor prognosis. This is complicated by UGIB and LGIB is likely as well. (2) HCAP (healthcare-associated pneumonia) Status: Acute Assessment and plan: Not entirely convinced he has pneumonia although he continues to decline despite treatment, therefore antibiotics were ordered. His chest x-ray showed what appeared to be progressive infiltrates in his mid lung harris bilaterally. He should and is day 3 IV Zosyn. I do not see any fluid analysis results. Coverage for MRSA was considered with vancomycin although given his worsening renal function, and the fact that were not entirely convinced he has pneumoniae held off on vancomycin. He does not have a leukocytosis and is not having fevers. 04/10: A number for IV Zosyn. Cannot entirely convinced she has pneumonia, but with progressive infiltrates and poor clinical improvement, antibiotics have been started. Did request yesterday's pleural fluid again to be sent down for analysis. (3) Hematemesis with nausea Status: Acute Assessment and plan: Gross hematemesis with large clots seen in emesis bag. On my initial exam BP was 130s/60s, 15 min laters was 100s/50s which persisted at this level. Will start patient on protonix drip, hold ASA/Plavix. Coumadin already held, INR pending for today. Will need to re-address ASA/Plavix after monitoring patient bleeding and trending H&H. Consult GI, recommendations appreciated. (4) Afib Status: Chronic Assessment and plan: Rate controlled, Coumadin on hold due to plans for pleural drain 04/06: Resume coumadin pending follow-up imaging 04/08: Rate controlled. Resume Coumadin. 04/10: Coumadin held due to concerns for possible GI bleed. Rate is controlled. Qualifiers: Atrial fibrillation type: chronic Qualified Code(s): I48.2 - Chronic atrial fibrillation (5) Coronary artery disease Status: Chronic Assessment and plan: Hold ASA/Plavix today, will reassess tomorrow. Qualifiers: Coronary Disease-Associated Artery/Lesion type: [place] artery [place] vs. transplanted heart: [place] heart Associated angina: with unstable angina Qualified Code(s): I25.110 - Atherosclerotic heart disease of [place] coronary artery with unstable angina pectoris - Subjective Interval history: Was informed by nursing this AM that patient has been lethargic and also had episodes of hematemesis with clots. He was seen at bedside and patient is not coherent upon discussion. BP taken at bedside, 120/60s, HR in 90s. He denies chest pain, abdominal pain, abdominal fullness. Unable to provide further history because of confusion, which nursing lists as not his baseline. - Constitutional Vitals: Temp Pulse Resp BP Pulse Ox 97.3 F L 94 21 111/80 91 04/11/17 06:38 04/11/17 06:38 04/11/17 06:38 04/11/17 06:38 04/11/17 08:31 Exam: Gen: moderate distress, confused, responds to questions inappropriately at times. Mild respiratory distress. CVS: RRR, no mrg Lungs: poor inspiratory effort, course breath sounds bilaterally, fine rales at bases Abd: soft, nt/nd, normal bowel sounds, non-rigid. Ext: Trace bipedal edema. Internal Medicine: Result - Labs CBC & Chem 7: 04/12/17 06:42 04/12/17 06:42 Labs: Short CBC 04/11/17 Range/Units 09:24 WBC 9.7 (4.3-11.1) K/mcL Hgb 8.1 L (12.9-16.9) g/dL Hct 26.1 L (37.5-50.1) % Plt Count 184 (140-400) K/mcL Neutrophils # 9.1 H (1.6-8.9) K/mcL BMP 04/11/17 09:24 Sodium 127 L Potassium 4.7 Chloride 93 L Carbon Dioxide 23 BUN 67 H Creatinine 4.79 H Glucose 133 H Calcium 8.7 - ABG Interpretation ABG results: PT/INR, D-dimer PT 14.6 Seconds (9.4-12.1) H 04/11/17 10:31 - VTE Documentation of Mechanical Device: Intermittent pneumatic compression device Consult Discharge Plan - Plan Instructions: Heart Failure (DC) Referrals: Kings Kaiser MD [Primary Care Provider] - (SENT A WEB REQIEST TO CANCEL THE APPOINTMENT LISTED BELOW @ 1407. 04/13/17 @ 4001)
[2017-04-11] MEDS ORDERED: 0.9 % Sodium Chloride 250 ML ONE (11:42)
[2017-04-11] MEDS ORDERED: Pantoprazole 40 MG VIAL IVP ONE (11:45)
[2017-04-11] MEDS: Silvasorb 44.4 ML TUBE TP SCH (11:58)
[2017-04-11] MEDS: Preparation H Ointment 30 GM TUBE RC SCH (11:59)
--- NOTE | 2017-04-11 12:20 | Gastroenterology Consult Note ---
<Tatum Bassett - Last Filed: 04/11/17 13:30> Date of Encounter: 04/11/17 Time of Encounter: 11:00 - Assessment and plan (1) Hematemesis with nausea Current Visit: Yes Status: Acute Assessment and plan: Pt with moderate bright red hematemesis with clots. Hgb is 8.1, needs montiored Q6. He may need blood transfusion. Vital signs are stable at this time. He needs EGD for bleeding control. He does have increased risk for respiratory failure, was discussed with his who verbalizes understanding. - Time Spent With Patient Total time spent is greater than 50% in coordination of care (as documented) at patient's floor/unit and/or counseling patient: GI History of Present Illness - Data of Consult Patient: new to practice Consult date: 04/11/17 Requesting Physician: Yaw Gooden MD - Consult Narrative Reason for consult: hemataemesis History of present illness: Mr. Langford is a 81 year old male with medical hx of melanoma of the face, IBS , CAD, diabetes controlled w/oral anti-hyperglycemic medications, GERD, HLD, HTN , previous myocardial infarction 2 in June 2016, sudden cardiac , and TIAs. He presented from the ED with chief complaint of shortness of breath.Patient states he was in the bathroom this morning and became weak and fell to the floor and was unable to turn her or help himself up. Patient denies losing consciousness or hitting head. Patient also reports bright blood with bowel movements due to hemorrhoids. He had moderate amount of bright red vomitous with blood clots this morning and GI was consulted. He is also complaining of abdominal pain and nausea. He is lethargic and only opens his eyes briefly with questions. His is at bedside and relays history. She reports chronic bright red rectal bleeding, she denies any black or tarry stools. He is currently on 8l oxygen via simple mask, she states he is on 4l at home. Colonoscopy: unsure EGD: unsure NSAIDS: Anticoagulants: coumadin Past Med Surg Social Fam HX - Past Medical History Medical history: cancer, CHF, coronary artery disease, diabetes, GERD, hyperlipidemia, hypertension, myocardial infarction, sudden cardiac , TIA Psychiatric history: depression - Past Surgical History Surgical History: angioplasty/stent, herniorrhaphy, pacemaker - Social History Smoking Status: Never smoker Smokeless Tobacco Status: No Alcohol use: none Drug use: none - Family History Brother Race: Family Member Ethnicity: Non- Living Status: Age at : 60 Cause of : HD Hx Family Cardiac Disorders: Yes (HD, Open heart surgery) Hx Family Endocrine Disorder: Yes (DM) Sister Race: Family Member Ethnicity: Non- Living Status: Age at : 77 Cause of : HD Hx Family Cardiac Disorders: Yes (HD, CAD) Hx Family Endocrine Disorder: Yes (DM) Mother Race: Family Member Ethnicity: Non- Living Status: Age at : 73 Cause of : CAD Hx Family Cardiac Disorders: Yes (HD, HTN) Hx Family Endocrine Disorder: Yes (DM) Father Race: Family Member Ethnicity: Non- Living Status: Age at : 61 Cause of : Pneumonia Hx Family Cardiac Disorders: Yes (AL, HD, HTN) Hx Family Respiratory Disorders: Yes (Pneumonia) Hx Family Endocrine Disorder: Yes (DM) ROS unobtainable: due to mental status - Constitutional Vitals: Temp Pulse Resp BP Pulse Ox 97.7 F 89 20 100/76 91 04/11/17 11:55 04/11/17 11:55 04/11/17 11:55 04/11/17 11:55 04/11/17 11:18 Exam: CONSTITUTIONAL:~lethargic~HEAD:~normocephalic.~EYES:~no jaundice.~NECK:~no obvious swelling.~HEART:~irregular rate and rhythm, no murmurs, pacemaker noted to chest wall.~LUNGS:~bilateral poor air entry.~ABDOMEN:~distended, soft, tender, no masses palpable, no organomegaly.~RECTAL EXAM:~Deferred.~EXTREMITIES: ~no clubbing, cyanosis, 1+ BLE edema.~SKIN:~no stigmata of chronic liver disease.~NEUROLOGIC:~no obvious focal defect.~~~~ Results - Labs CBC & Chem 7: 04/11/17 09:24 04/11/17 09:24 Labs: Last Result Calcium 8.7 mg/dL (8.6-10.3) 04/11/17 09:24 Iron < 10 mcg/dL (65-175) L 04/04/17 06:11 % Saturation TNP 01/22/18 06:11 Transferrin 176 mg/dL (203-362) L 04/04/17 06:11 Ferritin 106 ng/ml (20-250) 04/04/17 06:11 Troponin I 0.06 ng/mL (< 0.04) H* 04/02/17 00:08 Triglycerides 99 mg/dL (< 150) 04/02/17 00:08 Vitamin B12 261 pg/mL (250-1100) 04/06/17 09:38 Stool Occult Blood Positive (Negative) A 04/09/17 05:30 Entire Visit Hgb 8.1 g/dL (12.9-16.9) L 04/11/17 09:24 Hct 26.1 % (37.5-50.1) L 04/11/17 09:24 PT 14.6 Seconds (9.4-12.1) H 04/11/17 10:31 Ferritin 106 ng/ml (20-250) 04/04/17 06:11 Total Bilirubin 0.7 mg/dL (0.3-1.0) 04/06/17 06:46 AST 20 Units/L (13-39) 04/06/17 06:46 ALT 16 Units/L (7-52) 04/06/17 06:46 - ABG ABG results: PT/INR, D-dimer PT 14.6 Seconds (9.4-12.1) H 04/11/17 10:31 Consult Discharge Plan - Plan Referrals: Kings Kaiser MD [Primary Care Provider] - 04/13/17 1:15 pm (Please follow up a sschedule....) <Vitor Rowan - Last Filed: 04/11/17 20:49> Date of Encounter: 04/11/17 Time of Encounter: 15:00 - Time Spent With Patient Total time spent is greater than 50% in coordination of care (as documented) at patient's floor/unit and/or counseling patient: GI History of Present Illness - Data of Consult Requesting Physician: Yaw Gooden MD - Consult Narrative History of present illness: Mr. Langford is a 81 year old male - Constitutional Vitals: Temp Pulse Resp BP Pulse Ox 96.1 F L 98 19 104/68 97 04/11/17 19:23 04/11/17 19:23 04/11/17 19:23 04/11/17 19:23 04/11/17 19:23 Results - Labs CBC & Chem 7: 04/11/17 16:57 04/11/17 09:24 Labs: Last Result Calcium 8.7 mg/dL (8.6-10.3) 04/11/17 09:24 Iron < 10 mcg/dL (65-175) L 04/04/17 06:11 % Saturation TNP 04/04/17 06:11 Transferrin 176 mg/dL (203-362) L 04/04/17 06:11 Ferritin 106 ng/ml (20-250) 04/04/17 06:11 Troponin I 0.06 ng/mL (< 0.04) H* 04/02/17 00:08 Triglycerides 99 mg/dL (< 150) 04/02/17 00:08 Vitamin B12 261 pg/mL (250-1100) 04/06/17 09:38 Stool Occult Blood Positive (Negative) A 04/09/17 05:30 Entire Visit Hgb 8.5 g/dL (12.9-16.9) L 04/11/17 16:57 Hct 26.8 % (37.5-50.1) L 04/11/17 16:57 PT 14.6 Seconds (9.4-12.1) H 04/11/17 10:31 Ferritin 106 ng/ml (20-250) 04/04/17 06:11 Total Bilirubin 0.7 mg/dL (0.3-1.0) 04/06/17 06:46 AST 20 Units/L (13-39) 04/06/17 06:46 ALT 16 Units/L (7-52) 04/06/17 06:46 - ABG ABG results: PT/INR, D-dimer PT 14.6 Seconds (9.4-12.1) H 04/11/17 10:31 - Attending Attestation I examined this patient and my medical decision-making was reviewed with the [employer] PRESS OPERATOR. I agree with the documented findings, disposition and treatment plan as described except to the extent set forth below. Pt with multiple co-morbidites inclufing CHF/resp insuff now with poss UG bleed vs hemomptysis. Pt currently hemodynamically stable, no more bleeing. Pt is high risk for endoscopy including poss requirement for intubation. Rec: Follow H/H , if HB < 8 in am then EGD in am otherwise will watch.
[2017-04-11 17:16] LABS: Hematocrit 26.8 % (37.5-50.1); Hemoglobin 8.5 g/dL (12.9-16.9)
--- NOTE | 2017-04-11 20:35 | Internal Med Progress Note ---
Date of Encounter: 04/11/17 Time of Encounter: 16:32 - Assessment and plan (1) Acute on chronic systolic (congestive) heart failure Current Visit: Yes Status: Acute Assessment and plan: IV Lasix 60 mg twice a day. Daily weights. Strict I's and O's. Echocardiogram shows LVEF of 20% which has decreased from 25-30% in July 2016. Hold HUBER inhibitor and ARB due to acute renal failure. We restarted Toprol at 25 mg daily. 04/05: Continue to diuresis as renal function allows. HUBER inhibitor remains on hold due to renal failure. Continue beta bi and uptitrate as able. 04/07: Management as per Cardiology, patient reports being a little more dyspneic today. Continues to diuresis as renal function will allow. 04/08: Vitals remained stable, continue medical management. Pleural drain as necessary for symptom control. 04/10: As per cardiology. Inotropic support continues in the form of dobutamine , although despite this his renal function is worsening. 04/11: Has worsening dyspnea requiring increased O2 via mask, confused, agitated , required transfer to for increased level of care. Patient has poor prognosis. This is complicated by UGIB and LGIB is likely as well. (2) Hematemesis with nausea Current Visit: Yes Status: Acute Assessment and plan: Gross hematemesis with large clots seen in emesis bag. On my initial exam BP was 130s/60s, 15 min laters was 100s/50s which persisted at this level. Will start patient on protonix drip, hold ASA/Plavix. Coumadin already held, INR pending for today. Will need to re-address ASA/Plavix after monitoring patient bleeding and trending H&H. Consult GI, recommendations appreciated. (3) Coronary artery disease Current Visit: Yes Status: Chronic Assessment and plan: Hold ASA/Plavix today, will reassess tomorrow. Qualifiers: Coronary Disease-Associated Artery/Lesion type: [place]q artery [place] vs. transplanted heart: algaaciq heart Associated angina: with unstable angina Qualified Code(s): I25.110 - Atherosclerotic heart disease of algaaciq coronary artery with unstable angina pectoris (4) HCAP (healthcare-associated pneumonia) Current Visit: No Status: Acute Assessment and plan: Not entirely convinced he has pneumonia although he continues to decline despite treatment, therefore antibiotics were ordered. His chest x-ray showed what appeared to be progressive infiltrates in his mid lung harris bilaterally. He should and is day 3 IV Zosyn. I do not see any fluid analysis results. Coverage for MRSA was considered with vancomycin although given his worsening renal function, and the fact that were not entirely convinced he has pneumoniae held off on vancomycin. He does not have a leukocytosis and is not having fevers. 04/10: A number for IV Zosyn. Cannot entirely convinced she has pneumonia, but with progressive infiltrates and poor clinical improvement, antibiotics have been started. Did request yesterday's pleural fluid again to be sent down for analysis. (5) Afib Current Visit: Yes Status: Chronic Assessment and plan: Rate controlled, Coumadin on hold due to plans for pleural drain 04/06: Resume coumadin pending follow-up imaging 04/08: Rate controlled. Resume Coumadin. 04/10: Coumadin held due to concerns for possible GI bleed. Rate is controlled. Qualifiers: Atrial fibrillation type: chronic Qualified Code(s): I48.2 - Chronic atrial fibrillation (6) Type 2 diabetes mellitus Current Visit: No Status: Chronic Assessment and plan: Insulin sliding scale, Accu-Cheks 4 times a day and diabetic diet. Blood glucose well controlled. Qualifiers: Diabetes mellitus complication status: with circulatory complication Diabetes mellitus complication detail: with other circulatory complications Diabetes mellitus termite exterminator helper insulin use: without termite exterminator helper use Qualified Code( s): E11.59 - Type 2 diabetes mellitus with other circulatory complications (7) Acute kidney injury superimposed on CKD Current Visit: Yes Status: Acute (8) Systolic heart failure secondary to coronary artery disease Current Visit: No Status: Acute (9) Pleural effusion Current Visit: No Status: Acute Assessment and plan: Pleural drain planned 04/06: POD #1 Pleural drain 04/07: Postoperative day #2 pleural drain. Given his worsening shortness of breath ever repeat a chest x-ray today. 04/09: Postop day #5 04/10: 1000 mL's of fluid drained yesterday. pleural drain. (10) HTN (hypertension) Current Visit: No Status: Chronic Assessment and plan: BP controlled, monitor Qualifiers: Hypertension type: essential hypertension Qualified Code(s): I10 - Essential (primary) hypertension (11) Recurrent pleural effusion on left Current Visit: Yes Status: Chronic Assessment and plan: Pleurx catheter drainage every 48 hours. Fluid analysis (12) CKD (chronic kidney disease) stage 4, GFR 15-29 ml/min Current Visit: Yes Status: Chronic Assessment and plan: Avoid nephrotoxins including nonsteroidal anti-inflammatory drugs. Monitor kidney function. Kidney US shows no hydronephrosis, bladder residual. Management as per nephrology. Renal function continues to decline (13) GERD (gastroesophageal reflux disease) Current Visit: Yes Status: Chronic Qualifiers: Esophagitis presence: esophagitis presence not specified Qualified Code(s) : K21.9 - Gastro-esophageal reflux disease without esophagitis (14) Acute exacerbation of CHF (congestive heart failure) Current Visit: Yes Status: Acute Qualifiers: Congestive heart failure type: systolic Qualified Code(s): I50.23 - Acute on chronic systolic (congestive) heart failure (15) Swelling of left upper extremity Current Visit: Yes Status: Acute Assessment and plan: LUE no DVT. Elevate LUE (16) Iron deficiency anemia Current Visit: Yes Status: Acute Assessment and plan: Iron panel obtained consistent with deficiency. Suspect lower GI bleed, but no has hematemesis. Continue to hold coumadin. We will transfuse to maintain hemoglobin above 8. 04/11: one unit PRBC given. Qualifiers: Iron deficiency anemia type: chronic blood loss Qualified Code(s): D50.0 - Iron deficiency anemia secondary to blood loss (chronic) (17) Goals of care, counseling/discussion Current Visit: Yes Status: Acute Assessment and plan: Palliative service was consulted in regards to this. No acute changes at this moment. - Subjective Interval history: present at bedside this AM. Was informed by nursing this AM that patient has been lethargic and also had episodes of hematemesis with clots. He was seen at bedside and patient is not coherent upon discussion. BP taken at bedside, 120/60s, HR in 90s. He denies chest pain, abdominal pain, abdominal fullness. Unable to provide further history because of confusion, which nursing lists as not his baseline. - Constitutional Vitals: Temp Pulse Resp BP Pulse Ox 96.1 F L 98 19 104/68 97 04/11/17 19:23 04/11/17 19:23 04/11/17 19:23 04/11/17 19:23 04/11/17 19:23 Exam: Gen: moderate distress, confused, responds to questions inappropriately at times. Mild respiratory distress. CVS: RRR, no mrg Lungs: poor inspiratory effort, course breath sounds bilaterally, fine rales at bases Abd: soft, nt/nd, normal bowel sounds, non-rigid. Ext: Trace bipedal edema. Internal Medicine: Result - Labs CBC & Chem 7: 04/11/17 16:57 04/11/17 09:24 Labs: Short CBC 04/11/17 04/11/17 Range/Units 09:24 16:57 WBC 9.7 (4.3-11.1) K/mcL Hgb 8.1 L 8.5 L (12.9-16.9) g/dL Hct 26.1 L 26.8 L (37.5-50.1) % Plt Count 184 (140-400) K/mcL Neutrophils # 9.1 H (1.6-8.9) K/mcL BMP 04/11/17 09:24 Sodium 127 L Potassium 4.7 Chloride 93 L Carbon Dioxide 23 BUN 67 H Creatinine 4.79 H Glucose 133 H Calcium 8.7 - ABG Interpretation ABG results: PT/INR, D-dimer PT 14.6 Seconds (9.4-12.1) H 04/11/17 10:31 - VTE Documentation of Mechanical Device: Intermittent pneumatic compression device Consult Discharge Plan - Plan Referrals: Kings Kaiser MD [Primary Care Provider] - 04/13/17 1:15 pm (Please follow up a sschedule....)
[2017-04-11] MEDS: Acetaminophen 325 MG TABLET PO PRN (21:38)
[2017-04-12] MEDS: Preparation H Ointment 30 GM TUBE RC SCH ×2 (05:30→09:00)
[2017-04-12] MEDS: Pantoprazole 40 MG in 0.9 % Sodium Chloride Mini Bag 100 ML IVC SCH ×2 (05:41→10:46)
[2017-04-12 07:13] LABS: Basophils % 0.1 %; Hematocrit 26.6 % (37.5-50.1); Hemoglobin 8.6 g/dL (12.9-16.9); Immature Granulocytes % 0.6 % (0-4); Lymphocytes # 0.4 K/mcL (0.6-4.6); Lymphocytes % 4.2 %; Mean Corpuscular HGB Conc 32.3 g/dL (31.6-35.5); Mean Corpuscular Hemoglobin 30.2 pg (28.0-33.3); Mean Corpuscular Volume 93.3 fL (83.0-100.0); Mean Platelet Volume 12.1 fL (9.4-12.4); Monocytes # 0.3 K/mcL (0.0-1.3); Neutrophils # 9.3 K/mcL (1.6-8.9); Nucleated Red Blood Cells 2.6 /100 WBC (0); Platelet Count 159 K/mcL (140-400); Red Blood Count 2.85 M/mcL (4.19-5.50); Red Cell Distribution Width 19.2 % (11.5-14.5); Segmented Neutrophils % 92.1 %
--- NOTE | 2017-04-12 07:13 | Nephrology Progress Note ---
<Jaret Comer - Last Filed: 04/12/17 14:03> Date of Encounter: 04/12/17 Time of Encounter: 07:13 - Assessment and Plan (1) Acute kidney injury superimposed on CKD Status: Ruled-out SCr increasing despite medical intervention CKD stage IIIb-IV and prior AKIs Renal U/S reveals multiple cysts with no significant findings in the kidneys. UA negative for proteinuria Lasix on hold per cardiology. Continue to avoid nephrotoxins if possible Palliative care discussed goal of care, patient refuses renal replacement therapy/ dialysis Prognosis poor, anticipate transition to hospice today Will sign off, Thank you for allowing us to participate in the care of Mr. Langford (2) CKD (chronic kidney disease) stage 4, GFR 15-29 ml/min Status: Chronic CKD stage IIIb-IV. Baseline GFR appears to be above 30 as of February Avoid nephrotoxins (3) Hyperkalemia Status: Acute Patient presented with potassium level 6.0 on admission and has been treated with Kayexalate. Potassium increased to 5.6 today Kayexalate ordered (4) Acute on chronic systolic (congestive) heart failure Status: Acute Acute exacerbation of systolic CHF (EF 20% on 04/01/17), and indwelling Pleurex catheter for recurrent left side pleural effusion Lasix on hold per cardiology Patient was on Dobutamine drip Transition to hospice (5) Pleural effusion on left Status: Chronic Continue pleural fluid drainage q48h via indwelling left sided pleureX cath Empiric antibiotics started for possible PNA, avoid nephrotoxins Management per primary team (6) Anemia Status: Deleted Acute on chronic anemia in the setting of hematemesis and CKD stage 4 Iron < 10 Ferritin 106 Decreased transferrin 176 Vitamin B12 level 261 Vitamin D level 13 Iron IV administered Patent had acute episode of hematemeis, Coumadin held. 1 unit PRBCs given NPO, put on Protonix ggt, GI consulted, to unstable for EGD Transition to hospice Qualifiers: Anemia type: iron deficiency Iron deficiency anemia type: inadequate dietary iron intake Qualified Code(s): D50.8 - Other iron deficiency anemias (7) Afib Status: Chronic Management per primary team Qualifiers: Atrial fibrillation type: chronic Qualified Code(s): I48.2 - Chronic atrial fibrillation (8) HTN (hypertension) Status: Chronic Hold Cozaar secondary to JIMBO Continue monitoring BP Management per primary team Qualifiers: Hypertension type: essential hypertension Qualified Code(s): I10 - Essential (primary) hypertension (9) Type 2 diabetes mellitus Status: Chronic Management per primary team Qualifiers: Diabetes mellitus complication status: with circulatory complication Diabetes mellitus complication detail: with other circulatory complications Diabetes mellitus private branch exchange service adviser insulin use: without private branch exchange service adviser use Qualified Code( s): E11.59 - Type 2 diabetes mellitus with other circulatory complications Subjective Principal diagnosis: CHF Interval history: Patient seen and examined. Patient coughed up a teaspoon amount of blood this AM. is at bedside and reports patient would like to go home with hospice care today. He is A&O x3 but has difficulty making conversation. Patient would not like dialysis. Anticipate transition to hospice today. Objective - Vital Signs Vital signs: Vital Signs Temp Pulse Resp BP Pulse Ox 04/12/17 03:50 97.0 F L 89 17 112/76 91 04/11/17 20:00 92 04/11/17 19:23 96.1 F L 98 19 104/68 97 04/11/17 17:20 96.1 F L 84 20 123/94 96 04/11/17 14:36 98.2 F 100 18 105/81 92 04/11/17 14:27 100 18 105/81 92 04/11/17 12:10 97.8 F 85 18 99/79 92 04/11/17 12:00 85 18 99/79 92 04/11/17 11:55 97.7 F 89 20 100/76 04/11/17 11:20 92 04/11/17 11:18 97.9 F 85 21 120/78 91 04/11/17 10:55 81 20 97 04/11/17 10:30 97.7 F 98 20 98 04/11/17 08:31 91 Intake and Output 04/11/17 04/11/17 04/12/17 15:59 23:59 07:59 Intake Total 860 / 860 200 / 200 350 / 350 Output Total 1000 / 1000 0 / 0 0 / 0 Balance -140 / -140 200 / 200 350 / 350 Intake: IV Fluids 500 / 500 200 / 200 350 / 350 DOBUTamine Premix 250 MG/250 ML 500 / 500 250 / 250 250 mg In 250 ml @ 7.5 MCG/KG/ MIN 39.51 mls/hr IVC .Q6H20M [facility] Rx#:[id number] Protonix 40 MG In 0.9 % Sodium 100 / 100 100 / 100 Chloride (Mini-Bag +) 100 ML @ 20 mls/hr IVC .Q5H [facility] Rx#: [id number] Zosyn 3.375 GM In 0.9 % Sodium 100 / 100 Chloride 100 ML @ 25 mls/hr IVPB Q12H [facility] Rx#:[id number] Oral 60 / 60 0 / 0 0 / 0 Blood Product 300 / 300 Rbcs Leuko Poor As-1 Unit 300 / 300 [id number] Output: Urine 0 / 0 0 / 0 0 / 0 Other 1000 / 1000 Other: Meal Breakfast Percent of Meal Consumed 0% Stool Size Smear Moderate Stool Consistency soft Stool Characteristics [place] Stool Color Brown Brown # Bowel Movement Diapers 1 Weight 87.5 kg Blood Glucose* 95 121 Patient Weight 04/12/17 23:59 Weight 87.5 kg - General Appearance General appearance: Present: well-developed, appears started age, moderate distress, chronically ill EENT: Present: ATNC, mucous membranes dry Neck: Present: supple Respiratory: Present: course breath sounds (L > R) Cardiology: Present: no murmurs, edema (3+ LUE edema, 2+ LLE edema, 2+ RLE edema ) Gastrointestinal: Present: normoactive bowel sounds, no tenderness, no guarding , no organomegaly Integumentary: Present: no rash, warm and dry Neurologic: Present: no focal deficit, alert and oriented x3 Musculoskeletal: Present: no cyanosis Additional Comments: 3+ LUE edema, 2+ LLE edema, 2+ RLE edema Psychiatric: Present: mood/affect appropriate, cooperative - Lab 04/12/17 06:42 04/12/17 06:42 Most recent lab results Calcium 8.7 mg/dL (8.6-10.3) 04/11/17 09:24 Magnesium 2.4 mg/dL (1.6-2.6) 04/02/17 00:08 - VTE Documentation of Mechanical Device: Intermittent pneumatic compression device Consult Discharge Plan - Plan Instructions: Heart Failure (DC) Referrals: Kings Kaiser MD [Primary Care Provider] - (SENT A WEB REQIEST TO CANCEL THE APPOINTMENT LISTED BELOW @ 9419. 04/13/17 @ 1264) <Ellen Shaffer - Last Filed: 05/09/17 17:27> Date of Encounter: 04/12/17 - Assessment and Plan (1) Acute kidney injury superimposed on CKD Status: Acute (2) CKD (chronic kidney disease) stage 3, GFR 30-59 ml/min Status: Acute (3) Anemia Status: Deleted Qualifiers: Anemia type: iron deficiency Iron deficiency anemia type: inadequate dietary iron intake Qualified Code(s): D50.8 - Other iron deficiency anemias (4) Acute on chronic systolic (congestive) heart failure Status: Acute Objective - Lab 04/12/17 06:42 04/12/17 06:42 Most recent lab results Calcium 8.6 mg/dL (8.6-10.3) 04/12/17 06:42 Magnesium 2.4 mg/dL (1.6-2.6) 04/02/17 00:08 - Attending Attestation I examined this patient and my medical decision-making was reviewed with the Resident Physician. I agree with the documented findings, disposition and treatment plan as described except to the extent set forth below. Pt seen and examined remaining lethargic and now wants hospice care. 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 He is aware of very poor prognosis without treatment. Will sign off, please reconsulte prn
[2017-04-12 08:02] LABS: Calcium 8.6 mg/dL (8.6-10.3); Potassium 5.6 mEq/L (3.5-5.1)
[2017-04-12] MEDS: Insulin LISPRO 300 UNITS/3 ML VIAL SQ SCH ×2 (08:35→12:14)
--- NOTE | 2017-04-12 08:35 | Cardiology Progress Note ---
Date of Encounter: 04/12/17 Time of Encounter: 08:35 Assessment and Plan (1) Goals of care, counseling/discussion Current Visit: Yes Status: Acute Patient's status continues to worsen despite efforts to improve condition and preserve kidneys. Patient refused dialysis and too weak for dialysis at this point per nephro. Patient today stated he would like to be allowed to . Plan: Reconsult palliative for likely transition to comfort care. (2) Acute on chronic systolic (congestive) heart failure Current Visit: Yes Status: Acute Pt with known hx of systolic CHF 2/2 ischemia. EF 20% this admission down form 25% prior. Patient has pacemaker. Patient is on home Lasix 40 daily, Losartan 50mg daily, ASA 81mg, Plavix 75mg, Amiodarone 200mg, and Atorvastatin 80 for his CHF, CAD, and a fib. Patient not on home BB. Patient started on Metoprolol Succinate 25 on 04/02 during this admission. Started on Spironolactone 12.5mg daily Losartan currently on hold for JIMBO. Patient has recurrent L sided Pleural effusions. Currently has a pleurex catheter in that needs draining every 48hrs. Primary team plans on placing a pleural drain. Switched metoprolol to Coreg Patient's Cr continuing to worsen. Likely 2/2 to poor renal perfusion 2/2 systolic CHF Started patient on dobutamine drip to increase renal perfusio Plan: suggest aggressive diuresis to make patient more comfortable, despite risk to kidneys. Pt's Cr continuing to worsen despite dobutamine drip. Patient's condition is continuing to decline. Reconsult palliative continue to drain patient's pleural drain. Continue Coreg Continue spirinolactone (3) Acute kidney injury superimposed on CKD Current Visit: Yes Status: Ruled-out Patient with JIMBO on CKD Cr 1.5 in October. 2.99 on admission Current Cr 3.38 Patient's ARB on hold secondary to CKD Renal U/S showed some cysts, but otherwise normal exam Patient's Cr worsened today. Likely 2/2 to poor renal perfusion 2/2 systolic CHF Started patient on dobutamine drip to increase renal perfusion. Plan: Per Nephrology patient too weak for Dialysis at this time and patient refusing dialysis as well. Reconsult palliative care as patient continuing to decline despite best efforts. suggest agressive diuresis despite the face this will worsen kidneys Nephrology on board appreciate recommendations continue management per primary team and nephrology (4) Elevated troponin Current Visit: Yes Status: Chronic Hx of Chronically elevated Trops 2/2 CKD Patient's troponins 0.05 0.05, 0.06 Flat, adynamic, stable likely 2/2 CKD EKG with no ischemic changes Plan: continue to monitor no further work up at this time (5) Afib Current Visit: Yes Status: Chronic Pt c Hx of A fib on home coumadin 1mg daily, Amiodarone 200mg Daily Currently coumadin on hold for concern for GI Bleed Rate controlled Plan: Continue home amiodarone restart coumadin when able Qualifiers: Atrial fibrillation type: chronic Qualified Code(s): I48.2 - Chronic atrial fibrillation (6) HTN (hypertension) Current Visit: Yes Status: Chronic Pt with Hx of HTN on home hydralazine 25mg BID, Losartan 50mg daily Plan: home meds on hold 2/2 JIMBO on CKD and hypotension Qualifiers: Hypertension type: essential hypertension Qualified Code(s): I10 - Essential (primary) hypertension (7) HLD (hyperlipidemia) Current Visit: Yes Status: Chronic Pt with Hx of HLD on home atorvastatin 80mg Lipid profile shows: Cholesterol 138, LDL 47, VLDL 20, HDL 71, triglycerides 99, Cholesterol HDL ratio 1.9 Plan: continue home statin. Qualifiers: Hyperlipidemia type: pure hypercholesterolemia Qualified Code(s): E78.00 - Pure hypercholesterolemia, unspecified; E78.0 - Pure hypercholesterolemia (8) GI bleed Current Visit: Yes Status: Acute Pt vomited blood and blots yesterday. GI on board. Pt received 1 unit PRBC yesterday Hgb stable today. Plan: GI on board appreciate Recs. Qualifiers: GI bleed type/associated pathology: unspecified gastrointestinal hemorrhage type Qualified Code(s): K92.2 - Gastrointestinal hemorrhage, unspecified Discussion w patient/family: The assessment and plan as outlined above was discussed with the patient and/or family members who expressed understanding and agreement. All questions were answered. Thank you for involving us in the care of your patient. Please call with any questions. Subjective Principal diagnosis: CHF Interval history: Patient's Cr continues to worsen despite dobutamine drip. Patient vomited brb with clots yesterday. GI on board. Received 1 unit PRBC yesterday. Patient developed a cough overnight. Patient's creatinine and status continue to worsen. Patient today expressed he would just like to . Objective Vital Signs, Last 4 Hours Temp Pulse Resp BP Pulse Ox 04/12/17 08:12 97.1 F L 97 20 107/95 90 General: Conversant HEENT: Atraumatic, Normocephaly, Mucus Membranes Moist Neck: No JVD Cardiac: No Murmur, Other (irregular rythym, regular rate) Lungs: Other (coarse breath sounds through out mostly upper airway noise, but also decreased soudns in the bases. ) Neuro: Alert and responsive Abdomen: Soft, Non-Tender Skin: No rashes noted on visualized skin Musculoskeletal: No Chest Wall Tenderness Extremities: No Clubbing, No Cyanosis, Normal Pulses, Other (Pitting Edema BLE) Results 04/12/17 06:42 04/12/17 06:42 Lab Results 04/11/17 04/11/17 04/11/17 09:24 09:24 10:31 WBC 9.7 Hgb 8.1 L Hct 26.1 L Plt Count 184 INR 1.3 Sodium 127 L Potassium 4.7 Chloride 93 L Carbon Dioxide 23 BUN 67 H Creatinine 4.79 H Glucose 133 H Calcium 8.7 04/11/17 04/12/17 04/12/17 16:57 06:42 06:42 WBC 10.1 Hgb 8.5 L 8.6 L Hct 26.8 L 26.6 L Plt Count 159 INR Sodium 128 L Potassium 5.6 H Chloride 95 L Carbon Dioxide 17 L BUN 73 H Creatinine 5.39 H Glucose 104 Calcium 8.6 - VTE Documentation of Mechanical Device: Intermittent pneumatic compression device Consult Discharge Plan - Plan Referrals: Kings Kaiser MD [Primary Care Provider] - 04/13/17 1:15 pm (Please follow up a sschedule....)
[2017-04-12] MEDS: Spironolactone 25 MG TABLET PO SCH (08:58)
[2017-04-12] MEDS: *HR* Amiodarone 200 MG TABLET PO SCH (08:58)
[2017-04-12] MEDS: *HR* HYDROcodone/Acet 5/325 mg TABLET PO PRN (08:58)
[2017-04-12] MEDS: Silvasorb 44.4 ML TUBE TP SCH (09:00)
[2017-04-12] MEDS: Ondansetron 4 MG/2 ML VIAL IVP PRN (10:15)
--- NOTE | 2017-04-12 11:39 | Discharge Summary ---
Date of Encounter: 04/13/17 Time of Encounter: 11:36 - Discharge Diagnosis (1) Acute on chronic systolic (congestive) heart failure Priority: Primary Status: Acute (2) Hematemesis with nausea Priority: Secondary Status: Acute (3) Coronary artery disease Priority: Secondary Status: Chronic Qualifiers: Coronary Disease-Associated Artery/Lesion type: [place] artery [place] vs. transplanted heart: [place] heart Associated angina: with unstable angina Qualified Code(s): I25.110 - Atherosclerotic heart disease of [place] coronary artery with unstable angina pectoris (4) HCAP (healthcare-associated pneumonia) Priority: Secondary Status: Acute (5) Afib Priority: Secondary Status: Chronic Qualifiers: Atrial fibrillation type: chronic Qualified Code(s): I48.2 - Chronic atrial fibrillation (6) Type 2 diabetes mellitus Priority: Secondary Status: Chronic Qualifiers: Diabetes mellitus complication status: with circulatory complication Diabetes mellitus complication detail: with other circulatory complications Diabetes mellitus intermediate frame tender insulin use: without mcc use Qualified Code( s): E11.59 - Type 2 diabetes mellitus with other circulatory complications (7) Acute kidney injury superimposed on CKD Priority: Secondary Status: Acute (8) Systolic heart failure secondary to coronary artery disease Priority: Secondary Status: Acute (9) Pleural effusion Priority: Secondary Status: Acute (10) HTN (hypertension) Priority: Secondary Status: Chronic Qualifiers: Hypertension type: essential hypertension Qualified Code(s): I10 - Essential (primary) hypertension (11) Recurrent pleural effusion on left Priority: Secondary Status: Chronic (12) CKD (chronic kidney disease) stage 4, GFR 15-29 ml/min Priority: Secondary Status: Chronic (13) GERD (gastroesophageal reflux disease) Priority: Secondary Status: Chronic Qualifiers: Esophagitis presence: esophagitis presence not specified Qualified Code(s) : K21.9 - Gastro-esophageal reflux disease without esophagitis (14) Swelling of left upper extremity Priority: Secondary Status: Acute (15) Iron deficiency anemia Priority: Secondary Status: Acute Qualifiers: Iron deficiency anemia type: chronic blood loss Qualified Code(s): D50.0 - Iron deficiency anemia secondary to blood loss (chronic) (16) Goals of care, counseling/discussion Priority: Secondary Status: Acute - Discharge Medications Allergies/Adverse Reactions: 3 Allergy/AdvReac Type Severity Reaction Status Date / Time aspirin AdvReac See Verified 11/24/16 00:05 Comments NSAIDS (Non-Steroidal AdvReac See Verified 11/24/16 00:05 Anti-Inflamma Comments Date of admission: 04/01/17 14:05 Primary care physician: Kings Kaiser MD Consults: 04/01/17 16:47 Consult to Wound Care [CONS] Routine Reason for Consult: Pt. has two stage 2 pressure ulcers to the coccyx (1 cm by 1.5 cm by 0.1 cm and 0.5 cm by 0.8 cm by 0.1 cm). Please recommend wound care regimine for daily wound care. Call Completed: No 04/04/17 11:11 Consult to Nephrology [CONS] Routine Consulting Provider: Kidney Celia/NICOLETTE/MELANIA/MIRA Reason for Consult: JIMBO on CKD, hypokalemia Time Notified: 11:11 Call Completed: Yes 04/04/17 20:28 Consult to Cardiology [CONS] Routine Comment: Consulting Provider: Cardiology Celia Reason for Consult: Worsening systolic CHF Call Completed: No 04/07/17 09:24 Consult to Palliative Care [CONS] Routine Comment: Consulting Provider: Palliative Care Reserve Reason for Consult: end stage chf, ckd Requests to discuss care Time Notified: 09:25 Call Completed: Yes 04/08/17 13:09 Consult to Invasive Line Access Team [CONS] Routine Reason for Consult: Dobutamine gtts Line Type: EPIV 04/11/17 10:29 Consult to Gastroenterology [CONS] Routine Consulting Provider: Gastroenterology Celia Reason for Consult: hematemesis Time Notified: 10:30 Call Completed: Yes Discharging clinician: David Lucas - Patient Status Disposition: Hospice - Medical Facility Condition: Fair Functional capacity at discharge: bed bound Overall status at discharge: patient is not back to baseline - Discharge Instructions Instructions: Heart Failure (DC) Follow Up With: Kings Kaiser MD [Primary Care Provider] - (SENT A WEB REQIEST TO CANCEL THE APPOINTMENT LISTED BELOW @ 1407. 04/13/17 @ 6820) - Diet and Activity Activity: other Diet: advance to your usual diet Hospital course: Mr. Langford is a 81 year old male with a past medical history of melanoma of the face, CAD, diabetes, HTN, previous myocardial infarction, sudden cardiac , and TIAs who is admitted to the hospital on 03/31/17 for acute on chronic congestive heart failure and JIMBO superimposed on CKD. Patient states that he came from home and ultimately wants to at home. He stated that he has built his house from scratch and it means alot to him to there. Patient confirms that he wants his of 62 years to be his POA and he made it clear that he is not interested in hospice. He initally was willing to undergo all treatment options from Cardiology and Nephrology. Patient did because of mrobidity seem like he was willing to get AICD when more stable. He was diuresed as renal function tolerated, however renal function worsened. He had EF 20% which decreased since July 2016 of 25-30%. He had pleural drain placed for symptom control after pleural effusions causing worsening SOB. Inotropic support was started with dobutamine though renal function was worsening. Patient needed transfer to because overall status was worsening. Patient developed anemia, having hematemesis. Coumadin was already held at that time, antiplatelet therapy had to be held. Patient had poor prognosis given multiple co morbdities. Patient opted for hospice care and did not want further aggressive treatment. He was transferred to hospice service. - Time Spent with Patient Total time spent providing and/or coordinating discharge services: - Constitutional Vitals: Temp Pulse Resp BP Pulse Ox 97.1 F L 94 14 107/83 96 04/12/17 08:12 04/12/17 10:21 04/12/17 08:36 04/12/17 10:21 04/12/17 10:21 Exam: Gen: moderate distress, confused, responds to questions inappropriately at times. Mild respiratory distress. CVS: RRR, no mrg Lungs: poor inspiratory effort, course breath sounds bilaterally, fine rales at bases Abd: soft, nt/nd, normal bowel sounds, non-rigid. Ext: Trace bipedal edema. - VTE Documentation of Mechanical Device: Intermittent pneumatic compression device
--- NOTE | 2017-04-12 12:19 | Palliative Progress Note ---
Date of Encounter: 04/12/17 Time of Encounter: 08:50 - Assessment and plan (1) JIMBO (acute kidney injury) Current Visit: No Status: Acute Assessment and plan: no further dialysis [facility] (2) CHF (congestive heart failure) Current Visit: No Status: Chronic Assessment and plan: pt wants to stop aggressive care, [facility] Qualifiers: Congestive heart failure type: systolic Congestive heart failure chronicity : chronic Qualified Code(s): I50.22 - Chronic systolic (congestive) heart failure (3) Coronary artery disease Current Visit: Yes Status: Chronic Assessment and plan: plan per hospitalist team, however at this time the family wishes to change control specialist to [facility] hospice. Qualifiers: Coronary Disease-Associated Artery/Lesion type: [place] artery [place] vs. transplanted heart: [place] heart Associated angina: with unstable angina Qualified Code(s): I25.110 - Atherosclerotic heart disease of [place] coronary artery with unstable angina pectoris (4) GI bleed Current Visit: Yes Status: Acute Assessment and plan: no scope currently planned. patient got blood yesterday. Qualifiers: (5) Goals of care, counseling/discussion Current Visit: Yes Status: Acute Assessment and plan: dNR CCA DNI. Discussion with patient's will transition to hospice toda - Time Spent With Patient Total time spent is greater than 50% in coordination of care (as documented) at patient's floor/unit and/or counseling patient: - Subjective Interval history: he patient denies pain, but states that he is very nauseated the patient cannot participate in a onversation - Constitutional Vitals: Abnormal lab results RBC 2.85 M/mcL (4.19-5.50) L 04/12/17 06:42 Hgb 8.6 g/dL (12.9-16.9) L 04/12/17 06:42 Hct 26.6 % (37.5-50.1) L 04/12/17 06:42 RDW 19.2 % (11.5-14.5) H 04/12/17 06:42 Neutrophils # 9.3 K/mcL (1.6-8.9) H 04/12/17 06:42 Lymphocytes # 0.4 K/mcL (0.6-4.6) L 04/12/17 06:42 Nucleated RBCs/100 WBC 2.6 /100 WBC (0) H 04/12/17 06:42 PT 14.6 Seconds (9.4-12.1) H 04/11/17 10:31 Sodium 128 mEq/L (136-145) L 04/12/17 06:42 Potassium 5.6 mEq/L (3.5-5.1) H 04/12/17 06:42 Chloride 95 mEq/L (98-107) L 04/12/17 06:42 Carbon Dioxide 17 mEq/L (23-29) L 04/12/17 06:42 BUN 73 mg/dL (8-23) H 04/12/17 06:42 Creatinine 5.39 mg/dL (0.70-1.30) H 04/12/17 06:42 Est GFR ( Amer) 12 (> 60) L 04/12/17 06:42 Est GFR (Non-Af Amer) 10 (> 60) L 04/12/17 06:42 POC Glucose 121 (58-89) H 04/12/17 05:42 Hemoglobin A1c 6.8 % (-5.6) H 04/02/17 00:08 Iron < 10 mcg/dL (65-175) L 04/04/17 06:11 Transferrin 176 mg/dL (203-362) L 04/04/17 06:11 Alkaline Phosphatase 121 Units/L (34-104) H 04/06/17 06:46 Troponin I 0.06 ng/mL (< 0.04) H* 04/02/17 00:08 B-Natriuretic Peptide > 5000 pg/mL (Less than 100) H 04/01/17 10:41 Serum Total Protein 5.6 g/dL (6.4-8.9) L 04/06/17 06:46 Albumin 3.2 g/dL (3.5-5.7) L 04/06/17 06:46 HDL Cholesterol 71 mg/dL (40-59) H 04/02/17 00:08 25-OH Vitamin D Total 13 ng/mL (30-80) L 04/06/17 09:38 Ur Leukocyte Esterase Small (Negative) H 04/05/17 18:50 Urine Microscopic WBC 5-15 per hpf (0-3) H 04/05/17 18:50 Ur Squamous Epith Cells Many per lpf (None-Few) H 04/05/17 18:50 Pleural Appearance Bloody (Clear) A 04/10/17 13:53 Stool Occult Blood Positive (Negative) A 04/09/17 05:30 General appearance: Present: mild distress (nausea) - Head Head exam: Present: atraumatic, normal inspection - Eye Eye exam: Present: normal appearance - ENT ENT exam: Present: mucous membranes moist - Respiratory Respiratory exam: Present: decreased breath sounds - Cardiovascular Cardiovascular exam: Present: irregular rhythm - GI/Abdominal GI/Abdominal exam: Present: normal bowel sounds, soft. Absent: tenderness - Extremities Exam Extremities exam: Absent: tenderness - Neurological Exam Neurological exam: Present: alert. Absent: oriented X3 - Psychiatric Psychiatric exam: Absent: agitated, anxious - Skin Skin exam: Present: dry, warm Palliative Quality Palliative Quality: Screen for Code Status: Yes, Screen for Goals of Care: Yes, Screen for Pain: Yes, If Pain Regimen Started, Initiate Bowel Regimen: NA, Screen for Nausea/Vomitting: Yes - Labs CBC & Chem 7: 04/12/17 06:42 04/12/17 06:42 Labs: Laboratory Results - last 24 hr 04/10/17 04/11/17 04/11/17 11:03 10:30 16:57 WBC RBC Hgb 8.5 L Hct 26.8 L MCV MCH MCHC RDW Plt Count MPV Immature Gran % Seg Neutrophils % Lymphocytes % Monocytes % Eosinophils % Basophils % Neutrophils # Lymphocytes # Monocytes # Eosinophils # Basophils # Nucleated RBCs/100 WBC Sodium Potassium Chloride Carbon Dioxide BUN Creatinine Est GFR ( Amer) Est GFR (Non-Af Amer) BUN/Creatinine Ratio Glucose POC Glucose 151 H Calculated Osmolality Calcium Crossmatch See Detail 04/11/17 04/11/17 04/11/17 17:28 19:27 23:47 WBC RBC Hgb Hct MCV MCH MCHC RDW Plt Count MPV Immature Gran % Seg Neutrophils % Lymphocytes % Monocytes % Eosinophils % Basophils % Neutrophils # Lymphocytes # Monocytes # Eosinophils # Basophils # Nucleated RBCs/100 WBC Sodium Potassium Chloride Carbon Dioxide BUN Creatinine Est GFR ( Amer) Est GFR (Non-Af Amer) BUN/Creatinine Ratio Glucose POC Glucose 147 H 127 H 95 H Calculated Osmolality Calcium Crossmatch 04/12/17 04/12/17 04/12/17 05:42 06:42 06:42 WBC 10.1 RBC 2.85 L Hgb 8.6 L Hct 26.6 L MCV 93.3 MCH 30.2 MCHC 32.3 RDW 19.2 H Plt Count 159 MPV 12.1 Immature Gran % 0.6 Seg Neutrophils % 92.1 Lymphocytes % 4.2 Monocytes % 3.0 Eosinophils % 0.0 Basophils % 0.1 Neutrophils # 9.3 H Lymphocytes # 0.4 L Monocytes # 0.3 Eosinophils # 0.0 Basophils # 0.0 Nucleated RBCs/100 WBC 2.6 H Sodium 128 L Potassium 5.6 H Chloride 95 L Carbon Dioxide 17 L BUN 73 H Creatinine 5.39 H Est GFR ( Amer) 12 L Est GFR (Non-Af Amer) 10 L BUN/Creatinine Ratio 14 Glucose 104 POC Glucose 121 H Calculated Osmolality 288 Calcium 8.6 Crossmatch - ABG Interpretation ABG results: PT/INR, D-dimer PT 14.6 Seconds (9.4-12.1) H 04/11/17 10:31 Consult Discharge Plan - Plan Referrals: Kings Kaiser MD [Primary Care Provider] - 04/13/17 1:15 pm (Please follow up a sschedule....)
[2017-04-12 19:35] VITALS: BP 120/75
== END 2017-04-12 15:33 | disposition hospice, inpatient (51) | DRG 291 ==
LOC: EMEROO 10:20 → SUATTDRO 14:05 → 2ANU 14:05 → ICNU 04-11 11:11 → 2NNU 04-11 17:17
PROVIDERS: ADMIT Hospitalist; ATTEND Internal Medicine

== ENCOUNTER 2017-04-12 10:58 | Inpatient (IN) ==
[2017-04-12] MEDS ORDERED: *HR* LORazepam 2 MG/ML VIAL IVP PRN (11:56)
[2017-04-12] MEDS ORDERED: Ondansetron 4 MG/2 ML VIAL IVP PRN (11:56)
[2017-04-12] MEDS ORDERED: Albuterol 2.5 MG/3 ML NEBULIZER IH PRN (11:56)
[2017-04-12] MEDS ORDERED: *HR* LORazepam Oral Conc 2 MG/ML PO PRN (11:56)
[2017-04-12] MEDS ORDERED: Bisacodyl 10 MG RECTAL SUPPOSITORY RC PRN (11:56)
--- NOTE | 2017-04-12 12:12 | Event Note ---
Date of Encounter: 04/12/17 Time of Encounter: 12:12 Hospice medical collections certification of terminal illness: Hospice benefit. Start:04/12/2017 Hospice benefit. In: +90 days Palliative performance scale:30% History: patient with evere coronary artery disease, ejection fraction has dropped [id number]% down to 20 or less he patient is noticing he More difficulty with shortness of breath Now as an inpatienthe is having trouble at rest he patient also has end-stage renal disease now with a creatinine clearance of 12 , this has been declining, no plans for dialysis. patient wishes comfort measures only, therefore I believe that These findings support a life expectancy of 6 months or less. I attest that I have compose the above narrative based on my review of the patient's medical records, and or on my examination of the patient. Ashutosh Durand M.D. Associate medical research scientist. [facility]
--- NOTE | 2017-04-12 12:15 | Pallative History & Physical ---
Date of Encounter: 04/12/17 Time of Encounter: 10:35 Assessment and Plan (1) Acute exacerbation of CHF (congestive heart failure) Status: Acute Patient is end-stage for heart disease at this point in time will withdraw all drips dobutamine will be stopped patient kept comfortable however standard cardiac meds will continue. Qualifiers: Congestive heart failure type: unspecified Qualified Code(s): I50.9 - Heart failure, unspecified (2) GI bleed Status: Acute no more lab draws will watch no further transfusions Qualifiers: GI bleed type/associated pathology: unspecified gastrointestinal hemorrhage type Qualified Code(s): K92.2 - Gastrointestinal hemorrhage, unspecified (3) Goals of care, counseling/discussion Status: Acute dnr cc pt [facility]ice dx is end stge heart disease with ef <20% and end stage kidney disease cr cl 12 today and cont downward no further agresssive caare (4) CKD (chronic kidney disease) stage 4, GFR 15-29 ml/min Status: Chronic no dialyisis per pt and family Internal Medicine - H&P: HPI Admitted From: Intrahospital Transfer Plans for Post Hospital Care: Hospice - Home History of present illness: Mr. Langford is a 81 year old male patient with history of end-stage cardiac disease earlier in the year ejection fractionwas at35% now down to 20 or less percent The patient was not able to get an AICD,and since then he has beenfound to have healthcare acquired pneumon as well as renal failure. Patient's renal failure has progressed to requiring dialysis which He does not want. Patient has expressed to several of thedifferent treating teams that he did no And on discussion with patient's family t they have now opted for general the patient is complaining of nausea. Buto pain at this time Patient is not oriented at his time Past Med Surg Social Fam HX - Past Medical History Medical history: cancer, CHF, coronary artery disease, diabetes, GERD, hyperlipidemia, hypertension, myocardial infarction, sudden cardiac , TIA Psychiatric history: depression - Past Surgical History Surgical History: angioplasty/stent, herniorrhaphy, pacemaker - Social History Smoking Status: Never smoker Smokeless Tobacco Status: No Alcohol use: none Drug use: none - Family History Brother Family Member Ethnicity: Non- Living Status: Hx Family Cardiac Disorders: Yes (HD, Open heart surgery) Hx Family Endocrine Disorder: Yes (DM) Sister Family Member Ethnicity: Non- Living Status: Hx Family Cardiac Disorders: Yes (HD, CAD) Hx Family Endocrine Disorder: Yes (DM) Mother Family Member Ethnicity: Non- Living Status: Hx Family Cardiac Disorders: Yes (HD, HTN) Hx Family Endocrine Disorder: Yes (DM) Father Family Member Ethnicity: Non- Living Status: Hx Family Cardiac Disorders: Yes ([place], HD, HTN) Hx Family Respiratory Disorders: Yes (Pneumonia) Hx Family Endocrine Disorder: Yes (DM) Internal Medicine - H&P: Meds Allopurinol [Zyloprim 100 MG] 100 mg PO BID 07/06/16 [History] Clopidogrel [Plavix] 75 mg PO DAILY 07/06/16 [History] Amiodarone [Cordarone] 200 mg PO DAILY #30 tablet 07/10/16 [Rx] Aspirin 81 mg PO DAILY #30 tab.chew 07/10/16 [Rx] Atorvastatin [Lipitor] 80 mg PO HS #30 tablet 07/10/16 [Rx] Furosemide [Lasix] 40 mg PO DAILY 09/22/16 [History] Losartan Potassium [Cozaar] 50 mg PO DAILY 09/22/16 [History] Omeprazole [PriLOSEC] 40 mg PO DAILY 09/22/16 [History] hydrALAZINE [HydrALAZINE] 25 mg PO BID 09/22/16 [History] metFORMIN [Glucophage] 500 mg PO DAILY 10/18/16 [History] Potassium Chloride 10 meq PO DAILY 11/08/16 [History] Warfarin [Coumadin] 1 mg PO DAILY 11/08/16 [History] 3 Allergy/AdvReac Type Severity Reaction Status Date / Time aspirin AdvReac See Verified 11/24/16 00:05 Comments NSAIDS (Non-Steroidal AdvReac See Verified 11/24/16 00:05 Anti-Inflamma Comments ROS unobtainable: due to mental status Palliative Care-Exam - Constitutional General appearance: Present: mild distress (due to nausea) - Head Head Exam: Present: atraumatic, normal inspection - Eye Eye exam: Present: normal appearance - ENT ENT exam: Present: mucous membranes moist - Respiratory Respiratory exam: Present: decreased breath sounds, rhonchi - Cardiovascular Cardiovascular exam: Present: irregular rhythm - GI/Abdominal Exam GI/Abdominal exam: Present: normal bowel sounds, soft. Absent: tenderness - Catheter Type: Urethral ([place]) - Extremities Exam Extremities exam: Absent: tenderness - Neurological Exam Neurological exam: Present: alert, altered. Absent: oriented X3 - Psychiatric Psychiatric exam: Absent: agitated, anxious - Skin Skin exam: Present: dry, warm Palliative Quality Palliative Quality: Screen for Code Status: Yes, Screen for Goals of Care: Yes, Screen for Pain: Yes, If Pain Regimen Started, Initiate Bowel Regimen: Yes, Screen for Nausea/Vomitting: Yes Code Status: 04/12/17 11:56 Resuscitation Status: Active [RES] Stat Resuscitation Status: DNR-Comfort Care Comment:
[2017-04-12] MEDS ORDERED: *HR* Morphine 2 MG/ML SYRINGE ONE (15:53)
[2017-04-12] MEDS: Atropine Sulfate 1% 40 DROP/2 ML BOTTLE SL PRN (16:53)
[2017-04-12] MEDS: MORPHINE SUL Oral CONC 10 MG/0.5 ML ORAL.SYG PO PRN ×3 (16:55→19:58)
[2017-04-12] MEDS: Haloperidol Lactate 5 MG/ML VIAL IVP PRN (16:56)
[2017-04-12] MEDS: Sennosides/Docusate Sodium TABLET PO SCH (19:16)
[2017-04-12] MEDS: Haloperidol Oral Conc 10 MG/5 ML UDC PO PRN (19:56)
[2017-04-12] MEDS: Preparation H Ointment 30 GM TUBE RC SCH (19:59)
[2017-04-13] MEDS: Haloperidol Oral Conc 10 MG/5 ML UDC PO PRN ×3 (00:30→13:13)
[2017-04-13] MEDS: MORPHINE SUL Oral CONC 10 MG/0.5 ML ORAL.SYG PO PRN ×3 (00:34→03:38)
[2017-04-13] MEDS: Haloperidol Lactate 5 MG/ML VIAL IVP PRN ×5 (01:09→22:23)
[2017-04-13] MEDS: *HR* Morphine 2 MG/ML SYRINGE IVP PRN ×2 (01:10→04:04)
[2017-04-13] MEDS ORDERED: Haloperidol Lactate 5 MG/ML VIAL IVP PRN (06:58)
[2017-04-13] MEDS ORDERED: Haloperidol Oral Conc 10 MG/5 ML UDC PO PRN (06:59)
[2017-04-13] MEDS ORDERED: MORPHINE SUL Oral CONC 10 MG/0.5 ML ORAL.SYG PO PRN (06:59)
[2017-04-13] MEDS ORDERED: *HR* Morphine 2 MG/ML SYRINGE IVP PRN (06:59)
--- NOTE | 2017-04-13 07:04 | Palliative Progress Note ---
Date of Encounter: 04/13/17 Time of Encounter: 06:55 - Assessment and plan (1) Acute exacerbation of CHF (congestive heart failure) Current Visit: No Status: Acute Assessment and plan: Patient is end-stage for heart disease at this point in time will increase morphine to 10 mg by mouth every hour cannot use IV morphine at this time due to the nationwide shortage and the fact the patient can tolerate the oral morphine. Also add in a fentanyl patch Qualifiers: Congestive heart failure type: unspecified Qualified Code(s): I50.9 - Heart failure, unspecified (2) GI bleed Current Visit: No Status: Acute Assessment and plan: no more lab draws will watch no further transfusions No changes today. Qualifiers: GI bleed type/associated pathology: unspecified gastrointestinal hemorrhage type Qualified Code(s): K92.2 - Gastrointestinal hemorrhage, unspecified (3) Goals of care, counseling/discussion Current Visit: No Status: Acute Assessment and plan: dnr cc pt [facility]ice dx is end stge heart disease with ef <20% and end stage kidney disease cr cl 12 today and cont downward no further agresssive caare For symptom control have increased the medications and added in a fentanyl patch. We will need to observe for couple days to make sure the patches adequate I rather suspect I will have to go up on it. (4) CKD (chronic kidney disease) stage 4, GFR 15-29 ml/min Current Visit: No Status: Chronic Assessment and plan: no dialyisis per pt and family We will adjust up fentanyl patch. Using morphine although may need to switch over to oxycodone due to the patient's renal failure. - Time Spent With Patient Total time spent is greater than 50% in coordination of care (as documented) at patient's floor/unit and/or counseling patient: - Subjective Interval history: per ns and family pt has had a rough night required multiple doses of his morphine. While these have worked they do seem to be slightly inadequate, she responded very well to Haldol. The family dates that Ativan generally does not work well for him and causes hallucinations. - Constitutional General appearance: Present: mild distress (Patient is moaning and calling out) - Head Head exam: Present: atraumatic, normal inspection - Eye Eye exam: Present: normal appearance - Respiratory Respiratory exam: Present: decreased breath sounds - Cardiovascular Cardiovascular exam: Present: irregular rhythm - GI/Abdominal GI/Abdominal exam: Present: normal bowel sounds, soft. Absent: tenderness - Extremities Exam Extremities exam: Present: pedal edema. Absent: tenderness - Neurological Exam Neurological exam: Present: altered. Absent: alert - Psychiatric Psychiatric exam: Present: agitated. Absent: anxious - Skin Skin exam: Present: dry, warm Palliative Quality Palliative Quality: Screen for Code Status: Yes, Screen for Goals of Care: Yes, Screen for Pain: Yes, If Pain Regimen Started, Initiate Bowel Regimen: Yes, Screen for Nausea/Vomitting: Yes Code Status: 04/12/17 11:56 Resuscitation Status: Active [RES] Stat Comment: Resuscitation Status: DNR-Comfort Care
[2017-04-13] MEDS ORDERED: *HR* FentaNYL PATCH 12 MCG PATCH TD SCH (07:15)
[2017-04-13] MEDS ORDERED: Silvasorb 44.4 ML TUBE TP SCH (09:00)
[2017-04-13] MEDS ORDERED: Spironolactone 25 MG TABLET PO SCH (09:00)
[2017-04-13] MEDS ORDERED: *HR* Amiodarone 200 MG TABLET PO SCH (09:00)
[2017-04-13] MEDS: Sennosides/Docusate Sodium TABLET PO SCH ×2 (09:27→20:00)
[2017-04-13] MEDS: MORPHINE SUL Oral CONC 10 MG/0.5 ML ORAL.SYG SL PRN ×2 (09:31→13:14)
[2017-04-13] MEDS: Preparation H Ointment 30 GM TUBE RC SCH ×2 (09:43→20:06)
[2017-04-13] MEDS: Atropine Sulfate 1% 40 DROP/2 ML BOTTLE SL PRN ×2 (13:14→20:06)
[2017-04-13] MEDS ORDERED: OXYCODONE Oral CONC 10 MG/0.5 ML ORAL.SYG SL PRN (14:41)
[2017-04-13] MEDS ORDERED: Scopolamine Patch 1.5 MG PATCH.TD72 TD SCH (14:45)
--- NOTE | 2017-04-13 14:48 | Event Note ---
Date of Encounter: 04/13/17 Time of Encounter: 14:43 pt having periods of restlessness. These episodes have been clearly upsetting to family (especially his ) I have d/w her meds to keep him comfortable and she desires he be kept on the more sedated (less likely to be able to communicate but more likely to be comfortable). Also discussed that he is in all likelyhood down to hours to days of life expectancy Have changed morphine to oxcodone d/t renal failure and added scopalmine patch for secreations Haldol appears to be working well
[2017-04-13 23:14] VITALS: BP 43/38
[2017-04-14] MEDS: Haloperidol Lactate 5 MG/ML VIAL IVP PRN (02:41)
--- NOTE | 2017-04-14 07:05 | Death Note ---
Discharge Sum: Summary - Date and Time Date of admission: 04/12/17 15:43 Date of : 04/14/17 Time of : 02:50 - Summary Details: The patient was brought on to general inpatient hospice service for management and end-of-life. He did require several adjustments of medications but passed quietly and comfortably with family at bedside at 02 50 this morning. Cause of 3 failure secondary to coronary artery disease respiratory failure for days coronary artery disease for years, attributing his renal failure for years Comorbidities diabetes, noted CAD, renal failure, TIAs, Patient was never smoker - Additional Data Confirmation of as documented by pronouncing clinician: no pulse, no respirations, no heart sounds Family: at bedside Attending/PCP notified?: Yes Attending physician: Ashutosh Durand MD Was code activated?: No Autopsy requested?: No forest examiner notified?: No Organ bank notified?: Yes Advance directives: Yes Hospice patient?: Yes Discharge Sum: Diag - PCOD Probable Cause of : Respiratory arrest Discharge Sum: Prov - Provider Primary care physician: PCP NONE Consults: 04/12/17 11:56 Consult to Palliative Care [CONS] Routine Comment: Consulting Provider: Palliative Care Celia Reason for Consult: covrerage Time Notified: 12:05 Call Completed: Yes
== END 2017-04-14 02:50 | disposition expired | DRG 302 ==
LOC: 2ANU 15:43
PROVIDERS: ADMIT Family Medicine Hospice and Palliative Medicine; ATTEND Family Medicine Hospice and Palliative Medicine